=== PATIENT | male | born 1955 | race Caucasian/White ===

== ENCOUNTER 2018-05-01 14:03 | Emergency (ER) | payer OTHER, SELFPAY ==
--- OUTSIDE RECORDS SUMMARY | 2018-05-01 14:07 | XMS REPORT | Continuity of Care Document ---
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 [facility] OF THE LEFT RING Medical [facility] DEGLOVING INJURY Active 02/27/20 [facility] OF FINGER [address] [place] [address] Center UNSTABLE ANGINA Active 02/11/[address] CAD (<span Resolved Problem 03/03/2017 [facility] ID="[id number]"> Medical Confirmed</span>) [place] Back pain Active Problem 03/03/2017 [facility] Coronary artery Active Problem 03/03/2017 [facility] Unstable angina Active Problem 03/03/2017 [facility] Back pain Active Problem 02/13/2013 [facility] Coronary artery Active Problem 02/13/2013 [facility] Unstable angina Active Problem 02/13/2013 [facility] 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 [facility] Coronary Active Diagnosis 04/01/2018 [facility] angioplasty status Cardiac Clinic CAD of [place] Active Problem 04/01/2018 [facility] Artery W Angina Cardiac Clinic Benign essential Active Diagnosis 04/01/2018 [facility] HTN [facility]iac [facility] Hyperlipidemia Active Problem 04/01/2018 [facility] CAD of [place] Active Problem 04/01/2018 [facility] Artery w/o Angina Cardiac Clinic Coronary stent or Active Diagnosis 06/24/2016 [facility] PTCA, status post Cardiac Clinic Coronary Active Problem 12/02/2014 [facility] atherosclerosis of Cardiac hopi vessel Clinic Hyperlipidemia NOS Active Problem 12/02/2014 [facility] Angina Pectoris Active Problem 12/02/2014 [facility] Hypertension Active Problem 12/02/2014 [facility] Preop Active Diagnosis 04/01/2018 [facility] cardiovascular Cardiac exam Clinic Hypertensive Active Diagnosis 06/24/2016 [facility] crisis, Cardiac unspecified Clinic Hyperlipidemia, Active Diagnosis 06/24/2016 [facility] unspecified [facility]iac [facility] Other Active Diagnosis 06/24/2016 [facility] hyperlipidemia Cardiac Clinic Atherosclerotic Active Diagnosis 06/24/2016 [facility] heart disease of Cardiac hopi coronary Clinic artery without angina pectoris UNSP OPEN WOUND OF Active [facility] FINGER W/O Medical [facility] Center Medications Medication Details Route Status Patient Ordering Order Source Instructions Provider Date Clindamycin 300 mg, 2 cap, Inactive [place] Route: PO, 2017 Medical Drug form: Center CAP, ABXQ6H, Dosing Weight 86.477, kg, Start date: 02/28/17 13:00:00 CDT, Duration: 7 day, Stop date: 03/07/17 7:00:00 CDT, ABX Indication: Bone/Joint InfectionNotes : (Same As: Cleocin) Acetaminophen 2 tab, PO, Active [place] 325 MG / Q6H, PRN Pain 2017 Medical Hydrocodone Score 7-10, 0 Center Bitartrate 10 Refill(s) MG Oral Tablet [[place] 10/325] clindamycin 300 mg, PO, Active [place] 300 mg oral ABXQ6H, 0 2017 Medical capsule Refill(s) Center Acetaminophen 2 tab, Route: Inactive [facility] 325 MG / PO, Drug Form: 2016 Medical Hydrocodone TAB, Dosing Center Bitartrate 10 Weight 86.477, MG Oral Tablet kg, Q6H, PRN [[place] 10/325] Pain Score 7-10, Start date: 02/28/17 12:33:00 CDT, Duration: 30 day, Stop date: 03/30/17 12:32:00 CDTNotes: Do not exceed 4gm/day of acetaminophen. (Same as: [place] 325/10) Docusate 50 mg=1 cap, Active [place] Sodium 50 MG PO, BID, PRN 2017 Medical Oral Capsule Constipation, Center # 60 cap, 0 Refill(s) clindamycin 300 mg=1 cap, Active [place] 300 mg oral PO, Q6H, # 28 2017 Medical capsule cap, 0 Center Refill(s) Lamictal 150 mg, Route: No Longer [place] PO, Drug form: Active 2017 Medical TAB, Daily, Center Dosing Weight 86.477, kg, Start date: 02/28/17 9:00:00 CDT, Duration: 30 day, Stop date: 03/29/17 9:00:00 CDT Lorazepam 1 mg, 1 tab, No Longer [facility] Route: PO, Active 2016 Medical Drug form: Center TAB, Daily, Dosing Weight 86.477, kg, PRN Anxiety, Start date: 02/27/17 20:25:00 CDT, Duration: 30 day, Stop date: 03/29/17 20:24:00 CDTNotes: (Same as: Ativan) atorvastatin 20 mg=1 tab, Active [place] 20 MG Oral PO, Daily, 0 2016 Medical Tablet Refill(s) Center [Lipitor] Lorazepam 1 MG 1 mg=1 tab, Active [place] Oral Tablet PO, Daily, PRN 2017 Medical [Ativan] Anxiety, # 60 Center tab, 0 Refill(s) LaMICtal 50 mg, 2 tab, No Longer [place] Route: PO, Active 2016 Medical Drug form: Center TAB, Daily, Start date: 02/27/17 14:00:00 CDT, Duration: 30 day, Stop date: 03/29/17 9:00:00 CDTNotes: (Same as:LaMICtal) Acetaminophen 1 tab, Route: No Longer [place] 300 MG / PO, Drug Form: Active 2016 Medical Codeine TAB, Dosing Center Phosphate 30 Weight 86.477, MG Oral Tablet kg, Q4H, PRN [Tylenol with Pain Score Codeine #3] 1-3, Start date: 02/27/17 9:02:00 CDT, Duration: 30 day, Stop date: 03/29/17 9:01:00 CDTNotes: Do not exceed 4gm/day of acetaminophen. (Same as: Tylenol with Codeine # 3) Acetaminophen 2 tab, Route: No Longer [place] 300 MG / PO, Drug Form: Active 2016 Medical Codeine TAB, Dosing Center Phosphate 30 Weight 86.477, MG Oral Tablet kg, Q4H, PRN [Tylenol with Pain Score Codeine #3] 4-6, Start date: 02/27/17 9:01:00 CDT, Duration: 30 day, Stop date: 03/29/17 9:00:00 CDTNotes: Do not exceed 4gm/day of acetaminophen. (Same as: Tylenol with Codeine # 3) Benadryl 25 mg, 1 cap, No Longer [place] Route: PO, Active 2016 Medical Drug form: Center CAP, TID, Dosing Weight 86.477, kg, PRN Itching, Start date: 02/27/17 9:01:00 CDT, Duration: 30 day, Stop date: 03/29/17 9:00:00 CDTNotes: (Same as: Benadryl) Docusate 100 mg, 1 cap, No Longer [place] Route: PO, Active 2016 Medical Drug form: [place] CAP, BID, Dosing Weight 84.091, kg, Start date: 02/27/17 9:00:00 CDT, Duration: 30 day, Stop date: 03/28/17 17:00:00 CDTNotes: (Same as: Colace) (Do Not Crush) Plavix 75 mg, 1 tab, No Longer [place] Route: PO, Active 2016 Medical Drug form: [place] TAB, Daily, Dosing Weight 84.091, kg, Start date: 02/27/17 9:00:00 CDT, Duration: 30 day, Stop date: 03/28/17 9:00:00 CDTNotes: (Same As: Plavix) Ancef + sodium 2 gm, Route: No Longer [place] chloride 0.9% IVPB, Q8H, Active 2016 Medical INJ 100 mL Dosing Weight [place] 84.091, kg, Start date: 02/27/17 9:00:00 CDT, Duration: 1 day, Stop date: 02/28/17 1:00:00 CDT, ABX Indication: Surgical ProphylaxisNot es: (Same As: Ancef, Kefzol) Cefazolin FOR IV SET ONLY MEDICATION WASTE Product Size: 1000 mg Product Wasted: ___ mg Lipitor 40 mg, 1 tab, No Longer [place] Route: PO, Active 2016 Medical Drug form: [place] TAB, Daily, Dosing Weight 84.091, kg, Start date: 02/27/17 9:00:00 CDT, Duration: 30 day, Stop date: 03/28/17 9:00:00 CDTNotes: (Same as: Lipitor) Aspirin 81 MG 81 mg, 1 tab, No Longer [place] Chewable Route: PO, Active 2016 Medical Tablet Drug form: [place] CHEWTAB, Daily, Dosing Weight 84.091, kg, Start date: 02/27/17 9:00:00 CDT, Duration: 30 day, Stop date: 03/28/17 9:00:00 CDTNotes: Take with food. lamotrigine 150 mg=1 tab, Active [facility] 150 MG Oral PO, Daily, # 2017 Medical Tablet 30 tab, 1 Center [Lamictal] Refill(s) Ativan Bedtime, 0 Inactive [facility] Refill(s) 2017 [facility] ePHEDrine Route: IV, Inactive [facility] (ANES) Drug form: 2017 Medical INJ, ONCE, Center Stop date: 02/27/17 1:57:00 CDT sugammadex Route: IV, Inactive [facility] (ANES) Drug form: 2017 Medical SOLN, ONCE, Center Stop date: 02/27/17 1:57:00 CDT ceFAZolin Route: IV, Inactive [facility] (ANES) Drug form: 2017 Medical INJ, ONCE, Center Stop date: 02/27/17 1:57:00 CDT acetaminophen Route: IV, Inactive [facility] (ANES) Drug form: 2017 Medical INJ, ONCE, Center Stop date: 02/27/17 1:57:00 CDT ondansetron Route: IV, Inactive [facility] (ANES) Drug form: 2017 Medical INJ, ONCE, Center Stop date: 02/27/17 1:57:00 CDT fentaNYL Route: IV, Inactive [facility] (ANES) Drug form: 2017 Medical INJ, ONCE, Center Stop date: 02/27/17 1:50:00 CDT propofol Route: IV, Inactive [facility] (ANES) Drug form: 2017 Medical INJ, ONCE, Center Stop date: 02/27/17 1:50:00 CDT rocuronium Route: IV, Inactive [facility] (ANES) Drug form: 2017 Medical INJ, ONCE, Center Stop date: 02/27/17 1:50:00 CDT midazolam Route: IV, Inactive [facility] (ANES) Drug form: 2017 Medical SOLN, ONCE, Center Stop date: 02/27/17 1:50:00 CDT lidocaine Route: IV, Inactive [facility] (ANES) Drug form: 2017 Medical INJ, ONCE, Center Stop date: 02/27/17 1:50:00 CDT Flumazenil 0.2 mg, Route: Inactive [facility] IVP, PRN, 2017 Medical Dosing Weight Center 84.091, kg, PRN Benzodiazepine Reversal, Initial dose, Start date: 02/27/17 1:33:00 CDT, Duration: 30 day, Stop date: 03/29/17 1:32:00 CDT Naloxone 0.4 mg, Route: Inactive [facility] IVP, Q2MIN, 2017 Medical Dosing Weight Center 84.091, kg, PRN Narcotic Reversal, Start date: 02/27/17 1:33:00 CDT, Duration: 8 doses or times, Stop date: Limited # of times Ondansetron 4 mg, Route: Inactive [facility] IVP, ONCE, 2017 Medical Dosing Weight Center 84.091, kg, PRN Nausea & Vomiting, Start date: 02/27/17 1:33:00 CDT Oxycodone 10 mg, Route: Inactive [facility] PO, Drug form: 2017 Medical TAB, Q4H, Center Dosing Weight 84.091, kg, PRN Pain Score 7-10, Start date: 02/27/17 1:33:00 CDT, Duration: 30 day, Stop date: 03/29/17 1:32:00 CDT Hydromorphone 0.5 mg, Route: Inactive [facility] IVP, Q5Min, 2017 Medical Dosing Weight Center 84.091, kg, PRN Pain Score 7-10, Start date: 02/27/17 1:33:00 CDT, Duration: 4 doses or times, Stop date: Limited # of times LR 1000 mL INJ Route: IV, Inactive [facility] (ANES) Total Volume: 2017 Medical 1,000, Start Center date: 02/27/17 1:06:00 CDT, Stop date: 02/27/17 2:06:00 CDT Acetaminophen 2 tab, Route: Inactive [place] 325 MG / PO, Drug Form: 2017 Medical Hydrocodone TAB, Dosing Center Bitartrate 5 Weight 84.091, MG Oral Tablet kg, Q4H, PRN Pain Score 7-10, Start date: 02/27/17 0:20:00 CDT, Duration: 30 day, Stop date: 03/29/17 0:19:00 CDTNotes: (Same as: [place] 325/5) Do not exceed 4gm/day of acetaminophen. Ondansetron 4 mg, 2 mL, No Longer [place] Route: IVP, Active 2016 Medical Drug form: Center INJ, Q6H, Dosing Weight 84.091, kg, PRN Nausea & Vomiting, Start date: 02/27/17 0:20:00 CDT, Duration: 30 day, Stop date: 03/29/17 0:19:00 CDTNotes: (Same as: [place]) MEDICATION WASTE Product Size: 4 mg Product Wasted: ___ mg Alprazolam 2 2 mg, 4 tab, No Longer [place] MG Oral Tablet Route: PO, Active 2016 Medical [Xanax] Drug form: Center TAB, TID, Dosing Weight 84.091, kg, PRN Anxiety, Start date: 02/27/17 0:16:00 CDT, Duration: 30 day, Stop date: 03/29/17 0:15:00 CDTNotes: With food or milk (Same as: Xanax) Lidocaine 100 mg, 10 mL, Inactive [place] Hydrochloride Route: 2017 Medical 10 MG/ML INTRADERM, [place] Injectable Drug Form: Solution INJ, Dosing Weight 84.091, kg, ONCE, Start date: 02/26/17 22:22:00 CDT, Stop date: 02/26/17 22:22:00 CDTNotes: (Same as: Xylocaine) Lipitor 1 tab(s) orally Active 20 orally [facility] once a day 2016 Cardiac (at bedtime) Clinic Lipitor 1 tab(s) orally Active 20 orally [facility] Weinstein once a day 2015 Cardiac (at bedtime) Clinic Plavix 1 tab(s) orally Active 75 orally [facility] Britt once a day 2015 Cardiac Clinic Celebrex 1 cap(s) orally No Longer 200 mg orally [facility] Weinstein Active once a day 2013 Cardiac Clinic Zetia 10 mg 10 mg, 1 tab, PO Active [facility] oral tablet PO, Daily, 90 2012 [facility], City Substitution Allowed, TAB nitroglycerin 0.4 mg, 1 tab, SL Active [facility] 0.4 mg SL, Q5Min, 2012 [facility] sublingual PRN, 25 tab, [facility] tablet Chest Pain, Substitution Allowed, TAB metoprolol 50 50 mg, 1 tab, PO Active [facility] mg oral PO, Daily, 90 2012 [facility] tablet, tab, [facility] extended Substitution release Allowed, ERTAB Saline Flush 5 ml, Route: IVP No Longer [facility] 0.9% IVP, Drug Active 2012 [facility] Form: INJ, [facility] Dosing Weight 108.636, kg, Q12H, Start date: 02/10/13 21:00:00, Duration: 30 day, Stop date: 03/12/13 9:00:00 aspirin 81 mg 81 mg, 1 tab, PO Active tablet, PO, Daily, 2012 [facility] chewable [facility] Substitution Allowed, CHEWTAB Plavix 75 mg 75 mg, 1 tab, PO Active oral tablet PO, Daily, 30 2012 [facility] Substitution Allowed, TAB LORAzepam 2 mg 2 mg, 1 tab, PO No Longer oral tablet PO, TID, PRN, Active 2012 [facility] 20 tab, [facility] Anxiety, Substitution Allowed Lipitor 40 mg, 1 tab, PO No Longer [facility] Route: PO, Active 2012 [facility] Drug form: [facility] TAB, QPM, Dosing Weight 107.273, kg, Start date: 02/10/13 17:00:00, Duration: 30 day, Stop date: 03/11/13 17:00:00 BD Normal 3 mL, Route: IV No Longer [facility] Saline Flush IV, Drug Form: Active [address] [place] [address] INJ, Q8H, [facility] Start date: 02/10/13 16:00:00, Duration: 30 day, Stop date: 03/12/13 8:00:00 Ativan 0.5 mg, 1 tab, PO No Longer [facility] Route: PO, Active 2012 [facility] Drug form: [facility] TAB, TID, Dosing Weight 107.273, kg, PRN Anxiety, Start date: 02/10/13 15:35:00, Duration: 30 day, Stop date: 03/12/13 15:34:00 morphine 2 mg, 1 mL, IVP No Longer [place] Sulfate Route: IVP, Active 2012 [facility] Drug form: City INJ, ONCE, Dosing Weight 107.273, kg, Start date: 02/10/13 15:31:00, Stop date: 02/10/13 15:31:00 morphine 2 mg, 1 mL, IV No Longer [place] Sulfate Route: IV, Active 2012 [facility] Drug form: City INJ, Q15Min, PRN Chest Pain, Start date: 02/10/13 14:00:00, Duration: 2 doses or times, Stop date: Limited # of times Restoril 15 mg, 1 cap, PO No Longer [place] Route: PO, Active 2012 [facility] Drug form: [place] CAP, Bedtime, PRN Sleep, Start date: 02/10/13 14:00:00, Duration: 30 day, Stop date: 03/12/13 13:59:00 nitroglycerin 0.4 mg, 1 tab, SL No Longer [place] 0.4 mg Route: SL, Active 2012 [facility] sublingual Drug form: [facility] tablet TAB, Q5Min, PRN Chest Pain, Start date: 02/10/13 14:00:00, Duration: 30 day, Stop date: 03/12/13 13:59:00 metoprolol 50 mg, 1 tab, PO No Longer [place] Route: PO, Active 2012 [facility] Drug form: [place] ERTAB, Daily, Start date: 02/10/13 13:58:00, Duration: 30 day, Stop date: 03/12/13 9:00:00 Plavix 75 mg, 1 tab, PO No Longer [place] Route: PO, Active 2012 [facility] Drug form: [place] TAB, Daily, Start date: 02/10/13 13:57:00, Duration: 30 day, Stop date: 03/12/13 9:00:00 aspirin 325 mg 325 mg, 1 tab, PO No Longer [place] tablet Route: PO, Active 2012 [facility] Drug form: [place] TAB, ONCE, Start date: 02/10/13 13:57:00, Stop date: 02/10/13 13:57:00 Saline Flush 5 ml, Route: IVP No Longer [place] 0.9% IVP, Drug Active 2012 [facility] Form: INJ, City Dosing Weight 108.636, kg, PRN, PRN Line Flush, Start date: 02/10/13 13:22:00, Duration: 30 day, Stop date: 03/12/13 13:21:00 Lipitor 40 mg 40 mg, 1 tab, PO Active oral tablet PO, Daily, 2012 [facility] tab, [facility] Substitution Allowed, TAB Xanax 2 mg 2 mg, 1 tab, PO Active oral tablet PO, TID, PRN, 2012 [facility] Anxiety, [facility] Substitution Allowed Nitrostat 1 tab(s) sublinguall Active 0.4 mg [facility] Britt y sublingually 2011 Cardiac every 5 Clinic minutes alprazolam 1 tab(s) orally Active 1 mg orally [facility] Britt as needed for 2011 Cardiac nervousness Clinic every 8 hour Lipitor 1 tab(s) orally Active 20 mg orally [facility] 11/16[facility] once a day 2011 Cardiac (at bedtime) Clinic alprazolam 1 tab(s) orally Active 1 mg orally [facility] 11/16[facility] as needed for 2011 Cardiac nervousness Clinic every 8 hour Toprol XL 1 tab(s) orally Active 25 mg orally [facility] Britt once a day 2010 Cardiac Clinic Toprol XL 1 tab(s) orally Active 25 mg orally [facility] Britt once a day 2010 Cardiac Clinic acetaminophen- 1 tab, Route: PO No Longer [place] hydrocodone PO, Drug Form: Active 2010 [facility] 325 mg-7.5 mg TAB, Q6H, PRN [facility] oral tablet Pain, Start date: 07/22/11 13:52:00, Duration: 30 day, Stop date: 08/21/11 13:51:00 BD Normal 10 mL, Route: IV No Longer [place] Saline Flush IV, Drug Form: Active 2010 [facility] INJ, PRN, PRN [facility] Line Flush, Start date: 07/22/11 1:09:00, Duration: 30 day, Stop date: 08/21/11 1:08:00 Sodium 25 mL, Route: IV No Longer [place] Chloride 0.9% IV, PRN, Line Active 2010 [facility] IV Flush, Start [facility] date: 07/22/11 1:09:00, Duration: 30 day, Stop date: 08/21/11 1:08:00 BD Normal 10 mL, Route: IV No Longer [facility] Saline Flush IV, Drug Form: Active 2010 [facility] INJ, Q8H, [facility] Start date: 07/22/11 0:00:00, Duration: 30 day, Stop date: 08/20/11 16:00:00 Lipitor 40 mg, 1 tab, PO No Longer [facility] Route: PO, Active 2010 [facility] Drug form: [facility] TAB, QPM, Start date: 07/21/11 17:51:00, Duration: 30 day, Stop date: 08/20/11 17:00:00 aspirin 81 mg 81 mg, 1 tab, CHEW No Longer [facility] tablet, Route: CHEW, Active 2010 [facility] chewable Drug form: [facility] CHEWTAB, Daily, Start date: 07/21/11 17:50:00, Duration: 30 day, Stop date: 08/20/11 9:00:00 Ativan 0.5 mg, 1 tab, PO No Longer [facility] Route: PO, Active 2010 [facility] Drug form: [facility] TAB, Bedtime, PRN See Nurse's Notes, Start date: 07/21/11 17:50:00, Duration: 30 day, Stop date: 08/20/11 17:49:00 metoprolol 25 mg, 1 tab, PO No Longer [place] Route: PO, Active 2010 [facility] Drug form: [facility] ERTAB, BID, Start date: 07/21/11 17:49:00, Duration: 30 day, Stop date: 08/20/11 17:00:00 Plavix 75 mg, 1 tab, PO No Longer [place] Route: PO, Active 2010 [facility] Drug form: [facility] TAB, Daily, Start date: 07/21/11 17:49:00, Duration: 30 day, Stop date: 08/20/11 9:00:00 atropine 1 mg, 10 mL, IVP No Longer [place] Route: IVP, Active 2010 [facility] Drug form: City INJ, Q5Min, PRN Other -See Comment, Start date: 07/21/11 17:48:00, Duration: 30 day, Stop date: 08/20/11 17:47:00 epinephrine 1 mg, 10 mL, IVP No Longer [place] Route: IVP, Active 2010 [facility] Drug form: City INJ, Q5Min, PRN Asystole, Start date: 07/21/11 17:48:00, Duration: 30 day, Stop date: 08/20/11 17:47:00 nitroglycerin 0.4 mg, 1 tab, SL No Longer [place] 0.4 mg Route: SL, Active [address] [place] [address] sublingual Drug form: City tablet TAB, PRN, PRN Chest Pain, Start date: 07/21/11 17:48:00, Duration: 30 day, Stop date: 08/20/11 17:47:00 Cordarone 150 mg, 3 mL, IVPB No Longer [place] Route: IVPB, Active [address] [place] [address] PRN, PRN See [facility] Nurse's Notes, Start date: 07/21/11 17:48:00, Duration: 30 day, Stop date: 08/20/11 17:47:00 Plavix 1 tab(s) orally Active 75 mg orally [facility] 11/14/ [facility] once a day 2008 Cardiac Clinic Plavix take one ORALLY Active 75 ORALLY [facility] tablet by ONCE A DAY Cardiac mouth daily Clinic aspirin 1 tab(s) orally Active 81 mg orally [facility] once a day Cardiac Clinic lamotrigine 1 tab(s) orally Active 150 mg orally [facility] 2 times a day Cardiac Clinic meloxicam 1 tab(s) orally Active 15 mg orally [facility] once a day Cardiac Clinic aspirin 1 tab(s) orally Active 81 mg orally [facility] once a day Cardiac Clinic Dexilant 1 cap(s) orally Active 60 mg orally [facility] once a day Cardiac Clinic meloxicam 1 tab(s) orally Active 15 mg orally [facility] once a day Cardiac Clinic lamotrigine 1 tab(s) orally Active 150 mg orally [facility] Weinstein 2 times a day Cardiac Clinic Dexilant 1 cap(s) orally Active 60 mg orally [facility] once a day Cardiac Clinic Plavix TAKE ONE NA Active 75 [facility] TABLET BY Cardiac MOUTH DAILY Clinic Lipitor 1 tab(s) orally Active 20 orally [facility] Britt once a day Cardiac (at bedtime) Clinic Allergies, Adverse Reactions, Alerts Substance Category Reaction Severity Reaction Status Date Comments Source type Reported N.K.D.A. Adverse Info Not Adverse Active [facility] Reaction Available Reaction 8 Cardiac Clinic NKDA drug Allergy Active [facility] NKFA food Allergy Active [facility] Immunizations Immunization Date Given Site Status Last Updated Comments Source Results Order Name Results Value Reference Date Interpretation Comments Source Range CHEM PANEL Phosphorus 2.8 2.5 - 4.5 02/28 [place] mg/dL /2016 [facility] CHEM PANEL Magnesium 2.0 1.8 - 2.4 02/28 [facility] Lvl mg/dL [facility] CHEM PANEL eGFR 65 02/28 Result Comment: The eGFR is calculated using the CKD-EPI formula. In most young, healthy individuals the eGFR will be >90 mL/ min/1.73m2. The eGFR declines with age. An eGFR of 60-89 may be normal in [facility] mL/min /2016 some populations, particularly the elderly, for whom the CKD-EPI formula has not been extensively validated. Use of the eGFR is not recommended in the following populations: Medical /1.73 Center 2 Individuals with unstable creatinine concentrations, including patients and those with serious co-morbid conditions. Patients with extremes in muscle mass or diet. The data above are obtained from the National Kidney Disease Education Program (NKDEP) which additionally recommends that when the eGFR is used in patients with extremes of body mass index for purposes of drug dosing, the eGFR should be multiplied by the estimated BMI. CHEM PANEL Potassium 4.2 3.5 - 5.1 02/28 [facility] Lvl meq/L [facility] CHEM PANEL Calcium Lvl 8.4 8.5 - 10.5 02/28 [place] mg/dL [facility] CHEM PANEL CO2 30 24 - 32 02/28 [facility] meq/L [facility] CHEM PANEL Chloride Lvl 104 95 - 109 02/28 [facility] meq/L [facility] CHEM PANEL Sodium Lvl 138 135 - 145 02/28 [facility] meq/L /2016 [facility] CHEM PANEL Creatinine 1.21 0.50 - 07 [place] Lvl mg/dL 1.40 /2016 [facility] CHEM PANEL BUN 11 7 - 22 02/28 [facility] mg/dL /2016 [facility] CHEM PANEL Glucose Lvl 88 70 - 99 02/28 [facility] mg/dL /2016 [facility] CHEM PANEL AGAP 8.2 10.0 - 02/28 [facility] meq/L 20.0 /2016 [facility] HEMATOLOGY WBC 8.9 3.7 - 10.4 02/28 [facility] K/CMM [facility] HEMATOLOGY MPV 8.6 fL 7.4 - 10.4 07/ [facility] HEMATOLOGY RDW 14.0 % 11.5 - 07 [facility] 14.5 /2016 [facility] HEMATOLOGY MCHC 33.0 32.0 - 07 [facility] g/dL 36.0 /2016 [facility] HEMATOLOGY MCH 29.7 27.0 - 02/28 [facility] pg 31.0 /2016 [facility] HEMATOLOGY MCV 89.9 80.0 - 02/28 [facility] fL 94.0 /2016 [facility] HEMATOLOGY Hct 41.0 % 42.0 - 02/28 [place] 54.0 /2016 [facility] HEMATOLOGY RBC 4.56 4.70 - 07 [facility] M/CMM 6.10 /2016 [facility] HEMATOLOGY Hgb 13.5 14.0 - 02/28 [facility] g/dL 18.0 /2016 [facility] HEMATOLOGY Platelet 207 133 - 450 02/28 [facility] K/CMM [facility] HEMATOLOGY Lymphocytes 18.3 % 20.0 - 07/09 [place] 40.0 /2016 [facility] HEMATOLOGY Monocytes 10.5 % 2.0 - 12.0 07/ 2017 [facility] HEMATOLOGY Segs 66.4 % 45.0 - 07/ [place] 75.0 /2016 [facility] HEMATOLOGY Eosinophils 4.3 % 0.0 - 4.0 07/ [facility] 2017 [facility] HEMATOLOGY Eosinophils 0.4 0.0 - 0.5 07 [place] # K/CMM 2017 [facility] HEMATOLOGY Monocytes # 0.9 0.0 - 0.8 07/ [facility] K/CMM 2017 [facility] HEMATOLOGY Lymphocytes 1.6 1.0 - 5.5 07 [facility] # K/CM [facility] HEMATOLOGY Segs-Bands # 5.9 1.5 - 8.1 02/28 [facility] K/ [facility] HEMATOLOGY Basophils 0.5 % 0.0 - 1.0 02/28 [facility] CHEMISTRY Troponin-I null 0.00 - 02/10 Normal MH 0.40 /2012 [facility] CHEMISTRY Total CK 70 12 - 191 02/10 Normal MH unit/L /2012 [facility] CHEMISTRY AGAP 13.9 10.0 - 02/10 Normal MH meq/L 20.0 /2012 [facility] CHEMISTRY eGFR 61 02/10 NA 1Result Comment: The eGFR is calculated using the CKD-EPI formula. In most young, healthy individuals the eGFR will be > 90 mL/min/1.73m2. The eGFR declines with age. An eGFR of 60-89 may be normal in mL/min some populations, particularly the elderly, for whom the CKD-EPI formula has not been extensively validated. Use of the eGFR is not recommended in the following populations: [facility] [place] [address] 2 Individuals with unstable creatinine concentrations, including patients and those with serious co-morbid conditions. Patients with extremes in muscle mass or diet. The data above are obtained from the National Kidney Disease Education Program (NKDEP) which additionally recommends that when the eGFR is used in patients with extremes of body mass index for purposes of drug dosing, the eGFR should be multiplied by the estimated BMI. CHEMISTRY Glucose Lvl 84 70 - 99 02/10 Normal 2Interpretive Data: Adult reference range values reflect the clinical guidelines MH mg/dL /2012 of the [employer]. [facility] CHEMISTRY Creatinine 1.3 0.5 - 1.4 02/10 Normal MH Lvl mg/dL /2012 [facility] CHEMISTRY BUN 13 7 - 22 02/10 Normal MH mg/dL /2012 [facility] CHEMISTRY Chloride Lvl 104 95 - 109 02/10 Normal MH meq/L [facility] CHEMISTRY Potassium 3.9 3.5 - 5.1 02/10 Normal MH Lvl meq/L /2012 [facility] CHEMISTRY Calcium Lvl 9.1 8.5 - 10.5 02/10 Normal MH mg/dL [facility] CHEMISTRY CO2 28 24 - 32 02/10 Normal MH meq/L [facility] CHEMISTRY Sodium Lvl 142 135 - 145 02/10 Normal MH meq/L [facility] CHEMISTRY Chol 193 <=199 02/10 Normal 3Interpretive MH mg/dL /2012 Data: [facility] ranges are based City on the clinical guidelines of the [employer] National Cholesterol Education Program (ATP III, 2000). CHEMISTRY HDL 74 >=61 02/10 Normal 5Interpretive MH mg/dL /2012 Data: Reference [facility] ranges are based City on the clinical guidelines of the NHLBI National Cholesterol Education Program (ATP III, 2000). CHEMISTRY CHD Risk 2.61 4.00 - 02/10 LOW MH 7.30 /2012 [facility] CHEMISTRY LDL 98 <=99 02/10 Normal 6Interpretive MH mg/dL /2012 Data: Reference [facility] ranges are based City on the clinical guidelines of the [facility] National Cholesterol Education Program (ATP III, 2000). CHEMISTRY Trig 103 <=149 02/10 Normal 4Interpretive MH mg/dL /2012 Data: Reference [facility] ranges are based City on the clinical guidelines of the [facility] National Cholesterol Education Program (ATP III, 2000). CHEMISTRY Total CK 88 12 - 191 02/10 Normal unit/L /2012 [facility] CHEMISTRY Troponin-I null 0.00 - 02/10 Normal MH 0.40 [facility] CHEMISTRY CK MB Index null 0.0 - 2.5 02/10 Normal [facility] CHEMISTRY CK MB null 0.5 - 3.6 02/10 Normal MH /2012 [facility] HEMATOLOGY INR 0.88 0.85 - 02/10 Normal 7Interpretive Data: RECOMMENDED RANGES FOR PROTIME INR: 1.17 2.0-3.0 for most medical and surgical thromboembolic states. [facility] 2.5-3.5 for artificial heart valves and recurrent embolism. [facility] INR SHOULD BE USED ONLY FOR PATIENTS ON STABLE ANTICOAGULANT THERAPY. HEMATOLOGY PTT 26.5 s 22.9 - 02/10 Normal 10Interpretive MH 35.8 Data: Heparin [facility] Range: 57 - 92 Seconds HEMATOLOGY PT 12.2 s 12.0 - 02/10 Normal MH 14.7 [facility] HEMATOLOGY Monocytes 7.9 % 2.0 - 12.0 02/10 Normal MH /2012 [facility] HEMATOLOGY Eosinophils 2.7 % 0.0 - 4.0 02/10 Normal /2012 [facility] HEMATOLOGY Lymphocytes 23.5 % 20.0 - 02/10 Normal MH 40.0 [facility] HEMATOLOGY Segs 65.4 % 45.0 - 02/10 Normal MH 75.0 /2012 [facility] Monocytes # 0.6 0.0 - 0.8 02/10 Normal MH K/CM /2012 [facility] HEMATOLOGY Basophils # 0.0 0.0 - 0.2 02/10 Normal K/ [facility] HEMATOLOGY Eosinophils 0.2 0.0 - 0.5 02/10 Normal MH # K/CMM /2012 [facility] HEMATOLOGY Basophils 0.5 % 0.0 - 1.0 02/10 Normal /2012 [facility] HEMATOLOGY Segs-Bands # 5.1 1.5 - 8.1 02/10 Normal K/CMM /2012 [facility] HEMATOLOGY Lymphocytes 1.8 1.0 - 5.5 02/10 Normal # K/CMM /2012 [facility] HEMATOLOGY PTT Baseline 26.9 s 22.9 - 02/10 Normal 8Interpretive Data: FACTOR DEFICIENCIES may be congenital or acquired. Acquired deficiencies may be seen with gut sterilization or long-term 35.8 antibiotic use. Suggest appropriate factor assays, where [facility] clinically indicated. [facility] CIRCULATING INHIBITORS may be associated with either bleeding or thrombotic tendencies. Certain circulating inhibitors may be transient (drug-related or seocndary to autoimmune/inflammatory conditions). Suggest further studies as clinically indicated. HEMATOLOGY TT Baseline 15.2 s 15.0 - 02/10 Normal MH 21.1 [facility] PTT 1:1 Imm See Note 9 02/10 Normal 9Result Comment: Not indicated. [facility] (02/10/2013 14:01:00) [facility] Platelet 223 133 - 450 02/10 Normal K/ [facility] RDW 14.2 % 11.5 - 02/10 Normal 14.5 [facility] MPV 8.8 fL 7.4 - 10.4 02/10 Normal /2012 [facility] MCH 31.0 27.0 - 02/10 Normal pg 31.0 /2012 [facility] MCHC 33.5 32.0 - 02/10 Normal g/dL 36.0 [facility] MCV 92.8 80.0 - 02/10 Normal fL 94.0 [facility] Hct 46.9 % 42.0 - 02/10 Normal 54.0 [facility] HEMATOLOGY Hgb 15.7 14.0 - 02/10 Normal g/dL 18.0 /2012 [place] HEMATOLOGY RBC 5.05 4.70 - 02/10 Normal MH M/CMM 6.10 /2012 [facility] HEMATOLOGY WBC 7.8 3.7 - 10.4 02/10 Normal MH K/CMM /2012 [facility] CHEMISTRY LDL 83.0 0 - 129 07/21 Normal MH mg/dL /2010 [facility] CHEMISTRY Chol 171.0 120 - 200 07/21 Normal MH mg/dL /2010 [facility] CHEMISTRY Trig 98.0 0 - 200 07/21 Normal MH mg/dL /2010 [facility] CHEMISTRY HDL 68.0 >>=35 07/21 Normal MH mg/dL /2010 [facility] CHEMISTRY CHD Risk 2.51 4.00 - 07/21 LOW MH 7.30 /2010 [facility] CHEMISTRY Chloride Lvl 103.0 95 - 109 07/21 Normal MH meq/L /2010 [facility] CHEMISTRY CO2 29.0 24 - 32 07/21 Normal MH meq/L /2010 [facility] CHEMISTRY Calcium Lvl 9.0 8.5 - 10.5 07/21 Normal MH mg/dL [facility] CHEMISTRY Sodium Lvl 138.0 135 - 145 07/21 Normal MH meq/L [facility] CHEMISTRY Potassium 4.0 3.5 - 5.1 07/21 Normal MH Lvl meq/L /2010 [facility] CHEMISTRY BUN 12.0 7 - 22 07/21 Normal MH mg/dL [facility] CHEMISTRY Creatinine 1.3 0.5 - 1.4 07/21 Normal MH Lvl mg/dL [facility] CHEMISTRY Glucose Lvl 145.0 07/21 NA 1Interpretive MH mg/dL Data: Reference [facility] Ranges : 0 - 7 days : 41 - 90 mg/dL7 days - 150 yrs : 70 - 99 mg/dL (fasting), based on the clinical recommendations of the [employer]. CHEMISTRY AGAP 10.0 10.0 - 07/21 Normal MH meq/L 20.0 [facility] HEMATOLOGY Basophils # 0.0 0.0 - 0.2 07/21 Normal MH K/CMM [facility] HEMATOLOGY Lymphocytes 2.4 1.0 - 5.5 07/21 Normal MH # K/CMM /2010 [facility] HEMATOLOGY Eosinophils 0.3 0.0 - 0.5 07/21 Normal MH # K/CMM [facility] HEMATOLOGY Segs-Bands # 6.4 1.5 - 8.1 07/21 Normal MH K/CMM /2010 [facility] HEMATOLOGY Basophils 0.4 % 0.0 - 1.0 07/21 Normal MH /2010 [facility] HEMATOLOGY Monocytes 7.4 % 2.0 - 12.0 07/21 Normal MH /2010 [facility] HEMATOLOGY Eosinophils 2.7 % 0.0 - 4.0 07/21 Normal /2010 [facility] HEMATOLOGY Lymphocytes 24.3 % 20.0 - 07/21 Normal MH 40.0 /2010 [facility] HEMATOLOGY Monocytes # 0.7 0.0 - 0.8 07/21 Normal K/CMM /2010 [facility] HEMATOLOGY Segs 65.2 % 45.0 - 07/21 Normal MH 75.0 /2010 [facility] PT 12.8 s 12.0 - 07/21 Normal MH 14.7 [facility] HEMATOLOGY INR 0.96 0.85 - 07/21 Normal 2Interpretive MH 1.17 Data: [facility] RANGES FOR PROTIME INR: 2.0-3.0 for most medical and surgical thromboembolic states. 2.5-3.5 for artificial heart valves and recurrent embolism.INR SHOULD BE USED ONLY FOR PATIENTS ON STABLE ANTICOAGULANT THERAPY. HEMATOLOGY RDW 13.8 % 11.5 - 07/21 Normal MH 14. [facility] HEMATOLOGY MPV 9.1 fL 7.4 - 10.4 07/21 Normal MH /2010 [facility] Platelet 224.0 133 - 450 07/21 Normal K/CM [facility] HEMATOLOGY MCHC 33.8 32.0 - 07/21 Normal g/dL 36.0 /2010 [facility] HEMATOLOGY MCH 30.8 27.0 - 07/21 Normal pg 31.0 /2010 [facility] HEMATOLOGY MCV 91.0 80.0 - 07/21 Normal fL 94.0 /2010 [facility] HEMATOLOGY Hgb 14.5 14.0 - 07/21 Normal g/dL 18.0 [facility] HEMATOLOGY RBC 4.71 4.70 - 07/21 Normal M/CMM 6.10 [facility] HEMATOLOGY Hct 42.9 % 42.0 - 07/21 Normal MH 54.0 /2010 [facility] HEMATOLOGY WBC 9.9 3.7 - 10.4 07/21 Normal K/CMM [facility] Vital Signs Vital Sign Value Date Comments Source Weight 224.6 03/30/2018 [facility] Height 70 03/30/2018 [facility] Heart Rate 65 02/28/2017 [facility] Respitory Rate 18 02/28/2017 [facility] Systolic (mm Hg) 132 02/28/2017 [facility] Diastolic (mm Hg) 76 02/28/2017 [facility] Temperature Oral (F) 98 F 02/28/2017 [facility] Heart Rate 58 02/28/2017 [facility] Systolic (mm Hg) 134 02/28/2017 [facility] Diastolic (mm Hg) 78 02/28/2017 [facility] Respitory Rate 20 02/28/2017 [facility] Temperature Oral (F) 98.6 F 02/28/2017 [facility] Respitory Rate 20 02/28/2017 [facility] Heart Rate 65 02/28/2017 [facility] Temperature Oral (F) 97.9 F 02/28/2017 [facility] Systolic (mm Hg) 126 02/28/2017 [facility] Diastolic (mm Hg) 75 02/28/2017 [facility] Height 177.8 cm 02/27/2017 [facility] BMI Calculated 27.36 02/27/2017 [facility] Weight 86.477 02/27/2017 [facility] BMI Calculated 26.6 02/27/2017 [facility] Weight 84.091 02/27/2017 [facility] Height 177.8 cm 02/27/2017 [facility] Systolic (mm Hg) 130 10/07/2016 [facility] Weight 200 10/07/2016 [facility] Height 70 10/07/2016 [facility] Diastolic (mm Hg) 80 10/07/2016 [facility] Systolic (mm Hg) 122 06/22/2016 [facility] Weight 189 06/22/2016 [facility] Height 70 06/22/2016 [facility] Diastolic (mm Hg) 80 06/22/2016 [facility] Systolic (mm Hg) 120 11/27/2014 [facility] Weight 222 11/27/2014 [facility] Height 70 11/27/2014 [facility] Diastolic (mm Hg) 80 11/27/2014 [facility] Systolic (mm Hg) 120 05/17/2014 [facility] Weight 219.5 05/17/2014 [facility] Height 70 05/17/2014 [facility] Diastolic (mm Hg) 80 05/17/2014 [facility] Diastolic (mm Hg) 78 02/11/2013 [facility] Respitory Rate 20 02/11/2013 [facility] Systolic (mm Hg) 120 02/11/2013 [facility] Heart Rate 59 02/11/2013 [facility] Temperature Oral (F) 97.9 F 02/11/2013 [facility] Heart Rate 59 02/11/2013 [facility] Respitory Rate 20 02/11/2013 [facility] Temperature Oral (F) 97.7 F 02/11/2013 [facility] Systolic (mm Hg) 126 02/11/2013 [facility] Diastolic (mm Hg) 83 02/11/2013 [facility] Diastolic (mm Hg) 75 02/11/2013 [facility] Systolic (mm Hg) 133 02/11/2013 [facility] Temperature Oral (F) 98.1 F 02/11/2013 [facility] Respitory Rate 18 02/11/2013 [facility] Heart Rate 56 02/11/2013 [facility] Height 175.26 cm 02/10/2013 [facility] Weight 107.273 02/10/2013 [facility] Respitory Rate 20.0 07/23/2011 [facility] Systolic (mm Hg) 110.0 07/23/2011 [facility] Temperature Oral (F) 98.0 F 07/23/2011 [facility] Heart Rate 51.0 07/23/2011 [facility] Diastolic (mm Hg) 77.0 07/23/2011 [facility] Temperature Oral (F) 97.8 F 07/23/2011 [facility] Heart Rate 58.0 07/23/2011 [facility] Systolic (mm Hg) 103.0 07/23/2011 [facility] Respitory Rate 16.0 07/23/2011 [facility] Diastolic (mm Hg) 60.0 07/23/2011 [facility] Temperature Oral (F) 98.1 F 07/23/2011 [facility] Heart Rate 57.0 07/23/2011 [facility] Diastolic (mm Hg) 66.0 07/23/2011 [facility] Systolic (mm Hg) 122.0 07/23/2011 [facility] Respitory Rate 16.0 07/23/2011 [facility] Weight 108.636 07/21/2011 [facility] Height 175.26 cm 07/21/2011 [facility] Encounters Location Location Encounter Encounter Reason Attending ADM DC Status Source Details Type Number For Visit Provider Date Date [facility] [id number] UNSTABLE JACQUES 07/22 07/23 Active [facility] ANGINA ALFIE /2010 [facility] [id number] UNSTABLE JACQUES 02/10 02/11 Active [facility] ANGINA ALFIE /2012 [facility] follow up [id number] 05/17 05/17 [id number]- /[facility] [id number] [facility] follow up [id number] 11/27 11/27 [facility] [id number]- /[facility] [id number] [facility] follow up [id number] 11/27 11/27 [facility] [id number]- /[address] [facility] [id number] [facility] follow up [id number] 11/27 11/27 [facility] [id number]- /[address] [facility] [id number] [facility] follow up [id number] 11/27 11/27 [facility] [id number]- /[address] [facility] [id number] [facility] Refills [id number] 01/24 01/24 [facility] [id number]- /[address] [facility] [id number] [facility] Refills [id number] 01/24 01/24 [facility] [id number]- /[address] [facility] [id number] [facility] Refills [id number] 01/24 01/24 [facility] [id number]- /[id number] [facility] follow up [id number] 05/28 05/28 [facility] [id number]- /[address] [facility] [id number] [facility] follow up [id number] 05/28 05/28 [facility] [id number]- /[id number] [facility] follow up [id number] 05/28 05/28 [facility] [id number]- /[facility] [id number] [facility] up [id number] 06/22 06/22 [facility] [id number]- /[address] [id number] [facility] follow up [id number] 06/22 06/22 [facility] [id number]- /[address] [id number] [facility] follow up [id number] 06/22 06/22 [facility] [id number]- /[address] [id number] [facility] Unknown [id number] 06/23 06/23 [facility] [id number]- /[address] [facility] [id number] [facility] Unknown [id number] 06/23 06/23 [facility] [id number]- /[address] [id number] [facility] Unknown [id number] 06/23 06/23 [facility] [id number]- /[address] [facility] [id number] [facility] Unknown [id number] 10/07 10/07 [facility] [id number]- /2016 [facility] [id number] [facility]patient [id number] Demian 02/27 02/28 Vianney Edent /2016 [facility] Procedures Procedure Code Date Perfomer Comments Source Placement of [id number] [facility] Placement of [id number] [facility]
--- OUTSIDE RECORDS SUMMARY | 2018-05-01 14:08 | XMS REPORT ---
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
--- OUTSIDE RECORDS SUMMARY | 2018-05-01 14:08 | XMS REPORT ---
:1955 Author Organization [employer] Care Team Providers Name Role Phone YENZION NOE Provider Role Unavailable Allergies, Adverse Reactions, Alerts Substance Reaction Event Type N.K.D.A. 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 Medications Medication Code System Code Instructions Start End Date Status Dosage Date alprazolam [facility] 55870319887 1 mg orally as November 16, Active 1 tab(s) needed for 2011 nervousness every 8 hour lamotrigine [facility] 07554391012 150 mg orally 2 Active 1 tab(s) times a day Plavix [place] 64536573703 75 ORALLY ONCE A Active take one DAY tablet by mouth daily meloxicam ND 29384750359 15 mg orally Active 1 tab(s) once a day aspirin [place] 0 81 mg orally Active 1 tab(s) once a day Toprol XL [facility] 05003724295 25 mg orally Jul 23, Active 1 tab(s) once a day 2010 Dexilant ND 95450840776 60 mg orally Active 1 cap(s) once a day Lipitor ND 29138976034 20 orally once a January 14, Active 1 tab(s) day (at bedtime) 2016 Vital Signs Date/Time: Mar 30, 2018 BMI 32.22 Index Weight 224.6 lbs Height 70 in Results No Known Results Summary Purpose eClinicalWorks Submission
--- OUTSIDE RECORDS SUMMARY | 2018-05-01 14:08 | XMS REPORT | Summary of Care ---
:1955 Author Organization [facility] Address [address] [place] [id number]- Encounter HQ Encntr_papa(FIN) [id number] Date(s): 02/26/17 - 02/28/[address] Professional Services provided by [facility] [place] [address]- Discharge Disposition: Home or Self Care Attending Physician: Demian Chu MD Admitting Physician: Demian Chu MD Referring Physician: Ector Vasquez MD Vital Signs Most recent to oldest [Reference 1 2 3 Range]: Height 177.8 cm 177.8 cm (02/27/17 3:51 AM) (02/26/17 9:55 PM) Temperature Oral [96.4-99.1 DegF] 98 DegF 98.6 DegF 97.9 DegF (02/28/17 11:52 AM) (02/28/17 7:31 AM) (02/28/17 3:52 AM) Blood Pressure [90-140/60-90 132/76 mmHg 134/78 mmHg 126/75 mmHg mmHg] (02/28/17 11:52 AM) (02/28/17 7:31 AM) (02/28/17 3:52 AM) Respiratory Rate [14-20 BRMIN] 18 BRMIN 20 BRMIN 20 BRMIN (02/28/17 11:52 AM) (02/28/17 7:31 AM) (02/28/17 3:52 AM) Peripheral Pulse Rate [60-100 65 bpm 58 bpm 65 bpm bpm] (02/28/17 11:52 AM) *LOW* (02/28/17 3:52 AM) (02/28/17 7:31 AM) Weight 86.477 kg 84.091 kg (02/27/17 3:51 AM) (02/26/17 9:55 PM) Body Mass Index 27.36 m2 26.6 m2 (02/27/17 3:51 AM) (02/26/17 9:55 PM) Problem List Condition Effective Dates Status Health Status Informant CAD (coronary artery Resolved disease)(Confirmed) Back pain(Confirmed) Active Coronary artery disease(Confirmed) Active Unstable angina(Confirmed) Active Allergies, Adverse Reactions, Alerts Substance Reaction Severity Status NKDA Active NKFA Active Medications acetaminophen (ANES) Route: IV, Drug form: INJ, ONCE, Stop date: 02/27/17 1:57:00 CDT Start Date: 02/27/17 Stop Date: 02/27/17 Status: Completedacetaminophen-hydrocodone 325 mg-5 mg oral tablet 2 tab, Route: PO, Drug Form: TAB, Dosing Weight 84.091, kg, Q4H, PRN Pain Score 7-10, Start date: 02/27/17 0:20:00 CDT, Duration: 30 day, Stop date: 03/29/17 0: 19:00 CDT Notes: (Same as: [place] 325/5) Do not exceed 4gm/day of acetaminophen. Start Date: 02/27/17 Stop Date: 02/27/17 Status: Discontinuedacetaminophen-hydrocodone 325 mg-5 mg oral tablet 1 tab, Route: PO, Drug Form: TAB, Dosing Weight 84.091, kg, Q4H, PRN Pain Score 4-6, Start date: 02/27/17 0:20:00 CDT, Duration: 30 day, Stop date: 03/29/17 0: 19:00 CDT Notes: (Same as: [place] 325/5) Do not exceed 4gm/day of acetaminophen. Start Date: 02/27/17 Stop Date: 02/27/17 Status: DiscontinuedAncef + sodium chloride 0.9% INJ 100 mL 2 gm, Route: IVPB, Q8H, Dosing Weight 84.091, kg, Start date: 02/27/17 9:00:00 CDT, Duration: 1 day,Stop date: 02/28/17 1:00:00 CDT, ABX Indication: Surgical Prophylaxis Notes: (Same As: Ancef, Kefzol)Cefazolin FOR IV SET ONLY MEDICATION WASTE Product Size:1000 mgProduct Wasted: ___ mg Start Date: 02/27/17 Stop Date: 02/28/17 Status: CompletedANES flumazenil 0.2 mg, Route: IVP, PRN, Dosing Weight 84.091, kg, PRN Benzodiazepine Reversal, Initial dose, Start date: 02/27/17 1:33:00 CDT, Duration: 30 day, Stop date: 03/08 1:32:00 CDT Start Date: 02/27/17 Stop Date: 02/27/17 Status: DiscontinuedANES HYDROmorphone 0.5 mg, Route: IVP, Q5Min, Dosing Weight 84.091, kg, PRN Pain Score 7-10, Start date: 02/27/17 1:33:00 CDT, Duration: 4 doses or times, Stop date: Limited # of times Start Date: 02/27/17 Stop Date: 02/27/17 Status: DiscontinuedANES naloxone 0.4 mg, Route: IVP, Q2MIN, Dosing Weight 84.091, kg, PRN Narcotic Reversal, Start date: 02/27/17 1:33:00 CDT, Duration: 8 doses or times, Stop date: Limited # of times Start Date: 02/27/17 Stop Date: 02/27/17 Status: DiscontinuedANES ondansetron 4 mg, Route: IVP, ONCE, Dosing Weight 84.091, kg, PRN Nausea & Vomiting, Start date: 02/27/17 1:33:00 CDT Start Date: 02/27/17 Stop Date: 02/27/17 Status: DiscontinuedANES oxyCODONE 10 mg, Route: PO, Drug form: TAB, Q4H, Dosing Weight 84.091, kg, PRN Pain Score 7-10, Start date: 02/27/17 1:33:00 CDT, Duration: 30 day, Stop date: 03/29/17 1: 32:00 CDT Start Date: 02/27/17 Stop Date: 02/27/17 Status: DiscontinuedANES oxyCODONE 5 mg, Route: PO, Drug form: TAB, Q4H, Dosing Weight 84.091, kg, PRN Pain Score 4 -6, Start date: 02/27/17 1:33:00 CDT, Duration: 30 day, Stop date: 03/29/17 1:32 :00 CDT Start Date: 02/27/17 Stop Date: 02/27/17 Status: Discontinuedaspirin 81 mg tablet, chewable 81 mg, 1 tab, Route: PO, Drug form: CHEWTAB, Daily, Dosing Weight 84.091, kg, Start date: 02/27/17 9:00:00 CDT, Duration: 30 day, Stop date: 03/28/17 9:00:00 CDT Notes: Take with food. Start Date: 02/27/17 Stop Date: 02/28/17 Status: DiscontinuedAtivan Bedtime, 0 Refill(s) Start Date: 02/27/17 Stop Date: 02/27/17 Status: DiscontinuedAtivan 1 mg oral tablet 1 mg=1 tab, PO, Daily, PRN Anxiety, # 60 tab, 0 Refill(s) Start Date: 02/27/17 Stop Date: 03/29/17 Status: OrderedBenadryl 25 mg, 1 cap, Route: PO, Drug form: CAP, TID, Dosing Weight 86.477, kg, PRN Itching, Start date: 02/27/17 9:01:00 CDT, Duration: 30 day, Stop date: 9:00:00 CDT Notes: (Same as: Benadryl) Start Date: 02/27/17 Stop Date: 02/28/17 Status: DiscontinuedceFAZolin (ANES) Route: IV, Drug form: INJ, ONCE, Stop date: 02/27/17 1:57:00 CDT Start Date: 02/27/17 Stop Date: 02/27/17 Status: Completedclindamycin 300 mg, 2 cap, Route: PO, Drug form: CAP, ABXQ6H, Dosing Weight 86.477, kg, Start date: 02/28/17 13:00:00 CDT, Duration: 7 day, Stop date: 03/07/17 7:00:00 CDT, ABX Indication: Bone/Joint Infection Notes: (Same As: Cleocin) Start Date: 02/28/17 Stop Date: 02/28/17 Status: Discontinuedclindamycin 300 mg oral capsule 300 mg, PO, ABXQ6H, 0 Refill(s) Start Date: 02/28/17 Status: Orderedclindamycin 300 mg oral capsule 300 mg=1 cap, PO, Q6H, # 28 cap, 0 Refill(s) Start Date: 02/28/17 Stop Date: 03/06/17 Status: Ordereddocusate 100 mg, 1 cap, Route: PO, Drug form: CAP, BID, Dosing Weight 84.091, kg, Start date: 02/27/17 9:00:00 CDT, Duration: 30 day, Stop date: 03/28/17 17:00:00 CDT Notes: (Same as: Colace) (Do Not Crush) Start Date: 02/27/17 Stop Date: 02/28/17 Status: Discontinueddocusate sodium 50 mg oral capsule 50 mg=1 cap, PO, BID, PRN Constipation, # 60 cap, 0 Refill(s) Start Date: 02/28/17 Status: OrderedePHEDrine (ANES) Route: IV, Drug form: INJ, ONCE, Stop date: 02/27/17 1:57:00 CDT Start Date: 02/27/17 Stop Date: 02/27/17 Status: CompletedfentaNYL (ANES) Route: IV, Drug form: INJ, ONCE, Stop date: 02/27/17 1:50:00 CDT Start Date: 02/27/17 Stop Date: 02/27/17 Status: CompletedLaMICtal 50 mg, 2 tab, Route: PO, Drug form: TAB, Daily, Start date: 02/27/17 14:00:00 CDT, Duration: 30 day,Stop date: 03/29/17 9:00:00 CDT Notes: (Same as:LaMICtal) Start Date: 02/27/17 Stop Date: 02/28/17 Status: DiscontinuedLaMICtal 150 mg, Route: PO, Drug form: TAB, Daily, Dosing Weight 86.477, kg, Start date: 02/28/17 9:00:00 CDT, Duration: 30 day, Stop date: 03/29/17 9:00:00 CDT Start Date: 02/28/17 Stop Date: 02/27/17 Status: DeletedLaMICtal 100 mg, 1 tab, Route: PO, Drug form: TAB, Daily, Start date: 02/27/17 14:00:00 CDT, Duration: 30 day, Stop date: 03/29/17 9:00:00 CDT Notes: (Same as:LaMICtal) Start Date: 02/27/17 Stop Date: 02/28/17 Status: DiscontinuedLaMICtal 150 mg oral tablet 150 mg=1 tab, PO, Daily, # 30 tab, 1 Refill(s) Start Date: 02/27/17 Status: Orderedlidocaine (ANES) Route: IV, Drug form: INJ, ONCE, Stop date: 02/27/17 1:50:00 CDT Start Date: 02/27/17 Stop Date: 02/27/17 Status: Completedlidocaine 1% 100 mg, 10 mL, Route: INTRADERM, Drug Form: INJ, Dosing Weight 84.091, kg, ONCE , Start date: 02/26/17 22:22:00 CDT, Stop date: 02/26/17 22:22:00 CDT Notes: (Same as: Xylocaine) Start Date: 02/26/17 Stop Date: 02/26/17 Status: CompletedLipitor 40 mg, 1 tab, Route: PO, Drug form: TAB, Daily, Dosing Weight 84.091, kg, Start date: 02/27/17 9:00:00 CDT, Duration: 30 day, Stop date: 03/28/17 9:00:00 CDT Notes: (Same as: Lipitor) Start Date: 02/27/17 Stop Date: 02/28/17 Status: DiscontinuedLipitor 20 mg oral tablet 20 mg=1 tab, PO, Daily, 0 Refill(s) Start Date: 02/27/17 Status: OrderedLORazepam 1 mg, 1 tab, Route: PO, Drug form: TAB, Daily, Dosing Weight 86.477, kg, PRN Anxiety, Start date: 02/27/17 20:25:00 CDT, Duration: 30 day, Stop date: 20:24:00 CDT Notes: (Same as: Ativan) Start Date: 02/27/17 Stop Date: 02/28/17 Status: DiscontinuedLR 1000 mL INJ (ANES) Route: IV, Total Volume: 1,000, Start date: 02/27/17 1:06:00 CDT, Stop date: 04/08 2:06:00 CDT Start Date: 02/27/17 Stop Date: 02/27/17 Status: Completedmidazolam (ANES) Route: IV, Drug form: SOLN, ONCE, Stop date: 02/27/17 1:50:00 CDT Start Date: 02/27/17 Stop Date: 02/27/17 Status: CompletedNorco 10/325 oral tablet 2 tab, PO, Q6H, PRN Pain Score 7-10, 0 Refill(s) Start Date: 02/28/17 Status: OrderedNorco 10/325 oral tablet 2 tab, Route: PO, Drug Form: TAB, Dosing Weight 86.477, kg, Q6H, PRN Pain Score 7-10, Start date: 02/28/17 12:33:00 CDT, Duration: 30 day, Stop date: 03/30/17 12:32:00 CDT Notes: Do not exceed 4gm/day of acetaminophen. (Same as: [place] 325/10) Start Date: 02/28/17 Stop Date: 02/28/17 Status: Discontinuedondansetron 4 mg, 2 mL, Route: IVP, Drug form: INJ, Q6H, Dosing Weight 84.091, kg, PRN Nausea & Vomiting, Start date: 02/27/17 0:20:00 CDT, Duration: 30 day, Stop date: 03/29/17 0:19:00 CDT Notes: (Same as: Raymond) MEDICATION WASTE Product Size: 4 mgProduct Wasted: ___ mg Start Date: 02/27/17 Stop Date: 02/28/17 Status: Discontinuedondansetron (ANES) Route: IV, Drug form: INJ, ONCE, Stop date: 02/27/17 1:57:00 CDT Start Date: 02/27/17 Stop Date: 02/27/17 Status: CompletedPlavix 75 mg, 1 tab, Route: PO, Drug form: TAB, Daily, Dosing Weight 84.091, kg, Start date: 02/27/17 9:00:00 CDT, Duration: 30 day, Stop date: 03/28/17 9:00:00 CDT Notes: (Same As: Plavix) Start Date: 02/27/17 Stop Date: 02/28/17 Status: Discontinuedpropofol (ANES) Route: IV, Drug form: INJ, ONCE, Stop date: 02/27/17 1:50:00 CDT Start Date: 02/27/17 Stop Date: 02/27/17 Status: Completedrocuronium (ANES) Route: IV, Drug form: INJ, ONCE, Stop date: 02/27/17 1:50:00 CDT Start Date: 02/27/17 Stop Date: 02/27/17 Status: Completedsugammadex (ANES) Route: IV, Drug form: SOLN, ONCE, Stop date: 02/27/17 1:57:00 CDT Start Date: 02/27/17 Stop Date: 02/27/17 Status: CompletedTylenol with Codeine #3 oral tablet 1 tab, Route: PO, Drug Form: TAB, Dosing Weight 86.477, kg, Q4H, PRN Pain Score 1-3, Start date: 02/27/17 9:02:00 CDT, Duration: 30 day, Stop date: 03/29/17 9: 01:00 CDT Notes: Do not exceed 4gm/day of acetaminophen. (Same as: Tylenol with Codeine # 3) Start Date: 02/27/17 Stop Date: 02/28/17 Status: DiscontinuedTylenol with Codeine #3 oral tablet 2 tab, Route: PO, Drug Form: TAB, Dosing Weight 86.477, kg, Q4H, PRN Pain Score 4-6, Start date: 02/27/17 9:01:00 CDT, Duration: 30 day, Stop date: 03/29/17 9: 00:00 CDT Notes: Do not exceed 4gm/day of acetaminophen. (Same as: Tylenol with Codeine # 3) Start Date: 02/27/17 Stop Date: 02/28/17 Status: DiscontinuedXanax 2 mg oral tablet 2 mg, 4 tab, Route: PO, Drug form: TAB, TID, Dosing Weight 84.091, kg, PRN Anxiety, Start date: 02/27/17 0:16:00 CDT, Duration: 30 day, Stop date: 0:15:00 CDT Notes: With food or milk(Same as: Xanax) Start Date: 02/27/17 Stop Date: 02/28/17 Status: Discontinued Results ELECTROLYTES Most recent to oldest [Reference Range]: 1 Sodium Lvl [135-145 mEq/L] 138 mEq/L (02/28/17 8:34 AM) Potassium Lvl [3.5-5.1 mEq/L] 4.2 mEq/L (02/28/17 8:34 AM) Chloride Lvl [95-109 mEq/L] 104 mEq/L (02/28/17 8:34 AM) CO2 [24-32 mEq/L] 30 mEq/L (02/28/17 8:34 AM) AGAP [10.0-20.0 mEq/L] 8.2 mEq/L *LOW* (02/28/17 8:34 AM) CHEM PANEL Most recent to oldest [Reference Range]: 1 Creatinine Lvl [0.50-1.40 mg/dL] 1.21 mg/dL (02/28/17 8:34 AM) eGFR 65 mL/min/1.73m2 1 *NA* (02/28/17 8:34 AM) BUN [7-22 mg/dL] 11 mg/dL (02/28/17 8:34 AM) Glucose Lvl [70-99 mg/dL] 88 mg/dL (02/28/17 8:34 AM) Calcium Lvl [8.5-10.5 mg/dL] 8.4 mg/dL *LOW* (02/28/17 8:34 AM) Phosphorus [2.5-4.5 mg/dL] 2.8 mg/dL (02/28/17 8:34 AM) Magnesium Lvl [1.8-2.4 mg/dL] 2.0 mg/dL (02/28/17 8:34 AM) 1Result Comment: The eGFR is calculated using the CKD-EPI formula. In most young , healthy individualsthe eGFR will be >90 mL/min/1.73m2. The eGFR declines with age. An eGFR of 60-89 may be normal in some populations, particularly the elderly, for whom the CKD-EPI formula has not been extensively validated. Use of the eGFR is not recommended in the following populations: Individuals with unstable creatinine concentrations, including patients and those with serious co-morbid conditions. Patients with extremes in muscle mass or diet. The data above are obtained from the National Kidney Disease Education Program ( NKDEP) which additionally recommends that when the eGFR is used in patients with extremes of body mass index for purposesof drug dosing, the eGFR should be multiplied by the estimated BMI.HEMATOLOGY Most recent to oldest [Reference Range]: 1 WBC [3.7-10.4 K/CMM] 8.9 K/CMM (02/28/17 8:34 AM) RBC [4.70-6.10 M/CMM] 4.56 M/CMM *LOW* (02/28/17 8:34 AM) Hgb [14.0-18.0 g/dL] 13.5 g/dL *LOW* (02/28/17 8:34 AM) Hct [42.0-54.0 %] 41.0 % *LOW* (02/28/17 8:34 AM) MCV [80.0-94.0 fL] 89.9 fL (02/28/17 8:34 AM) MCH [27.0-31.0 pg] 29.7 pg (02/28/17 8:34 AM) MCHC [32.0-36.0 g/dL] 33.0 g/dL (02/28/17 8:34 AM) RDW [11.5-14.5 %] 14.0 % (02/28/17 8:34 AM) Platelet [133-450 K/CMM] 207 K/CMM (02/28/17 8:34 AM) MPV [7.4-10.4 fL] 8.6 fL (02/28/17 8:34 AM) Segs [45.0-75.0 %] 66.4 % (02/28/17 8:34 AM) Lymphocytes [20.0-40.0 %] 18.3 % *LOW* (02/28/17 8:34 AM) Monocytes [2.0-12.0 %] 10.5 % (02/28/17 8:34 AM) Eosinophils [0.0-4.0 %] 4.3 % *HI* (02/28/17 8:34 AM) Basophils [0.0-1.0 %] 0.5 % (02/28/17 8:34 AM) Segs-Bands # [1.5-8.1 K/CMM] 5.9 K/CMM (02/28/17 8:34 AM) Lymphocytes # [1.0-5.5 K/CMM] 1.6 K/CMM (02/28/17 8:34 AM) Monocytes # [0.0-0.8 K/CMM] 0.9 K/CMM *HI* (02/28/17 8:34 AM) Eosinophils # [0.0-0.5 K/CMM] 0.4 K/CMM (02/28/17 8:34 AM) Immunizations No data available for this section Procedures Procedure Date Related Diagnosis Body Site Placement of stent Social History Social History Type Response Alcohol Current, Type Wine. Frequency: 1-2 times per year. Smoking Status Never smoker; Exposure to Tobacco Smoke None; Cigarette Smoking Last 365 Days No; Reg Smoking Cessation Counseling No Assessment and Plan Extracted from: Title: PRS discharge summary Author: Ervin Joyner MD Date: 02/28/17 Date of Admission 02/26/2017 Date of Discharge 02/28/2017 Admission Diagnosis Left ring finger laceration Discharge Diagnoses Repaired left ring finger laceration Resolved Diagnoses Left ring finger laceration (resolving) Hospital Course Pt presented to ER on 02/26/2017 with left ring finger laceration and partial degloving after falling while finger was caught in a ladder earlier that day. He went with Dr. Chu to the OR that evening for exploration and repair of the laceration. During recovery, Mr. Holloway was monitored closely for signs of venous congestion and kept to closely monitor moderate congestion of the digit, watching for decrease. On 02/28/2017, digit continually improved with strict LUE elevation and reinforced padding to help pt accomplish this. He was discharged on 02/28/2017 and instructed to f/ u with Dr. Chu in clinic within 1 week. Physical Exam Vitals & Measurements Temperature 98 (12:21) Systolic Blood Pressure 132 (12:21) Diastolic Blood Pressure 76 (12:21) Pulse 65 (12:21) SpO2 97 (12:21) Respiratory Rate 18 (12:21) Gen: NAD, Answers questions appropriately Cardiac: Extremities warm and pink Pulmonary: Breathing without increased effort. Symmetrical rise and fall of chest GI: Non-distended Ext: Sutures c/d/i without erythema or exudate. Intact sensation, moderate decrease in range of motion Discharge Medications VERBALLY VERIFIED WITH PT AT BEDSIDE Prescriptions [place] Clindamycin Docusate Procedures from this Encounter DATE OF OPERATION/PROCEDURE: 02/28/2017 ATTENDING PHYSICIAN: Dr. Chu UMBRELLA REPAIRER: Dr. Joshi PREOPERATIVE DIAGNOSES: Left ring finger laceration POSTOPERATIVE DIAGNOSES: Repaired left ring finger laceration Activity Level Activity: May start dangling with PT for maximun of 20 min/h MAX until otherwise instructed Discharge Diet Regular diet Discharge Instructions Notify Physician if any of the Following Occur : Bleeding, Fever, Nausea, Pain, Shortness of breath, Signs of infection, Swelling Equipments and Supplies : Dressing supplies (Curlex, xeroform, albert, gauze) and foam to keep the extremety elevated. Special Home Care Instructions : Change dressing daily. Dab the wound area with .5/.5 peroxide sodium, wrap with xeroform, finger webbing, curlex, and albert. Pat dry and keep area dry. No submerging in water. May gently rinse and pat dry. Keep digit elevated above heart. Follow Up Appointments -Follow Up With Dr. Vlad THOMSON, Call for appointment, within: 1 Week, reason: Plastics follow up post hospitalization. -Primary care physician, Call for appointment, within: 1 Week, reason: Primary Care Physician follow up post hospitalization Disposition Home Time Spent on Discharge 45 min Ervin Joyner MD General Surgery - PGY1 MSO: [id number] Pager: [phone] Extracted from: Title: PRS Author: Ernesto Joshi MD Date: 02/28/17 Impression and Plan 61yo male s/p exploration and closure of left ring finger degloving - Continue daily dressing changes - Keep finger elevated when possible - OK for D/C home - F/U with Dr Chu in clinic Ernesto Joshi MD Plastic Surgery Resident Pager [phone]
--- OUTSIDE RECORDS SUMMARY | 2018-05-01 14:08 | XMS REPORT ---
:1955 Author Organization [employer] Care Team Providers Name Role Phone YENZION NOE Provider Role Unavailable Allergies No Known Allergies Problems Problem Type Condition Code Onset Dates Condition Status Problem Old myocardial infarction I25.2 Active Problem Coronary angioplasty status Z98.61 Active Problem CAD of [place] Artery W Angina I25.111 Active Problem Benign essential HTN I10 Active Problem Hyperlipidemia E78.5 Active Problem CAD of [place] Artery w/o Angina I25.10 Active Medications Medication Code System Code Instructions Start Date End Date Status Dosage Plavix [facility] [id number] 75 Active TAKE ONE TABLET BY MOUTH DAILY Results No Known Results Summary Purpose [employer] Submission
--- OUTSIDE RECORDS SUMMARY | 2018-05-01 14:08 | XMS REPORT ---
:1955 Author Organization [employer] Care Team Providers Name Role Phone ZION BARLOW Provider Role Unavailable Allergies No Known Allergies Problems Problem Type Condition Code Onset Dates Condition Status Problem Old myocardial infarction I25.2 Active Problem Coronary angioplasty status Z98.61 Active Problem CAD of [place] Artery W Angina I25.111 Active Problem Benign essential HTN I10 Active Problem Hyperlipidemia E78.5 Active Problem CAD of [place] Artery w/o Angina I25.10 Active Medications No Known Medications Results No Known Results Summary Purpose [facility] Submission
--- OUTSIDE RECORDS SUMMARY | 2018-05-01 14:08 | XMS REPORT | CCD ---
:1955 Author Organization [facility] Care Team Providers Name Role Phone João Emmanuel Consulting Provider Unavailable Macy Quinones Consulting Provider Unavailable Cynthia Wharton Consulting Provider Unavailable Odessa Ocampo Consulting Provider [phone] Mallory Florez Consulting Provider Unavailable GURWINDER MEJIA Consulting Provider [phone] Santa Gray Consulting Provider [phone] [employer], Login Consulting Provider Unavailable Ag Casper Consulting Provider Erasmo Gabriel Consulting Provider Unavailable Vigren Acevedo Consulting Provider [phone] Dolly Baptiste Consulting Provider Unavailable Elke Sanon Consulting Provider Unavailable Eun Kaba Consulting Provider Unavailable Roberta Schulte Consulting Provider Angelita Leach Consulting Provider Araseli Myles Consulting Provider Unavailable Mónica Philippe Consulting Provider Unavailable Christina Kitchen Consulting Provider [phone] Nakia Rider Consulting Provider Unavailable Aspen Howard Consulting Provider [phone] Dolly Marshall Consulting Provider Unavailable Lizzie Cardenas Consulting Provider Unavailable SYSTEM, SYSTEM Consulting Provider Unavailable [place] Isinatacha Consulting Provider [phone] Eliu Rene Consulting Provider Unavailable Myron Dotsno Consulting Provider [phone] Brennan Huang Consulting Provider Unavailable Vince Judge Referring Provider Kenny Delarosa Consulting Provider Unavailable Eli Keller Consulting Provider Allergies, Adverse Reactions, Alerts Substance Reaction Status NKDA ?? Active NKFA ?? Active Problem List Condition Effective Dates Status Back pain ?? Active Coronary artery disease ?? Active Unstable angina ?? Active Medications Medication Instructions Start Date End Date Status Lipitor 40 mg, 1 tab, Route: PO, 07/21/2011 07/23/2011 Discontinued Drug form: TAB, QPM, Start date: 07/21/11 17:51:00, Duration: 30 day, Stop date: 08/20/11 17:00:00 aspirin 81 mg tablet, 81 mg, 1 tab, Route: 07/21/2011 07/23/2011 Discontinued chewable CHEW, Drug form: CHEWTAB, Daily, Start date: 07/21/11 17:50:00, Duration: 30 day, Stop date: 08/20/11 9:00:00 Ativan 0.5 mg, 1 tab, Route: 07/21/2011 07/23/2011 Discontinued PO, Drug form: TAB, Bedtime, PRN See Nurse's Notes, Start date: 07/21/11 17:50:00, Duration: 30 day, Stop date: 08/20/11 17:49:00 metoprolol 25 mg, 1 tab, Route: PO, 07/21/2011 07/23/2011 Discontinued Drug form: ERTAB, BID, Start date: 07/21/11 17:49:00, Duration: 30 day, Stop date: 08/20/11 17:00:00 Plavix 75 mg, 1 tab, Route: PO, 07/21/2011 07/23/2011 Discontinued Drug form: TAB, Daily, Start date: 07/21/11 17:49:00, Duration: 30 day, Stop date: 08/20/11 9:00:00 atropine 1 mg, 10 mL, Route: IVP, 07/21/2011 07/23/2011 Discontinued Drug form: INJ, Q5Min, PRN Other -See Comment, Start date: 07/21/11 17:48:00, Duration: 30 day, Stop date: 08/20/11 17:47:00 epinephrine 1 mg, 10 mL, Route: IVP, 07/21/2011 07/23/2011 Discontinued Drug form: INJ, Q5Min, PRN Asystole, Start date: 07/21/11 17:48:00, Duration: 30 day, Stop date: 08/20/11 17:47:00 nitroglycerin 0.4 mg 0.4 mg, 1 tab, Route: 07/21/2011 07/23/2011 Discontinued sublingual tablet SL, Drug form: TAB, PRN, PRN Chest Pain, Start date: 07/21/11 17:48:00, Duration: 30 day, Stop date: 08/20/11 17:47:00 atropine 0.5 mg, 5 mL, Route: 07/21/2011 07/23/2011 Discontinued IVP, Drug form: INJ, PRN, PRN Bradycardia, Start date: 07/21/11 17:48:00, Duration: 30 day, Stop date: 08/20/11 17:47:00 Cordarone 150 mg, 3 mL, Route: 07/21/2011 07/23/2011 Discontinued IVPB, PRN, PRN See Nurse's Notes, Start date: 07/21/11 17:48:00, Duration: 30 day, Stop date: 08/20/11 17:47:00 BD Normal Saline Flush 10 mL, Route: IV, Drug 07/22/2011 07/23/2011 Discontinued Form: INJ, Q8H, Start date: 07/22/11 0:00:00, Duration: 30 day, Stop date: 08/20/11 16:00:00 acetaminophen-hydrocodone 1 tab, Route: PO, Drug 07/22/2011 07/23/2011 Discontinued 325 mg-7.5 mg oral tablet Form: TAB, Q6H, PRN Pain, Start date: 07/22/11 13:52:00, Duration: 30 day, Stop date: 08/21/11 13:51:00 BD Normal Saline Flush 10 mL, Route: IV, Drug 07/22/2011 07/23/2011 Discontinued Form: INJ, PRN, PRN Line Flush, Start date: 07/22/11 1:09:00, Duration: 30 day, Stop date: 08/21/11 1:08:00 Sodium Chloride 0.9% IV 25 mL, Route: IV, PRN, 07/22/2011 07/23/2011 Discontinued Line Flush, Start date: 07/22/11 1:09:00, Duration: 30 day, Stop date: 08/21/11 1:08:00 Vital Signs Most recent to oldest 1 2 3 [Reference Range]: Height 175.26 cm ? (07/21/2011 16:52:00) ?? Current Weight 106.818 kg ? (07/23/2011 04:00:00) ?? Temperature Oral 98.0 DegF 97.8 DegF 98.1 DegF [96.4-99.1 DegF] (07/23/2011 07:20:00) ?? (07/23/2011 04:00:00) ?? (2010 00:00:00) ?? Systolic Blood Pressure 110 mmHg 103 mmHg 122 mmHg [90-140 mmHg] (07/23/2011 07:20:00) ?? (07/23/2011 04:00:00) ?? (07/23/2011 00:00:00) ?? Diastolic Blood Pressure 77 mmHg 60 mmHg 66 mmHg [60-90 mmHg] (07/23/2011 07:20:00) ?? (07/23/2011 04:00:00) ?? (07/23/2011 00:00:00) ?? Respiratory Rate [14-20 20 BRMIN 16 BRMIN 16 BRMIN BRMIN] (07/23/2011 07:20:00) ?? (07/23/2011 04:00:00) ?? (07/23/2011 00:00: 00) ?? Peripheral Pulse Rate 51 bpm 58 bpm 57 bpm [60-100 bpm] *LOW* *LOW* *LOW* (07/23/2011 07:20:00) ?? (07/23/2011 04:00:00) ?? (07/23/2011 00:00:00) ?? Weight 108.636 kg ? (07/21/2011 16:52:00) ?? Results CHEMISTRY Most recent to oldest [Reference Range]: 1 Sodium Lvl [135-145 mEq/L] 138 mEq/L (07/21/2011 17:38:00) ?? Potassium Lvl [3.5-5.1 mEq/L] 4.0 mEq/L (07/21/2011 17:38:00) ?? Chloride Lvl [95-109 mEq/L] 103 mEq/L (07/21/2011 17:38:00) ?? CO2 [24-32 mEq/L] 29 mEq/L (07/21/2011 17:38:00) ?? AGAP [10.0-20.0 mEq/L] 10.0 mEq/L (07/21/2011 17:38:00) ?? Creatinine Lvl [0.5-1.4 mg/dL] 1.3 mg/dL (07/21/2011 17:38:00) ?? BUN [7-22 mg/dL] 12 mg/dL (07/21/2011 17:38:00) ?? Glucose Lvl 145 mg/dL 1 *NA* (07/21/2011 17:38:00) ?? Calcium Lvl [8.5-10.5 mg/dL] 9.0 mg/dL (07/21/2011 17:38:00) ?? CHD Risk [4.00-7.30] 2.51 *LOW* (07/21/2011 17:38:00) ?? Chol [120-200 mg/dL] 171 mg/dL (07/21/2011 17:38:00) ?? Trig [0-200 mg/dL] 98 mg/dL (07/21/2011 17:38:00) ?? HDL [>>=35 mg/dL] 68 mg/dL (07/21/2011 17:38:00) ?? LDL [0-129 mg/dL] 83 mg/dL (07/21/2011 17:38:00) ?? 1Interpretive Data: Reference Ranges : 0 - 7 days : 41 - 90 mg/dL7 days - 150 yrs : 70 - 99 mg/dL (fasting), based on the clinical recommendations of the [place] [employer].HEMATOLOGY Most recent to oldest [Reference Range]: 1 WBC [3.7-10.4 K/CMM] 9.9 K/CMM (07/21/2011 17:38:00) ?? RBC [4.70-6.10 M/CMM] 4.71 M/CMM (07/21/2011 17:38:00) ?? Hgb [14.0-18.0 g/dL] 14.5 g/dL (07/21/2011 17:38:00) ?? Hct [42.0-54.0 %] 42.9 % (07/21/2011 17:38:00) ?? MCV [80.0-94.0 fL] 91.0 fL (07/21/2011 17:38:00) ?? MCH [27.0-31.0 pg] 30.8 pg (07/21/2011 17:38:00) ?? MCHC [32.0-36.0 g/dL] 33.8 g/dL (07/21/2011 17:38:00) ?? RDW [11.5-14.5 %] 13.8 % (07/21/2011 17:38:00) ?? Platelet [133-450 K/CMM] 224 K/CMM (07/21/2011 17:38:00) ?? MPV [7.4-10.4 fL] 9.1 fL (07/21/2011 17:38:00) ?? Segs [45.0-75.0 %] 65.2 % (07/21/2011 17:38:00) ?? Lymphocytes [20.0-40.0 %] 24.3 % (07/21/2011 17:38:00) ?? Monocytes [2.0-12.0 %] 7.4 % (07/21/2011 17:38:00) ?? Eosinophils [0.0-4.0 %] 2.7 % (07/21/2011 17:38:00) ?? Basophils [0.0-1.0 %] 0.4 % (07/21/2011 17:38:00) ?? Segs-Bands # [1.5-8.1 K/CMM] 6.4 K/CMM (07/21/2011 17:38:00) ?? Lymphocytes # [1.0-5.5 K/CMM] 2.4 K/CMM (07/21/2011 17:38:00) ?? Monocytes # [0.0-0.8 K/CMM] 0.7 K/CMM (07/21/2011 17:38:00) ?? Eosinophils # [0.0-0.5 K/CMM] 0.3 K/CMM (07/21/2011 17:38:00) ?? Basophils # [0.0-0.2 K/CMM] 0.0 K/CMM (07/21/2011 17:38:00) ?? PT [12.0-14.7 seconds] 12.8 seconds (07/21/2011 17:38:00) ?? INR [0.85-1.17] 0.96 2 (07/21/2011 17:38:00) ?? 2Interpretive Data: RECOMMENDED RANGES FOR PROTIME INR: 2.0-3.0 for most medical and surgical thromboembolic states. 2.5-3.5 for artificial heart valves and recurrent embolism.INR SHOULD BE USED ONLY FOR PATIENTS ON STABLE ANTICOAGULANT THERAPY.
--- OUTSIDE RECORDS SUMMARY | 2018-05-01 14:08 | XMS REPORT ---
:1955 Author Organization [employer] Care Team Providers Name Role Phone ZION BARLOW Provider Role Unavailable Allergies, Adverse Reactions, Alerts Substance Reaction Event Type N.K.D.A. Info Not Available Non Drug Allergy Encounters Encounter Location Date follow up [facility]. May 17, 2014 Problems Problem Type Condition ICD-9 Code Onset Dates Condition Status Assessment Coronary stent or PTCA, status V45.82 Active post Problem Coronary atherosclerosis of 414.01 Active [place] vessel Problem Hyperlipidemia NOS 272.4 Active Problem Angina Pectoris 413.9 Active Assessment Coronary atherosclerosis of 414.01 Active [place] vessel Assessment Hyperlipidemia NOS 272.4 Active Problem Hypertension 401.9 Active Problem Coronary stent or PTCA, status V45.82 Active post Medications Medication Code System Code Instructions Start Date End Date Status Dosage Toprol XL MULTUM 1187 25 mg orally once a Jul 23, 2011 Active 1 tab(s) day Celebrex MULTUM 03829 200 mg orally once May 17, Active 1 cap(s) a day 2013 Nitrostat MULTUM 2586 0.4 mg sublingually February 02, Active 1 tab(s) every 5 minutes 2011 Plavix MULTUM 55831 75 mg orally once a November 14, Active 1 tab(s) day 2008 aspirin MULTUM 98122 81 mg orally once a Active 1 tab(s) day alprazolam MULTUM 65244 1 mg orally as November 16, Active 1 tab(s) needed for 2011 nervousness every 8 hour Lipitor MULTUM 6419 20 mg orally once a November 16, Active 1 tab(s) day (at bedtime) 2011 Social History Social History Element Qualifiers Date Reported Tobacco use: no. Status Former smoker May 19, 2014 Alcohol: no. May 19, 2014 Vital Signs Date/Time: May 17, 2014 Blood Pressure Systolic 120 mm Hg Weight 219.5 lbs Height 70 in Blood Pressure Diastolic 80 mm Hg Summary Purpose eClinicalWorks Submission
--- OUTSIDE RECORDS SUMMARY | 2018-05-01 14:08 | XMS REPORT | CCD ---
:1955 Author Organization [facility] Care Team Providers Name Role Phone Alfie Vince Consulting Provider Allergies, Adverse Reactions, Alerts Substance Reaction Status NKDA Active NKFA Active Problem List Condition Effective Dates Status Back pain Active Coronary artery disease Active Unstable angina Active Medications Medication Instructions Start Date End Date Status aspirin 81 mg tablet, 81 mg, 1 tab, PO, Daily, 02/10/2013 Ordered chewable tab, Substitution Allowed, CHEWTAB morphine Sulfate 2 mg, 1 mL, Route: IV, 02/10/2013 02/10/2013 Completed Drug form: INJ, Q15Min, PRN Chest Pain, Start date: 02/10/13 14:00:00, Duration: 2 doses or times, Stop date: Limited # of times Restoril 15 mg, 1 cap, Route: PO, 02/10/2013 02/11/2013 Discontinued Drug form: CAP, Bedtime, PRN Sleep, Start date: 02/10/13 14:00:00, Duration: 30 day, Stop date: 03/12/13 13:59:00 Ativan 0.5 mg, 1 tab, Route: 02/10/2013 02/11/2013 Discontinued PO, Drug form: TAB, TID, Dosing Weight 107.273, kg, PRN Anxiety, Start date: 02/10/13 15:35:00, Duration: 30 day, Stop date: 03/12/13 15:34:00 Plavix 75 mg oral tablet 75 mg, 1 tab, PO, Daily, 02/10/2013 Ordered 30 tab, Substitution Allowed, TAB Xanax 2 mg oral tablet 2 mg, 1 tab, PO, TID, 02/09/2013 Ordered PRN, Anxiety, Substitution Allowed LORAzepam 2 mg oral tablet 2 mg, 1 tab, PO, TID, 02/10/2013 02/11/2013 Discontinued PRN, 20 tab, Anxiety, Substitution Allowed nitroglycerin 0.4 mg 0.4 mg, 1 tab, Route: 02/10/2013 02/11/2013 Discontinued sublingual tablet SL, Drug form: TAB, Q5Min, PRN Chest Pain, Start date: 02/10/13 14:00:00, Duration: 30 day, Stop date: 03/12/13 13:59:00 Zetia 10 mg oral tablet 10 mg, 1 tab, PO, Daily, 02/11/2013 Ordered 90 tab, Substitution Allowed, TAB nitroglycerin 0.4 mg 0.4 mg, 1 tab, SL, 02/11/2013 Ordered sublingual tablet Q5Min, PRN, 25 tab, Chest Pain, Substitution Allowed, TAB Lipitor 40 mg, 1 tab, Route: PO, 02/10/2013 02/11/2013 Discontinued Drug form: TAB, QPM, Dosing Weight 107.273, kg, Start date: 02/10/13 17:00:00, Duration: 30 day, Stop date: 03/11/13 17:00:00 metoprolol 50 mg oral 50 mg, 1 tab, PO, Daily, 02/11/2013 Ordered tablet, extended release 90 tab, Substitution Allowed, ERTAB metoprolol 50 mg, 1 tab, Route: PO, 02/10/2013 02/11/2013 Discontinued Drug form: ERTAB, Daily, Start date: 02/10/13 13:58:00, Duration: 30 day, Stop date: 03/12/13 9:00:00 Plavix 75 mg, 1 tab, Route: PO, 02/10/2013 02/11/2013 Discontinued Drug form: TAB, Daily, Start date: 02/10/13 13:57:00, Duration: 30 day, Stop date: 03/12/13 9:00:00 Lipitor 40 mg oral tablet 40 mg, 1 tab, PO, Daily, 02/10/2013 Ordered 30 tab, Substitution Allowed, TAB aspirin 325 mg tablet 325 mg, 1 tab, Route: 02/10/2013 02/10/2013 Completed PO, Drug form: TAB, ONCE, Start date: 02/10/13 13:57:00, Stop date: 02/10/13 13:57:00 morphine Sulfate 2 mg, 1 mL, Route: IVP, 02/10/2013 02/10/2013 Completed Drug form: INJ, ONCE, Dosing Weight 107.273, kg, Start date: 02/10/13 15:31:00, Stop date: 02/10/13 15:31:00 Saline Flush 0.9% 5 ml, Route: IVP, Drug 02/10/2013 02/11/2013 Discontinued Form: INJ, Dosing Weight 108.636, kg, PRN, PRN Line Flush, Start date: 02/10/13 13:22:00, Duration: 30 day, Stop date: 03/12/13 13:21:00 Saline Flush 0.9% 5 ml, Route: IVP, Drug 02/10/2013 02/11/2013 Discontinued Form: INJ, Dosing Weight 108.636, kg, Q12H, Start date: 02/10/13 21:00:00, Duration: 30 day, Stop date: 03/12/13 9:00:00 BD Normal Saline Flush 3 mL, Route: IV, Drug 02/10/2013 02/11/2013 Discontinued Form: INJ, Q8H, Start date: 02/10/13 16:00:00, Duration: 30 day, Stop date: 03/12/13 8:00:00 Vital Signs Most recent to oldest 1 2 3 [Reference Range]: Height 175.26 cm (02/10/2013 13:44:00) Current Weight 107.727 kg (02/11/2013 04:00:00) Temperature Oral 97.9 DegF 97.7 DegF 98.1 DegF [96.4-99.1 DegF] (02/11/2013 11:55:00) (02/11/2013 07:40:00) (02/11/2013 04: 00:00) Systolic Blood Pressure 120 mmHg 126 mmHg 133 mmHg [90-140 mmHg] (02/11/2013 11:55:00) (02/11/2013 07:40:00) (02/11/2013 04:00: 00) Diastolic Blood Pressure 78 mmHg 83 mmHg 75 mmHg [60-90 mmHg] (02/11/2013 11:55:00) (02/11/2013 07:40:00) (02/11/2013 04:00: 00) Respiratory Rate [14-20 20 BRMIN 20 BRMIN 18 BRMIN BRMIN] (02/11/2013 11:55:00) (02/11/2013 07:40:00) (02/11/2013 04:00:00) Peripheral Pulse Rate 59 bpm 59 bpm 56 bpm [60-100 bpm] *LOW* *LOW* *LOW* (02/11/2013 11:55:00) (02/11/2013 07:40:00) (02/11/2013 04:00:00) Weight 107.273 kg (02/10/2013 13:44:00) Results CHEMISTRY Most recent to oldest [Reference 1 2 Range]: Sodium Lvl [135-145 mEq/L] 142 mEq/L (02/10/2013:01:00) Potassium Lvl [3.5-5.1 mEq/L] 3.9 mEq/L (02/10/2013::00) Chloride Lvl [95-109 mEq/L] 104 mEq/L (02/10/2013:01:00) CO2 [24-32 mEq/L] 28 mEq/L (02/10/2013:01:00) AGAP [10.0-20.0 mEq/L] 13.9 mEq/L (02/10/2013:01:00) Creatinine Lvl [0.5-1.4 mg/dL] 1.3 mg/dL (02/10/2013:01:00) eGFR 61 mL/min/1.73m2 1 *NA* (02/10/2013::00) BUN [7-22 mg/dL] 13 mg/dL (02/10/2013:01:00) Glucose Lvl [70-99 mg/dL] 84 mg/dL 2 (02/10/2013:01:00) Calcium Lvl [8.5-10.5 mg/dL] 9.1 mg/dL (02/10/2013:01:00) Total CK [12-191 unit/L] 70 unit/L 88 unit/L (02/10/2013 18:29:00) (02/10/2013 14:01:00) CK MB [0.5-3.6 ng/mL] <0.5 ng/mL (02/10/2013 14:01:00) CK MB Index [0.0-2.5] <0.6 (02/10/2013:01:00) Troponin-I [0.00-0.40 ng/mL] <0.02 ng/mL <0.02 ng/mL (02/10/2013 18:29:00) (02/10/2013::) CHD Risk [4.00-7.30] 2.61 *LOW* (02/10/2013:) Chol [<=199 mg/dL] 193 mg/dL 3 (02/10/2013) Trig [<=149 mg/dL] 103 mg/dL 4 (02/10/2013:) HDL [>=61 mg/dL] 74 mg/dL 5 (02/10/2013:) LDL [<=99 mg/dL] 98 mg/dL 6 (02/10/2013:) 1Result Comment: The eGFR is calculated using [...] eGFR should be multiplied by the estimated BMI.2Interpretive Data: Adult reference range values reflect the clinical guidelines of the [place] [employer].3Interpretive Data: Reference ranges are based on the clinical guidelines of the NHL[employer] National Cholesterol Education Program (ATP III, 2001).4Interpretive Data: Reference ranges are based on the clinical guidelines of the [employer] National Cholesterol Education Program (ATP III , 2001).5Interpretive Data: Reference ranges are based on the clinical guidelines of the NHLBI National Cholesterol Education Program (ATP III, 2001) .6Interpretive Data: Reference ranges are based on the clinical guidelines of the NHLBI National Cholesterol Education Program (ATP III, 2001).HEMATOLOGY Most recent to oldest [Reference Range]: 1 2 WBC [3.7-10.4 K/CMM] 7.8 K/CMM (02/10/201300) RBC [4.70-6.10 M/CMM] 5.05 M/CMM (02/10/2013) Hgb [14.0-18.0 g/dL] 15.7 g/dL (02/10/2013) Hct [42.0-54.0 %] 46.9 % (02/10/2013) MCV [80.0-94.0 fL] 92.8 fL (02/10/2013) MCH [27.0-31.0 pg] 31.0 pg (02/10/2013) MCHC [32.0-36.0 g/dL] 33.5 g/dL (02/10/2013) RDW [11.5-14.5 %] 14.2 % (02/10/2013) Platelet [133-450 K/CMM] 223 K/CMM (02/10/2013) MPV [7.4-10.4 fL] 8.8 fL (02/10/2013) Segs [45.0-75.0 %] 65.4 % (02/10/2013) Lymphocytes [20.0-40.0 %] 23.5 % (02/10/2013) Monocytes [2.0-12.0 %] 7.9 % (02/10/2013) Eosinophils [0.0-4.0 %] 2.7 % (02/10/2013) Basophils [0.0-1.0 %] 0.5 % (02/10/2013) Segs-Bands # [1.5-8.1 K/CMM] 5.1 K/CMM (02/10/2013) Lymphocytes # [1.0-5.5 K/CMM] 1.8 K/CMM (02/10/2013) Monocytes # [0.0-0.8 K/CMM] 0.6 K/CMM (02/10/2013::) Eosinophils # [0.0-0.5 K/CMM] 0.2 K/CMM (02/10/2013::) Basophils # [0.0-0.2 K/CMM] 0.0 K/CMM (02/10/2013::) PT [12.0-14.7 seconds] 12.2 seconds (02/10/2013) INR [0.85-1.17] 0.88 7 (02/10/2013) PTT Baseline [22.9-35.8 seconds] 26.9 seconds 8 (02/10/2013) PTT 1:1 Imm See Note 9 (02/10/2013) TT Baseline [15.0-21.1 seconds] 15.2 seconds (02/10/2013) PTT [22.9-35.8 seconds] 26.5 seconds 10 (02/10/2013::) 7Interpretive Data: RECOMMENDED RANGES FOR PROTIME INR: 2.0-3.0 for most medical and surgical thromboembolic states. 2.5-3.5 for artificial heart valves and recurrent embolism. INR SHOULD BE USED ONLY FOR PATIENTS ON STABLE ANTICOAGULANT THERAPY.8Interpretive Data: FACTOR DEFICIENCIES may be congenital or acquired. Acquired deficiencies may be seen with gut sterilization or long-term antibiotic use. Suggest appropriate factor assays, where clinically indicated. CIRCULATING INHIBITORS may be associated with either bleeding or thrombotic tendencies. Certain circulating inhibitors may be transient (drug-related or seocndary to autoimmune/inflammatory conditions). Suggest further studies as clinically indicated.9Result Comment: Not indicated.10Interpretive Data: Heparin Therapeutic Range: 57 - 92 Seconds Procedures Procedures Date Related Diagnosis Placement of stent
--- OUTSIDE RECORDS SUMMARY | 2018-05-01 14:09 | XMS REPORT ---
:1955 Author Organization eClinicalWorks Care Team Providers Name Role Phone YENZION NOE Provider Role Unavailable Allergies, Adverse Reactions, Alerts Substance Reaction Event Type N.K.D.A. Info Not Available Non Drug Allergy Encounters Encounter Location Date Unknown [facility]. Jun 23, 2016 follow up [facility]. Jun 22, 2016 follow up [facility]. November 27, 2014 Refills [facility]. January 24, 2015 follow up [facility]. May 28, 2015 Problems Problem Type Condition ICD-9 Code Onset Dates Condition Status Assessment Other hyperlipidemia E78.4 Active Problem Coronary angioplasty status Z98.61 Active Problem Benign essential HTN I10 Active Problem CAD of [place] Artery w/o Angina I25.10 Active Assessment Coronary angioplasty status Z98.61 Active Assessment Benign essential HTN I10 Active Problem Hyperlipidemia E78.5 Active Assessment Atherosclerotic heart disease of I25.10 Active [place] coronary artery without angina pectoris Medications Medication Code System Code Instructions Start Date End Date Status Dosage Toprol XL MULTUM 1187 25 mg orally once Jul 23, Active 1 tab(s) a day 2010 alprazolam MULTUM 76080 1 mg orally as November 16, Active 1 tab(s) needed for 2011 nervousness every 8 hour meloxicam MULTUM 13717 15 mg orally once Active 1 tab(s) a day lamotrigine MULTUM 53557 150 mg orally 2 Active 1 tab(s) times a day Lipitor MULTUM 6419 20 orally once a December 15, Active 1 tab(s) day (at bedtime) 2015 Plavix MULTUM 88248 75 orally once a December 15, Active 1 tab(s) day 2015 aspirin MULTUM 94946 81 mg orally once Active 1 tab(s) a day Dexilant MULTUM 711070 60 mg orally once Active 1 cap(s) a day Social History Social History Element Qualifiers Date Reported Tobacco use: no. Status Former smoker Jun 22, 2016 Alcohol: no. Jun 22, 2016 Vital Signs Date/Time: Jun 22, 2016 Blood Pressure Systolic 122 mm Hg Weight 189 lbs Height 70 in Blood Pressure Diastolic 80 mm Hg Summary Purpose eClinicalWorks Submission
--- OUTSIDE RECORDS SUMMARY | 2018-05-01 14:09 | XMS REPORT ---
:1955 Author Organization [employer] Care Team Providers Name Role Phone YENZION NOE Provider Role Unavailable Allergies, Adverse Reactions, Alerts Substance Reaction Event Type N.K.D.A. Info Not Available Non Drug Allergy Encounters Encounter Location Date Unknown [facility]. Jun 23, 2016 follow up [facility]. Jun 22, 2016 Unknown [facility]. Oct 07, 2016 follow up [facility]. November 27, 2014 Refills [facility]. January 24, 2015 follow up [facility]. May 28, 2015 Problems Problem Type Condition ICD-9 Code Onset Dates Condition Status Assessment Benign essential HTN I10 Active Assessment Old myocardial infarction I25.2 Active Assessment Coronary angioplasty status Z98.61 Active Assessment Hyperlipidemia E78.5 Active Problem CAD of [place] Artery w/o Angina I25.10 Active Problem Coronary angioplasty status Z98.61 Active Problem CAD of [place] Artery W Angina I25.111 Active Problem Old myocardial infarction I25.2 Active Assessment CAD of [place] Artery W Angina I25.111 Active Problem Benign essential HTN I10 Active Problem Hyperlipidemia E78.5 Active Medications Medication Code System Code Instructions Start Date End Date Status Dosage meloxicam MULTUM 86778 15 mg orally once Active 1 tab(s) a day lamotrigine MULTUM 38197 150 mg orally 2 Active 1 tab(s) times a day Toprol XL MULTUM 1187 25 mg orally once Jul 23, Active 1 tab(s) a day 2010 Lipitor MULTUM 6419 20 orally once a December 15, Active 1 tab(s) day (at bedtime) 2015 aspirin MULTUM 56824 81 mg orally once Active 1 tab(s) a day Plavix MULTUM 74801 75 Active TAKE ONE TABLET BY MOUTH DAILY Dexilant MULTUM 383589 60 mg orally once Active 1 cap(s) a day alprazolam MULTUM 99178 1 mg orally as November 16, Active 1 tab(s) needed for 2011 nervousness every 8 hour Social History Social History Element Qualifiers Date Reported Tobacco use: no. Status Former smoker Oct 07, 2016 Alcohol: no. Oct 07, 2016 Vital Signs Date/Time: Oct 07, 2016 Blood Pressure Systolic 130 mm Hg Weight 200 lbs Height 70 in Blood Pressure Diastolic 80 mm Hg Summary Purpose eClinicalWorks Submission
--- OUTSIDE RECORDS SUMMARY | 2018-05-01 14:09 | XMS REPORT ---
:1955 Author Organization eClinicalWorks Care Team Providers Name Role Phone ZION BARLOW Provider Role Unavailable Encounters Encounter Location Date Unknown [facility]. Jun 23, 2016 follow up [facility] Jun 22, 2016 follow up [facility] November 27, 2014 Refills [facility]. January 24, 2015 follow up [facility]. May 28, 2015 Problems Problem Type Condition ICD-9 Code Onset Dates Condition Status Problem Coronary angioplasty status Z98.61 Active Problem Benign essential HTN I10 Active Problem CAD of [place] Artery w/o Angina I25.10 Active Assessment Hypertensive crisis, unspecified I16.9 Active Assessment Coronary stent or PTCA, status V45.82 Active post Problem Hyperlipidemia E78.5 Active Assessment Hyperlipidemia, unspecified E78.5 Active Social History Social History Element Qualifiers Date Reported Tobacco use: no. Status Former smoker Jun 22, 2016 Alcohol: no. Jun 22, 2016 Summary Purpose [employer] Submission
--- OUTSIDE RECORDS SUMMARY | 2018-05-01 14:09 | XMS REPORT ---
:1955 Author Organization eClinicalWorks Care Team Providers Name Role Phone YENZION NOE Provider Role Unavailable Allergies, Adverse Reactions, Alerts Substance Reaction Event Type N.K.D.A. Info Not Available Non Drug Allergy Encounters Encounter Location Date follow up [facility]. November 27, 2014 Problems Problem Type Condition ICD-9 Code Onset Dates Condition Status Assessment Coronary stent or PTCA, status V45.82 Active post Problem Coronary atherosclerosis of 414.01 Active [place] vessel Problem Hyperlipidemia NOS 272.4 Active Problem Angina Pectoris 413.9 Active Assessment Coronary atherosclerosis of 414.01 Active [place] vessel Assessment Hyperlipidemia NOS 272.4 Active Problem Hypertension 401.9 Active Problem Coronary stent or PTCA, status V45.82 Active post Medications Medication Code System Code Instructions Start Date End Date Status Dosage lamotrigine MULTUM 18910 150 mg orally 2 Active 1 tab(s) times a day Plavix MULTUM 23569 75 orally once a Active 1 tab(s) day Celebrex MULTUM 78591 200 mg orally May 17November 27, Inactive 1 cap(s) once a day 2013 2014 alprazolam MULTUM 27331 1 mg orally as November 16, Active 1 tab(s) needed for 2011 nervousness every 8 hour meloxicam MULTUM 06284 15 mg orally once Active 1 tab(s) a day Toprol XL MULTUM 1187 25 mg orally once Jul 23, Active 1 tab(s) a day 2010 Lipitor MULTUM 6419 20 orally once a Active 1 tab(s) day (at bedtime) aspirin MULTUM 23361 81 mg orally once Active 1 tab(s) a day Social History Social History Element Qualifiers Date Reported Tobacco use: no. Status Former smoker December 01, 2014 Alcohol: no. December 01, 2014 Vital Signs Date/Time: November 27, 2014 Blood Pressure Systolic 120 mm Hg Weight 222 lbs Height 70 in Blood Pressure Diastolic 80 mm Hg Summary Purpose eClinicalWorks Submission
[2018-05-01] MEDS ORDERED: ONDANSETRON 4 MG/2 ML VIAL ONE (15:05)
[2018-05-01] MEDS ORDERED: MORPHINE 4 MG/ML SYR ONE (15:05)
[2018-05-01 15:52] LABS: Absolute Lymphocytes (CBC) 2.1 K/uL (0.7-4.9); Absolute Monocytes 0.9 K/uL (0.1-1.3); Absolute Neutrophil 4.9 K/uL (1.8-8.0); Basophils % 0.7 % (0-1.3); Hematocrit 37.1 % (39.6-49.0); Lymphocytes % 26.4 % (15.3-44.8); MCH 30.6 pg (27.0-35.0); MPV 8.4 fL (7.6-11.3); Monocytes % 10.5 % (3.3-12.3); RBC Red Blood Cell Count 4.17 M/uL (4.33-5.43)
[2018-05-01 15:57] LABS: Albumin 3.5 g/dL (3.4-5.0); Bilirubin Total 0.3 mg/dL (0.2-1.0); Potassium 3.7 mmol/L (3.5-5.1); Protein, Total 7.4 g/dL (6.4-8.2)
--- NOTE | 2018-05-01 16:03 | RAD REPORT ---
EXAM DESCRIPTION: US - Extremity Venous Uni Ltd - 05/01/2018 3:41 pm CLINICAL HISTORY: Left leg pain COMPARISON: None. TECHNIQUE: Real-time sonographic evaluation of the left lower extremity deep venous system was perfo rmed. FINDINGS: Normal compressibility, flow augmentation, phasic flow and spontaneous flow are identified in the left lower extremity common femoral, superficial femoral, popliteal and posterior tibial vein s. No intraluminal filling defects seen. IMPRESSION: No DVT in the left lower extremity.
--- NOTE | 2018-05-01 16:34 | RAD REPORT ---
EXAM DESCRIPTION: RAD - Hip Left 2 View - 05/01/2018 3:22 pm CLINICAL HISTORY: Hip pain, recent hip surgery COMPARISON: None. FINDINGS: AP and frogleg views of the left hip were obtained. Left total hip prosthesis in place. No fracture of the proximal femur and no fracture or acute finding in the imaged portion of the left hi p joint. No acute bone or implant finding. Clinical contusion or edema changes seen lateral soft tissues, not unexpected for recent surgery. IMPRESSION: Left total hip prosthesis in place. No suspicious finding.
[2018-05-01] MEDS ORDERED: CLINDAMYCIN 900MG/D5W 900 MG/50 ML BAG IV ONE (17:01)
--- NOTE | 2018-05-01 17:38 | ER ---
Nurse's Notes [facility] Name: Emile Holloway Age: 63 yrs Sex: Male : 1955 Arrival Date: 05/01/2018 Time: 14:05 Bed 20 Private MD: Eusebio Monte Diagnosis: Pain in left hip Presentation: 05/01 14:15 Presenting complaint: Patient states: He has his left his replaced 2 weeks ago. He aj1 followed up with the orthopedist lat Wednesday and everything looked fine, he was able to ambulated without any assistive devices. Then yesterday evening the hip began hurting again, and the pain keeps getting worse. He called the environmental studies professor number for his orthopedist, they told him that they were considered he might have a blood clot and they recommended that he come to the emergency room for evaluation. Transition of care: patient was not received from another setting of care. Onset of symptoms was April 30, 2018. Risk Assessment: Do you want to hurt yourself or someone else? Patient reports no desire to harm self or others. Initial Sepsis Screen: Does the patient meet any 2 criteria? HR > 90 bpm. Does the patient have a suspected source of infection? Yes: Other: recent hip surgery. Care prior to arrival: None. 14:15 Method Of Arrival: Ambulatory aj 14:15 Acuity: TANMAY 3 aj1 Triage Assessment: 14:20 General: Appears in no apparent distress. comfortable, Behavior is calm, cooperative, aj1 appropriate for age. Pain: Complains of pain in left hip Pain currently is 10 out of 10 on a pain scale. Neuro: Level of Consciousness is awake, alert, obeys commands. Cardiovascular: Patient's skin is warm and dry. Respiratory: Airway is patent Respiratory effort is even, unlabored, Respiratory pattern is regular, symmetrical. Historical: - Allergies: 14:20 No Known Allergies; aj1 - Home Meds: 14:20 Lipitor Oral [Active]; Plavix 75 mg Oral tab 1 tab once daily [Active]; aj1 - PMHx: 14:20 cardiac stent; Hyperlipidemia; aj1 - PSHx: 14:20 hip replacement; aj1 - Immunization history:: Flu vaccine is up to date. - Social history:: Smoking status: Patient/guardian denies using tobacco. - Ebola Screening: : Patient denies travel to an Ebola-affected area in the 21 days before illness onset. Screenin:55 Abuse screen: Denies threats or abuse. Nutritional screening: No deficits noted. em Tuberculosis screening: No symptoms or risk factors identified. Fall Risk None identified. Assessment: 15:45 General: Appears in no apparent distress. uncomfortable, Behavior is calm, cooperative. em Pain: Complains of pain in left hip Pain currently is 9 out of 10 on a pain scale. Neuro: Level of Consciousness is awake, alert, obeys commands, Oriented to person, place, time, situation, Appropriate for age. Cardiovascular: Denies chest pain, nausea, palpitations, shortness of breath, Capillary refill < 3 seconds Patient's skin is warm and dry. Respiratory: Airway is patent Respiratory effort is even, unlabored, Respiratory pattern is regular, symmetrical. GI: Abdomen is flat. : No signs and/or symptoms were reported regarding the genitourinary system. EENT: No signs and/or symptoms were reported regarding the EENT system. Derm: Skin is intact, Skin is pink, warm \T\ dry. Musculoskeletal: Range of motion: intact in all extremities. 15:50 General: The previous assessment is accurate, call light remains within reach. . ss 16:26 Reassessment: Patient appears in no apparent distress at this time. Patient and/or em family updated on plan of care and expected duration. Pain level reassessed. Patient is alert, oriented x 3, equal unlabored respirations, skin warm/dry/pink. Patient states feeling better. 17:28 Reassessment: Patient appears in no apparent distress at this time. Patient and/or em family updated on plan of care and expected duration. Pain level reassessed. Patient is alert, oriented x 3, equal unlabored respirations, skin warm/dry/pink. pending completion of IV antibiotics Patient states feeling better. Vital Signs: 14:20 BP 132 / 97; Pulse 95; Resp 20; Temp 97.5(TE); Pulse Ox 96% on R/A; Weight 92.99 kg aj1 (R); Height 5 ft. 10 in. (177.80 cm) (R); Pain 10/10; 15:20 BP 135 / 76; Pulse 81; Resp 18; Pulse Ox 97% on R/A; dh3 16:37 BP 122 / 72; Pulse 74; Resp 16; Pulse Ox 99% on R/A; Pain 4/10; em 17:10 Temp 98.5(O); dh3 17:24 BP 138 / 73; Pulse 71; Resp 19; Pulse Ox 98% on R/A; dh3 14:20 Body Mass Index 29.41 (92.99 kg, 177.80 cm) aj1 ED Course: 14:05 Patient arrived in ED. sb2 14:06 Eusebio Monte MD is Private Physician. sb2 14:19 Triage completed. aj1 14:20 Arm band placed on Patient placed in an exam room. aj1 14:26 Calvin Jackson PA is PHCP. jmm 14:26 Nilesh Lang MD is Attending Physician. jmm 14:29 Anibal Licea LVN is Primary Nurse. em 14:55 Patient has correct armband on for positive identification. Placed in gown. Bed in low em position. Call light in reach. 14:55 No provider procedures requiring assistance completed. em 15:20 Hip Left 2 View XRAY In Process Unspecified. EDMS 15:39 Ultrasound completed. Patient tolerated well. sg3 15:41 US Extremity Venous Unilateral Ltd In Process Unspecified. EDMS 17:46 IV discontinued, intact, bleeding controlled, No redness/swelling at site. Pressure em dressing applied. Administered Medications: 15:16 Drug: morphine 4 mg Route: IVP; Site: left antecubital; ss 17:02 Follow up: Response: No adverse reaction; Pain is decreased em 15:16 Drug: Zofran 4 mg Route: IVP; Site: left antecubital; ss 17:02 Follow up: Response: No adverse reaction em 17:10 Drug: Clindamycin 900 mg Route: IVPB; Infused Over: 30 mins; Site: left antecubital; em 17:46 Follow up: Response: No adverse reaction; IV Status: Completed infusion; IV Intake: 50mlem Intake: 17:46 IV: 50ml; Total: 50ml. em Outcome: 17:37 Discharge ordered by . jmm 17:46 Discharged to home via wheelchair. em 17:46 Condition: good 17:46 Discharge instructions given to patient, Instructed on discharge instructions, follow up and referral plans. Demonstrated understanding of instructions, follow-up care. 17:54 Patient left the ED. em Signatures: Dispatcher [employer] Elizabeth Oliver RN RN aj1 Calvin Jackson PA PA jmm Munoz, Edgar, CONTINUOUS IMPROVEMENT ANALYST CONTINUOUS IMPROVEMENT ANALYST Sherley Dooley, NICOLE RN ss Ronda Mcfarland 3 Ada Barber 3 Elle Caldera sb2
--- NOTE | 2018-05-01 17:38 | EDPHYS ---
Physician Documentation [facility] Name: Emile Holloway Age: 63 yrs Sex: Male : 1955 Arrival Date: 05/01/2018 Time: 14:05 Bed 20 Private MD: Eusebio Monte ED Physician Nilesh Lang HPI: 05/01 14:31 This 63 yrs old Male presents to ER via Ambulatory with complaints of Hip jmm Pain, Leg Pain. 14:31 The patient or guardian reports pain. The complaints affect the left hip. Onset: The jmm symptoms/episode began/occurred gradually, 1 day(s) ago. Associated signs and symptoms: Pertinent positives: chills. This is a 63 year old male with a history of CAD that presents to the ED with left leg pain, left groind pain beginning 1 day ago. Patient is 2.5 weeks s/p left hip replacement. Patient states having no difficulty since the surgery. Patient states pain began last night with radiation into his left groin. Patient complains of chills. The patient did not measure his temperature. . Historical: - Allergies: 14:20 No Known Allergies; aj1 - Home Meds: 14:20 Lipitor Oral [Active]; Plavix 75 mg Oral tab 1 tab once daily [Active]; aj1 - PMHx: 14:20 cardiac stent; Hyperlipidemia; aj1 - PSHx: 14:20 hip replacement; aj1 - Immunization history:: Flu vaccine is up to date. - Social history:: Smoking status: Patient/guardian denies using tobacco. - Ebola Screening: : Patient denies travel to an Ebola-affected area in the 21 days before illness onset. ROS: 14:31 Eyes: Negative for injury, pain, redness, and discharge. jmm 14:31 Cardiovascular: Negative for chest pain, palpitations, and edema, Respiratory: Negative for shortness of breath, cough, wheezing, and pleuritic chest pain, Abdomen/GI: Negative for abdominal pain, nausea, vomiting, diarrhea, and constipation, Back: Negative for injury and pain. 14:31 Constitutional: Positive for chills, malaise. 14:31 MS/extremity: Positive for pain. 14:31 All other systems are negative. Exam: 14:31 Head/Face: atraumatic. Chest/axilla: Normal chest wall appearance and motion. jmm Cardiovascular: Regular rate and rhythm. No edema appreciated Respiratory: Normal respirations, no respiratory distress appreciated 14:31 Constitutional: The patient appears in no acute distress, alert, awake. 14:31 Musculoskeletal/extremity: slight erythema noted to the left lateral incision site, pain is elicited on flexion of the left hip. Patient has groind pain on palpation. Compartments are soft. NVI. 14:31 Skin: Appearance: Color: normal in color, erythema noted around the incision site. . 14:31 Neuro: Orientation: is normal, Mentation: is normal, Memory: is normal. 14:31 Psych: Behavior/mood is pleasant, cooperative. 19:56 Skin: [facility] Vital Signs: 14:20 BP 132 / 97; Pulse 95; Resp 20; Temp 97.5(TE); Pulse Ox 96% on R/A; Weight 92.99 kg aj1 (R); Height 5 ft. 10 in. (177.80 cm) (R); Pain 10/10; 15:20 BP 135 / 76; Pulse 81; Resp 18; Pulse Ox 97% on R/A; dh3 16:37 BP 122 / 72; Pulse 74; Resp 16; Pulse Ox 99% on R/A; Pain 4/10; em 17:10 Temp 98.5(O); dh3 17:24 BP 138 / 73; Pulse 71; Resp 19; Pulse Ox 98% on R/A; dh3 14:20 Body Mass Index 29.41 (92.99 kg, 177.80 cm) aj MDM: 14:31 Patient medically screened. [facility] 16:48 Data reviewed: vital signs, nurses notes, lab test result(s), radiologic studies. [facility] 17:36 Counseling: I had a detailed discussion with the patient and/or guardian regarding: the [facility] historical points, exam findings, and any diagnostic results supporting the discharge/admit diagnosis, lab results, radiology results, the need for outpatient follow up, to return to the emergency department if symptoms worsen or persist or if there are any questions or concerns that arise at home. ED course: i discussed the patient with Dr. Yu whom advised that the patient will need outpatient follow up next week. Patient given strict return precautions. Patient understood and agrees with the plan of care. . 05/01 14:46 Order name: CBC with Diff; Complete Time: 16:04 [facility] 05/01 14:46 Order name: CMP; Complete Time: 16:04 [facility] 05/01 14:46 Order name: US Extremity Venous Unilateral Ltd; Complete Time: 16:04 [facility] 05/01 14:46 Order name: Hip Left 2 View XRAY; Complete Time: 16:36 [facility] 05/01 14:46 Order name: Saline Lock; Complete Time: 15:16 [facility] Administered Medications: 15:16 Drug: morphine 4 mg Route: IVP; Site: left antecubital; ss 17:02 Follow up: Response: No adverse reaction; Pain is decreased em 15:16 Drug: Zofran 4 mg Route: IVP; Site: left antecubital; ss 17:02 Follow up: Response: No adverse reaction em 17:10 Drug: Clindamycin 900 mg Route: IVPB; Infused Over: 30 mins; Site: left antecubital; em 17:46 Follow up: Response: No adverse reaction; IV Status: Completed infusion; IV Intake: 50mlem Disposition: 18:59 Co-signature as Attending Physician, Nilesh Lang MD I agree with the assessment and rn plan of care. Disposition: 05/01/18 17:37 Discharged to Home. Impression: Pain in left hip. - Condition is Stable. - Discharge Instructions: Hip Pain. - Prescriptions for Tylenol- Codeine #3 300-30 mg Oral Tablet - take 1 tablet by ORAL route every 6 hours As needed; 12 tablet. - Medication Reconciliation Form, Thank You Letter, Antibiotic Education, Prescription Opioid Use form. - Follow up: Private Physician; When: 2 - 3 days; Reason: Recheck today's complaints, Continuance of care, Re-evaluation by your physician. Signatures: Dispatcher [employer] Elizabeth Oliver RN RN aj1 Calvin Jackson PA PA Anibal Winslow, GOLD BUYER GOLD BUYER Nilesh Stephen MD MD rn [facility] Center[facility]ley RN RN ss Corrections: (The following items were deleted from the chart) 17:54 17:37 05/01/2018 17:37 Discharged to Home. Impression: Pain in left hip. Condition is em Stable. Forms are Medication Reconciliation Form, Thank You Letter, Antibiotic Education, Prescription Opioid Use. Follow up: Private Physician; When: 2 - 3 days; Reason: Recheck today's complaints, Continuance of care, Re-evaluation by your physician. griselda
== END 2018-05-01 17:54 | disposition home or self-care (01) ==
LOC: ER 14:03
DX: M25.552 Pain in left hip (principal); I25.10 Atherosclerotic heart disease of native coronary artery without angina pectoris; Z96.642 Presence of left artificial hip joint; E78.5 Hyperlipidemia, unspecified; Z95.5 Presence of coronary angioplasty implant and graft
CPT/HCPCS: 36415; 80053; 85025; 93971; 96365; 96375; 99283; J2405

== ENCOUNTER 2019-06-16 17:00 | Emergency (ER) | payer SELFPAY ==
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
[2019-06-16 18:10] VITALS: BP 171/89; TEMP 98; O2SAT 99
--- NOTE | 2019-06-16 18:10 | RAD REPORT ---
EXAM DESCRIPTION: RAD - Hip Left 2 View - 06/16/2019 5:44 pm CLINICAL HISTORY: Left hip pain status post injury FINDINGS: Left hip arthroplasty. There is no evidence of loosening of the prosthesis. No fracture or dislocation is seen.
== END 2019-06-16 18:04 | disposition home or self-care (01) ==
LOC: ER 17:00
DX: M25.552 Pain in left hip (principal); V49.40XA Driver injured in collision with unspecified motor vehicles in traffic accident, initial encounter; E78.00 Pure hypercholesterolemia, unspecified; E78.5 Hyperlipidemia, unspecified; Z95.818 Presence of other cardiac implants and grafts; Z96.642 Presence of left artificial hip joint
CPT/HCPCS: 99284

== ENCOUNTER 2019-08-31 03:43 | Emergency (ER) | payer OTHER ==
--- OUTSIDE RECORDS SUMMARY | 2019-08-31 03:46 | XMS REPORT ---
:1955 [facility] Address [address] [place] [id number] Care Team Providers Name Role Phone Unavailable Unavailable Unavailable Problems This patient has no known problems. Allergies, Adverse Reactions, Alerts This patient has no known allergies or adverse reactions. Medications This patient has no known medications. Results Test Description Test Time Test Comments Text Results Atomic Results Result Comments CAROTID 2018-06-21 CLINICAL INDICATION: R45.86 Emotional labilityTECHNIQUE: Realtime W/DOPPLER 13:58:56 sonographic imaging, color flow imaging and duplex doppler evaluation of the extracranial carotid circulation of the neck were performed bilaterally using the [employer] ultrasound Intima-media thickness determination is performed as well.COMPARISON: noneFINDINGS:Mild atheromatous plaque of the left carotid bulb and distal left common carotid artery.Velocities in both right and left common carotid arteries, carotid bulbs and cervical internal carotid arteries are normal bilaterally. The maximal peak systolic velocity of the right internal carotid artery is 72 cm/sec. The maximal peak systolic velocity of the left internal carotid artery is 77 cm/sec.The peak systolic internal carotid artery to common carotid artery flow velocity ratio is right 0.91, left 1.02. There are no visible arterial dissections.External carotid arteries are patent bilaterally.Vertebral flow is antegrade bilaterally.Carotid intima-media thickness is 0.9 mm right, 2.4 mm left.IMPRESSION:1. Right: ICA stenosis less than 40 % by velocity criteria.2. Left: ICA stenosis less than 40 % by velocity criteria.3. Mild atheromatous plaque of the left carotid bulb with no evidence of hemodynamically significant stenosis of the extracranial carotid arterial vessels. Consensus Panel Doppler US Criteria for diagnosis of ICA stenosis 50%: ICA PSV 125 cm/sec, ICA/CCA ratio 2.050-69%:ICA PSV 125-230 cm/sec, ICA/CCA ratio 2.0-4.0 70%: ICA PSV 230 cm/sec, ICA/CCA ratio 4.0
[2019-08-31] MEDS ORDERED: MEPERIDINE HCL 50 MG/ML ONE (04:14)
[2019-08-31] MEDS ORDERED: TAMSULOSIN 0.4 MG SR CAP ONE (04:14)
[2019-08-31] MEDS ORDERED: MAGNESIUM SULFATE 1 gm IVPB 1 GM/100 ML BAG IV ONE (04:15)
[2019-08-31] MEDS ORDERED: ONDANSETRON 4 MG/2 ML VIAL ONE ×2 (04:15→06:09)
[2019-08-31 04:31] LABS: Absolute Lymphocytes (CBC) 2.2 K/uL (0.7-4.9); Basophils % 0.9 % (0-1.3); Hematocrit 42.9 % (39.6-49.0); Lymphocytes % 30.5 % (15.3-44.8)
[2019-08-31] MEDS ORDERED: MORPHINE 4 MG/ML SYR ONE (04:40)
[2019-08-31 05:00] LABS: Potassium 4.2 mmol/L (3.5-5.1)
[2019-08-31] MEDS ORDERED: HYDROMORPHONE HCL 1 MG/ML INJ ONE (05:45)
[2019-08-31 05:48] LABS: Urine Bacteria <20 /HPF (NONE SEEN); Urine Culture Reflex Order NOT NEEDED; Urine Mucus 2+ /HPF (NONE SEEN); Urine RBC <5 /HPF (NONE SEEN)
--- NOTE | 2019-08-31 07:13 | ER ---
Nurse's Notes [facility] Name: Emile Holloway Age: 64 yrs Sex: Male : 1955 Arrival Date: 08/31/2019 Time: 03:46 Bed 19 Private MD: Diagnosis: Kidney stone Presentation: 08/31 04:00 Presenting complaint: Patient states: " I think I am having a kidney stone. I had one jd3 in the past and it feels the same. I took Advil earlier and it didn't help at all.". Transition of care: patient was not received from another setting of care. Onset of symptoms was August 31, 2019. Risk Assessment: Do you want to hurt yourself or someone else? Patient reports no desire to harm self or others. Initial Sepsis Screen: Does the patient meet any 2 criteria? No. Patient's initial sepsis screen is negative. Does the patient have a suspected source of infection? No. Patient's initial sepsis screen is negative. Care prior to arrival: None. 04:00 Method Of Arrival: Ambulatory jd3 04:00 Acuity: TANMAY 3 jd3 Historical: - Allergies: 07:14 No Known Allergies; sg - Home Meds: 04:03 lamotrigine Oral [Active]; Lipitor Oral [Active]; Plavix 75 mg Oral tab 1 tab once jd3 daily [Active]; atorvastatin oral oral [Active]; - PMHx: 04:03 Arthritis; High Cholesterol; Hyperlipidemia; cardiac stent; jd3 - PSHx: 04:03 hip replacement: left; jd3 - Immunization history:: Adult Immunizations up to date. - Social history:: Smoking status: Patient/guardian denies using tobacco. - Ebola Screening: : Patient negative for fever greater than or equal to 101.5 degrees Fahrenheit, and additional compatible Ebola Virus Disease symptoms. - Family history:: not pertinent. - Hospitalizations: : No recent hospitalization is reported. Screenin:21 Abuse screen: Denies threats or abuse. Nutritional screening: No deficits noted. jd3 Tuberculosis screening: No symptoms or risk factors identified. Fall Risk IV access (20 points). Ambulatory Aid- None/Bed Rest/Nurse Assist (0 pts). Gait- Normal/Bed Rest/Wheelchair (0 pts) Mental Status- Oriented to own ability (0 pts). Total Adkins Fall Scale indicates No Risk (0-24 pts). Assessment: 04:05 General: Appears in no apparent distress. uncomfortable, Behavior is calm, cooperative, jd3 appropriate for age. Pain: Complains of pain in left mid back Quality of pain is described as sharp. Neuro: Level of Consciousness is awake, alert, obeys commands, Oriented to person, place, time, situation. Cardiovascular: Denies chest pain, Capillary refill < 3 seconds Patient's skin is warm and dry. Respiratory: Airway is patent Respiratory effort is even, unlabored, Respiratory pattern is regular, symmetrical, Denies cough, shortness of breath. GI: Abdomen is round non-distended, Abd is soft and non tender X 4 quads. Reports nausea, left flank pain Patient currently denies vomiting. : Reports pain in left flank(s), Denies burning with urination. EENT: No signs and/or symptoms were reported regarding the EENT system. Derm: Skin is intact, Skin is dry, Skin is normal, Skin temperature is warm. Musculoskeletal: Circulation, motion, and sensation intact. Range of motion: intact in all extremities. 05:04 Reassessment: Patient appears in no apparent distress at this time. Patient and/or [facility] family updated on plan of care and expected duration. Pain level reassessed. Patient is alert, oriented x 3, equal unlabored respirations, skin warm/dry/pink. reports continued pain, reports some relief from the medication. Patient states feeling better. 05:48 Reassessment: pt reporting pain returning. jd3 06:00 Reassessment: Patient appears in no apparent distress at this time. No changes from jd3 previously documented assessment. Patient and/or family updated on plan of care and expected duration. Pain level reassessed. Patient is alert, oriented x 3, equal unlabored respirations, skin warm/dry/pink. 06:09 Reassessment: pt reporting nausea and continued pain, provider notified, new orders j received, see OCT. Vital Signs: 04:03 Pulse 77; Resp 20 S; Temp 97.7(O); Pulse Ox 97% on R/A; Weight 95.25 kg (R); Height 5 jd3 ft. 10 in. (177.80 cm) (R); Pain 10/; 04:31 BP 158 / 80; jd3 05:05 BP 138 / 89; Pulse 72; Resp 18 S; Pulse Ox 95% on R/A; Pain 6/10; jd3 05:48 Pain 10/10; jd3 06:01 BP 159 / 113; Pulse 64; Resp 19 S; Pulse Ox 100% on R/A; jd3 06:30 BP 149 / 81; Pulse 66; Resp 18 S; Pulse Ox 97% on R/A; jd3 04:03 Body Mass Index 30.13 (95.25 kg, 177.80 cm) jd3 ED Course: 03:46 Patient arrived in ED. cl3 03:58 Nilesh Lang MD is Attending Physician. rn 04:00 Ruddy Kang RN is Primary Nurse. jd3 04:01 Triage completed. jd3 04:03 Arm band placed on. jd3 04:08 Inserted saline lock: 20 gauge in right antecubital area, using aseptic technique. jd3 Blood collected. 04:21 Patient has correct armband on for positive identification. Bed in low position. Call jd3 light in reach. Side rails up X 1. 04:54 CT completed. Patient tolerated procedure well. Patient moved to CT via stretcher. eh Patient moved back from CT. 05:02 CT Stone Protocol In Process Unspecified. EDMS 07:11 Primary Nurse role handed off by Ruddy Kang RN sg 07:11 Benedict Ortiz, NICOLE is Primary Nurse. sg 07:12 Ronna Myers MD is Referral Physician. rn Administered Medications: 04:20 Drug: Demerol 50 mg Route: IVP; Site: right antecubital; jd3 04:40 Follow up: Response: No adverse reaction; RASS: Restless (+1) jd3 04:20 Drug: Zofran 4 mg Route: IVP; Site: right antecubital; jd3 04:40 Follow up: Response: No adverse reaction jd3 04:20 Drug: Magnesium Sulfate 1 grams Route: IVPB; Infused Over: 1 hrs; Site: right jd3 antecubital; 04:20 Drug: Flomax 0.4 mg Route: PO; jd3 05:20 Follow up: Response: No adverse reaction jd3 04:40 Drug: morphine 4 mg Route: IVP; Site: right antecubital; jd3 05:40 Follow up: Response: No adverse reaction; RASS: Restless (+1) jd3 05:48 Drug: Dilaudid 1 mg Route: IVP; Site: right antecubital; jd3 06:40 Follow up: Response: No adverse reaction jd3 06:10 Drug: Zofran 4 mg Route: IVP; Site: right antecubital; jd3 07:00 Follow up: Response: No adverse reaction jd3 Outcome: 07:12 Discharge ordered by MD. mcclain 07:24 Patient left the ED. sg Signatures: Dispatcher [employer] EDMS Benedict Ortiz RN RN Dank Rodarte Roman, MD MD rn Davies, Jonathon, RN RN jd3 Lewis, Charde cl3 Corrections: (The following items were deleted from the chart) 06:02 06:01 BP 159 / 113; Pulse 64bpm; Resp 19bpm; Spontaneous; Pulse Ox 100% RA; Pain 10/10; jd3 jd3
--- NOTE | 2019-08-31 07:13 | EDPHYS ---
Physician Documentation [facility] Name: Emile Holloway Age: 64 yrs Sex: Male : 1955 Arrival Date: 08/31/2019 Time: 03:46 Bed 19 Private MD: ED Physician Nilesh Lang HPI: 08/31 04:15 This 64 yrs old Male presents to ER via Ambulatory with complaints of rn Possible Kidney Stone. 04:15 The patient complains of pain in the left mid back. The pain radiates. Onset: The rn symptoms/episode began/occurred acutely. Modifying factors: The symptoms are alleviated by nothing. the symptoms are aggravated by nothing. Severity of pain: At its worst the pain was moderate in the emergency department the pain is unchanged. The patient has experienced a previous episode. Reports left flank pain, identical to previous kidney stone that passed spontaneously. No fever. No trauma. No testicular pain.. Historical: - Allergies: 07:14 No Known Allergies; sg - Home Meds: 04:03 lamotrigine Oral [Active]; Lipitor Oral [Active]; Plavix 75 mg Oral tab 1 tab once jd3 daily [Active]; atorvastatin oral oral [Active]; - PMHx: 04:03 Arthritis; High Cholesterol; Hyperlipidemia; cardiac stent; jd3 - PSHx: 04:03 hip replacement: left; jd3 - Immunization history:: Adult Immunizations up to date. - Social history:: Smoking status: Patient/guardian denies using tobacco. - Ebola Screening: : Patient negative for fever greater than or equal to 101.5 degrees Fahrenheit, and additional compatible Ebola Virus Disease symptoms. - Family history:: not pertinent. - Hospitalizations: : No recent hospitalization is reported. ROS: 04:15 Constitutional: Negative for fever, chills, and weight loss, Eyes: Negative for injury, rn pain, redness, and discharge, Neck: Negative for injury, pain, and swelling, Cardiovascular: Negative for chest pain, palpitations, and edema, Respiratory: Negative for shortness of breath, cough, wheezing, and pleuritic chest pain, Abdomen/GI: Negative for abdominal pain, nausea, vomiting, diarrhea, and constipation, Back: + left flank pain : Negative for injury, bleeding, discharge, and swelling, MS/Extremity: Negative for injury and deformity, Skin: Negative for injury, rash, and discoloration, Neuro: Negative for headache, weakness, numbness, tingling, and seizure. Exam: 04:15 Constitutional: This is a well developed, well nourished patient who is awake, alert, rn appears uncomfortable Head/Face: Normocephalic, atraumatic. ENT: MMM Cardiovascular: Regular rate and rhythm. No pulse deficits. Respiratory: No increased work of breathing, no retractions or nasal flaring. Abdomen/GI: Soft, non-tender Back: No spinal tenderness. No costovertebral tenderness. MS/ Extremity: Pulses equal, no cyanosis. Neurovascular intact. Full, normal range of motion. Equal circumference. Neuro: Awake and alert, GCS 15 Vital Signs: 04:03 Pulse 77; Resp 20 S; Temp 97.7(O); Pulse Ox 97% on R/A; Weight 95.25 kg (R); Height 5 jd3 ft. 10 in. (177.80 cm) (R); Pain 10/10; 04:31 BP 158 / 80; jd3 05:05 BP 138 / 89; Pulse 72; Resp 18 S; Pulse Ox 95% on R/A; Pain 6/10; jd3 05:48 Pain 10/10; jd3 06:01 BP 159 / 113; Pulse 64; Resp 19 S; Pulse Ox 100% on R/A; jd3 06:30 BP 149 / 81; Pulse 66; Resp 18 S; Pulse Ox 97% on R/A; jd3 04:03 Body Mass Index 30.13 (95.25 kg, 177.80 cm) jd3 MDM: 03:58 Patient medically screened. rn 07:11 Differential diagnosis: nephrolithiasis. Data reviewed: vital signs, nurses notes, r and d lab technician test result(s), radiologic studies, CT scan. Counseling: I had a detailed discussion with the patient and/or guardian regarding: the historical points, exam findings, and any diagnostic results supporting the discharge/admit diagnosis, lab results, radiology results, the need for outpatient follow up, to return to the emergency department if symptoms worsen or persist or if there are any questions or concerns that arise at home. Response to treatment: the patient's symptoms have markedly improved after treatment, and as a result, I will discharge patient. 08/31 04:04 Order name: CBC with Diff; Complete Time: 05:47 rn 08/31 04:04 Order name: Basic Metabolic Panel; Complete Time: 05:47 rn 08/31 04:04 Order name: Urine Microscopic Only; Complete Time: 05:47 rn 08/31 04:04 Order name: CT Stone Protocol rn 08/31 04:04 Order name: IV Start; Complete Time: 04:16 rn 08/31 04:04 Order name: Urine Dipstick-Ancillary (obtain specimen); Complete Time: 04:45 rn Administered Medications: 04:20 Drug: Demerol 50 mg Route: IVP; Site: right antecubital; jd3 04:40 Follow up: Response: No adverse reaction; RASS: Restless (+1) jd3 04:20 Drug: Zofran 4 mg Route: IVP; Site: right antecubital; jd3 04:40 Follow up: Response: No adverse reaction jd3 04:20 Drug: Magnesium Sulfate 1 grams Route: IVPB; Infused Over: 1 hrs; Site: right jd3 antecubital; 04:20 Drug: Flomax 0.4 mg Route: PO; jd3 05:20 Follow up: Response: No adverse reaction jd3 04:40 Drug: morphine 4 mg Route: IVP; Site: right antecubital; jd3 05:40 Follow up: Response: No adverse reaction; RASS: Restless (+1) jd3 05:48 Drug: Dilaudid 1 mg Route: IVP; Site: right antecubital; jd3 06:40 Follow up: Response: No adverse reaction jd3 06:10 Drug: Zofran 4 mg Route: IVP; Site: right antecubital; jd3 07:00 Follow up: Response: No adverse reaction jd3 Disposition: 08/31/19 07:12 Discharged to Home. Impression: Kidney stone. - Condition is Stable. - Discharge Instructions: Kidney Stones. - Prescriptions for Zofran ODT 4 mg Oral tablet,disintegrating - place 1 tablet by TRANSLINGUAL route every 8 hours As needed; 20 tablet. Tylenol- Codeine #3 300-30 mg Oral Tablet - take 1 tablet by ORAL route every 6 hours As needed; 15 tablet. - Medication Reconciliation Form, Thank You Letter, Antibiotic Education, Prescription Opioid Use form. - Follow up: Ronna Myers; When: As needed; Reason: Recheck today's complaints, Re-evaluation by your physician. - Problem is new. - Symptoms have improved. Signatures: Dispatcher [employer] EDBenedict Dean RN Nilesh Carranza MD MD rn Davies, Jonathon RN RN jd3 Corrections: (The following items were deleted from the chart) 07:24 07:12 08/31/2019 07:12 Discharged to Home. Impression: Kidney stone. Condition is sg Stable. Discharge Instructions: Kidney Stones. Prescriptions for Zofran ODT 4 mg Oral tablet,disintegrating - place 1 tablet by TRANSLINGUAL route every 8 hours As needed; 20 tablet, Tylenol-Codeine #3 300-30 mg Oral Tablet - take 1 tablet by ORAL route every 6 hours As needed; 15 tablet. and Forms are Medication Reconciliation Form, Thank You Letter, Antibiotic Education, Prescription Opioid Use. Follow up: Ronna Myers; When: As needed; Reason: Recheck today's complaints, Re-evaluation by your physician. Problem is new. Symptoms have improved. rn
[2019-08-31 07:33] VITALS: TEMP 97.7
[2019-08-31 07:40] VITALS: BP 149/81; O2SAT 97
--- NOTE | 2019-08-31 10:44 | RAD REPORT ---
EXAM DESCRIPTION: CT - Stone Protocol - 08/31/2019 7:10 am CLINICAL HISTORY: Left flank pain, hx of stones TECHNIQUE: Axial computed tomography images of the abdomen and pelvis without intravenous contrast. Sagittal and coronal reformatted images were created and reviewed. This CT exam was performed usi ng one or more of the following dose reduction techniques: automated exposure control, adjustment o f the mA and/or kV according to patient size, and/or use of iterative reconstruction technique. COMPARISON: No relevant prior studies available. FINDINGS: Lung bases: Mild left basilar atelectasis or scarring. There are densely calcified granulomata incidentally noted in the right middle lobe. ABDOMEN: Liver: Hepatic granulomata noted. Gallbladder and bile ducts: Unremarkable. No calcified stones. No ductal dilation. Pancreas: Unremarkable. No ductal dilation. Spleen: Splenic granulomata noted. Adrenals: Unremarkable. No mass. Kidneys and ureters: There is mild left hydroureteronephrosis. There is mild inflammation of t he urinary tract. There are multiple punctate central left kidney stones. There are at least two or three stones in the right kidney measuring 2 mm or smaller. Stomach and bowel: Moderate colonic stool. No obstruction. No mucosal thickening. PELVIS: Appendix: No findings to suggest acute appendicitis. Bladder: The urinary bladder is collapsed. There is a non-2 mm stone presumably passed from th e left side. Reproductive: Unremarkable as visualized. ABDOMEN and PELVIS: Intraperitoneal space: Unremarkable. No free air. No significant fluid collection. Bones/joints: No acute fracture. No dislocation. Soft tissues: Bilateral inguinal hernias noted containing fat. Vasculature: Aortic atherosclerosis. No aneurysm. Lymph nodes: Unremarkable. No enlarged lymph nodes. IMPRESSION: Mild left hydroureteronephrosis and 1-2 mm stone in the bladder presumably passed from t he left side. Nonobstructing intrarenal stones. Electronically signed by: Donya Antoine MD 08/31/2019 7:00 AM AUTOMOTIVE PRODUCT SPECIALIST Due to temporary technical issues with the PACS/Fluency reporting system, reports are being signed by the in house radiologist as a courtesy to ensure prompt reporting. The interpreting radiologist is f ully responsible for the content of the report.
== END 2019-08-31 07:24 | disposition home or self-care (01) ==
LOC: ER 03:43
DX: N20.0 Calculus of kidney (principal); E78.5 Hyperlipidemia, unspecified; E78.00 Pure hypercholesterolemia, unspecified; Z79.01 Long term (current) use of anticoagulants; Z95.818 Presence of other cardiac implants and grafts
CPT/HCPCS: 85025; 80048; 36415; 81015; 76377; 74176; 96375; 96374; 99284; J3475; J2175; J1170; J2405 ×2

== ENCOUNTER 2019-08-31 08:56 | Emergency (ER) | payer OTHER ==
--- OUTSIDE RECORDS SUMMARY | 2019-08-31 08:58 | XMS REPORT ---
:1955 [facility] Address [address] [place] [address] Care Team Providers Name Role Phone Unavailable Unavailable Unavailable Problems This patient has no known problems. Allergies, Adverse Reactions, Alerts This patient has no known allergies or adverse reactions. Medications This patient has no known medications. Results Test Description Test Time Test Comments Text Results Atomic Results Result Comments US CAROTID 2018-06-21 CLINICAL INDICATION: R45.86 Emotional labilityTECHNIQUE: Realtime W/DOPPLER 13:58:56 sonographic imaging, color flow imaging and duplex doppler evaluation of the extracranial carotid circulation of the neck were performed bilaterally using the [employer] ultrasound Intima-media thickness determination is performed as [...]
--- NOTE | 2019-08-31 10:03 | ER ---
Nurse's Notes [facility] Name: Emile Holloway Age: 64 yrs Sex: Male : 1955 Arrival Date: 08/31/2019 Time: 09:00 Bed 16 Private MD: Eusebio Monte Diagnosis: Left flank pain Presentation: 08/31 09:16 Presenting complaint: Patient states: was just discharged with a kidney stone on left iw side, passed out at home due to pain, "something's still not right". Transition of care: patient was not received from another setting of care. Onset of symptoms was August 31, 2019. Risk Assessment: Do you want to hurt yourself or someone else? Patient reports no desire to harm self or others. Initial Sepsis Screen: Does the patient meet any 2 criteria? No. Patient's initial sepsis screen is negative. Does the patient have a suspected source of infection? No. Patient's initial sepsis screen is negative. Care prior to arrival: None. 09:16 Method Of Arrival: Ambulatory iw 09:16 Acuity: TANMAY 3 iw Historical: - Allergies: 09:18 No Known Allergies; iw - Home Meds: 09:18 atorvastatin Oral [Active]; lamotrigine Oral [Active]; Plavix 75 mg Oral tab 1 tab once iw daily [Active]; Lipitor Oral [Active]; - PMHx: 09:18 Arthritis; cardiac stent; High Cholesterol; Hyperlipidemia; iw - PSHx: 09:18 hip replacement: left; iw - Immunization history:: Adult Immunizations up to date. - Social history:: Smoking status: Patient/guardian denies using tobacco. - Ebola Screening: : Patient negative for fever greater than or equal to 101.5 degrees Fahrenheit, and additional compatible Ebola Virus Disease symptoms Patient denies exposure to infectious person Patient denies travel to an Ebola-affected area in the 21 days before illness onset No symptoms or risks identified at this time. Screenin:50 Abuse screen: Denies threats or abuse. Denies injuries from another. Nutritional ph screening: No deficits noted. Tuberculosis screening: No symptoms or risk factors identified. Fall Risk None identified. Assessment: 09:30 General: Appears in no apparent distress. comfortable, well groomed, Behavior is calm, ph cooperative, appropriate for age. Pain: Complains of pain in anterior aspect of left lateral abdomen, posterior aspect of left lateral abdomen and left lower quadrant. Neuro: Level of Consciousness is awake, alert, obeys commands, Oriented to person, place, time, situation, Denies weakness dizziness. Cardiovascular: Capillary refill < 3 seconds in bilateral fingers Patient's skin is warm and dry. Respiratory: Airway is patent Respiratory effort is even, unlabored. GI: Reports lower abdominal pain. : Reports pain in left flank(s). Derm: Skin is intact, is healthy with good turgor, Skin is pink, warm \\T\\ dry. 09:56 Reassessment: Patient appears in no apparent distress at this time. Patient and/or ph family updated on plan of care and expected duration. Pain level reassessed. Patient is alert, oriented x 3, equal unlabored respirations, skin warm/dry/pink. Pt states, " I am feeling much better now, When I got home earlier and I got dizzy and nauseous and the pain was still there but it's gone now, I just want to go home,". Vital Signs: 09:18 BP 116 / 73; Pulse 60; Resp 16; Temp 97.3; Pulse Ox 97% on R/A; Weight 95.25 kg; Height iw 5 ft. 10 in. (177.80 cm); Pain 9/10; 09:45 BP 114 / 70 Supine; Pulse 64; ph 09:45 BP 108 / 68 Sitting; Pulse 65; ph 09:46 BP 108 / 72 Standing; Pulse 64; Resp 18; Temp 97.5; Pulse Ox 98% ; ph 09:18 Body Mass Index 30.13 (95.25 kg, 177.80 cm) iw ED Course: 09:00 Patient arrived in ED. mr 09:01 Eusebio Monte MD is Private Physician. mr 09:17 Triage completed. iw 09:21 Diya Magallanes, NICOLE is Primary Nurse. ph 09:21 Bob Bazan PA is PHCP. cp 09:21 Bob Kamara MD is Attending Physician. cp 09:50 Arm band placed on Patient placed in an exam room, on a stretcher. ph 09:50 Patient has correct armband on for positive identification. Placed in gown. Bed in low ph position. Call light in reach. Pulse ox on. NIBP on. Door closed. Warm blanket given. Head of bed elevated. 10:00 Ronna Myers MD is Referral Physician. cp 10:08 No provider procedures requiring assistance completed. Patient did not have IV access ph during this emergency room visit. Administered Medications: 09:59 Not Given (Patient Refused): Zofran 4 mg IVP once; over 2 minutes cp 10:00 Not Given (Patient Refused): TORadol 30 mg IVP once cp Outcome: 10:02 Discharge ordered by MD. cp 10:08 Discharged to home ambulatory. ph 10:08 Condition: good 10:08 Discharge instructions given to patient, Instructed on discharge instructions, follow up and referral plans. provided urine strainer Demonstrated understanding of instructions, follow-up care. 10:09 Patient left the ED. ph Signatures: Santa Martinez Irene, RN RN Diya Magallanes RN RN ph Bob Bazan, JENNIFER RODRIGUEZ cp
--- NOTE | 2019-08-31 10:03 | EDPHYS ---
Physician Documentation [facility] Name: Emile Holloway Age: 64 yrs Sex: Male : 1955 Arrival Date: 08/31/2019 Time: 09:00 Bed 16 Private MD: Eusebio Monte ED Physician Bob Kamara HPI: 08/31 09:40 This 64 yrs old Male presents to ER via Ambulatory with complaints of cp Possible Kidney Stone. 09:40 The patient complains of pain in the left mid back. Onset: The symptoms/episode cp began/occurred suddenly, this morning. 09:40 Patient reports he returned home after being discharged earlier this morning from [facility] cp for kidney stone and reports pain became worse causing him to pass out briefly. Historical: - Allergies: 09:18 No Known Allergies; iw - Home Meds: 09:18 atorvastatin Oral [Active]; lamotrigine Oral [Active]; Plavix 75 mg Oral tab 1 tab once iw daily [Active]; Lipitor Oral [Active]; - PMHx: 09:18 Arthritis; cardiac stent; High Cholesterol; Hyperlipidemia; iw - PSHx: 09:18 hip replacement: left; iw - Immunization history:: Adult Immunizations up to date. - Social history:: Smoking status: Patient/guardian denies using tobacco. - Ebola Screening: : Patient negative for fever greater than or equal to 101.5 degrees Fahrenheit, and additional compatible Ebola Virus Disease symptoms Patient denies exposure to infectious person Patient denies travel to an Ebola-affected area in the 21 days before illness onset No symptoms or risks identified at this time. ROS: 09:43 Constitutional: Negative for body aches, chills, fever, poor PO intake. cp 09:43 Eyes: Negative for injury, pain, redness, and discharge. cp 09:43 Cardiovascular: Negative for chest pain, palpitations. 09:43 Respiratory: Negative for cough, shortness of breath, wheezing. 09:43 Abdomen/GI: Positive for nausea, Negative for abdominal pain, diarrhea, constipation, active vomiting. 09:43 Back: Positive for flank pain, on the left. 09:43 : Negative for burning with urination, testicular pain 09:43 Skin: Negative for rash. 09:43 Neuro: Positive for syncope, Negative for altered mental status, headache, weakness. 09:43 All other systems are negative. Exam: 09:48 Constitutional: The patient appears in no acute distress, alert, awake, cp non-diaphoretic, non-toxic, well developed, well nourished. 09:48 Head/Face: Normocephalic, atraumatic. cp 09:48 Eyes: Periorbital structures: appear normal, Conjunctiva: normal, no exudate, no injection, Sclera: no appreciated abnormality, Lids and lashes: appear normal, bilaterally. 09:48 ENT: External ear(s): are unremarkable, Nose: is normal, Mouth: Lips: moist, Oral mucosa: moist, Posterior pharynx: Airway: no evidence of obstruction, patent. 09:48 Neck: ROM/movement: is normal, is supple, without pain, no range of motions limitations, no nuchal rigidity. 09:48 Chest/axilla: Inspection: normal, Palpation: is normal, no crepitus, no tenderness. 09:48 Cardiovascular: Rate: normal, Rhythm: regular, Heart sounds: murmur, not appreciated, Edema: is not appreciated, JVD: is not appreciated. 09:48 Respiratory: the patient does not display signs of respiratory distress, Respirations: normal, no use of accessory muscles, no retractions, labored breathing, is not present, Breath sounds: are clear throughout, no decreased breath sounds, no stridor, no wheezing. 09:48 Abdomen/GI: Inspection: abdomen appears normal, Bowel sounds: active, all quadrants, Palpation: soft, in all quadrants, very mild tenderness to palpation left lateral abdomen. 09:48 Back: ROM is normal, CVA tenderness, that is mild, is noted on the left. 09:48 Skin: no rash present. 09:48 Neuro: Orientation: to person, place \T\ time. Mentation: is normal, Cerebellar function: is grossly normal, Motor: moves all fours, strength is normal, Sensation: no obvious gross deficits, Gait: is steady, at a normal pace, without difficulty. Vital Signs: 09:18 BP 116 / 73; Pulse 60; Resp 16; Temp 97.3; Pulse Ox 97% on R/A; Weight 95.25 kg; Height iw 5 ft. 10 in. (177.80 cm); Pain 9/10; 09:45 BP 114 / 70 Supine; Pulse 64; ph 09:45 BP 108 / 68 Sitting; Pulse 65; ph 09:46 BP 108 / 72 Standing; Pulse 64; Resp 18; Temp 97.5; Pulse Ox 98% ; ph 09:18 Body Mass Index 30.13 (95.25 kg, 177.80 cm) iw MDM: 09:24 Patient medically screened. robe 10:00 ED course: Reviewed CT reports from earlier visit that showed left renal pelvis calculi cp and calculi in bladder. No ureteral calculi noted on CT. 10:01 Data reviewed: vital signs, nurses notes, old medical records, notes, labs and cp radiology studies from previous visit. 10:01 ED course: VSS. Patient reports he is feeling better and declines and testing or cp medications at this time and requests discharge to home. Administered Medications: 09:59 Not Given (Patient Refused): Zofran 4 mg IVP once; over 2 minutes cp 10:00 Not Given (Patient Refused): TORadol 30 mg IVP once cp Disposition: 09/01 07:52 Co-signature as Attending Physician, Bob Kamara MD I agree with the assessment and [facility] plan of care. Disposition: 08/31/19 10:02 Discharged to Home. Impression: Left flank pain. - Condition is Stable. - Discharge Instructions: Kidney Stones. - Medication Reconciliation Form, Thank You Letter, Antibiotic Education, Prescription Opioid Use form. - Follow up: Ronna Myers MD; When: 1 - 2 days; Reason: symptoms continue. - Problem is new. - Symptoms have improved. Signatures: Dispatcher [employer] Bob Swift MD MD cha Williams, Irene, RN RN iw Hall, Patricia, RN RN Bob Lomax PA PA cp Corrections: (The following items were deleted from the chart) 08/31 09:58 09:29 EKG - Nurse/Tech ordered. cp cp 09:59 09:38 IV Saline Lock ordered. cp cp 10:00 09:38 Orthostatics ordered. cp cp 10:02 09:39 CBC+H.LAB.BRZ ordered. EDMS EDMS 10:02 09:39 BASIC METABOLIC PANEL+C.LAB.BRZ ordered. EDMS EDMS 10: 09:40 PROTIME (+INR)+COAG.LAB.BRZ ordered. EDMS EDMS 10:09 10:02 08/31/2019 10:02 Discharged to Home. Impression: Left flank pain. Condition is ph Stable. Forms are Medication Reconciliation Form, Thank You Letter, Antibiotic Education, Prescription Opioid Use. Follow up: Ronna Myers; When: 1 - 2 days; Reason: symptoms continue. Problem is new. Symptoms have improved. cp
[2019-08-31 10:21] VITALS: BP 108/72; TEMP 97.5; O2SAT 98
== END 2019-08-31 10:09 | disposition home or self-care (01) ==
LOC: ER 08:56
DX: R10.9 Unspecified abdominal pain (principal); E78.5 Hyperlipidemia, unspecified; E78.00 Pure hypercholesterolemia, unspecified; Z95.818 Presence of other cardiac implants and grafts
CPT/HCPCS: 99283

== ENCOUNTER 2019-09-07 05:45 | Emergency (ER) | payer OTHER ==
--- OUTSIDE RECORDS SUMMARY | 2019-09-07 05:47 | XMS REPORT ---
:1955 Author Organization [facility] Address [address] [place] [id number] Care Team Providers Name Role Phone Unavailable [...] neck were performed bilaterally using the [employer] Cert[employer] ultrasound Intima-media thickness determination is performed as [...]
[2019-09-07] MEDS ORDERED: KETOROLAC 30 MG/ML INJ ONE (06:04)
[2019-09-07] MEDS ORDERED: FENTANYL CITR 100 MCG/2 ML ONE ×2 (06:12→07:35)
[2019-09-07] MEDS ORDERED: NA CHLORIDE 0.9% 1,000 ML ONE (06:12)
[2019-09-07 06:20] LABS: Hematocrit 41.8 % (39.6-49.0); Lymphocytes % 29.8 % (15.3-44.8); RBC Red Blood Cell Count 4.71 M/uL (4.33-5.43)
[2019-09-07 07:04] LABS: Albumin 3.7 g/dL (3.4-5.0); Bilirubin Direct 0.1 mg/dL (0-0.2); Bilirubin Total 0.6 mg/dL (0.2-1.0); Potassium 4.5 mmol/L (3.5-5.1); Protein, Total 7.1 g/dL (6.4-8.2)
[2019-09-07] MEDS ORDERED: DIAZEPAM 10 MG/2 ML INJ SYRINGE ONE (07:35)
[2019-09-07 07:55] LABS: Urine Blood NEGATIVE (NEG); Urine Glucose NEGATIVE (NEG); Urine Protein NEGATIVE (NEG)
--- NOTE | 2019-09-07 08:11 | ER ---
Nurse's Notes [facility] Name: Emile Holloway Age: 64 yrs Sex: Male : 1955 Arrival Date: 09/07/2019 Time: 05:46 Bed 13 Private MD: Diagnosis: Other abdominal pain Presentation: 09/07 05:56 Presenting complaint: Patient states: I WAS HERE A WEEK AGO, FOR KIDNEY STONES. THEY rv SAW STONE ON MY LEFT SIDE, GAVE ME MEDICINES. TODAY I WOKE UP WITH PAIN AGAIN ON MY LEFT SIDE. THE PILL THAT THEY GAVE ME IS NOT WORKING. I TOOK IT AN HOUR AGO. Transition of care: patient was not received from another setting of care. Onset of symptoms was September 07, 2019 at 05:00. Risk Assessment: Do you want to hurt yourself or someone else? Patient reports no desire to harm self or others. Initial Sepsis Screen: Does the patient meet any 2 criteria? No. Patient's initial sepsis screen is negative. Does the patient have a suspected source of infection? No. Patient's initial sepsis screen is negative. Care prior to arrival: None. 05:56 Method Of Arrival: Ambulatory rv 05:56 Acuity: TANMAY 3 rv Triage Assessment: 06:06 General: Appears in no apparent distress. uncomfortable, Behavior is calm, cooperative. rv Pain: Complains of pain in LEFT FLANK. Neuro: Level of Consciousness is awake, alert, obeys commands, Oriented to person, place, time, situation. Cardiovascular: Patient's skin is warm and dry. Respiratory: Airway is patent. GI: Abdomen is round non-distended. : No signs and/or symptoms were reported regarding the genitourinary system. Historical: - Allergies: 06:05 No Known Allergies; rv - Home Meds: 06:05 atorvastatin Oral [Active]; lamotrigine Oral [Active]; Lipitor Oral [Active]; Plavix 75 rv mg Oral tab 1 tab once daily [Active]; acetaminophen-codeine 300-30 mg Oral tab [Active]; Ondansetron Oral [Active]; - PMHx: 06:05 Arthritis; cardiac stent; High Cholesterol; Hyperlipidemia; Kidney stones; rv - PSHx: 06:05 LEFT HIP; rv - Immunization history:: Adult Immunizations up to date. - Social history:: Smoking status: Patient/guardian denies using tobacco. - Ebola Screening: : No symptoms or risks identified at this time. Screenin:05 Abuse screen: Denies threats or abuse. Denies injuries from another. Nutritional rv screening: No deficits noted. Tuberculosis screening: No symptoms or risk factors identified. Fall Risk None identified. Assessment: 06:07 GI: Bowel sounds present X 4 quads. Abd is soft and non tender. rv 07:00 Pain: Complains of pain in left flank. Neuro: Level of Consciousness is awake, alert, rb1 obeys commands, Oriented to person, place, time, situation. Cardiovascular: Capillary refill < 3 seconds is brisk in bilateral fingers. Respiratory: Airway is patent Respiratory effort is even, unlabored, Respiratory pattern is regular, symmetrical. 07:00 General: Appears in no apparent distress. comfortable, Behavior is calm, cooperative. rb1 Derm: Skin is pink, warm \T\ dry. 07:52 Reassessment: Patient appears in no apparent distress at this time. Patient and/or rb1 family updated on plan of care and expected duration. Pain level reassessed. Patient is alert, oriented x 3, equal unlabored respirations, skin warm/dry/pink. 08:30 Reassessment: Patient appears in no apparent distress at this time. Patient and/or rb1 family updated on plan of care and expected duration. Pain level reassessed. Patient is alert, oriented x 3, equal unlabored respirations, skin warm/dry/pink. Vital Signs: 05:59 BP 147 / 94; Pulse 69; Resp 19; Temp 97.9; Pulse Ox 100% ; Weight 95.25 kg; Pain 10/10; rv 06:28 BP 138 / 79; Pulse 64; Resp 19; Pulse Ox 100% ; rv 06:47 BP 133 / 80; Pulse 62; Resp 17; Pulse Ox 100% on R/A; rv 07:45 BP 132 / 63; Pulse 60; Resp 18; Pulse Ox 100% on R/A; rb1 08:35 BP 122 / 61; Pulse 62; Resp 19; Pulse Ox 100% on R/A; rb1 ED Course: 05:46 Patient arrived in ED. ds1 05:47 Darrius Orellana, NICOLE is Primary Nurse. rv 05:58 Triage completed. rv 06:00 Inserted saline lock: 20 gauge in right antecubital area, using aseptic technique. rv Blood collected. 06:00 Initial lab(s) drawn, by me, sent to lab. rv 06:05 [facility]ada [facility]. jr8 06:05 Baldo Velasco MD is Attending Physician. jr8 06:05 Arm band placed on Patient placed Patient notified of wait time. rv 06:07 Patient has correct armband on for positive identification. Bed in low position. Call rv light in reach. Side rails up X 1. Pulse ox on. NIBP on. 06:34 CT completed. Patient tolerated procedure well. Patient moved to CT via stretcher. Patient moved back from CT. 06:35 CT Stone Protocol In Process Unspecified. EDMS 07:01 Jami Masters, RN is Primary Nurse. rb1 08:10 Ronna Myers MD is Referral Physician. jr8 08:35 No provider procedures requiring assistance completed. IV discontinued, intact, rb1 bleeding controlled, No redness/swelling at site. Pressure dressing applied. Administered Medications: 06:08 Drug: NS 0.9% 1000 ml Route: IV; Rate: 1 bolus; Site: right antecubital; rv 06:11 Drug: TORadol 30 mg Route: IVP; Site: right antecubital; rv 06:48 Follow up: Response: No adverse reaction rv 06:11 Drug: fentaNYL (PF) 75 mcg {Note: RASS 0.} Route: IVP; Site: right antecubital; rv 06:48 Follow up: Response: RASS: Alert and Calm (0) rv 07:40 Drug: fentaNYL (PF) 50 mcg Route: IVP; Site: right antecubital; rb1 07:55 Follow up: Response: No adverse reaction; Pain is decreased rb1 07:40 Drug: Valium 2 mg Route: IVP; Site: right antecubital; rb1 07:55 Follow up: Response: No adverse reaction; Pain is decreased rb1 Outcome: 08:11 Discharge ordered by . jr8 08:35 Patient left the ED. rb1 08:35 Discharged to home ambulatory. rb1 08:35 Condition: stable 08:35 Discharge instructions given to patient, Instructed on discharge instructions, follow up and referral plans. medication usage, Demonstrated understanding of instructions, follow-up care, medications, Prescriptions given X 2. Signatures: Dispatcher [employer] EDSC Destiney, Arely [place] ds1 Alexis Quesada PA PA jr8 Jami Masters, RN RN rb1 Darrius Orellana RN RN rv
--- NOTE | 2019-09-07 08:12 | EDPHYS ---
Physician Documentation [facility] Name: Emile Holloway Age: 64 yrs Sex: Male : 1955 Arrival Date: 09/07/2019 Time: 05:46 Bed 13 Private MD: ED Physician Baldo Velasco HPI: 09/07 06:22 This 64 yrs old Male presents to ER via Ambulatory with complaints of jr8 Possible Kidney Stone. 06:22 The patient complains of pain in the left flank. The pain radiates to the abdomen. jr8 Onset: The symptoms/episode began/occurred acutely, this morning. Modifying factors: The symptoms are alleviated by nothing. the symptoms are aggravated by nothing. Associated signs and symptoms: Pertinent positives: nausea. Severity of pain: At its worst the pain was moderate in the emergency department the pain is unchanged. The patient has experienced a previous episode. The patient has been recently seen at the [facility] Emergency Department, last week. Patient reports being seen by ED last week and was given medicine for kidney stone. Stated that he passed it and has been fine. Today woke up with left flank pain that is not going away. Historical: - Allergies: 06:05 No Known Allergies; rv - Home Meds: 06:05 atorvastatin Oral [Active]; lamotrigine Oral [Active]; Lipitor Oral [Active]; Plavix 75 rv mg Oral tab 1 tab once daily [Active]; acetaminophen-codeine 300-30 mg Oral tab [Active]; Ondansetron Oral [Active]; - PMHx: 06:05 Arthritis; cardiac stent; High Cholesterol; Hyperlipidemia; Kidney stones; rv - PSHx: 06:05 LEFT HIP; rv - Immunization history:: Adult Immunizations up to date. - Social history:: Smoking status: Patient/guardian denies using tobacco. - Ebola Screening: : No symptoms or risks identified at this time. ROS: 06:22 Constitutional: Negative for fever, chills, and weight loss. jr8 06:22 Abdomen/GI: Positive for abdominal pain, nausea, Negative for vomiting, diarrhea, constipation, abdominal cramps, abdominal distension. 06:22 Back: Positive for flank pain, on the left. 06:22 All other systems are negative. Exam: 06:22 Eyes: Pupils equal round and reactive to light, extra-ocular motions intact. Lids and jr8 lashes normal. Conjunctiva and sclera are non-icteric and not injected. Cornea within normal limits. Periorbital areas with no swelling, redness, or edema. ENT: Nares patent. No nasal discharge, no septal abnormalities noted. Tympanic membranes are normal and external auditory canals are clear. Oropharynx with no redness, swelling, or masses, exudates, or evidence of obstruction, uvula midline. Mucous membranes moist. Neck: Trachea midline, no thyromegaly or masses palpated, and no cervical lymphadenopathy. Supple, full range of motion without nuchal rigidity, or vertebral point tenderness. No Meningismus. Cardiovascular: Regular rate and rhythm with a normal S1 and S2. No gallops, murmurs, or rubs. Normal PMI, no JVD. No pulse deficits. Respiratory: Lungs have equal breath sounds bilaterally, clear to auscultation and percussion. No rales, rhonchi or wheezes noted. No increased work of breathing, no retractions or nasal flaring. Abdomen/GI: Soft, non-tender, with normal bowel sounds. No distension or tympany. No guarding or rebound. No evidence of tenderness throughout. Skin: Warm, dry with normal turgor. Normal color with no rashes, no lesions, and no evidence of cellulitis. MS/ Extremity: Pulses equal, no cyanosis. Neurovascular intact. Full, normal range of motion. Neuro: Awake and alert, GCS 15, oriented to person, place, time, and situation. Cranial nerves II-XII grossly intact. Motor strength 5/5 in all extremities. Sensory grossly intact. Cerebellar exam normal. Normal gait. 06:22 Back: pain, that is moderate, of the left flank, ROM is normal, normal spinal alignment noted, CVA tenderness, that is mild, is noted on the left, vertebral tenderness, is not appreciated, muscle spasm, is not present. Vital Signs: 05:59 BP 147 / 94; Pulse 69; Resp 19; Temp 97.9; Pulse Ox 100% ; Weight 95.25 kg; Pain 10/10; rv 06:28 BP 138 / 79; Pulse 64; Resp 19; Pulse Ox 100% ; rv 06:47 BP 133 / 80; Pulse 62; Resp 17; Pulse Ox 100% on R/A; rv 07:45 BP 132 / 63; Pulse 60; Resp 18; Pulse Ox 100% on R/A; rb1 08:35 BP 122 / 61; Pulse 62; Resp 19; Pulse Ox 100% on R/A; rb1 MDM: 06:06 Patient medically screened. jr8 07:59 Differential diagnosis: nephrolithiasis, pyelonephritis, UTI, testicular torsion, jr8 diverticulitis, ruptured AAA, dissecting AAA, colitis. Data reviewed: vital signs, nurses notes, lab test result(s), radiologic studies, CT scan. Data interpreted: Pulse oximetry: on room air is 100 %. Interpretation: normal. Counseling: I had a detailed discussion with the patient and/or guardian regarding: the historical points, exam findings, and any diagnostic results supporting the discharge/admit diagnosis, lab results, radiology results, the need for outpatient follow up, a urologist, to return to the emergency department if symptoms worsen or persist or if there are any questions or concerns that arise at home. ED course: No acute lab or CT findings at this time. CT stone has been passed since last CT and without new obstruction. No urine infection or other systemic signs of infection based on labs. Explained to patient that he may just be having residual inflammation/spasm to that area. Otherwise no other acute findings at this time. Recommend f/u with urology at this point. 09/07 05:50 Order name: Basic Metabolic Panel; Complete Time: 07:05 09/07 05:50 Order name: CBC with Diff; Complete Time: 06:39 tw09/07 05:50 Order name: Creatinine for Radiology; Complete Time: 06:27 09/07 05:50 Order name: Hepatic Function; Complete Time: 07:05 09/07 05:50 Order name: Lipase; Complete Time: 07:05 09/07 07:28 Order name: Urine Dipstick--Ancillary (enter results); Complete Time: 07:57 em1 09/07 05:50 Order name: IV Saline Lock; Complete Time: 06:07 tw09/07 05:50 Order name: Labs collected and sent; Complete Time: 06:07 tw09/07 05:50 Order name: CT Stone Protocol tw09/07 05:50 Order name: Urine Dipstick-Ancillary (obtain specimen); Complete Time: 07:21 tw4 Administered Medications: 06:08 Drug: NS 0.9% 1000 ml Route: IV; Rate: 1 bolus; Site: right antecubital; rv 06:11 Drug: TORadol 30 mg Route: IVP; Site: right antecubital; rv 06:48 Follow up: Response: No adverse reaction rv 06:11 Drug: fentaNYL (PF) 75 mcg {Note: RASS 0.} Route: IVP; Site: right antecubital; rv 06:48 Follow up: Response: RASS: Alert and Calm (0) rv 07:40 Drug: fentaNYL (PF) 50 mcg Route: IVP; Site: right antecubital; rb1 07:55 Follow up: Response: No adverse reaction; Pain is decreased rb1 07:40 Drug: Valium 2 mg Route: IVP; Site: right antecubital; rb1 07:55 Follow up: Response: No adverse reaction; Pain is decreased rb1 Disposition: 09/08 07:32 Co-signature as Attending Physician, Baldo Velasco MD I agree with the assessment and tw4 plan of care. Disposition: 09/07/19 08:11 Discharged to Home. Impression: Other abdominal pain. - Condition is Stable. - Discharge Instructions: Flank Pain, Adult. - Prescriptions for Tylenol- Codeine #3 300-30 mg Oral Tablet - take 2 tablets by ORAL route every 6 hours As needed; 12 tablet. Zanaflex 4 mg Oral Tablet - take 1 tablet by ORAL route every 8 hours As needed; 20 tablet. - Medication Reconciliation Form, Thank You Letter, Antibiotic Education, Prescription Opioid Use form. - Follow up: Ronna Myers MD; When: 2 - 3 days; Reason: Recheck today's complaints, Continuance of care, Re-evaluation by your physician. - Problem is new. - Symptoms have improved. Signatures: Dispatcher [employer] EDMS Alexis Quesada PA PA jr8 Jami Masters RN RN rb1 Baldo Velasco MD MD tw4 Darrius Orellana RN RN rv Corrections: (The following items were deleted from the chart) 09/07 08:35 08:11 09/07/2019 08:11 Discharged to Home. Impression: Other abdominal pain. Condition rb1 is Stable. Forms are Medication Reconciliation Form, Thank You Letter, Antibiotic Education, Prescription Opioid Use. Follow up: Ronna Myers; When: 2 - 3 days; Reason: Recheck today's complaints, Continuance of care, Re-evaluation by your physician. Problem is new. Symptoms have improved. jr8
[2019-09-07 08:43] VITALS: TEMP 97.9; O2SAT 100
[2019-09-07 08:47] VITALS: BP 122/61
--- NOTE | 2019-09-07 12:06 | RAD REPORT ---
EXAM DESCRIPTION: CT Abdomen and Pelvis Without Intravenous Contrast CLINICAL HISTORY: The patient is 64 years old and is Male; Abd pain;Pain TECHNIQUE: Axial computed tomography images of the abdomen and pelvis without intravenous contrast. Sagittal and coronal reformatted images were created and reviewed. This CT exam was performed usi ng one or more of the following dose reduction techniques: automated exposure control, adjustment o f the mA and/or kV according to patient size, and/or use of iterative reconstruction technique. COMPARISON: CT of the abdomen and pelvis August 31, 2019. FINDINGS: LUNG BASES: Unremarkable. No mass. No consolidation. ABDOMEN: LIVER: Several hepatic granuloma are present. GALLBLADDER AND BILE DUCTS: The gallbladder is distended. No calcified gallstones or ductal dila tation is seen. PANCREAS: Mild fatty infiltration of the pancreas is noted. No ductal dilation. SPLEEN: Several splenic granuloma are present. ADRENALS: Unremarkable. No mass. KIDNEYS AND URETERS: Punctate bilateral intrarenal calcifications are present. There is no hydro nephrosis or hydroureter of either kidney. No obstructing renal or ureteral calculus is seen. STOMACH AND BOWEL: The stomach is not well distended. The small bowel is normal in caliber. A mo derate amount stool is present throughout colon. There is no mucosal thickening or evidence of bowel obstruction. PELVIS: APPENDIX: The appendix is normal in caliber without surrounding inflammation. BLADDER: Unremarkable. No stones. REPRODUCTIVE: Unremarkable as visualized. ABDOMEN and PELVIS: INTRAPERITONEAL SPACE: Unremarkable. No free air. No significant fluid collection. BONES/JOINTS: Left hip prosthesis is present. The hardware is engaged. Minimal degenerative ch kenny of the spine is present. SOFT TISSUES: The soft tissues are normal. VASCULATURE: Unremarkable. No abdominal aortic aneurysm. LYMPH NODES: Unremarkable. No enlarged lymph nodes. IMPRESSION: 1. Bilateral nephrolithiasis without obstruction. Resolution of the previously demonst rated mild left hydroureteronephrosis. 2. Moderate stool burden without obstruction. Normal appendix. Electronically signed by: Evie Chua MD 09/07/2019 6:49 AM ENERGY ECONOMIST Due to temporary technical issues with the PACS/Fluency reporting system, reports are being signed by the in house radiologist as a courtesy to ensure prompt reporting. The interpreting radiologist is f ully responsible for the content of the report.
== END 2019-09-07 08:35 | disposition home or self-care (01) ==
LOC: ER 05:45
DX: R10.9 Unspecified abdominal pain (principal); E78.5 Hyperlipidemia, unspecified; E78.00 Pure hypercholesterolemia, unspecified
CPT/HCPCS: 36415; 74176; 76377; 80048; 80076; 81003; 83690; 85025; 96374; 96375; 99284; J3010; J3360; J7030

== ENCOUNTER 2020-03-24 18:52 | Emergency (ER) | payer OTHER ==
--- OUTSIDE RECORDS SUMMARY | 2020-03-24 18:58 | XMS REPORT | Continuity of Care Document ---
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 Cardiac Clinic Coronary Active Problem 02/02/2020 [place] angioplasty status [facility] CAD of [place] Active Problem 02/02/2020 [place] [facility] Angina Card [facility]ac Clinic Benign essential Active Problem 02/02/2020 [place] HTN Cardiac Clinic Hyperlipidemia Active Problem 02/02/2020 [facility] ton Cardiac Clinic CAD of [place] Active Problem 02/02/2020 [place] w/o Angina Ca rdiac Clinic Preop Active Diagnosis 04/01/2018 [place] cardiovascular exam Cardiac Clinic Coronary stent or Active Diagnosis 06/24/2016 Tari thompson PTCA, status post Ca rdiac Clinic Coronary Active Problem 12/02/2014 [place] atherosclerosis of C [place] vessel Clinic Hyperlipidemia NOS Active Problem 12/02/2014 [place] [facility]iac [facility] Angina Pectoris Active Problem 12/02/2014 [place] stomary Cardiac Clinic Hypertension Active Problem 12/02/2014 [place] [facility] Hypertensive Active Diagnosis 06/24/2016 [place] crisis, unspecified Cardiac Clinic Hyperlipidemia, Active Diagnosis 06/24/2016 [place] urias unspecified Cardiac Clinic Atherosclerosis of Active Problem 02/02/2020 [place] coronary Card iac artery of [place] Cli michael heart with stable angina pectoris Other Active Diagnosis 06/24/2016 [place] hyperlipidemia Cardi ac Clinic Atherosclerotic Active Diagnosis 06/24/2016 [place] urias heart disease of Car diac [place] coronary Clin ic artery without angina pectoris Back pain Active Problem 02/13/2013 [facility] Coronary artery Active Problem 02/13/2013 disease [facility] Unstable angina Active Problem 02/13/2013 [facility] Coronary Resolved Problem 03/03/2017 [facility] arteriosclerosis Med ical (disorder) [place] Backache (finding) Active Problem 03/03/2017 [facility] Preinfarction Active Problem 03/03/2017 [place] syndrome (disorder) [facility] UNSP OPEN WOUND OF Active [facility] UNSP FINGER W/O [facility] Medications Medication Details Route Status Patient Ordering Order Source Instructions Provider Date telmisartan 1 tab(s) orally Active 80 mg orally ALFIE 09/22/ [place] once a day 2019 [facility]iac [facility] Clindamycin Notes: (Same Inactive Ever as As: Cleocin) 2017 [facility] Acetaminophen 2 tab, PO, Active [place] 325 MG / Q6H, PRN Pain 2017 Medical Hydrocodone Score 7-10, 0 [place] Bitartrate 10 Refill(s) MG Oral Tablet [[place] 10/325] clindamycin 300 mg, PO, Active [place] 300 mg oral [id number], 0 2017 Medical capsule Refill(s) [place] Acetaminophen Notes: Do not Inactive [place] 325 MG / exceed 4gm/day 2017 Medical Hydrocodone of [place] Bitartrate 10 acetaminophen. MG Oral Tablet (Same as: [[place] 10/325] [place] 325/10) Docusate 50 mg = 1 cap, Active [facility] Sodium 50 MG PO, BID, PRN 2017 Medica l Oral Capsule Constipation, Cente r # 60 cap, 0 Refill(s) clindamycin 300 mg = 1 Active [place] 300 mg oral cap, PO, Q6H, 2017 Medica l capsule # 28 cap, 0 Center Refill(s) Lamictal 150 mg, Route: No Longer Ever as PO, Drug form: Active 2016 Medical TAB, Daily, Center Dosing Weight 86.477, kg, Start date: 02/28/17 9:00:00 CDT, Duration: 30 day, Stop date: 03/29/17 9:00:00 CDT Lorazepam Notes: (Same No Longer [place] as: Ativan) Active [address] [place] [address] atorvastatin 20 mg = 1 tab, Active [place] 20 MG Oral PO, Daily, 0 2017 Medical Tablet Refill(s) [place] [Lipitor] Lorazepam 1 MG 1 mg = 1 tab, Active [facility] Oral Tablet PO, Daily, PRN 2017 Medic al [Ativan] Anxiety, # 60 Center tab, 0 Refill(s) LaMICtal Notes: (Same No Longer [facility] as:LaMICtal) Active 2017 Medical [place] Acetaminophen Notes: Do not No Longer [facility] 300 MG / exceed 4gm/day Active 2017 Medical Codeine [facility] Phosphate 30 acetaminophen. MG Oral Tablet (Same as: [Tylenol with Tylenol with Codeine #3] Codeine # 3) Acetaminophen Notes: Do not No Longer [facility] 300 MG / exceed 4gm/day Active 2017 [facility] Codeine [facility] Phosphate 30 acetaminophen. MG Oral Tablet (Same as: [Tylenol with Tylenol with Codeine #3] Codeine # 3) Benadryl Notes: (Same No Longer [facility] as: Benadryl) Active 2017 Medical [place] Docusate Notes: (Same No Longer [facility] as: Colace) Active 2017 Medical (Do Not Crush) [place] Plavix Notes: (Same No Longer [facility] As: Plavix) Active 2017 [facility] Ancef + sodium Notes: (Same No Longer [facility] chloride 0.9% As: Ancef, Active 2017 Medical INJ 100 mL Kefzol) [place] Cefazolin FOR IV SET ONLY MEDICATION WASTE Product Size: 1000 mg Product Wasted: ___ mg Lipitor Notes: (Same No Longer [facility] as: Lipitor) Active 2017 [facility] Aspirin 81 MG Notes: Take No Longer [place] Chewable with food. Active 2017 Medical Tablet [place] lamotrigine 150 mg = 1 Active [facility] 150 MG Oral tab, PO, 2017 Medical Tablet Daily, # 30 [place] [Lamictal] tab, 1 Refill(s) Ativan Bedtime, 0 Inactive [facility] Refill(s) 2017 Medical [place] ePHEDrine Route: IV, Inactive [facility] (ANES) Drug form: 2017 Medical INJ, ONCE, Center Stop date: 02/27/17 1:57:00 CDT sugammadex Route: IV, Inactive [facility] (ANES) Drug form: 2017 Medical SOLN, ONCE, Center Stop date: 02/27/17 1:57:00 CDT ceFAZolin Route: IV, Inactive [facility] (ANES) Drug form: 2017 Medical INJ, ONCE, Center Stop date: 02/27/17 1:57:00 CDT acetaminophen Route: IV, Inactive [place] (ANES) Drug form: 2017 Medical INJ, ONCE, Center Stop date: 02/27/17 1:57:00 CDT ondansetron Route: IV, Inactive [facility] (ANES) Drug form: 2017 Medical INJ, ONCE, Center Stop date: 02/27/17 1:57:00 CDT fentaNYL Route: IV, Inactive [facility] (ANES) Drug form: 2017 Medical INJ, ONCE, Center Stop date: 02/27/17 1:50:00 CDT propofol Route: IV, Inactive [facility] (ANES) Drug form: 2017 Medical INJ, ONCE, Center Stop date: 02/27/17 1:50:00 CDT rocuronium Route: IV, Inactive [facility] (ANES) Drug form: 2017 Medical INJ, ONCE, Center Stop date: 02/27/17 1:50:00 CDT midazolam Route: IV, Inactive [facility] (ANES) Drug form: 2016 Medical SOLN, ONCE, Center Stop date: 02/27/17 1:50:00 CDT lidocaine Route: IV, Inactive [facility] (ANES) Drug form: 2017 Medical INJ, ONCE, Center Stop date: 02/27/17 1:50:00 CDT Flumazenil 0.2 mg, Route: Inactive [place] IVP, PRN, 2017 Medical Dosing Weight Center 84.091, kg, PRN Benzodiazepine Reversal, Initial dose, Start date: 02/27/17 1:33:00 CDT, Duration: 30 day, Stop date: 03/29/17 1:32:00 CDT Naloxone 0.4 mg, Route: Inactive [place] IVP, Q2MIN, 2016 Medical Dosing Weight Center 84.091, kg, PRN Narcotic Reversal, Start date: 02/27/17 1:33:00 CDT, Duration: 8 doses or times, Stop date: Limited # of times Ondansetron 4 mg, Route: Inactive [place] IVP, ONCE, 2017 Medical Dosing Weight Center 84.091, kg, PRN Nausea & Vomiting, Start date: 02/27/17 1:33:00 CDT Oxycodone 10 mg, Route: [place] PO, Drug form: 2017 Medical TAB, Q4H, Center Dosing Weight 84.091, kg, PRN Pain Score 7-10, Start date: 02/27/17 1:33:00 CDT, Duration: 30 day, Stop date: 03/29/17 1:32:00 CDT Hydromorphone 0.5 mg, Route: Inactive [place] IVP, Q5Min, 2017 Medical Dosing Weight Center 84.091, kg, PRN Pain Score 7-10, Start date: 02/27/17 1:33:00 CDT, Duration: 4 doses or times, Stop date: Limited # of times [place] 1000 mL INJ Route: IV, Inactive [place] (ANES) Total Volume: 2017 [facility] 1,000, Start Center date: 02/27/17 1:06:00 CDT, Stop date: 02/27/17 2:06:00 CDT Acetaminophen Notes: (Same Inactive [place] 325 MG / as: [place] 2017 Medical Hydrocodone 325/5) Do not Cente r Bitartrate 5 exceed 4gm/day MG Oral Tablet of acetaminophen. Ondansetron Notes: (Same No Longer [place] as: Zofran) Active 2017 Medical MEDICATION Center WASTE Product Size: 4 mg Product Wasted: ___ mg Alprazolam 2 Notes: With No Longer [place] MG Oral Tablet food or milk Active 2016 Medi justyna [Xanax] (Same as: [place] Xanax) Lidocaine Notes: (Same Inactive [place] Hydrochloride as: Xylocaine) 2017 Med ical 10 MG/ML [place] Injectable Solution Lipitor 1 tab(s) orally Active 20 orally [facility] 01/14/ [place] once a day 2017 Cardiac (at bedtime) Clinic Lipitor 1 tab(s) orally Active 20 mg orally [facility] [place] once a day 2016 Cardiac (at bedtime) Clinic Lipitor 1 tab(s) orally Active 20 orally [facility] [place] once a day 2015 Cardiac (at bedtime) Clinic Plavix 1 tab(s) orally Active 75 orally [facility] [place] once a day 2015 Cardiac Clinic Celebrex 1 cap(s) orally No Longer 200 mg orally [facility] Zetia 10 mg 10 mg, 1 tab, PO Active [facility] oral tablet PO, Daily, 90 2012 [facility] Substitution Allowed, TAB nitroglycerin 0.4 mg, 1 tab, SL Active [facility] 0.4 mg SL, Q5Min, 2012 [facility] sublingual PRN, 25 tab, [facility] tablet Chest Pain, Substitution Allowed, TAB metoprolol 50 50 mg, 1 tab, PO Active [facility] mg oral PO, Daily, 90 2012 [facility] tablet, tab, [facility] extended Substitution release Allowed, ERTAB Saline Flush 5 ml, Route: IVP No Longer [facility] 0.9% IVP, Drug Active 2012 [facility] Form: INJ, [facility] Dosing Weight 108.636, kg, Q12H, Start date: 02/10/13 21:00:00, Duration: 30 day, Stop date: 03/12/13 9:00:00 aspirin 81 mg 81 mg, 1 tab, PO Active tablet, PO, Daily, 2012 [facility] chewable tab, [facility] Substitution Allowed, CHEWTAB Plavix 75 mg 75 mg, 1 tab, PO Active oral tablet PO, Daily, 30 2012 [facility] tab, [facility] Substitution Allowed, TAB LORAzepam 2 mg 2 mg, 1 tab, PO No Longer oral tablet PO, TID, PRN, Active 2012 [facility], [facility] Anxiety, Substitution Allowed Lipitor 40 mg, 1 tab, PO No Longer [facility] Route: PO, Active 2012 [facility] Drug form: [facility] TAB, QPM, Dosing Weight 107.273, kg, Start date: 02/10/13 17:00:00, Duration: 30 day, Stop date: 03/11/13 17:00:00 BD Normal 3 mL, Route: IV No Longer [place] Saline Flush IV, Drug Form: [facility] 2012 Andrei raymond INJ, Q8H, [facility] Start date: 02/10/13 16:00:00, Duration: 30 day, Stop date: 03/12/13 8:00:00 Ativan 0.5 mg, 1 tab, PO No Longer [place] Route: PO, Active 2012 [facility] Drug form: [facility] TAB, TID, Dosing Weight 107.273, kg, PRN Anxiety, Start date: 02/10/13 15:35:00, Duration: 30 day, Stop date: 03/12/13 15:34:00 morphine 2 mg, 1 mL, IVP No Longer [place] Sulfate Route: IVP, [facility] 2012 [facility] Drug form: [facility] INJ, ONCE, Dosing Weight 107.273, kg, Start date: 02/10/13 15:31:00, Stop date: 02/10/13 15:31:00 morphine 2 mg, 1 mL, IV No Longer [place] Sulfate Route: IV, Active 2012 [facility] Drug form: [facility] INJ, Q15Min, PRN Chest Pain, Start date: 02/10/13 14:00:00, Duration: 2 doses or times, Stop date: Limited # of times Restoril 15 mg, 1 cap, PO No Longer [place] Route: PO, Active 2012 [facility] Drug form: [facility] CAP, Bedtime, PRN Sleep, Start date: 02/10/13 14:00:00, Duration: 30 day, Stop date: 03/12/13 13:59:00 nitroglycerin 0.4 mg, 1 tab, SL No Longer [place]fie 02/10/ H 0.4 mg Route: SL Active 2012 [facility] sublingual Drug form: [facility] tablet TAB, Q5Min, PRN Chest Pain, Start date: 02/10/13 14:00:00, Duration: 30 day, Stop date: 03/12/13 13:59:00 metoprolol 50 mg, 1 tab, PO No Longer [place] Route: PO, Active 2012 [facility] Drug form: [facility] ERTAB, Daily, Start date: 02/10/13 13:58:00, Duration: 30 day, Stop date: 03/12/13 9:00:00 Plavix 75 mg, 1 tab, PO No Longer [place] Route: PO, Active 2012 [facility] Drug form: [place] TAB, Daily, Start date: 02/10/13 13:57:00, Duration: 30 day, Stop date: 03/12/13 9:00:00 aspirin 325 mg 325 mg, 1 tab, PO No Longer [place] tablet Route: PO, Active 2012 [facility] Drug form: [place] TAB, ONCE, Start date: 02/10/13 13:57:00, Stop date: 02/10/13 13:57:00 Saline Flush 5 ml, Route: IVP No Longer [place] 0.9% IVP, Drug Active 2012 [facility] Form: INJ, [facility] Dosing Weight 108.636, kg, PRN, PRN Line Flush, Start date: 02/10/13 13:22:00, Duration: 30 day, Stop date: 03/12/13 13:21:00 Lipitor 40 mg 40 mg, 1 tab, PO Active oral tablet PO, Daily, 2012 [facility] tab, [place] Substitution Allowed, TAB Xanax 2 mg 2 mg, 1 tab, PO Active oral tablet PO, TID, PRN, 2012 [facility] Anxiety, [place] Substitution Allowed Nitrostat 1 tab(s) sublinguall Active 0.4 mg [facility] [place] sublingually 2011 Cardiac every 5 Clinic minutes alprazolam 1 tab(s) orally Active 1 mg orally [facility] [place] as needed for 2011 Cardiac nervousness Clinic every 8 hour alprazolam 1 tab(s) orally Active 1 mg orally [facility] [place] as needed for 2011 Cardiac nervousness Clinic every 8 hour Lipitor 1 tab(s) orally Active 20 mg orally [facility] 11/16[facility] once a day 2011 Cardiac (at bedtime) Clinic Toprol XL 1 tab(s) orally Active 25 mg orally [facility] [place] once a day 2010 Cardiac Clinic Toprol XL 1 tab(s) orally Active 25 mg orally [facility] [place] once a day 2010 Cardiac Clinic acetaminophen- 1 tab, Route: PO No Longer [place] 07/22/ M H hydrocodone PO, Drug Form: Active 2010 Mem[facility] ial 325 mg-7.5 mg TAB, Q6H, PRN [facility] oral tablet Pain, Start date: 07/22/11 13:52:00, Duration: 30 day, Stop date: 08/21/11 13:51:00 BD Normal 10 mL, Route: IV No Longer [facility] Saline Flush IV, Drug Form: Active 2010 Andrei rial INJ, PRN, PRN [facility] Line Flush, Start date: 07/22/11 1:09:00, Duration: 30 day, Stop date: 08/21/11 1:08:00 Sodium 25 mL, Route: IV No Longer [facility] Chloride 0.9% IV, PRN, Line Active 2010 Andrei rial IV Flush, Start City date: 07/22/11 1:09:00, Duration: 30 day, Stop date: 08/21/11 1:08:00 BD Normal 10 mL, Route: IV No Longer [place] Saline Flush IV, Drug Form: Active 2010 Andrei rial INJ, Q8H, City Start date: 07/22/11 0:00:00, Duration: 30 day, Stop date: 08/20/11 16:00:00 Lipitor 40 mg, 1 tab, PO No Longer [place] Route: PO, Active 2010 [facility] Drug form: [facility] TAB, QPM, Start date: 07/21/11 17:51:00, Duration: 30 day, Stop date: 08/20/11 17:00:00 aspirin 81 mg 81 mg, 1 tab, CHEW No Longer [place] tablet, Route: CHEW, Active 2010 [facility] chewable Drug form: [facility] CHEWTAB, Daily, Start date: 07/21/11 17:50:00, Duration: 30 day, Stop date: 08/20/11 9:00:00 Ativan 0.5 mg, 1 tab, PO No Longer [place] Route: PO, Active 2010 [facility] Drug form: [facility] TAB, Bedtime, PRN See Nurse's Notes, Start date: 07/21/11 17:50:00, Duration: 30 day, Stop date: 08/20/11 17:49:00 metoprolol 25 mg, 1 tab, PO No Longer [place] Route: PO, Active 2010 [facility] Drug form: [facility] ERTAB, BID, Start date: 07/21/11 17:49:00, Duration: 30 day, Stop date: 08/20/11 17:00:00 Plavix 75 mg, 1 tab, PO No Longer [place] Route: PO, Active 2010 [facility] Drug form: [place] TAB, Daily, Start date: 07/21/11 17:49:00, Duration: 30 day, Stop date: 08/20/11 9:00:00 atropine 1 mg, 10 mL, IVP No Longer [place] Route: IVP, Active 2010 [facility] Drug form: [facility] INJ, Q5Min, PRN Other -See Comment, Start date: 07/21/11 17:48:00, Duration: 30 day, Stop date: 08/20/11 17:47:00 epinephrine 1 mg, 10 mL, IVP No Longer [place] Route: IVP, Active 2010 [facility] Drug form: [facility] INJ, Q5Min, PRN Asystole, Start date: 07/21/11 17:48:00, Duration: 30 day, Stop date: 08/20/11 17:47:00 nitroglycerin 0.4 mg, 1 tab, SL No Longer [place] 07/21[facility] H 0.4 mg Route: SL, Active 2010 [facility] sublingual Drug form: [facility] tablet TAB, PRN, PRN Chest Pain, Start date: 07/21/11 17:48:00, Duration: 30 day, Stop date: 08/20/11 17:47:00 Cordarone 150 mg, 3 mL, IVPB No Longer [place] Route: IVPB, Active 2010 [facility] PRN, PRN See [facility] Nurse's Notes, Start date: 07/21/11 17:48:00, Duration: 30 day, Stop date: 08/20/11 17:47:00 Plavix 1 tab(s) orally Active 75 mg orally ALFIE 11/14/ [place] once a day 2009 Cardiac Clinic Plavix 1 tab(s) orally Active 75 mg orally ALFIE [place] once a day Cardiac Clinic lamotrigine 1 tab(s) orally Active 150 mg orally ALFI[place] 2 times a day Cardiac Clinic meloxicam 1 tab(s) orally Active 15 mg orally AL[place]E [place] once a day Cardiac Clinic aspirin 1 tab(s) orally Active 81 mg orally AL[place]E [place] once a day Cardiac Clinic Dexilant 1 cap(s) orally Active 60 mg orally AL[place]E [place] once a day Cardiac Clinic lamotrigine 1 tab(s) orally Active 150 mg orally ALFIE [place] 2 times a day Cardiac Clinic Plavix TAKE ONE NA Active 75 AL[place] TABLET BY Cardiac MOUTH DAILY Clinic meloxicam 1 tab(s) orally Active 15 mg orally ALFIE [place] once a day Cardiac Clinic Lipitor 1 tab(s) orally Active 20 orally ALFIE [place] once a day Cardiac (at bedtime) Clinic aspirin 1 tab(s) orally Active 81 mg orally ALFIE [place] once a day Cardiac Clinic Dexilant 1 cap(s) orally Active 60 mg orally ALFIE [place] once a day Cardiac Clinic Plavix take one orally Active 75 mg orally ALFIE [place] tablet by ONCE A DAY Cardiac mouth daily Clinic Lipitor 1 tab(s) orally Active 20 mg orally ALFIE [place] once a day HS Cardiac Clinic Allergies, Adverse Reactions, Alerts Substance Category Reaction Severity Reaction Status Date Comments S ource type Reported N.K.D.A. Adverse Info Not Adverse Hous ton Reaction Available Reaction 0 Card iac Clinic NKFA Assertion Food Active Ever as allergy Medical Center Immunizations No Data Provided for This Section Results Order Name Results Value Reference Date Interpretation Comments Alyssa rce Range CHEM PANEL Phosphorus 2.8 2.5 - 4.5 02/28 [facility] CHEM PANEL Magnesium 2.0 1.8 - 2.4 02/28 [facility] CHEM PANEL eGFR 65 02/28 Result Comment: The eGFR is Medical calculated using Center the CKD-EPI formula. In most young, healthy individuals the eGFR will be >90 mL/min/1.73m2. The eGFR declines with age. An eGFR of 60-89 may be normal in some populations, particularly the elderly, for whom the CKD-EPI formula has not been extensively validated. Use of the eGFR is not recommended in the following populations:<br/ >
Individual s with unstable creatinine concentrations, including patients and [...] CHEM PANEL Potassium 4.2 3.5 - 5.1 / [facility] Lvl /2016 [facility] CHEM PANEL Calcium Lvl 8.4 8.5 - 10.5 02/28 Ever as [facility] CHEM PANEL CO2 30 24 - 32 02/28 [facility] CHEM PANEL Chloride Lvl 104 95 - 109 02/28 [facility] s [facility] CHEM PANEL Sodium Lvl 138 135 - 145 02/28 [facility] CHEM PANEL Creatinine 1.21 0.50 - 02/28 [place] Lvl 1.40 [facility] CHEM PANEL BUN 11 7 - 22 02/28 [facility] CHEM PANEL Glucose Lvl 88 70 - 99 02/28 [facility] CHEM PANEL AGAP 8.2 10.0 - 02/28 [place] 20.0 [facility] HEMATOLOGY WBC 8.9 3.7 - 10.4 02/28 [facility] HEMATOLOGY MPV 8.6 7.4 - 10.4 02/28 [facility] HEMATOLOGY RDW 14.0 11.5 - 02/28 [place] 14.5 [facility] HEMATOLOGY MCHC 33.0 32.0 - 02/28 [place] 36.0 [facility] HEMATOLOGY MCH 29.7 27.0 - 07 [place] 31.0 [facility] HEMATOLOGY MCV 89.9 80.0 - 02/28 [place] 94.0 [facility] HEMATOLOGY Hct 41.0 42.0 - 02/28 [place] 54.0 [facility] HEMATOLOGY RBC 4.56 4.70 - 02/28 [place] 6.10 [facility] HEMATOLOGY Hgb 13.5 14.0 - 02/28 [place] 18.0 [facility] HEMATOLOGY Platelet 207 133 - 450 02/28 [facility] HEMATOLOGY Lymphocytes 18.3 20.0 - 07 [place] 40.0 /2016 [facility] HEMATOLOGY Monocytes 10.5 2.0 - 12.0 02/28 [facility] HEMATOLOGY Segs 66.4 45.0 - 02/28 [facility] 75.0 /2016 [facility] HEMATOLOGY Eosinophils 4.3 0.0 - 4.0 02/28 [facility] HEMATOLOGY Eosinophils 0.4 0.0 - 0.5 02/28 [facility] s # [facility] HEMATOLOGY Monocytes # 0.9 0.0 - 0.8 02/28 [facility] HEMATOLOGY Lymphocytes 1.6 1.0 - 5.5 02/28 [facility] s # [facility] HEMATOLOGY Segs-Bands # 5.9 1.5 - 8.1 02/28 [facility] HEMATOLOGY Basophils 0.5 0.0 - 1.0 02/28 [facility] CHEMISTRY Troponin-I <0.02 0.00 - 02/10 Normal 0.40 [facility] CHEMISTRY Total CK 70 12 - 191 02/10 Normal [facility] CHEMISTRY AGAP 13.9 10.0 - 02/10 Normal 20.0 [facility] CHEMISTRY eGFR 61 02/10 NA <sup>1</sup>Resu lt Comment: The [facility] eGFR is City calculated using the CKD-EPI formula. In most young, healthy individuals the eGFR will be >90 mL/min/1.73m2. The eGFR declines with age. An eGFR of 60-89 may be normal in some populations, particularly the elderly, for whom the CKD-EPI formula has not been extensively validated. Use of the eGFR is not recommended in the following populations:< br/>
Individ uals with unstable creatinine concentrations, including patients and [...] Lvl 84 70 - 99 02/10 Normal <sup>2</sup>Inte M rpretive Data: [facility] reference [facility] range values reflect the clinical guidelines
o f the [place] [employer]. CHEMISTRY Creatinine 1.3 0.5 - 1.4 02/10 Normal MH Lvl [facility] CHEMISTRY BUN 13 7 - 22 02/10 Normal [facility] CHEMISTRY Chloride Lvl 104 95 - 109 02/10 Normal [facility] CHEMISTRY Potassium 3.9 3.5 - 5.1 02/10 Normal MH Lvl [facility] CHEMISTRY Calcium Lvl 9.1 8.5 - 10.5 02/10 Normal [facility] CHEMISTRY CO2 28 24 - 32 02/10 Normal [facility] CHEMISTRY Sodium Lvl 142 135 - 145 02/10 Normal [facility] CHEMISTRY Chol 193 <=199 02/10 Normal <sup>3</sup>Inte rpretive Data: [facility] Reference [facility] are based on the clinical guidelines of the NHLBI National Cholesterol Education Program (ATP III, 2001). CHEMISTRY HDL 74 >=61 02/10 Normal <sup>5</sup>Inte rpretive Data: [facility] Reference ranges [facility] are based on the clinical guidelines of the NHLBI National Cholesterol Education Program (ATP III, 2001). CHEMISTRY CHD Risk 2.61 4.00 - 02/10 LOW MH 7.30 [facility] CHEMISTRY LDL 98 <=99 02/10 Normal <sup>6</sup>Inte rpretive Data: [facility] Reference [facility] are based on the clinical guidelines of the NHLBI National Cholesterol Education Program (ATP III, 2000). CHEMISTRY Trig 103 <=149 02/10 Normal <sup>4</sup>Inte rpretive Data: [facility] Reference [facility] are based on the clinical guidelines of the NHLBI National Cholesterol Education Program (ATP III, 2001). CHEMISTRY Total CK 88 12 - 191 02/10 Normal [facility] CHEMISTRY Troponin-I <0.02 0.00 - 02/10 Normal MH 0.40 [facility] CHEMISTRY CK MB Index <0.6 0.0 - 2.5 02/10 Normal [facility] CHEMISTRY CK MB <0.5 0.5 - 3.6 02/10 Normal [facility] HEMATOLOGY INR 0.88 0.85 - 02/10 Normal <sup>7</sup>Inte MH 1.17 rpretive Data: [facility] RANGES FOR PROTIME INR:
2.0-3.0 for most medical and surgical thromboembolic states.
2.5-3.5 for artificial heart valves and recurrent embolism.
<b r/>INR SHOULD BE USED ONLY FOR PATIENTS ON STABLE ANTICOAGULANT THERAPY. HEMATOLOGY PTT 26.5 22.9 - 02/10 Normal <sup>10</sup>Int 35.8 /2012 erpretive Data: [facility] Therapeutic Range: 57 - 92 Seconds HEMATOLOGY PT 12.2 12.0 - 02/10 Normal MH 14.7 /2012 [facility] HEMATOLOGY Monocytes 7.9 2.0 - 12.0 02/10 Normal /2012 [facility] HEMATOLOGY Eosinophils 2.7 0.0 - 4.0 02/10 Normal /2012 [facility] HEMATOLOGY Lymphocytes 23.5 20.0 - 02/10 Normal MH 40.0 /2012 [facility] HEMATOLOGY Segs 65.4 45.0 - 02/10 Normal MH 75.0 [facility] HEMATOLOGY Monocytes # 0.6 0.0 - 0.8 02/10 Normal /2012 [facility] HEMATOLOGY Basophils # 0.0 0.0 - 0.2 / Normal /2012 [facility] HEMATOLOGY Eosinophils 0.2 0.0 - 0.5 02/10 Normal MH # /2012 [facility] HEMATOLOGY Basophils 0.5 0.0 - 1.0 02/10 Normal /2012 [facility] Segs-Bands # 5.1 1.5 - 8.1 02/10 Normal /2012 [facility] HEMATOLOGY Lymphocytes 1.8 1.0 - 5.5 02/10 Normal MH # /2013 [facility] HEMATOLOGY PTT Baseline 26.9 22.9 - 02/10 Normal <sup>8</sup>Inte 35.8 /2013 rpretive Data: [facility] DEFICIENCIES may be congenital or acquired. Acquired deficiencies may be seen with gut sterilization or long-term
antibiotic use. Suggest appropriate factor assays, where
clinically indicated.
< br/>CIRCULATING INHIBITORS may be associated with either bleeding
or thrombotic tendencies. Certain circulating inhibitors may
be transient (drug-related or seocndary to autoimmune/infla mmatory conditions). Suggest further studies as clinically indicated. HEMATOLOGY TT Baseline 15.2 15.0 - 02/10 Normal 21.1 [facility] HEMATOLOGY PTT 1:1 Imm See Note 9 02/10 Normal <sup>9</sup>Re rico (02/10/2013 14:01:00) /2012 lt Comment : Not [facility]. [facility] HEMATOLOGY Platelet 223 133 - 450 02/10 Normal /2012 [facility] HEMATOLOGY RDW 14.2 11.5 - 02/10 Normal MH 14.5 [facility] HEMATOLOGY MPV 8.8 7.4 - 10.4 02/10 Normal /2012 [facility] HEMATOLOGY MCH 31.0 27.0 - 02/10 Normal MH 31.0 /2012 [facility] HEMATOLOGY MCHC 33.5 32.0 - 02/10 Normal MH 36.0 [facility] HEMATOLOGY MCV 92.8 80.0 - 02/10 Normal 94.0 /2012 [facility] HEMATOLOGY Hct 46.9 42.0 - 02/10 Normal MH 54.0 [facility] HEMATOLOGY Hgb 15.7 14.0 - 02/10 Normal MH 18.0 [facility] HEMATOLOGY RBC 5.05 4.70 - 02/10 Normal MH 6.10 [facility] HEMATOLOGY WBC 7.8 3.7 - 10.4 02/10 Normal /2012 [facility] CHEMISTRY LDL 83.0 0 - 129 07/21 Normal [facility] CHEMISTRY Chol 171.0 120 - 200 07/21 Normal [facility] CHEMISTRY Trig 98.0 0 - 200 07/21 Normal [facility] CHEMISTRY HDL 68.0 >>=35 07/21 Normal [facility] CHEMISTRY CHD Risk 2.51 4.00 - 07/21 LOW MH 7. [facility] CHEMISTRY Chloride Lvl 103.0 95 - 109 07/21 Normal [facility] CHEMISTRY CO2 29.0 24 - 32 07/21 Normal [facility] CHEMISTRY Calcium Lvl 9.0 8.5 - 10.5 07/21 Normal [facility] CHEMISTRY Sodium Lvl 138.0 135 - 145 07/21 Normal [facility] CHEMISTRY Potassium 4.0 3.5 - 5.1 07/21 Normal [facility] CHEMISTRY BUN 12.0 7 - 22 07/21 Normal [facility] CHEMISTRY Creatinine 1.3 0.5 - 1.4 07/21 Normal Lv [facility] CHEMISTRY Glucose Lvl 145.0 07/21 NA <sup>1</sup>Inte M H /2010 rpretive Data: [facility] Reference [facility] : 0 - 7 days : 41 - 90 mg/dL 7 days - 150 yrs : 70 - 99 mg/dL (fasting), based on the clinical recommendations of the [place] [employer]. CHEMISTRY AGAP 10.0 10.0 - 07/21 Normal MH 20.0 [facility] HEMATOLOGY Basophils # 0.0 0.0 - 0.2 07/21 Normal MH /2010 [facility] HEMATOLOGY Lymphocytes 2.4 1.0 - 5.5 07/21 Normal MH # /2010 [facility] HEMATOLOGY Eosinophils 0.3 0.0 - 0.5 07/21 Normal MH # /2010 [facility] HEMATOLOGY Segs-Bands # 6.4 1.5 - 8.1 07/21 Normal /2010 [facility] HEMATOLOGY Basophils 0.4 0.0 - 1.0 07/21 Normal [facility] HEMATOLOGY Monocytes 7.4 2.0 - 12.0 07/21 Normal [facility] HEMATOLOGY Eosinophils 2.7 0.0 - 4.0 07/21 Normal [facility] HEMATOLOGY Lymphocytes 24.3 20.0 - 07/21 Normal MH 40.0 [facility] HEMATOLOGY Monocytes # 0.7 0.0 - 0.8 07/21 Normal [facility] HEMATOLOGY Segs 65.2 45.0 - 07/21 Normal MH 75.0 [facility] HEMATOLOGY PT 12.8 12.0 - 07/21 Normal MH 14.7 [facility] HEMATOLOGY INR 0.96 0.85 - 07/21 Normal <sup>2</sup>Inte MH 1.17 rpretive Data: [facility] RANGES FOR PROTIME INR: 2.0-3.0 for most medical and surgical thromboembolic states. 2.5-3.5 for artificial heart valves and recurrent embolism. INR SHOULD BE USED ONLY FOR PATIENTS ON STABLE ANTICOAGULANT THERAPY. HEMATOLOGY RDW 13.8 11. - 07/21 Normal MH 14. [facility] HEMATOLOGY MPV 9.1 7.4 - 10.4 07/21 Normal [facility] Platelet 224.0 133 - 450 07/21 Normal [facility] HEMATOLOGY MCHC 33.8 32.0 - 07/21 Normal MH 36.0 [facility] HEMATOLOGY MCH 30.8 27.0 - 07/21 Normal MH 31.0 /2010 [facility] HEMATOLOGY MCV 91.0 80.0 - 07/21 Normal 94.0 /2010 [facility] HEMATOLOGY Hgb 14.5 14.0 - 07/21 Normal MH 18.0 /2010 [facility] HEMATOLOGY RBC 4.71 4.70 - 07/21 Normal MH 6.10 [facility] HEMATOLOGY Hct 42.9 42.0 - 07/21 Normal MH 54.0 /2010 [facility] HEMATOLOGY WBC 9.9 3.7 - 10.4 07/21 Normal /2010 [facility] Pathology Reports No Data Provided for This Section Diagnostic Reports No Data Provided for This Section Consultation Notes No Data Provided for This Section Discharge Summaries No Data Provided for This Section History and Physicals No Data Provided for This Section Vital Signs Vital Sign Value Date Comments Source Systolic (mm Hg) 125 10/17/2019 [facility] Weight 235 10/17/2019 [facility] Height 70 10/17/2019 [facility] Diastolic (mm Hg) 80 10/17/2019 [facility] Systolic (mm Hg) 146 09/22/2018 [facility] Weight 231.4 09/22/2018 [facility] Height 70 09/22/2018 [facility] Diastolic (mm Hg) 90 09/22/2018 [facility] Weight 224.6 03/30/2018 [facility] Height 70 03/30/2018 [facility] Heart Rate 65 02/28/2017 [facility] Respitory Rate 18 02/28/2017 [facility] Systolic (mm Hg) 132 02/28/2017 [facility] Diastolic (mm Hg) 76 02/28/2017 [facility] Temperature Oral (F) 98 F 02/28/2017 [facility] Heart Rate 58 02/28/2017 [facility] Systolic (mm Hg) 134 02/28/2017 [facility] Diastolic (mm Hg) 78 02/28/2017 [facility] Respitory Rate 20 02/28/2017 [facility] Temperature Oral (F) 98.6 F 02/28/2017 [facility] Respitory Rate 20 02/28/2017 [facility] Heart Rate 65 02/28/2017 [facility] Temperature Oral (F) 97.9 F 02/28/2017 [facility] Systolic (mm Hg) 126 02/28/2017 [facility] Diastolic (mm Hg) 75 02/28/2017 [facility] Height 177.8 cm 02/27/2017 [facility] BMI Calculated 27.36 02/27/2017 [facility] Weight 86.477 02/27/2017 [facility] BMI Calculated 26.6 02/27/2017 [facility] Weight 84.091 02/27/2017 [facility] Height 177.8 cm 02/27/2017 [facility] Systolic (mm Hg) 130 10/07/2016 [facility] Weight 200 10/07/2016 [facility] Height 70 10/07/2016 [facility] Diastolic (mm Hg) 80 10/07/2016 [facility] Systolic (mm Hg) 122 06/22/2016 [facility] Weight 189 06/22/2016 [facility] Height 70 06/22/2016 [facility] Diastolic (mm Hg) 80 06/22/2016 [facility] Systolic (mm Hg) 120 11/27/2014 [facility] Weight 222 11/27/2014 [facility] Height 70 11/27/2014 [facility] Diastolic (mm Hg) 80 11/27/2014 [facility] Systolic (mm Hg) 120 05/17/2014 [facility] Weight 219.5 05/17/2014 [facility] Height 70 05/17/2014 [facility] Diastolic (mm Hg) 80 05/17/2014 [facility] Diastolic (mm Hg) 78 02/11/2013 [facility] Resp[facility] Rate 20 02/11/2013 [facility] Systolic (mm Hg) 120 02/11/2013 [facility] Heart Rate 59 02/11/2013 [facility] Temperature Oral (F) 97.9 F 02/11/2013 [facility] Heart Rate 59 02/11/2013 [facility] Respitory Rate 20 02/11/2013 [facility] Temperature Oral (F) 97.7 F 02/11/2013 [facility] Systolic (mm Hg) 126 02/11/2013 [facility] Diastolic (mm Hg) 83 02/11/2013 [place] Diastolic (mm Hg) 75 02/11/2013 [facility] [facility] [place] Systolic (mm Hg) 133 02/11/2013 [facility] Temperature Oral (F) 98.1 F 02/11/2013 [facility] 18 02/11[facility] Heart Rate 56 02/11/[facility] Height 175.26 cm 02/10/2013 [facility] Weight 107.273 02/10/2013 [facility] Respitory Rate 20.0 07/23/2011 [facility] Systolic (mm Hg) 110.0 07/23/2011 [facility] Temperature Oral (F) 98.0 F 07/23/2011 [facility] Heart Rate 51.0 07/23/[facility] Diastolic (mm Hg) 77.0 07/23/2011 [facility] Temperature Oral (F) 97.8 F 07/23/2011 [facility] Heart Rate 58.0 07/23/2011 [facility] Systolic (mm Hg) 103.0 07/23/2011 [facility] Respitory Rate 16.0 07/23/2011 [facility] Diastolic (mm Hg) 60.0 07/23/2011 [facility] Temperature Oral (F) 98.1 F 07/23/2011 [facility] Heart Rate 57.0 07/23/2011 [facility] Diastolic (mm Hg) 66.0 07/23/2011 [place] Systolic (mm Hg) 122.0 07/23/2011 [facility] Respitory Rate 16.0 07/23/2011 [facility] Weight 108.636 07/21/2011 [facility] Height 175.26 cm 07/21/2011 [facility] En[facility]ters Location Location Encounter Encounter Reason Attending ADM [place] Stat us Source Details Type Number For Visit Provider Date Date [facility] [id number] UNSTABLE JACQUES 07/22 07/23 Active [facility] ANGINA ALFIE [facility] [facility] [id number] UNSTABLE JACQUES 02/10 02/11 Active [facility] ANGINA ALFIE /2012 [facility] follow up [id number] 05/17 05/17 [facility] [id number]- [facility] [id number] [facility] [facility] [id number] 11/27 11/27 [facility] [id number]- /[facility] [id number] [facility] [place] [facility] [place] [id number] 11/27 11/27 [facility] [id number]- /[facility] [id number] [facility] [place] follow [place] [id number] 11/27 11/27 [facility] [id number]- /[facility] [id number] [facility] [place] follow [place] [id number] 11/27 11/27 [facility] [id number]- /[facility] [id number] [facility] [place] [facility] [id number] 01/24 01/24 [facility] [id number]- [facility] [id number] [facility] [place] [facility] [id number] 01/24 01/24 [facility] [id number]- /[facility] [id number] [facility] [place] [facility] [id number] 01/24 01/24 [facility] [id number]- /[facility] [id number] [facility] [place] [place] follow up [id number] 05/28 05/28 [facility] [id number]- /[facility] [id number] [facility] [place] follow [facility] [id number] 05/28 05/28 [facility] [id number]- /[facility] [id number] [facility] [place] follow up [id number] 05/28 05/28 [facility] [id number]- /[facility] [id number] [facility] [place] follow up [id number] 06/22 06/22 [facility] [id number]- /2015 [facility] [id number] [facility] [place] [facility] up [id number] 06/22 06/22 [facility] [id number]- /2015 [facility] [id number] [facility] [place] follow up [id number] 06/22 06/22 [facility] [id number]- /2015 [facility] [id number] [facility] [place] Unknown [id number] 06/23 06/23 [facility] [id number]- /[facility] [id number] [facility] [place] [id number] 06/23 06/23 [facility] [id number]- /[facility] [id number] [facility] [place] Unknown [id number] 06/23 06/23 [facility] [id number]- /2015 [facility] [id number] [facility] [place] Unknown [id number] 10/07 10/07 [facility] [id number]- /[facility] [id number] Cli michael [facility] Inpatient [id number] Demian 02/27 02/28 Vianney Chu /2016 [facility] Procedures Procedure Code Date Perfomer Comments Source Placement of [id number] [facility] Placement of [id number] [facility] Assessment and Plan Assessment and Plan Date Source Extracted from:Title: PRS discharge summary 02/28/2017 [facility] Author: Ervin Joyner MD Date: 02/28/17 Date of Admission 02/26/2017 Date of Discharge 02/28/2017 Admission Diagnosis Left ring finger laceration Discharge Diagnoses Repaired left ring finger laceration Resolved Diagnoses Left ring finger laceration (resolving) Hospital Course Pt presented to ER on 02/26/2017 with lef t ring finger laceration and partial degloving after falling while finger was caught in a ladder earlier that day. He went wi th Dr. Chu to the OR that evening for exploration and repair of the laceration. During recovery, Mr. Holloway was monitore d closely for signs of venous congestion and kept to closely monitor moderate congestion of the digit, watching for de crease. On 02/28/2017, digit continually improved with strict LUE elevation and reinforced padding to help pt accomplish this. He was disch arged on 02/28/2017 and instructed to f/u with Dr. Chu in clinic within 1 week. Physical Exam Vitals and Measurements Temperature 98 (12:21) Systolic Blood Pressure 132 (12:21) Diastolic Blood Pressure 76 (12:21) Pulse 65 (12:21) SpO2 97 (12:21) Respiratory Rate 18 (12:21) Gen: NAD, Answers questions appropriately Cardiac: Extremities warm and pink Pulmonary: Breathing without increased e ffort. Symmetrical rise and fall of chest GI: Non-distended Ext: Sutures c/d/i without erythema or e xudate. Intact sensation, moderate decrease in range of motion Discharge Medications VERBALLY VERIFIED WITH PT AT BEDSIDE Prescriptions [place] Clindamycin Docusate Procedures from this Encounter DATE OF OPERATION/PROCEDURE: 02/28/2017 ATTENDING PHYSICIAN: Dr. Chu BRAKE LINER: Dr. Joshi PREOPERATIVE DIAGNOSES: Left ring finger laceration POSTOPERATIVE DIAGNOSES: Repaired left ring finger laceration Activity Level Activity: May start dangling with PT for maximun of 20 min/h MAX until otherwise instructed Discharge Diet Regular diet Discharge Instructions Notify Physician if any of the Following Occur : Bleeding, Fever, Nausea, Pain, Shortness of breath, Signs of infection, Swelling Equipments and Supplies : Dressing suppl ies (Curlex, xeroform, albert, gauze) and foam to keep the extremety elevated. Special Home Care Instructions : Hair e dressing daily. Dab the wound area with .5/.5 peroxide sodium, wrap with xeroform, finger webbing, curlex, and albert. Pat dry and keep area dry. No submerging in water. May gently rinse and pat dry. Keep digit elevated above heart. Follow Up Appointments -Follow Up With Dr. Vlad THOMSON, Call for a ppointment, within: 1 Week, reason: Plastics follow up post hospitalization. -Primary care physician, Call for appoin tment, within: 1 Week, reason: Primary Care Physician follow up post hospitalization Disposition Home Time Spent on Discharge 45 min Ervin Joyner MD General Surgery - PGY1 MSO: [id number] Pager: [phone] Extracted from:Title: PRS Author: Ernesto Joshi MD Date: 02/28/17 Impression and Plan 61yo male s/p exploration and closure of left ring finger de gloving - Continue daily dressing changes - Keep finger elevated when possible - OK for D/C home - F/U with Dr Chu in clinic Ernesto Joshi MD Plastic Surgery Resident Pager [phone] Plan of Care No Data Provided for This Section Social History Social History Date Source Social History TypeResponse 02/27/2017 [facility] Alcohol Current, Type Wine. Frequency: 1-2 times per year. Smoking Status Never smoker; Exposure to Tobacco Smoke None; Cigarette Smoking Last 365 Days No; Reg Smoking Cessation Counseling No Social History ElementQualifiersDate Reported 10/07/2016 [facility] Tobacco use: no. Status Former smoker Oct 07, 2016 Alcohol: no. Oct 07, 2016 Family History No Data Provided for This Section Advance Directives No Data Provided for This Section Functional Status No Data Provided for This Section
--- OUTSIDE RECORDS SUMMARY | 2020-03-24 18:58 | XMS REPORT ---
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 [id number] 75 mg orally once Active 1 tab(s) a day Lipitor ND [id number] 20 mg orally once Active 1 tab(s) a day HS Results No Known Results Summary Purpose [employer] Submission
--- OUTSIDE RECORDS SUMMARY | 2020-03-24 18:59 | XMS REPORT | Continuity of Care Document ---
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 [facility]patient [facility] [id number] eClinic 10:03:00 10:03:00 CARDIAC CARDIAC alWork s CLINIC PA CLINIC PA 2018-09-22 2018-09-22 Outpatient [facility] [id number] eClinic 16:15:00 16:15:00 CARDIAC CARDIAC alWork s CLINIC PA CLINIC PA 2018-03-30 2018-03-30 [facility]patient [facility] [id number] eClinic 10:00:00 10:00:00 CARDIAC CARDIAC alWork s CLINIC PA CLINIC PA 2018-01-18 2018-01-18 Outpatient [facility] [id number] eClinic 10:39:00 10:39:00 CARDIAC CARDIAC alWork s CLINIC [facility] 2018-01-18 2018-01-18 Outpatient [facility] [id number] eClinic 10:23:00 10:23:00 CARDIAC CARDIAC alWork s CLINIC PA [facility] 2017-08-18 2017-08-18 Outpatient [facility] [id number] eClinic 12:28:00 12:28:00 CARDIAC CARDIAC alWork s CLINIC [facility] 2017-02-26 2017-02-28 Outpatient Vlad [facility] [id number] 21:56:00 13:30:00 Demian Banda Alcon 2016-10-07 2016-10-07 Outpatient [facility] [id number] eClinic 16:00:00 16:00:00 Cardiac Cardiac alWork s Clinic. Clinic. 2016-06-23 2016-06-23 Outpatient [facility] [id number] eClinic 12:30:00 12:30:00 Cardiac Cardiac alWork s Clinic. Clinic. 2016-06-22 2016-06-22 Outpatient [facility] [id number] eClinic 15:45:00 15:45:00 Cardiac Cardiac alWork s Clinic. Clinic. 2014-11-27 2014-11-27 Outpatient [facility] [id number] eClinic 15:30:00 15:30:00 Cardiac Cardiac alWork s Clinic. Clinic. 2014-05-17 2014-05-17 Outpatient [facility] [id number] eClinic 14:45:00 14:45:00 Cardiac Cardiac alWork s Clinic. Clinic. Results Test Description Test Time Test Comments Results Result Comments Source BASIC METABOLIC PANEL 2020-03-07 07:08:00 Test Item Value Reference Range Interpretation Comme nts SODIUM (test code = NA) 139 mmol/L 136-145 N POTASSIUM (test code = K) 4.8 mmol/L 3.5-5.1 N CHLORIDE (test code = CL) 103.0 mmol/L 98-107 N CARBON DIOXIDE (test code = 26.8 mmol/L 21-32 N CO2) GLUCOSE (test code = GLU) 156 mg/dL 70-110 H BLOOD UREA NITROGEN (test code 15 mg/dL 7-18 N = BUN) GLOMERULAR FILTRATION RATE 62.8 >60 U nit of measure: (test code = GFR) mL/min/1.7 3 m1Vhjsvczxe Range:Healthy A dults >90 mL/min/1.73 m2 For Chronic Kidney Disease: Stage II Mi ld Decrease in GFR 60-9 0 Stage III Moderate Decrease in GFR 30-59 Stage IV Severe Decrease in GFR 15-29 Stage V Kidney Failure <15 CREATININE (test code = CREAT) 1.17 mg/dL 0.55-1.30 N CALCIUM (test code = CA) 8.3 mg/dL 8.2-10.1 N HGB [id number] 05:58:00 Test Item Value Reference Range Interpretation Comments HEMOGLOBIN (test code = HGB) 13.5 g/dL 12-16 N HEMATOCRIT (test code = HCT) 41.0 % 37-47 N - XR SPINE 1 V SPEC [id number] 12:11:00 Patient Name: ALCON ROMANO Unit No: [id number] EXAMS: CPT CODE: [id number] XR SPINE 1 V SPEC LEVEL 00378 INTRAOPERATIVE LATERAL LUMBAR SPINE COMMENT: Surgical instruments are posterior to L3-4 and L4-5. at 1211 Reported and signed by: Ton Kessler MD CC: Ton Ríos M.D. Technologist: IRIS SORIANO (RT.R) Transcribed D/ (1211) [facility] NAME: ALCON ROMANO [address] [place] [address] PHYS: Ton Schwartz MD : 1955 AGE: 65 SEX: [place], [place] [address] LOC: Y.998 3 PHONE #: [phone] EXAM DATE: 03/06/2020 STATUS: ADM IN FAX #: [phone] RAD #: D/C DT PAGE 1 Signed Report Patient Name: ALCON ROMANO Unit No: [id number] EXAMS: CPT CODE: [id number] XR SPINE 1 V SPEC LEVEL 11934 <Continued> Orig Print D/T: S: 03/06/2020 (1214) [facility] NAME: ALCON ROMANO [address] [facility] PHYS: Ton Schwartz MD : 1955 AGE: 65 SEX: M [place], [place] [address] LOC: Y.998 3 PHONE #: [phone] EXAM DATE: 03/06/2020 STATUS: ADM IN FAX #: [phone] RAD #: D/C DT PAGE 2 Signed Report- XR SPINE 1 V SPEC LEVEL 2020-03-06 09:00:00 Patient Name: ALCON ROMANO Unit No: [id number] EXAMS: CPT CODE: [id number] XR SPINE 1 V SPEC LEVEL 33988 INTRAOPERATIVE LATERAL LUMBAR SPINE COMMENT: Markers are posterior to L4 and L5. at 0900 Reported and signed by: Ton Kessler MD CC: Ton Ríos M.D. Technologist: IRIS SORIANO (RT.R) Transcribed D/ (0900) [facility] NAME: NATALIA ROMANO [address] [place] [address] PHYS: Ton Schwartz MD : 1955 AGE: 65 SEX: M [place] [address] LOC: AprilDSU PHONE #: [phone] EXAM DATE: 03/06/2020 STATUS: REG SD FAX #: [phone] RAD #: D/C DT PAGE 1 Signed Report Patient Name: JORGE ROMANO Unit No: [id number] EXAMS: CPT CODE: [id number] XR SPINE 1 V SPEC LEVEL 88910 <Continued> Orig Print D/T: S: 03/06/2020 (0903) [facility] NAME: ALCON ROMANO [address] [place] [address] PHYS: Ton Schwartz MD : 1955 AGE: 65 SEX: M [place] [address] LOC: Y.DSU PHONE #: [phone] EXAM DATE: 03/06/2020 [place] [facility] [place] #: [phone] RAD #: D/C DT PAGE 2 Signed ReportACUTE HEPATITIS PANEL 2020-03-04 15:45:00 Test Item Value Reference Range Interpretation Comments AB HEPATITIS A IGM (test code = NONREACTIVE NONREACTIVE HAVMAB) AG HEPATITIS B SURFACE (test code NONREACTIVE NONREACTIVE = HBSAG) AB HEPATITIS B CORE IGM (test NONREACTIVE NONREACTIVE code = HBCMAB) AB HEPATITIS C (test code = NONREACTIVE NONREACTIVE HCVAB) SIGNAL TO CUTOFF (test code = 0.05 <0.80 CUTOFF) AB HIV 15:45:00 Test Item Value Reference Range Interpretation Comments AB HIV 1 (test code NONREACTIVE NONREACTIVE Done by [employer] = HIV1AB) 4th Gen HIV Ag/ Ab Combo Screen ACUTE HEPATITIS [id number] 15:44:00 Test Item Value Reference Range Interpretation Comments AB HEPATITIS A IGM (test code = NONREACTIVE NONREACTIVE HAVMAB) AG HEPATITIS B SURFACE (test code NONREACTIVE NONREACTIVE = HBSAG) AB HEPATITIS B CORE IGM (test NONREACTIVE NONREACTIVE code = HBCMAB) AB HEPATITIS C (test code = NONREACTIVE NONREACTIVE HCVAB) SIGNAL TO CUTOFF (test code = 0.05 <0.80 N CUTOFF) AB HIV 1 15:44:00 Test Item Value Reference Range Interpretation Comments AB HIV 1 2 (test NONREACTIVE NONREACTIVE Done by [employer] code = [id number]) 4th Gen HIV Ag/Ab Combo Screen ACUTE HEPATITIS [id number] 15:30:00 Test Item Value Reference Range Interpretation Comments AB HEPATITIS A IGM (test code = NONREACTIVE HAVMAB) AG HEPATITIS B SURFACE (test code NONREACTIVE NONREACTIVE = HBSAG) AB HEPATITIS B CORE IGM (test code = HBCMAB) AB HEPATITIS C (test code = NONREACTIVE HCVAB) SIGNAL TO CUTOFF (test code = CUTOFF) AB HIV 15:30:00 Test Item Value Reference Range Interpretation Comments AB HIV 1 (test code = HIV1AB) NONREACTIVE ACUTE HEPATITIS [id number] 15:29:00 Test Item Value Reference Range Interpretation Comments AB HEPATITIS A IGM (test code = NONREACTIVE HAVMAB) AG HEPATITIS B SURFACE (test code NONREACTIVE NONREACTIVE = HBSAG) AB HEPATITIS B CORE IGM (test NONREACTIVE code = HBCMAB) AB HEPATITIS C (test code = NONREACTIVE HCVAB) SIGNAL TO CUTOFF (test code = <0.80 CUTOFF) AB HIV 1 15:29:00 Test Item Value Reference Range Interpretation Comments AB HIV 1 2 (test code = [id number]) NONREACTIVE COMPREHENSIVE METABOLIC [id number] 10:36:00 Test Item Value Reference Range Interpretation Comments SODIUM (test code = 140 mmol/L 136-145 N NA) POTASSIUM (test code = 4.5 mmol/L 3.5-5.1 N K) CHLORIDE (test code = 104.0 mmol/L 98-107 N CL) CARBON DIOXIDE (test 25.1 mmol/L 21-32 N code = CO2) GLUCOSE (test code = 96 mg/dL 70-110 N GLU) BLOOD UREA NITROGEN 16 mg/dL 7-18 N (test code = BUN) GLOMERULAR FILTRATION 64.0 >60 Unit o f measure: RATE (test code = GFR) mL/mi n/1.73 o0Evesicbgy Range:Healthy Adults >90 mL/min/1.73 m2 For Chronic Kidney Disease: St age II Mild Decrease in GFR 60-90 St age III Moderate Decrease in GFR 30-59 Stage IV Severe Decre ase in GFR 15- 29 Stage V Kidney Failure <15 CREATININE (test code 1.15 mg/dL 0.55-1.30 N = CREAT) TOTAL PROTEIN (test 7.1 g/dL 6.4-8.2 N code = PROT) ALBUMIN (test code = 3.9 g/dL 3.4-5.0 N ALB) GLOBULIN (test code = 3.2 g/dL 2.2-4.2 N GLOB) ALBUMIN/GLOBULIN RATIO 1.2 0.7-2.0 N (test code = A/G) CALCIUM (test code = 8.9 mg/dL 8.2-10.1 N CA) BILIRUBIN TOTAL (test 0.50 mg/dL 0.2-1.00 N code = BILT) SGOT/AST (test code = 18.0 U/L 15-37 N AST) SGPT/ALT (test code = 33.0 U/L 12-78 N Please note new ALT) normal range. ALKALINE PHOSPHATASE 66 U/L 46-116 N TOTAL (test code = ALKP) PROTHROMBIN [id number] 10:22:00 Test Item Value Reference Range Interpretation Comments PROTHROMBIN TIME 10.7 secs 10.1-12.5 N PATIENT (test code = PTP) INTERNATIONAL NORMAL 0.95 <2.0 RECOMME NDED THERAPEUTIC RATIO (test code = RANGE FOR ORAL INR) ANTICOAGULANTTR EATMENT: CONDI TION INRProphylaxis of venous thrombos is in 2.0 - 3.0 high-risk medic al or surgical patientsTreatme nt of venous thrombos is 2.0 - 3.0Prevention o f embolism 2.0 - 3.0Prevention o f recurrent embol ism, or 3.0 - 4. 5 patients with mechanical pros thetic intravascular v harris IS PATIENT ON ANTICOAGULANTS ? YLIST ANTICOAGULANT/ANTI PLT MEDICATION : Clopidogrel (Anti-PLT)Has Lab been notified if Patient is on Heparin Drip? NOTHROMBOPLASTIN TIME [id number] 10:22:00 Test Item Value Reference Range Interpretation Comments PTT ACTIVATED (test code = APTT) 31.0 secs 24.9-37.0 N IS PATIENT ON ANTICOAGULANTS ? YLIST ANTICOAGULANT/ANTI PLT MEDICATION : Clopidogrel (Anti-PLT)Has Lab been notified if Patient is on Heparin Drip? NOCBC W/AUTO [id number] 10:10:00 Test Item Value Reference Range Interpretation Comments WHITE BLOOD CELL (test code = WBC) 6.4 K/mm3 5.7-10.5 N RED BLOOD CELL (test code = RBC) 4.78 M/mm3 4.2-5.4 N HEMOGLOBIN (test code = HGB) 14.3 g/dL 12-16 N HEMATOCRIT (test code = HCT) 42.9 % 37-47 N MEAN CELL VOLUME (test code = MCV) 90 fL 80-98 N MEAN CELL HGB (test code = MCH) 29.9 pg 27-34 N MEAN CELL HGB CONCENTRATION (test 33.3 g/dL 30.8-34.1 N code = MCHC) RED CELL DISTRIBUTION WIDTH (test 13.8 % 11-16 N code = RDW) PLT (test code = PLT) 254 K/mm3 130-400 N MEAN PLATELET VOLUME (test code = 10.5 fL 8.9-12.1 N MPV) NEUTROPHIL % (test code = NT%) 57.2 % 45-70 N LYMPHOCYTE % (test code = LY%) 29.1 % 20-40 N MONOCYTE % (test code = MO%) 9.3 % 3-10 N EOSINOPHIL % (test code = EO%) 3.3 % 1-5 N BASOPHIL % (test code = BA%) 0.6 % 0.0-1.1 N NEUTROPHIL # (test code = NT#) 3.63 K/mm3 2.00-7.50 N LYMPHOCYTE # (test code = LY#) 1.85 K/mm3 1.50-4.00 N MONOCYTE # (test code = MO#) 0.59 K/mm3 0.2-0.8 N EOSINOPHIL # (test code = EO#) 0.21 K/mm3 0.04-0.4 N BASOPHIL # (test code = BA#) 0.04 K/mm3 0.02-0.10 N MANUAL DIFF REQUIRED (test code = NO MANUAL DIFF MDIFF) NUCLEATED RED BLOOD CELL (test 0 % 0-0 N code = NRBC) Coronavirus 2018 nCoV [id number] 09:12:00 Test Item Value Reference Range Interpretation Comments Coronavirus 2018 nCoV Bedside (test Negative code = COVNONPUIBED) - XR FLUORO FOR SPINE [id number] 15:30:00 Patient Name: ALCON ROMANO Unit No: [id number] EXAMS: CPT CODE: [id number] XR FLUORO FOR SPINE INJ 59588 LUMBAR EPIRADICULAR INJECTION REFERRAL PHYSICIAN: NonePREOPERATIVE DIAGNOSIS: Lumbar Radiculitis POSTOPERATIVE DIAGNOSIS: Degenerative L2-3 disc with left L2-3 lateral recess stenosis and left lumbar radiculitis PROCEDURES PERFORMED: Fluoroscopically guided needle localization of the left L2 and left L3 spinal nerves with transforaminal epidurograms and epidural injection of local anesthetic and steroid. FINDINGS: Good flow was seen through the L2-3 foramen and proximally however marked anterior epidural displacement seen across the L1-2 disc. Flow in the left L2-3 lateral recesswas obstructed. Provocation with injection was negative at L2 and partially concordant for usual 5 pain at L3. Anesthetic response was positive with the patient noting complete relief of his left anterior thigh pain. Preinjection VAS 7/10. Postinjection VAS 0/10. Steroid response pending follow-up. ESTIMATED BLOOD LOSS: Minimal ANESTHESIA: TIVA COMPLICATIONS: None DETAILS OF PROCEDURE: After obtaining stable vital signs, informed consent and IV access, with no contraindications, the patient was taken to the operating room and placed in a prone position with all extremities padded and appropriate monitors placed. The patient was sterilely prepped and draped over the lumbosacral spine. Using fluoroscopic visualization the insertion sites were marked for paravertebral approaches and using standard technique, a 25 gauge needle was advanced to the base of eachpedicle without paresthesias. Isovue-300 contrast 0.2 mL of was injected incrementally with frequent negative aspirations to produce each epidurogram. There were no signs of intravascular or intrathecal uptake. Bupivicaine 0.75% 0.25 mL with lidocaine 4% 0.5 mL and Decadron 6 mg was then incrementally injected with frequent negative aspirations and again there were no signs of intravascular or intrathecal uptake. The needles were removed and the patient was taken to the PACU in good condition. at 4899 Reported and signed by: Leighton Marte M.D. CC: Technologist: Ada Singh(R) Transcribed D/ (8394) [facility] ALCON ROM[facility] AMANDO [address] [facility] PHYS: Leighton Evans MD [place], [place] [address] : 1955 AGE: 64 SEX: M LOC: PreciousABHIJEET PHONE #: [phone] EXAM DATE: 02/13/2020 [place] [facility] [place] [phone] RAD #: D/C DT PAGE 1 Signed Report Patient Name: ALCON ROMANO Unit No: [id number] EXAMS: CPT CODE: [id number] XR FLUORO FOR SPINE INJ 52053 <Continued> Orig Print D/T: S: 02/13/2020 (6288) [facility] NAME: ALCON ROMANO [address] [facility] PHYS: Leighton Evans MD [place], [place] [address] : 1955 AGE: 64 SEX: M LOC: PreciousABHIJEET PHONE #: [phone] EXAM DATE: 02/13/2020 [place] [facility]: [phone] RAD #: D/C DT PAGE 2 Signed Report- MRI L-SPINE W/O [id number] 10:32:00 Patient Name: ALCON ROMANO Unit No: [id number] EXAMS: CPT CODE: [id number] MRI L-SPINE W/O CONT 04083 MRI OF THE LUMBAR SPINE: DIAGNOSIS: 1. At L1-2, moderate disc degeneration. Mild to moderate central canal stenosis. Mild to moderate bilateral facetarthropathy. Mild bilateral foraminal stenosis. 2. At L2-3, marked disc degeneration. 2 mm broad-based disc bulge. Moderate to marked central canal stenosis. Moderate bilateral facet arthropathy. There is a 1 cm left foraminal disc extrusion which impinges the left L2 nerve root. Marked left foraminal stenosis. Moderate right foraminal stenosis secondary tolateralizing 4 mm disc herniation. 3. At L3-4, mild disc degeneration. Mild central canal stenosis. Moderate left facet and moderate facet arthropathy. Marked right foraminal stenosis secondary to 3 mm lateralizing disc protrusion and endplate remodeling. Moderateleft foraminal stenosis. 4. At L4-5, mild disc degeneration. Grade 1 spondylolisthesisof L4 on L5. Marked hypertrophic central canal stenosis secondary to thickening of ligamenta flava and marked bilateral facet arthropathy. Bilateral lateral gutter stenosis. Marked right foraminal moderate left foraminal stenosis. 5. At L5-S1, mild disc degeneration. Mild to moderate central canal stenosis. Marked right facet and moderate left facet arthropathy. Marked right foraminal and moderate left foraminal stenosis. COMMENT: COMPARISON: No prior exams available. Sagittal T1, T2 and STIR and axial T1 and T2- weighted sequences are obtained of the lumbar spine. The lumbar vertebrae are within normal limits in signal. The findings are as above. The conus is in the expected location. 7 VIEW LUMBAR SPINE WITH FLEXION AND EXTENSION COMMENT: Grade 1 spondylolisthesis of L4 on L5 is slightly more pronounced in the flexedposition. Marked degeneration of the L2-3 disc. Pedicles and transverse processes are intact. Mild degeneration the bilateral SI joints. Patient has had a total left hip arthroplasty. No evidence of fracture. [facility] NAME: ALCON ROMANO [address] [facility] PHYS: Ton Schwartz MD : 1955 AGE: 64 SEX: M [place] [address] LOC: Y.MRI PHONE #: [phone] EXAM DATE: 01/22/2020 STATUS: REG CLI FAX #: [phone] RAD #: D/C DT PAGE 1 Signed Report (CONTINUED) Patient Name: ALCON ROMANO Unit No: [id number] EXAMS: CPT CODE: [id number] MRI L-SPINE W/O CONT 68742 <Continued> at 1032 Reported and signed by: Zay Talley MD CC: Ton Ríos M.D. Technologist: CAMILO DIAZ RT(R) Transcribed D/ (1032) [facility] NAME: ALCON ROMANO[address] PHYS: Ton Schwartz AMD : 1955 AGE: 64 SEX: M [place] [address] LOC: Y.MRI PHONE #: [phone] EXAM DATE: 01/22/2020 STATUS: REG CLI FAX #: [phone] RAD #: D/C DT PAGE 2 Signed Report Patient Name: ALCON ROMANO Unit No: [id number] EXAMS: CPT CODE: [id number] MRI L-SPINE W/O CONT 78395 <Continued> Orig Print D/T: S: 01/22/2020 (1035) [facility] NAME: ALCON ROMANO [address] PHYS: Ton Schwartz MD : 1955 AGE: 64 SEX: M [place] [address] LOC: Y.MRI PHONE #: [phone] EXAM DATE: 01/22/2020 STATUS: REG CLI FAX #: [phone] RAD #: D/C DT PAGE 3 Signed Report- XR L-SPINE W/BEND [id number] 10:32:00 Patient Name: ALCON ROMANO Unit No: [id number] EXAMS: CPT CODE: [id number] XR L-SPINE W/BEND VIEW 37418 MRI OF THE LUMBAR SPINE: DIAGNOSIS: 1. At L1-2, moderate disc degeneration. Mild to moderate central canal stenosis. Mild to moderate bilateral facetarthropathy. Mild bilateral foraminal stenosis. 2. At L2-3, marked disc degeneration. 2 mm broad-based disc bulge. Moderate to marked central canal stenosis. Moderate bilateral facet arthropathy. There is a 1 cm left foraminal disc extrusion which impinges the left L2 nerve root. Marked left foraminal stenosis. Moderate right foraminal stenosis secondary tolateralizing 4 mm disc herniation. 3. At L3-4, mild disc degeneration. Mild central canal stenosis. Moderate left facet and moderate facet arthropathy. Marked right foraminal stenosis secondary to 3 mm lateralizing disc protrusion and endplate remodeling. Moderateleft foraminal stenosis. 4. At L4-5, mild disc degeneration. Grade 1 spondylolisthesisof L4 on L5. Marked hypertrophic central canal stenosis secondary to thickening of ligamenta flava and marked bilateral facet arthropathy. Bilateral lateral gutter stenosis. Marked right foraminal moderate left foraminal stenosis. 5. At L5-S1, mild disc degeneration. Mild to moderate central canal stenosis. Marked right facet and moderate left facet arthropathy. Marked right foraminal and moderate left foraminal stenosis. COMMENT: COMPARISON: No prior exams available. Sagittal T1, T2 and STIR and axial T1 and T2- weighted sequences are obtained of the lumbar spine. The lumbar vertebrae are within normal limits in signal. The findings are as above. The conus is in the expected location. 7 VIEW LUMBAR SPINE WITH FLEXION AND EXTENSION COMMENT: Grade 1 spondylolisthesis of L4 on L5 is slightly more pronounced in the flexedposition. Marked degeneration of the L2-3 disc. Pedicles and transverse processes are intact. Mild degeneration the bilateral SI joints. Patient has had a total left hip arthroplasty. No evidence of fracture. [facility] NAME: ALCON ROMANO [address] [facility] PHYS: Ton Schwartz MD : 1955 AGE: 64 SEX: M [place] [address] LOC: Y.MRI PHONE #: [phone] EXAM DATE: 01/22/2020 STATUS: REG CLI FAX #: [phone] RAD #: D/C DT PAGE 1 Signed Report (CONTINUED) Patient Name: ALCON ROMANO Unit No: [id number] EXAMS: CPT CODE: [id number] XR L-SPINE W/BEND VIEW 93460 <Continued> at 1032 Reported and signed by: Zay Talley MD CC: Ton Ríos M.D. Technologist: RT. Lc(R) Transcribed D/ (1032) [facility] NAME: ALCON ROMANO [address] PHYS: Ton Schwartz AMD : 1955 AGE: 64 SEX: M [place] [address] LOC: Y.MRI PHONE #: [phone] EXAM DATE: 01/22/2020 STATUS: REG CLI FAX #: [phone] RAD #: D/C DT PAGE 2 Signed Report Patient Name: ALCON ROMANO Unit No: [id number] EXAMS: CPT CODE: [id number] XR L-SPINE W/BEND VIEW 38916 <Continued> Orig Print D/T: S: 01/22/2020 (1035) [facility] NAME: ALCON ROMANO [address] PHYS: Ton Schwartz MD : 1955 AGE: 64 SEX: M [place] [address] LOC: Y.MRI PHONE #: [phone] EXAM DATE: 01/22/2020 STATUS: REG CLI FAX #: [phone] RAD #: D/C DT PAGE 3 Signed ReportUS CAROTID W/[id number] 13:58:56CLINICAL INDICATION: R45.86 Emotional labilityTECHNIQUE: Realtime sonographic imaging, color flowimaging and duplex doppler evaluation of the extracranial carotid circulation of the neck were performed bilaterally using the [employer] ultrasound Intima-media thickness determination is performedas well.COMPARISON: noneFINDINGS:Mild atheromatous plaque of the left carotid bulb and distal leftcommon carotid artery.Velocities in both right and left [...] 70%: ICA PSV 230 cm/sec, ICA/CCA ratio 4.0CHEM [id number] 13:34:002.8 [facility] BFNGP1241-51-73 13:34:002.0[facility] PANEL 2017-02-28 13:34:0065[facility]annCHEM SKCGP3149-26-56 13:34:004.2[facility]annCHEM [id number] 13:34:008.4[facility]annCHEM GDMUK0257-81-72 13:34:0030[facility]annCHEM YWFAJ8096-86-87 13:34:63903Fqvqhrbc HermannCHEM DILBX3348-62-11 13:34:09699Wliakgcf HermannCHEM LOUET0966-45-34 13:34:001.21 [facility]ann[facility] OHWCQ3404-47-02 13:34:0011[facility]ann[facility] PANEL 2017-02-28 13:34:0088[facility]annCHEM WHVFH1402-06-13 13:34:008.2[facility] HrpontvKSEVMJLUFB9439-73-83 13:34:008.9[facility] RpesqqbMXMRSFTDQA6764-83-88 13:34:008.6[facility] TmeozkkEABNNBMUIO1704-18-65 13:34:0014.0[facility] FNNEAQELHE6216-60-45 13:34:0033.0[facility] DgbkrafYROGGANVDL1672-24-74 13:34:00 Test Item Value Reference Range Interpretation Comments MCH (test code = MCH) 29.7 pg 27.0-31.0 [facility] ZbyanzgREXPGQQNUF0023-05-77 13:34:0089.9[facility]annHEMATOLOGY 2017-02-28 13:34:0041.0[facility] NwygbbjJAQXMJHLQK7763-70-03 13:34:004.56[facility] KoaomxdCSCOXFBIJK5629-75-23 13:34:0013.5[facility] EqedfvxLDXVTNZQSJ0208-06-35 13:34:40386Snawmjre NsfdoquDOFURQDMVJ9310-46-87 13:34:0018.3[facility] PANHXJLAEI1713-05-13 13:34:0010.5[facility] NxvewbsBATOCIPQHC9082-94-37 13:34:00 66.4Memorial YbzbizcPLDKBRJCBZ5779-31-32 13:34:004.3[facility] HermannHEMATOLOGY 2017-02-28 13:34:000.4[facility] BtpnbeiCWUKLWFOHD6035-74-16 13:34:000.9[facility] RhevxogVWWBYZGPBM8773-79-43 13:34:001.6[facility] KenfrhtYAGGMDNQLF9550-59-92 13:34:005.9[facility] BvywmwnYVVFFFHZCN1016-96-36 13:34:000.5[facility] Lenin GCWOMQNES9605-41-67 23:29:00<0.02[facility] TdhndtdNXHUYGUNZ2201-86-44 23:29:00 70[facility] IvusnnoUNOZARFBU4827-47-15 19:01:0013.9[facility]annCHEMISTRY 2013-02-10 19:01:0061[facility] UjmgxpeNFFVNLCOA0471-92-46 19:01:0084[facility] WykwnpbTKWRNMCWS6407-61-33 19:01:001.3[facility] GqkoacvJJXCNXEVU1018-29-43 19:01:0013[facility] EixmzupDTXTOPNEX9436-24-55 19:01:33489Icwcuqvl [place] QJFIMVBRF5490-32-80 19:01:003.9[facility] LkponowRNDALMWYG5858-29-80 19:01:009.1 [facility] ObbgithJAMIIZKOS0190-97-68 19:01:0028[facility]annCHEMISTRY 2013-02-10 19:01:17705Tzcurrdp HddnwjuCPXTHPQLG2413-54-61 19:01:32665Pfhrarow FtsynasITJKUAQFX1451-33-90 19:01:0074[facility] ViomakhTVFCIZWCD9660-74-21 19:01:002.61[facility] UcydqmwXQWPDICNT2180-64-45 19:01:0098[facility] FGUCPLFFR7428-56-02 19:01:17972Zlgrcgwi XuicklyQXESJBBJM2967-19-16 19:01:0088 [facility] DcwweubPHWQRUNNA8030-69-26 19:01:00<0.02[facility]annCHEMISTRY 2013-02-10 19:01:00<0.6[facility] NpzjpydDYLRMMOFY6543-78-06 19:01:00<0.5 [facility] DaopzmlIOBDKUOWOH1192-75-75 19:01:000.88[facility] HermannHEMATOLOGY 2013-02-10 19:01:00 Test Item Value Reference Range Interpretation Comments PTT (test code = PTT) 26.5 s 22.9-35.8 N [facility] YxzgwhlNTJQCEHVMF8412-97-50 19:01:00 Test Item Value Reference Range Interpretation Comments PT (test code = PT) 12.2 s 12.0-14.7 N [facility] CansvxgAEPAYIRXHV1465-90-35 19:01:007.9[facility]annHEMATOLOGY 2013-02-10 19:01:002.7[facility] CezvetiEXSVJMCQLF5535-11-02 19:01:0023.5[facility] MrfffoyXRIAELUYCD3990-51-08 19:01:0065.4[facility] DzgeneqSSTCOBKKEV4325-99-02 19:01:000.6[facility] JnphrprBZJIQOOHJY0659-61-26 19:01:000.0[facility] ZTZMDQOPEH7717-86-20 19:01:000.2[facility] CfbxczqOPZMVYKQLR8126-33-22 19:01:000.5 [facility] VpowvxcIIQLCOCEQD4980-48-81 19:01:005.1[facility]annHEMATOLOGY 2013-02-10 19:01:001.8[facility] DieixtgUGXIELIERV2246-32-11 19:01:00 Test Item Value Reference Range Interpretation Comments PTT Baseline (test code = PTT 26.9 s 22.9-35.8 N Baseline) [facility]83[facility]73-91 19:01:00 Test Item Value Reference Range Interpretation Comments TT Baseline (test code = TT Baseline) 15.2 s 15.0-21.1 N [facility] EnoirrpEQNFZITOBI1406-76-47 19:01:00See Note 9(02/10/2013 14:01:00) [facility] DfsmayvERVBASSWUN0438-17-24 19:01:69955Cyvuirmx HermannHEMATOLOGY 2013-02-10 19:01:0014.2[facility] JitgiwwIBWCJLAGHP1280-81-58 19:01:008.8[facility] ChgfmydEJHQWKMJOR2509-01-36 19:01:00 Test Item Value Reference Range Interpretation Comments MCH (test code = MCH) 31.0 pg 27.0-31.0 N [facility] PyeyqtvJQZUUIOYBG1715-73-99 19:01:0033.5[facility]annHEMATOLOGY 2013-02-10 19:01:0092.8[facility] CfvygdhAGYVJNPQRS6332-02-23 19:01:0046.9[facility] GekxmyqBMPFWKVACO0573-35-97 19:01:0015.7[facility] LciodsiUVDIYCOAUA8686-83-14 19:01:005.05[facility] ZdzpvteCISOXXJZFG5498-28-37 19:01:007.8[facility] TLSSJCFDX3434-52-10 23:38:0083.0[facility] VoqtceqEZXPQLXLR9923-60-80 23:38:00 171.0[facility] NqxlfgtDHJPZGLZA5175-88-54 23:38:0098.0[facility]annCHEMISTRY 2011-07-21 23:38:0068.0[facility] UsnccvyGHAHVJMOF3508-19-37 23:38:00 Test Item Value Reference Range Interpretation Comments CHD Risk (test code = CHD Risk) 2.51 1 4.00-7.30 L [facility] AvqertjYFAFBSKCB9630-96-22 23:38:87011.0[facility]annCHEMISTRY 2011-07-21 23:38:0029.0[facility] HazrfcyILHIPYJBW1994-76-66 23:38:009.0[facility] HydpzrfNIAQHRBWX9004-91-18 23:38:55144.0[facility] KbeujwjLWESYDYZN0688-54-96 23:38:004.0[facility] GsrmowdPMQZVXFRF6968-78-18 23:38:0012.0[facility] MDBRVDZEU3657-10-68 23:38:001.3[facility] EdfkmijMCMHMFDRG6047-42-02 23:38:16328.0 [facility] CvmcxtxNMOHZRMGN6115-78-26 23:38:0010.0[facility] HermannHEMATOLOGY 2011-07-21 23:38:000.0[facility] MiljdlxGRYMITYFNX7727-27-80 23:38:002.4[facility] XebumuxDDTFHDICGW9203-38-58 23:38:000.3[facility] PmymdkwJEZJJZBATU6066-52-36 23:38:006.4[facility] KgdointUJEMGTXIDF8354-46-14 23:38:000.4[facility] DMHPKDYMAV4006-28-58 23:38:007.4[facility] KegxvqsNQZCAEMWJW0621-14-15 23:38:002.7 [facility] SlogsupXDUMETYLRA7220-78-50 23:38:0024.3[facility]annHEMATOLOGY 2011-07-21 23:38:000.7[facility] EjmfiugGKPWSMHSFA3985-40-82 23:38:0065.2[facility] DfexsugPZRJWRTDCL6891-63-28 23:38:00 Test Item Value Reference Range Interpretation Comments PT (test code = PT) 12.8 s 12.0-14.7 N [facility] XjmwvdmQTRUBMJIVT0101-94-97 23:38:00 Test Item Value Reference Range Interpretation Comments INR (test code = INR) 0.96 1 0.85-1.17 N [facility] TexasDtbifmdCYXSZQMAFC8227-49-79 23:38:0013.8[facility]annHEMATOLOGY 2011-07-21 23:38:009.1[facility] BivcuvfUNGSPFCSTI4074-87-39 23:38:30862.0[facility] AqrgqeeUXQKNXNLBD3077-35-85 23:38:0033.8[facility] QgzxloyYHFBORREUJ7600-95-23 23:38:00 Test Item Value Reference Range Interpretation Comments MCH (test code = MCH) 30.8 pg 27.0-31.0 N [facility] TexasTvdyfcdCHTDPSJQDA9062-10-28 23:38:0091.0[facility] HermannHEMATOLOGY 2011-07-21 23:38:0014.5[facility] LufbjgaQGBQXBLQYA1720-67-67 23:38:004.71[facility] ZzdabqnWGRKYCTATU5514-79-83 23:38:0042.9[facility] AsvyxuhODTOJXWVAU8874-19-94 23:38:009.9[facility]
[2020-03-24] MEDS ORDERED: LIDOCAINE 1% W/EPI 1:100,000 MDV 50 ML VIAL ONE (20:58)
[2020-03-24] MEDS ORDERED: BUPIVACAINE 0.5% PF 10 ML VIAL ONE (20:58)
--- NOTE | 2020-03-24 22:21 | ER ---
Nurse's Notes [facility] Name: Emile Holloway Age: 65 yrs Sex: Male : 1955 Arrival Date: 03/24/2020 Time: 18:56 Bed 13 Private MD: Diagnosis: Cutaneous abscess of back [any part, except buttock] Presentation: 03/24 19:11 Chief complaint: Patient states: "3 weeks ago I had back surgery on my lumbar. ss Everything is good and healing. I don't know if I have a spider bite, abscess or what, but it's hurting.". Coronavirus screen: At this time, the client does not indicate any symptoms associated with coronavirus-19. Ebola Screen: Patient denies exposure to infectious person. Patient denies travel to an Ebola-affected area in the 21 days before illness onset. Initial Sepsis Screen: Does the patient meet any 2 criteria? No. Patient's initial sepsis screen is negative. Does the patient have a suspected source of infection? No. Patient's initial sepsis screen is negative. Risk Assessment: Do you want to hurt yourself or someone else? Patient reports no desire to harm self or others. Onset of symptoms is unknown. 19:11 Method Of Arrival: Ambulatory ss 19:11 Acuity: TANMAY 4 ss Historical: - Allergies: 19:13 No Known Allergies; ss - Home Meds: 20:02 Plavix 75 mg Oral tab 1 tab once daily [Active]; Lipitor Oral [Active]; lamotrigine ph Oral [Active]; atorvastatin Oral [Active]; acetaminophen-codeine 300-30 mg Oral tab [Active]; Ondansetron Oral [Active]; - PMHx: 19:13 Arthritis; cardiac stent; High Cholesterol; Hyperlipidemia; Kidney stones; ss - PSHx: 19:13 LEFT HIP; lumbar; ss - Immunization history:: Adult Immunizations up to date. - Social history:: Smoking status: Patient denies any tobacco usage or history of. Screenin:59 Abuse screen: Denies threats or abuse. Nutritional screening: No deficits noted. ph Tuberculosis screening: No symptoms or risk factors identified. Fall Risk None identified. Assessment: 19:57 Reassessment: Patient and/or family updated on plan of care and expected duration. Pain ph level reassessed. Patient is alert, oriented x 3, equal unlabored respirations, skin warm/dry/pink. General: Appears uncomfortable, Behavior is cooperative. Pain: Complains of pain in lumbar area Pain does not radiate. Pain currently is 7 out of 10 on a pain scale. Quality of pain is described as pressure, Pain began 4 hours ago. Neuro: Level of Consciousness is awake, alert, Oriented to person, place, time, situation. Cardiovascular: No deficits noted. Respiratory: No deficits noted. GI: No deficits noted. : No deficits noted. EENT: No deficits noted. Derm: Reports increased pain that is 7 out of 10 on a pain scale. Musculoskeletal: No deficits noted. 21:00 Reassessment: Patient and/or family updated on plan of care and expected duration. Pain mt2 level reassessed. Patient is alert, oriented x 3, equal unlabored respirations, skin warm/dry/pink. General: Appears uncomfortable, Behavior is cooperative. Pain: Complains of pain in lumbar area. 22:00 Reassessment: Patient and/or family updated on plan of care and expected duration. Pain mt2 level reassessed. Patient is alert, oriented x 3, equal unlabored respirations, skin warm/dry/pink. Patient denies pain at this time. General: Appears comfortable, Behavior is cooperative. Pain: Denies pain. Vital Signs: 19:13 BP 157 / 87; Pulse 72; Resp 18; Temp 98.4(O); Pulse Ox 98% on R/A; Weight 99.79 kg; Height 5 ft. 9 in. (175.26 cm); Pain 4/10; 21:00 BP 129 / 72; Pulse 79; Resp 16; Pulse Ox 95% ; Pain 5/10; mt2 22:00 BP 131 / 74; Pulse 81; Resp 16; Temp 98.0; Pulse Ox 97% on R/A; Pain 0/10; mt2 19:13 Body Mass Index 32.49 (99.79 kg, 175.26 cm) ED Course: 18:56 Patient arrived in ED. bp1 19:12 Triage completed. ss 19:13 Arm band placed on right wrist. ss 19:57 Diya Magallanes, RN is Primary Nurse. ph 19:59 Patient has correct armband on for positive identification. Placed in gown. Bed in low ph position. Call light in reach. Side rails up X 1. 20:30 [facility]. cp 20:30 Baldo Velasco MD is Attending Physician. cp 22:20 Emile Vigil MD is Referral Physician. cp 22:55 No provider procedures requiring assistance completed. IV discontinued. mt2 22:55 Dressings: non-adherent dressing x 1 lumbar area. mt2 Administered Medications: 20:52 Drug: Lidocaine-Epinephrine -1%: (1:100,000) 10 ml Volume: 20 ml; Route: Infiltration; mt2 22:30 Follow up: Response: No adverse reaction mt2 20:52 Drug: Marcaine (0.5 %) 10 ml Volume: 10 ml; Route: Infiltration; mt2 21:30 Follow up: Response: No adverse reaction mt2 22:30 Drug: Bactrim (160 mg-800 mg (DS) 1 tablet Route: PO; mt2 22:51 Follow up: Response: No adverse reaction mt2 Outcome: 22:20 Discharge ordered by MD. cp 22:55 Discharged to home mt2 22:55 Condition: good 22:55 Discharge instructions given to patient, Instructed on discharge instructions, follow up and referral plans. medication usage, Demonstrated understanding of instructions, follow-up care, medications, wound care, Prescriptions given X 2. 22:57 Patient left the ED. mt2 Signatures: Sherley Mason, RN Diya Medrano RN RN ph Bob Bazan PA PA cp Cristal Nieves Marlene, RN RN mt2
--- NOTE | 2020-03-24 22:21 | EDPHYS ---
Physician Documentation [facility] Name: Emile Holloway Age: 65 yrs Sex: Male : 1955 Arrival Date: 03/24/2020 Time: 18:56 Bed 13 Private MD: ED Physician Baldo Velasco HPI: 03/24 20:40 This 65 yrs old Male presents to ER via Ambulatory with complaints of Boil, cp Back Pain. 20:40 The patient presents with an abscess of the thoracic area of back. Description: cp fluctuant, swollen. Onset: The symptoms/episode began/occurred gradually. 20:40 Possible cause(s): unknown. Associated signs and symptoms: Pertinent negatives: fever. cp Patient reports having lumbar fusion 3 weeks ago w/o complication. Historical: - Allergies: 19:13 No Known Allergies; ss - Home Meds: 20:02 Plavix 75 mg Oral tab 1 tab once daily [Active]; Lipitor Oral [Active]; lamotrigine ph Oral [Active]; atorvastatin Oral [Active]; acetaminophen-codeine 300-30 mg Oral tab [Active]; Ondansetron Oral [Active]; - PMHx: 19:13 Arthritis; cardiac stent; High Cholesterol; Hyperlipidemia; Kidney stones; ss - PSHx: 19:13 LEFT HIP; lumbar; ss - Immunization history:: Adult Immunizations up to date. - Social history:: Smoking status: Patient denies any tobacco usage or history of. ROS: 20:45 Skin: Positive for abscess, of the back. cp 20:45 Constitutional: Negative for body aches, chills, fever, poor PO intake. cp 20:45 Cardiovascular: Negative for chest pain. 20:45 Respiratory: Negative for cough, shortness of breath, wheezing. 20:45 Abdomen/GI: Negative for abdominal pain. 20:45 All other systems are negative. Exam: 20:52 Constitutional: The patient appears in no acute distress, alert, awake, cp non-diaphoretic, non-toxic, well developed, well nourished. 20:52 Head/Face: Normocephalic, atraumatic. cp 20:52 Cardiovascular: Rate: normal, Rhythm: regular. 20:52 Respiratory: the patient does not display signs of respiratory distress, Respirations: normal, no use of accessory muscles, no retractions. 20:52 Abdomen/GI: Exam negative for discomfort, distension, guarding, Inspection: abdomen appears normal. 20:52 Skin: abscess, that is moderate sized, of the back, with fluctuance, that is mild, minimal surrounding erythema, surgical scar of lumbar area appears well healing w/o erythema, dehiscence or swelling. Vital Signs: 19:13 BP 157 / 87; Pulse 72; Resp 18; Temp 98.4(O); Pulse Ox 98% on R/A; Weight 99.79 kg; ss Height 5 ft. 9 in. (175.26 cm); Pain 4/10; 21:00 BP 129 / 72; Pulse 79; Resp 16; Pulse Ox 95% ; Pain 5/10; mt2 22:00 BP 131 / 74; Pulse 81; Resp 16; Temp 98.0; Pulse Ox 97% on R/A; Pain 0/10; mt2 19:13 Body Mass Index 32.49 (99.79 kg, 175.26 cm) ss Procedures: 22:19 I \T\ D: Incision and drainage was performed for an abscess of the back Prepped with Betadine, Anesthetized with 8ccs of 1% lidocaine with epi and 0.5% marcaine. Incised with #11 blade. Drained moderate amount purulent fluid. Packed with iodoform gauze, Dressing: sterile 4x4 gauze, the patient tolerated the procedure well. MDM: 20:36 Patient medically screened. cp 22:00 Differential diagnosis: abscess, cellulitis, insect bite. 22:19 Data reviewed: vital signs, nurses notes, and as a result, I will discharge patient. 22:19 Counseling: I had a detailed discussion with the patient and/or guardian regarding: the cp historical points, exam findings, and any diagnostic results supporting the discharge/admit diagnosis, the need for outpatient follow up, a general surgeon, to return to the emergency department if symptoms worsen or persist or if there are any questions or concerns that arise at home. Response to treatment: the patient's symptoms have markedly improved after treatment, and as a result, I will discharge patient. 03/24 22:15 Order name: Wound Culture 03/24 20:35 Order name: I\T\D Setup; Complete Time: 21:34 cp 03/24 22:15 Order name: Wound dressing; Complete Time: 22:51 cp Administered Medications: 20:52 Drug: Lidocaine-Epinephrine -1%: (1:100,000) 10 ml Volume: 20 ml; Route: Infiltration; mt2 22:30 Follow up: Response: No adverse reaction mt2 20:52 Drug: Marcaine (0.5 %) 10 ml Volume: 10 ml; Route: Infiltration; mt2 21:30 Follow up: Response: No adverse reaction mt2 22:30 Drug: Bactrim (160 mg-800 mg (DS) 1 tablet Route: PO; mt2 22:51 Follow up: Response: No adverse reaction mt2 Disposition: 22:30 Chart complete. cp 03/25 04:27 Co-signature as Attending Physician, Baldo Velasco MD I agree with the assessment and tw4 plan of care. Disposition: 03/24/20 22:20 Discharged to Home. Impression: Cutaneous abscess of back [any part, except buttock]. - Condition is Stable. - Discharge Instructions: Skin Abscess, Incision and Drainage. - Prescriptions for Bactrim DS 800- 160 mg Oral Tablet - take 1 tablet by ORAL route every 12 hours for 10 days; 20 tablet. Tylenol- Codeine #3 300-30 mg Oral Tablet - take 2 tablets by ORAL route every 6 hours As needed; 20 tablet. - Medication Reconciliation Form, Thank You Letter, Antibiotic Education, Prescription Opioid Use form. - Follow up: Emile Vigil MD; When: 1 - 2 days; Reason: Wound Recheck. - Problem is new. - Symptoms have improved. Signatures: Dispatcher [employer] EDLA Sherley Mason RN RN Diya Magallanes RN RN Bob Bazan, JENNIFER PA cp Baldo Velasco MD MD tw4 Loren Friedman RN RN mt2 Corrections: (The following items were deleted from the chart) 03/24 22:57 22:20 03/24/2020 22:20 Discharged to Home. Impression: Cutaneous abscess of back [any mt2 part, except buttock]. Condition is Stable. Forms are Medication Reconciliation Form, Thank You Letter, Antibiotic Education, Prescription Opioid Use. Follow up: Emile Vigil; When: 1 - 2 days; Reason: Wound Recheck. Problem is new. Symptoms have improved. cp
[2020-03-24] MEDS ORDERED: SMZ./TMP. 800/160 MG TABLET ONE (22:41)
[2020-03-24 23:32] VITALS: BP 131/74; TEMP 98; O2SAT 97
== END 2020-03-24 22:57 | disposition home or self-care (01) ==
LOC: ER 18:52
PROC: 0J970ZZ Drainage of Back Subcutaneous Tissue and Fascia, Open Approach (ICD-10-PCS; principal; 2020-03-24)
DX: L02.212 Cutaneous abscess of back [any part, except buttock and flank] (principal); E78.00 Pure hypercholesterolemia, unspecified; E78.5 Hyperlipidemia, unspecified; Z79.01 Long term (current) use of anticoagulants; Z95.818 Presence of other cardiac implants and grafts
CPT/HCPCS: 87070; 87205; 99283

== ENCOUNTER 2020-04-15 09:43 | Day surgery (SDC) | payer OTHER ==
--- OUTSIDE RECORDS SUMMARY | 2020-04-15 10:05 | XMS REPORT | Continuity of Care Document ---
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 Cardiac Clinic Coronary Active Problem 02/02/2020 [place] angioplasty status [facility] CAD of [place] Active Problem 02/02/2020 [place] Angina Card [facility]ac Clinic Benign essential Active Problem 02/02/2020 [place] HTN Cardiac Clinic Hyperlipidemia Active Problem 02/02/2020 [facility] ton Cardiac Clinic CAD of [place] Active Problem 02/02/2020 [place] w/o Angina Ca rdiac Clinic Preop Active Diagnosis 04/01/2018 [place] cardiovascular exam Cardiac Clinic Coronary stent or Active Diagnosis 06/24/2016 Tari thompson PTCA, status post Ca rdiac Clinic Coronary Active Problem 12/02/2014 [place] atherosclerosis of [facility] [facility] vessel Clinic Hyperlipidemia NOS Active Problem 12/02/2014 [place] [facility] Angina Pectoris Active Problem 12/02/2014 [place] stomary [facility]iac [facility] Hypertension Active Problem 12/02/2014 [place] [facility] Hypertensive Active Diagnosis 06/24/2016 [place] crisis, unspecified Cardiac Clinic Hyperlipidemia, Active Diagnosis 06/24/2016 [place] urias unspecified Cardiac Clinic Atherosclerosis of Active Problem 02/02/2020 [place] council coronary Card iac artery of council Cli michael heart with stable angina pectoris Other Active Diagnosis 06/24/2016 [place] hyperlipidemia Cardi ac Clinic Atherosclerotic Active Diagnosis 06/24/2016 [place] urias heart disease of [place] council coronary Clin ic artery without angina pectoris Back pain Active Problem 02/13/2013 [facility] Coronary artery Active Problem 02/13/2013 disease [facility] Unstable angina Active Problem 02/13/2013 [facility] Coronary Resolved Problem 03/03/2017 [facility] arteriosclerosis Med ical (disorder) [place] Backache (finding) Active Problem 03/03/2017 [facility] Preinfarction Active Problem 03/03/2017 [place] syndrome (disorder) [facility] UNSP OPEN WOUND OF Active [facility] UNSP FINGER W/O [facility] Medications Medication Details Route Status Patient Ordering Order Source Instructions Provider Date telmisartan 1 tab(s) orally Active 80 mg orally ALFIE 09/22/ [place] once a day 2019 [facility] Clindamycin Notes: (Same Inactive [place] as As: Cleocin) 2017 [facility] Acetaminophen 2 tab, PO, Active [place] 325 MG / Q6H, PRN Pain 2017 Medical Hydrocodone Score 7-10, 0 [place] Bitartrate 10 Refill(s) MG Oral Tablet [[place] 10/325] clindamycin 300 mg, PO, Active [place] 300 mg oral [id number], 0 2017 Medical capsule Refill(s) [place] Acetaminophen Notes: Do not Inactive [place] 325 MG / exceed 4gm/day 2017 Medical Hydrocodone of [place] Bitartrate 10 acetaminophen. MG Oral Tablet (Same as: [[place] 10/325] [place] 325/10) Docusate 50 mg = 1 cap, Active [facility] Sodium 50 MG PO, BID, PRN [...] No Longer [place] as: Ativan) Active [address] [place] [address] atorvastatin 20 mg = 1 tab, Active [place] 20 MG Oral PO, Daily, 0 2017 Medical Tablet Refill(s) [place] [Lipitor] Lorazepam 1 MG 1 mg = 1 tab, Active [facility] Oral Tablet PO, Daily, PRN 2017 Medic al [Ativan] Anxiety, # 60 Center tab, 0 Refill(s) LaMICtal Notes: (Same No Longer [facility] as:LaMICtal) Active 2017 Medical [place] Acetaminophen Notes: Do not No Longer [facility] 300 MG / exceed 4gm/day Active 2017 Medical Codeine [facility] Phosphate 30 acetaminophen. MG Oral Tablet (Same as: [Tylenol with Tylenol with Codeine #3] Codeine # 3) Acetaminophen Notes: Do not No Longer [facility] 300 MG / exceed 4gm/day Active 2017 [facility] Codeine [facility] Phosphate 30 acetaminophen. MG Oral Tablet (Same as: [Tylenol with Tylenol with Codeine #3] Codeine # 3) Benadryl Notes: (Same No Longer [facility] as: Benadryl) Active 2017 Medical [place] Docusate Notes: (Same No Longer [facility] as: Colace) Active 2017 Medical (Do Not Crush) [place] Plavix Notes: (Same No Longer [facility] As: Plavix) Active 2017 [facility] Ancef + sodium Notes: (Same No Longer [facility] chloride 0.9% As: Ancef, Active 2017 Medical INJ 100 mL Kefzol) [place] Cefazolin FOR IV SET ONLY MEDICATION WASTE Product Size: 1000 mg Product Wasted: ___ mg Lipitor Notes: (Same No Longer [facility] as: Lipitor) Active 2017 [facility] Aspirin 81 MG Notes: Take No Longer [place] Chewable with food. Active 2017 Medical Tablet [place] lamotrigine 150 mg = 1 Active [facility] 150 MG Oral tab, PO, 2017 Medical Tablet Daily, # 30 [place] [Lamictal] tab, 1 Refill(s) Ativan Bedtime, 0 Inactive [facility] Refill(s) 2017 Medical [place] ePHEDrine Route: IV, Inactive [facility] (ANES) Drug form: 2017 Medical INJ, ONCE, Center Stop date: 02/27/17 1:57:00 CDT sugammadex Route: IV, Inactive [facility] (ANES) Drug form: 2017 Medical SOLN, ONCE, Center Stop date: 02/27/17 1:57:00 CDT ceFAZolin Route: IV, Inactive [facility] (ANES) Drug form: 2017 Medical INJ, ONCE, Center Stop date: 02/27/17 1:57:00 CDT acetaminophen Route: IV, Inactive [place] (ANES) Drug form: 2017 Medical INJ, ONCE, Center Stop date: 02/27/17 1:57:00 CDT ondansetron Route: IV, Inactive [facility] (ANES) Drug form: 2017 Medical INJ, ONCE, Center Stop date: 02/27/17 1:57:00 CDT fentaNYL Route: IV, Inactive [facility] (ANES) Drug form: 2017 Medical INJ, ONCE, Center Stop date: 02/27/17 1:50:00 CDT propofol Route: IV, Inactive [facility] (ANES) Drug form: 2017 Medical INJ, ONCE, Center Stop date: 02/27/17 1:50:00 CDT rocuronium Route: IV, Inactive [facility] (ANES) Drug form: 2017 Medical INJ, ONCE, Center Stop date: 02/27/17 1:50:00 CDT midazolam Route: IV, Inactive [facility] (ANES) Drug form: 2016 Medical SOLN, ONCE, Center Stop date: 02/27/17 1:50:00 CDT lidocaine Route: IV, Inactive [facility] (ANES) Drug form: 2017 Medical INJ, [...] Inactive [place] (ANES) Total Volume: 2017 [facility] 1,000, Start Center date: 02/27/17 1:06:00 CDT, Stop date: 02/27/17 2:06:00 CDT Acetaminophen Notes: (Same Inactive [place] 325 MG / as: [place] 2017 Medical Hydrocodone 325/5) Do not Cente r Bitartrate 5 exceed 4gm/day MG Oral Tablet of acetaminophen. Ondansetron Notes: (Same No Longer [place] as: Zofran) Active 2017 Medical MEDICATION Center WASTE Product Size: 4 mg Product Wasted: ___ mg Alprazolam 2 Notes: With No Longer [place] MG Oral Tablet food or milk Active 2016 Medi [place] [Xanax] (Same as: [place] Xanax) Lidocaine Notes: (Same Inactive [place] Hydrochloride as: Xylocaine) 2017 Med ical 10 MG/ML [place] Injectable Solution Lipitor 1 tab(s) orally Active 20 orally [facility] 01/14/ [place] once a day 2017 Cardiac (at bedtime) Clinic Lipitor 1 tab(s) orally Active 20 mg orally [facility] [place] once a day 2016 Cardiac (at bedtime) Clinic Lipitor 1 tab(s) orally Active 20 orally [facility] [place] once a day 2015 Cardiac (at bedtime) Clinic Plavix 1 tab(s) orally Active 75 orally [facility] [place] once a day 2015 Cardiac Clinic Celebrex 1 cap(s) orally No Longer 200 mg orally [facility] Zetia 10 mg 10 mg, 1 tab, PO Active [facility] oral tablet PO, Daily, 90 2012 [facility] Substitution Allowed, TAB nitroglycerin 0.4 mg, 1 tab, SL Active [facility] 0.4 mg SL, Q5Min, 2012 [facility] sublingual PRN, 25 tab, [facility] tablet Chest Pain, Substitution Allowed, TAB metoprolol 50 50 mg, 1 tab, PO Active [facility] mg oral PO, Daily, 90 2012 [facility] tablet, tab, [facility] extended Substitution release Allowed, ERTAB Saline Flush 5 ml, Route: IVP No Longer [facility] 0.9% IVP, Drug Active 2012 [facility] Form: INJ, [facility] Dosing Weight 108.636, kg, Q12H, Start date: 02/10/13 21:00:00, Duration: 30 day, Stop date: 03/12/13 9:00:00 aspirin 81 mg 81 mg, 1 tab, PO Active tablet, PO, Daily, 2012 [facility] chewable tab, [facility] Substitution Allowed, CHEWTAB Plavix 75 mg 75 mg, 1 tab, PO Active oral tablet PO, Daily, 30 2012 Memori al tab, [facility] Substitution Allowed, TAB LORAzepam 2 mg 2 mg, 1 tab, PO No Longer oral tablet PO, TID, PRN, Active 2012 [facility], [facility] Anxiety, Substitution Allowed Lipitor 40 mg, 1 tab, PO No Longer [facility] Route: PO, Active 2012 [facility] Drug form: [facility] TAB, QPM, Dosing Weight 107.273, kg, Start date: 02/10/13 17:00:00, Duration: 30 day, Stop date: 03/11/13 17:00:00 BD Normal 3 mL, Route: IV No Longer [place] Saline Flush IV, Drug Form: [facility] 2012 Andrei raymond INJ, Q8H, [facility] Start date: 02/10/13 16:00:00, Duration: 30 day, Stop date: 03/12/13 8:00:00 Ativan 0.5 mg, 1 tab, PO No Longer [place] Route: PO, Active 2012 [facility] Drug form: [facility] TAB, TID, Dosing Weight 107.273, kg, PRN Anxiety, Start date: 02/10/13 15:35:00, Duration: 30 day, Stop date: 03/12/13 15:34:00 morphine 2 mg, 1 mL, IVP No Longer [place] Sulfate Route: IVP, [facility] 2012 [facility] Drug form: [facility] INJ, ONCE, Dosing Weight 107.273, kg, Start date: 02/10/13 15:31:00, Stop date: 02/10/13 15:31:00 morphine 2 mg, 1 mL, IV No Longer [place] Sulfate Route: IV, Active 2012 [facility] Drug form: [facility] INJ, Q15Min, PRN Chest Pain, Start date: 02/10/13 14:00:00, Duration: 2 doses or times, Stop date: Limited # of times Restoril 15 mg, 1 cap, PO No Longer [place] Route: PO, Active 2012 [facility] Drug form: [facility] CAP, Bedtime, PRN Sleep, Start date: 02/10/13 14:00:00, Duration: 30 day, Stop date: 03/12/13 13:59:00 nitroglycerin 0.4 mg, 1 tab, SL No Longer [place] 02/10/ H 0.4 mg Route: SL Active 2012 [facility] sublingual Drug form: [facility] tablet TAB, Q5Min, PRN Chest Pain, Start date: 02/10/13 14:00:00, Duration: 30 day, Stop date: 03/12/13 13:59:00 metoprolol 50 mg, 1 tab, PO No Longer [place] Route: PO, Active 2012 [facility] Drug form: [facility] ERTAB, Daily, Start date: 02/10/13 13:58:00, Duration: 30 day, Stop date: 03/12/13 9:00:00 Plavix 75 mg, 1 tab, PO No Longer [place] Route: PO, Active 2012 [facility] Drug form: [place] TAB, Daily, Start date: 02/10/13 13:57:00, Duration: 30 day, Stop date: 03/12/13 9:00:00 aspirin 325 mg 325 mg, 1 tab, PO No Longer [place] tablet Route: PO, Active 2012 [facility] Drug form: [place] TAB, ONCE, Start date: 02/10/13 13:57:00, Stop date: 02/10/13 13:57:00 Saline Flush 5 ml, Route: IVP No Longer [place] 0.9% IVP, Drug Active 2012 [facility] Form: INJ, [facility] Dosing Weight 108.636, kg, PRN, PRN Line [...] Nitrostat 1 tab(s) sublinguall Active 0.4 mg [facility] [place] y sublingually 2011 Cardiac every 5 Clinic minutes alprazolam 1 tab(s) orally Active 1 mg orally [facility] [place] as needed for 2011 Cardiac nervousness Clinic every 8 hour alprazolam 1 tab(s) orally Active 1 mg orally [facility] [place] as needed for 2011 Cardiac nervousness Clinic every 8 hour Lipitor 1 tab(s) orally Active 20 mg orally [facility] 11/16[facility] once a day 2011 Cardiac (at bedtime) Clinic Toprol XL 1 tab(s) orally Active 25 mg orally [facility] [place] once a day 2010 Cardiac Clinic Toprol XL 1 tab(s) orally Active 25 mg orally [facility] [place] once a day 2010 Cardiac Clinic acetaminophen- 1 tab, Route: PO No Longer [place] 07/22/ M H hydrocodone PO, Drug Form: Active 2010 Memor ial 325 mg-7.5 mg TAB, Q6H, PRN [facility] oral tablet Pain, Start date: 07/22/11 13:52:00, Duration: 30 day, Stop date: 08/21/11 13:51:00 BD Normal 10 mL, Route: IV No Longer [facility] Saline Flush IV, Drug Form: Active 2010 Andrei rial INJ, PRN, PRN [facility] Line Flush, Start date: 07/22/11 1:09:00, Duration: 30 day, Stop date: 08/21/11 1:08:00 Sodium 25 mL, Route: IV No Longer [facility] Chloride 0.9% IV, PRN, Line Active [...] No Longer [place] Route: PO, Active 2010 [facility] Drug form: [facility] TAB, QPM, Start date: 07/21/11 17:51:00, Duration: 30 day, Stop date: 08/20/11 17:00:00 aspirin 81 mg 81 mg, 1 tab, CHEW No Longer [place] tablet, Route: CHEW, Active 2010 [facility] chewable Drug form: [facility] CHEWTAB, Daily, Start date: 07/21/11 17:50:00, Duration: 30 day, Stop date: 08/20/11 9:00:00 Ativan 0.5 mg, 1 tab, PO No Longer [place] Route: PO, Active 2010 [facility] Drug form: [facility] TAB, Bedtime, PRN See Nurse's Notes, Start date: 07/21/11 17:50:00, Duration: 30 day, Stop date: 08/20/11 17:49:00 metoprolol 25 mg, 1 tab, PO No Longer [place] Route: PO, Active 2010 [facility] Drug form: [facility] ERTAB, BID, Start date: 07/21/11 17:49:00, Duration: 30 day, Stop date: 08/20/11 17:00:00 Plavix 75 mg, 1 tab, PO No Longer [place] Route: PO, Active 2010 [facility] Drug form: [place] TAB, Daily, Start date: 07/21/11 17:49:00, Duration: 30 day, Stop date: 08/20/11 9:00:00 atropine 1 mg, 10 mL, IVP No Longer [place] Route: IVP, Active 2010 [facility] Drug form: [facility] INJ, Q5Min, PRN Other -See Comment, Start date: 07/21/11 17:48:00, Duration: 30 day, Stop date: 08/20/11 17:47:00 epinephrine 1 mg, 10 mL, IVP No Longer [place] Route: IVP, Active 2010 [facility] Drug form: [facility] INJ, Q5Min, PRN Asystole, Start date: 07/21/11 17:48:00, Duration: 30 day, Stop date: 08/20/11 17:47:00 nitroglycerin 0.4 mg, 1 tab, SL No Longer [place] 07/21[facility] H 0.4 mg Route: SL, Active 2010 [facility] sublingual Drug form: [facility] tablet TAB, PRN, PRN Chest Pain, Start date: 07/21/11 17:48:00, Duration: 30 day, Stop date: 08/20/11 17:47:00 Cordarone 150 mg, 3 mL, IVPB No Longer [place] Route: IVPB, Active 2010 [facility] PRN, PRN See [facility] Nurse's Notes, Start date: 07/21/11 17:48:00, Duration: [...] PANEL Phosphorus 2.8 2.5 - 4.5 02/28 [facility] CHEM PANEL Magnesium 2.0 1.8 - 2.4 02/28 [facility] CHEM PANEL eGFR 65 02/28 Result [...] PANEL Potassium 4.2 3.5 - 5.1 / [facility] Lvl /2016 [facility] CHEM PANEL Calcium Lvl 8.4 8.5 - 10.5 02/28 [place] as [facility] CHEM PANEL CO2 30 24 - 32 02/28 [facility] CHEM PANEL Chloride Lvl 104 95 - 109 02/28 [facility] CHEM PANEL Sodium Lvl 138 135 - 145 02/28 [facility] CHEM PANEL Creatinine 1.21 0.50 - 02/28 [place] Lvl 1.40 [facility] CHEM PANEL BUN 11 7 - 22 02/28 [facility] CHEM PANEL Glucose Lvl 88 70 - 99 02/28 [facility] CHEM PANEL AGAP 8.2 10.0 - 02/28 [place] 20.0 [facility] HEMATOLOGY WBC 8.9 3.7 - 10.4 02/28 [facility] HEMATOLOGY MPV 8.6 7.4 - 10.4 02/28 [facility] HEMATOLOGY RDW 14.0 11.5 - 02/28 [place] 14.5 [facility] HEMATOLOGY MCHC 33.0 32.0 - 02/28 [place] 36.0 [facility] HEMATOLOGY MCH 29.7 27.0 - 07 [place] 31.0 [facility] HEMATOLOGY MCV 89.9 80.0 - 02/28 [place] 94.0 [facility] HEMATOLOGY Hct 41.0 42.0 - 02/28 [place] 54.0 [facility] HEMATOLOGY RBC 4.56 4.70 - 02/28 [place] 6.10 [facility] HEMATOLOGY Hgb 13.5 14.0 - 02/28 [place] 18.0 [facility] HEMATOLOGY Platelet 207 133 - 450 02/28 [facility] HEMATOLOGY Lymphocytes 18.3 20.0 - 07 [place] 40.0 /2016 [facility] HEMATOLOGY Monocytes 10.5 2.0 - 12.0 02/28 [facility] HEMATOLOGY Segs 66.4 45.0 - 02/28 [facility] 75.0 /2016 [facility] HEMATOLOGY Eosinophils 4.3 0.0 - 4.0 02/28 [facility] HEMATOLOGY Eosinophils 0.4 0.0 - 0.5 02/28 [facility] s # [facility] HEMATOLOGY Monocytes # 0.9 0.0 - 0.8 02/28 [facility] HEMATOLOGY Lymphocytes 1.6 1.0 - 5.5 02/28 [facility] s # [facility] HEMATOLOGY Segs-Bands # 5.9 1.5 - 8.1 02/28 [facility] HEMATOLOGY Basophils 0.5 0.0 - 1.0 02/28 [facility] CHEMISTRY Troponin-I <0.02 0.00 - 02/10 Normal 0.40 [facility] CHEMISTRY Total CK 70 12 - 191 02/10 Normal [facility] CHEMISTRY AGAP 13.9 10.0 - 02/10 Normal 20.0 [facility] CHEMISTRY eGFR 61 02/10 NA <sup>1</sup>Resu lt Comment: The [facility] eGFR is City calculated using the [...] 99 02/10 Normal <sup>2</sup>Inte M rpretive Data: [facility] reference [facility] range values reflect the clinical guidelines
o f the [place] [employer]. CHEMISTRY Creatinine 1.3 0.5 - 1.4 02/10 Normal MH Lvl [facility] CHEMISTRY BUN 13 7 - 22 02/10 Normal [facility] CHEMISTRY Chloride Lvl 104 95 - 109 02/10 Normal [facility] CHEMISTRY Potassium 3.9 3.5 - 5.1 02/10 Normal MH Lvl [facility] CHEMISTRY Calcium Lvl 9.1 8.5 - 10.5 02/10 Normal [facility] CHEMISTRY CO2 28 24 - 32 02/10 Normal [facility] CHEMISTRY Sodium Lvl 142 135 - 145 02/10 Normal [facility] CHEMISTRY Chol 193 <=199 02/10 Normal <sup>3</sup>Inte rpretive Data: [facility] Reference [facility] are based on the clinical guidelines of the NHLBI National Cholesterol Education Program (ATP III, 2001). CHEMISTRY HDL 74 >=61 02/10 Normal <sup>5</sup>Inte rpretive Data: [facility] Reference ranges [facility] are based on the clinical guidelines of the NHLBI National Cholesterol Education Program (ATP III, 2001). CHEMISTRY CHD Risk 2.61 4.00 - 02/10 LOW MH 7.30 [facility] CHEMISTRY LDL 98 <=99 02/10 Normal <sup>6</sup>Inte rpretive Data: [facility] Reference [facility] are based on the clinical guidelines of the NHLBI National Cholesterol Education Program (ATP III, 2000). CHEMISTRY Trig 103 <=149 02/10 Normal <sup>4</sup>Inte rpretive Data: [facility] Reference [facility] are based on the clinical guidelines of the NHLBI National Cholesterol Education Program (ATP III, 2001). CHEMISTRY Total CK 88 12 - 191 02/10 Normal [facility] CHEMISTRY Troponin-I <0.02 0.00 - 02/10 Normal MH 0.40 [facility] CHEMISTRY CK MB Index <0.6 0.0 - 2.5 02/10 Normal [facility] CHEMISTRY CK MB <0.5 0.5 - 3.6 02/10 Normal [facility] HEMATOLOGY INR 0.88 0.85 - 02/10 Normal <sup>7</sup>Inte MH 1.17 rpretive Data: [facility] RANGES FOR PROTIME INR:
2.0-3.0 for most medical and surgical thromboembolic states.
2.5-3.5 for artificial heart valves and recurrent embolism.
<b r/>INR SHOULD BE USED ONLY FOR PATIENTS ON STABLE ANTICOAGULANT THERAPY. HEMATOLOGY PTT 26.5 22.9 - 02/10 Normal <sup>10</sup>Int 35.8 /2012 erpretive Data: [facility] Therapeutic Range: 57 - 92 Seconds HEMATOLOGY PT 12.2 12.0 - 02/10 Normal MH 14.7 /2012 [facility] HEMATOLOGY Monocytes 7.9 2.0 - 12.0 02/10 Normal /2012 [facility] HEMATOLOGY Eosinophils 2.7 0.0 - 4.0 02/10 Normal /2012 [facility] HEMATOLOGY Lymphocytes 23.5 20.0 - 02/10 Normal MH 40.0 /2012 [facility] HEMATOLOGY Segs 65.4 45.0 - 02/10 Normal MH 75.0 [facility] HEMATOLOGY Monocytes # 0.6 0.0 - 0.8 02/10 Normal /2012 [facility] HEMATOLOGY Basophils # 0.0 0.0 - 0.2 / Normal /2012 [facility] HEMATOLOGY Eosinophils 0.2 0.0 - 0.5 02/10 Normal MH # /2012 [facility] HEMATOLOGY Basophils 0.5 0.0 - 1.0 02/10 Normal /2012 [facility] Segs-Bands # 5.1 1.5 - 8.1 02/10 Normal /2012 [facility] HEMATOLOGY Lymphocytes 1.8 1.0 - 5.5 02/10 Normal MH # /2013 [facility] HEMATOLOGY PTT Baseline 26.9 22.9 - 02/10 Normal <sup>8</sup>Inte 35.8 /2013 rpretive Data: [facility] DEFICIENCIES may be congenital or acquired. [...] Baseline 15.2 15.0 - 02/10 Normal 21.1 [facility] HEMATOLOGY PTT 1:1 Imm See Note 9 02/10 Normal <sup>9</sup>Re rico (02/10/2013 14:01:00) /2012 lt Comment : Not [facility]. [facility] HEMATOLOGY Platelet 223 133 - 450 02/10 Normal /2012 [facility] HEMATOLOGY RDW 14.2 11.5 - 02/10 Normal MH 14.5 [facility] HEMATOLOGY MPV 8.8 7.4 - 10.4 02/10 Normal /2012 [facility] HEMATOLOGY MCH 31.0 27.0 - 02/10 Normal MH 31.0 /2012 [facility] HEMATOLOGY MCHC 33.5 32.0 - 02/10 Normal MH 36.0 [facility] HEMATOLOGY MCV 92.8 80.0 - 02/10 Normal 94.0 /2012 [facility] HEMATOLOGY Hct 46.9 42.0 - 02/10 Normal MH 54.0 [facility] HEMATOLOGY Hgb 15.7 14.0 - 02/10 Normal MH 18.0 [facility] HEMATOLOGY RBC 5.05 4.70 - 02/10 Normal MH 6.10 [facility] HEMATOLOGY WBC 7.8 3.7 - 10.4 02/10 Normal /2012 [facility] CHEMISTRY LDL 83.0 0 - 129 07/21 Normal [facility] CHEMISTRY Chol 171.0 120 - 200 07/21 Normal [facility] CHEMISTRY Trig 98.0 0 - 200 07/21 Normal [facility] CHEMISTRY HDL 68.0 >>=35 07/21 Normal [facility] CHEMISTRY CHD Risk 2.51 4.00 - 07/21 LOW MH 7. [facility] CHEMISTRY Chloride Lvl 103.0 95 - 109 07/21 Normal [facility] CHEMISTRY CO2 29.0 24 - 32 07/21 Normal [facility] CHEMISTRY Calcium Lvl 9.0 8.5 - 10.5 07/21 Normal [facility] CHEMISTRY Sodium Lvl 138.0 135 - 145 07/21 Normal [facility] CHEMISTRY Potassium 4.0 3.5 - 5.1 07/21 Normal [facility] CHEMISTRY BUN 12.0 7 - 22 07/21 Normal [facility] CHEMISTRY Creatinine 1.3 0.5 - 1.4 07/21 Normal Lv [facility] CHEMISTRY Glucose Lvl 145.0 07/21 NA <sup>1</sup>Inte M H /2010 rpretive Data: [facility] Reference [facility] [place] : 0 - 7 days : 41 - 90 mg/dL 7 days - 150 yrs : 70 - 99 mg/dL (fasting), based on the clinical recommendations of the [place] [employer]. CHEMISTRY AGAP 10.0 10.0 - 07/21 Normal MH 20.0 [facility] HEMATOLOGY Basophils # 0.0 0.0 - 0.2 07/21 Normal MH /2010 [facility] HEMATOLOGY Lymphocytes 2.4 1.0 - 5.5 07/21 Normal MH # /2010 [facility] HEMATOLOGY Eosinophils 0.3 0.0 - 0.5 07/21 Normal MH # /2010 [facility] HEMATOLOGY Segs-Bands # 6.4 1.5 - 8.1 07/21 Normal /2010 [facility] HEMATOLOGY Basophils 0.4 0.0 - 1.0 07/21 Normal [facility] HEMATOLOGY Monocytes 7.4 2.0 - 12.0 07/21 Normal [facility] HEMATOLOGY Eosinophils 2.7 0.0 - 4.0 07/21 Normal [facility] HEMATOLOGY Lymphocytes 24.3 20.0 - 07/21 Normal MH 40.0 [facility] HEMATOLOGY Monocytes # 0.7 0.0 - 0.8 07/21 Normal [facility] HEMATOLOGY Segs 65.2 45.0 - 07/21 Normal MH 75.0 [facility] HEMATOLOGY PT 12.8 12.0 - 07/21 Normal MH 14.7 [facility] HEMATOLOGY INR 0.96 0.85 - 07/21 Normal <sup>2</sup>Inte MH 1.17 rpretive Data: [facility] RANGES FOR PROTIME INR: 2.0-3.0 for most medical and surgical thromboembolic states. 2.5-3.5 for artificial heart valves and recurrent embolism. INR SHOULD BE USED ONLY FOR PATIENTS ON STABLE ANTICOAGULANT THERAPY. HEMATOLOGY RDW 13.8 11. - 07/21 Normal MH 14. [facility] HEMATOLOGY MPV 9.1 7.4 - 10.4 07/21 Normal [facility] Platelet 224.0 133 - 450 07/21 Normal [facility] HEMATOLOGY MCHC 33.8 32.0 - 07/21 Normal MH 36.0 [facility] HEMATOLOGY MCH 30.8 27.0 - 07/21 Normal MH 31.0 /2010 [facility] HEMATOLOGY MCV 91.0 80.0 - 07/21 Normal 94.0 /2010 [facility] HEMATOLOGY Hgb 14.5 14.0 - 07/21 Normal MH 18.0 /2010 [facility] HEMATOLOGY RBC 4.71 4.70 - 07/21 Normal MH 6.10 [facility] HEMATOLOGY Hct 42.9 42.0 - 07/21 Normal MH 54.0 /2010 [facility] HEMATOLOGY WBC 9.9 3.7 - 10.4 07/21 Normal /2010 [facility] Pathology Reports No Data Provided for This Section Diagnostic Reports No Data Provided for This Section Consultation Notes No Data Provided for This Section Discharge Summaries No Data Provided for This Section History and Physicals No Data Provided for This Section Vital Signs Vital Sign Value Date Comments Source Systolic (mm Hg) 125 10/17/2019 [facility] Weight 235 10/17/2019 [facility] Height 70 10/17/2019 [facility] Diastolic (mm Hg) 80 10/17/2019 [facility] Systolic (mm Hg) 146 09/22/2018 [facility] Weight 231.4 09/22/2018 [facility] Height 70 09/22/2018 [facility] Diastolic (mm Hg) 90 09/22/2018 [facility] Weight 224.6 03/30/2018 [facility] Height 70 03/30/2018 [facility] Heart Rate 65 02/28/2017 [facility] Respitory Rate 18 02/28/2017 [facility] Systolic (mm Hg) 132 02/28/2017 [facility] Diastolic (mm Hg) 76 02/28/2017 [facility] Temperature Oral (F) 98 F 02/28/2017 [facility] Heart Rate 58 02/28/2017 [facility] Systolic (mm Hg) 134 02/28/2017 [facility] Diastolic (mm Hg) 78 02/28/2017 [facility] Respitory Rate 20 02/28/2017 [facility] Temperature Oral (F) 98.6 F 02/28/2017 [facility] Respitory Rate 20 02/28/2017 [facility] Heart Rate 65 02/28/2017 [facility] Temperature Oral (F) 97.9 F 02/28/2017 [facility] Systolic (mm Hg) 126 02/28/2017 [facility] Diastolic (mm Hg) 75 02/28/2017 [facility] Height 177.8 cm 02/27/2017 [facility] BMI Calculated 27.36 02/27/2017 [facility] Weight 86.477 02/27/2017 [facility] BMI Calculated 26.6 02/27/2017 [facility] Weight 84.091 02/27/2017 [facility] Height 177.8 cm 02/27/2017 [facility] Systolic (mm Hg) 130 10/07/2016 [facility] Weight 200 10/07/2016 [facility] Height 70 10/07/2016 [facility] Diastolic (mm Hg) 80 10/07/2016 [facility] Systolic (mm Hg) 122 06/22/2016 [facility] Weight 189 06/22/2016 [facility] Height 70 06/22/2016 [facility] Diastolic (mm Hg) 80 06/22/2016 [facility] Systolic (mm Hg) 120 11/27/2014 [facility] Weight 222 11/27/2014 [facility] Height 70 11/27/2014 [facility] Diastolic (mm Hg) 80 11/27/2014 [facility] Systolic (mm Hg) 120 05/17/2014 [facility] Weight 219.5 05/17/2014 [facility] Height 70 05/17/2014 [facility] Diastolic (mm Hg) 80 05/17/2014 [facility] Diastolic (mm Hg) 78 02/11/[facility] Resp[facility] Rate 20 02/11/2013 [facility] Systolic (mm Hg) 120 02/11/2013 [facility] Heart Rate 59 02/11/2013 [facility] Temperature Oral (F) 97.9 F 02/11/2013 [facility] Heart Rate 59 02/11/2013 [facility] Respitory Rate 20 02/11/2013 [facility] Temperature Oral (F) 97.7 F 02/11/2013 [facility] Systolic (mm Hg) 126 02/11/2013 [facility] Diastolic (mm Hg) 83 02/11/2013 [place] Diastolic (mm Hg) 75 02/11/2013 [facility] [facility] [place] Systolic (mm Hg) 133 02/11/2013 [facility] Temperature Oral (F) 98.1 F 02/11/2013 [facility] 18 02[facility]11[facility] 56 02/11[facility] Height 175.26 cm 02/10/2013 [facility] Weight 107.273 02/10/2013 [facility] Respitory Rate 20.0 07/23/2011 [facility] Systolic (mm Hg) 110.0 07/23/2011 [facility] Temperature Oral (F) 98.0 F 07/23/2011 [facility] Heart Rate 51.0 07/23/2011 [facility] Diastolic (mm Hg) 77.0 07/23/2011 [facility] Temperature Oral (F) 97.8 F 07/23/2011 [facility] Heart Rate 58.0 07/23/2011 [facility] Systolic (mm Hg) 103.0 07/23/2011 [facility] Respitory Rate 16.0 07/23/2011 [facility] Diastolic (mm Hg) 60.0 07/23/2011 [facility] Temperature Oral (F) 98.1 F 07/23/2011 [facility] Heart Rate 57.0 07/23/2011 [facility] Diastolic (mm Hg) 66.0 07/23/2011 [place] Systolic (mm Hg) 122.0 07/23/2011 [facility] Respitory Rate 16.0 07/23/2011 [facility] Weight 108.636 07/21/2011 [facility] Height 175.26 cm 07/21/2011 [facility] En[facility]ters Location Location Encounter Encounter Reason Attending ADM CT Stat us Source Details Type Number For Visit Provider Date Date [facility] [id number] UNSTABLE JACQUES 07/22 07/23 Active [facility] ANGINA ALFIE /[place] [facility] [id number] UNSTABLE JACQUES 02/10 02/11 Active [facility] ANGINA ALFIE /2012 [facility] follow up [id number] 05/17 05/17 [facility] [id number]- [facility] [id number] [facility] [place] [place] [id number] 11/27 11/27 [facility] [id number]- /[facility] [id number] [facility] [place] [place] follow [place] [id number] 11/27 11/27 [facility] [id number]- /[facility] [id number] [facility] [place] follow up [id number] 11/27 11/27 [facility] [id number]- /[facility] [id number] [facility] [place] [place] follow [place] [id number] 11/27 11/27 [facility] [id number]- /[facility] [id number] [facility] [place] Ref[place] [id number] 01/24 01/24 [facility] [id number]- /[facility] [id number] [facility] [place] [place] Ref[facility] [id number] 01/24 01/24 [facility] [id number]- /[facility] [id number] [facility] [place] [place] Ref[facility] [id number] 01/24 01/24 [facility] [id number]- /[facility] [id number] [facility] [place] [place] follow [place] [id number] 05/28 05/28 [facility] [id number]- /[facility] [id number] [facility] [place] [place] follow [place] [id number] 05/28 05/28 [facility] [id number]- /[facility] [id number] [facility] [place] [place] follow [place] [id number] 05/28 05/28 [facility] [id number]- /2014 [facility] [id number] [facility] [place] [place] follow [place] [id number] 06/22 06/22 [facility] [id number]- /2015 [facility] [id number] [facility] [place] [place] follow up [id number] 06/22 06/22 [facility] [id number]- /2015 [facility] [id number] [facility] [place] [place] follow up [id number] 06/22 06/22 [facility] [id number]- /2015 [facility] [id number] [facility] [place] [place] Unknown [id number] 06/23 06/23 [facility] [id number]- /2015 [facility] [id number] [facility] [place] [place] [id number] 06/23 06/23 [facility] [id number]- /2015 [facility] [id number] [facility] [place] [place] Unknown [id number] 06/23 06/23 [facility] [id number]- /2015 [facility] [id number] [facility] [place] [place] Unknown [id number] 10/07 10/07 [facility] [id number]- /2016 [facility] [id number] Cli michael [facility] Inpatient [id number] Demian 02/27 02/28 Vianney Chu /2016 [facility] Procedures Procedure Code Date Perfomer Comments Source Placement of [id number] [facility] Placement of [id number] [facility] Assessment and Plan Assessment and Plan Date Source Extracted from:Title: PRS discharge summary 02/28/2017 [facility] Author: Ervin Joyner MD Date: 02/28/17 Date [...] VERBALLY VERIFIED WITH PT AT BEDSIDE Prescriptions [place] Clindamycin Docusate Procedures from this Encounter DATE OF OPERATION/PROCEDURE: 02/28/2017 ATTENDING PHYSICIAN: Dr. Chu BRASS POURER: Dr. Joshi PREOPERATIVE DIAGNOSES: Left ring finger [...] Joyner MD General Surgery - PGY1 MSO: [id number] Pager: [phone] Extracted from:Title: PRS Author: Ernesto Joshi MD Date: 02/28/17 Impression and Plan 61yo male s/p exploration and closure of left ring finger de gloving - Continue daily dressing changes - Keep finger elevated when possible - OK for D/C home - F/U with Dr Chu in clinic Ernesto Joshi MD Plastic Surgery Resident Pager [phone] Plan of Care No Data Provided for This Section Social History Social History Date Source Social History TypeResponse 02/27/2017 [facility] Alcohol Current, Type Wine. Frequency: 1-2 times per year. Smoking Status Never smoker; Exposure to Tobacco Smoke None; Cigarette Smoking Last 365 Days No; Reg Smoking Cessation Counseling No Social History ElementQualifiersDate Reported 10/07/2016 [facility] Tobacco use: no. Status Former smoker Oct 07, 2016 Alcohol: no. Oct 07, 2016 Family History No Data Provided for This Section Advance Directives No Data Provided for This Section Functional Status No Data Provided for This Section
--- OUTSIDE RECORDS SUMMARY | 2020-04-15 10:05 | XMS REPORT ---
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 [id number] 75 mg orally once Active 1 tab(s) a day Lipitor ND [id number] 20 mg orally once Active 1 tab(s) a day HS Results No Known Results Summary Purpose [employer] Submission
--- OUTSIDE RECORDS SUMMARY | 2020-04-15 10:08 | XMS REPORT | Continuity of Care Document ---
:1955 Author Organization [facility] t Address [address] [place] [address] Care Team Providers Name Role Phone Devante [...] DEGLOVING 00 INJURY OF FINGER Active 02/26/2017 [facility] PARTIAL Diagnosis Active 2017-02-27 Me moria DEGLOVING 02-26 00:22:00 l OF THE PARTIAL 00:00: Lenin LEFT RING DEGLOVING 00 FINGE OF THE LEFT RING FINGE Active 02/26/2017 [facility] UNSTABLE Diagnosis Active 2013-02-13 M emoria ANGINA 02-10 17:27:00 l UNSTABLE 08:00: Lorenzo n ANGINA 00 Active 02/10/2013 [facility] Coronary Problem Resolve 2017-03-03 Ny moria arterioscl d 00:19:41 l erosis Coronary Lorenzo n (disorder) arterioscl erosis (disorder) Resolved Problem 03/03/2017 [facility] Old Problem Active 2020-02-02 Memor ia myocardial 02:00:21 l infarction Old Lorenzo n myocardial infarction Active Problem 02/02/2020 [facility] Coronary Problem Active 2020-02-02 Mem oria angioplast 02:00:21 l y status Coronary Herm [place] angioplast y status Active Problem 02/02/2020 [facility] CAD of Problem Active 2020-02-02 Memor ia [place] 02:00:21 l Artery W CAD of Lorenzo n Angina [place] Artery W Angina Active Problem 02/02/2020 [facility] Benign Problem Active 2020-02-02 Memor ia essential 02:00:21 l HTN Benign [place] essential HTN Active Problem 02/02/2020 [facility] Hyperlipid Problem Active 2020-02-02 M emoria emia 02:00:21 l Lenin Hyperlipid emia Active Problem 02/02/2020 [facility] CAD of Problem Active 2020-02-02 Memor ia [place] 02:00:21 l Artery w/o CAD of Herm [place] Angina [place] Artery w/o Angina Active Problem 02/02/2020 [facility] Preop Diagnosis Active 2018-04-01 Mem oria cardiovasc 02:00:29 l ular exam Preop Lorenzo n cardiovasc ular exam Active Diagnosis 04/01/2018 [facility] Coronary Diagnosis Active 2016-06-24 M emoria stent or 02:04:47 l PTCA, Coronary Lorenzo n status stent or post PTCA, status post Active Diagnosis 06/24/2016 [facility] Coronary Problem Active 2014-12-02 Mem oria atheroscle 02:00:46 l rosis of Coronary Herm [place] atheroscle vessel rosis of [place] vessel Active Problem 12/02/2014 [facility] Hyperlipid Problem Active 2014-12-02 M emoria emia NOS 02:00:46 l [place] Hyperlipid emia NOS Active Problem 12/02/2014 [facility] Angina Problem Active 2014-12-02 Memor ia Pectoris 02:00:46 l Angina [place] Pectoris Active Problem 12/02/2014 [facility] Hypertensi Problem Active 2014-12-02 M emoria on 02:00:46 l [place] Hypertensi on Active Problem 5 [facility] Hypertensi Diagnosis Active 2016-06-24 Memoria ve crisis, 02:04:47 l unspecifie Lorenzo n d Hypertensi ve crisis, unspecifie d Active Diagnosis 06/24/2016 [facility] Hyperlipid Diagnosis Active 2016-06-24 Memoria emia, 02:04:47 l unspecifie Lorenzo n d Hyperlipid emia, unspecifie d Active Diagnosis 06/24/2016 [facility] Atheroscle Problem Active 2020-02-02 M emoria rosis of 02:00:21 l [place] coronary Atheroscle artery of rosis of [place] heart with coronary stable artery of angina [place] pectoris heart with stable angina pectoris Active Problem 02/02/2020 [facility] Other Diagnosis Active 2016-06-24 Mem oria hyperlipid 02:05:29 l emia Other [place] hyperlipid emia Active Diagnosis 06/24/2016 [facility] Atheroscle Diagnosis Active 2016-06-24 Memoria rotic 02:05:29 l heart Lenin disease of Atheroscle [place] rotic coronary heart artery disease of without [place] angina coronary pectoris artery without angina pectoris Active Diagnosis 06/24/2016 [facility] Back pain Problem Active 2013-02-13 Me moria 20:44:54 l Back Lenin pain Active Problem 02/13/2013 [facility] Coronary Problem Active 2013-02-13 Mem oria artery 20:44:54 l disease Coronary Antoinette nn artery disease Active Problem 02/13/2013 [facility] Unstable Problem Active 2013-02-13 Mem oria angina 20:44:54 l Unstable Lorenzo n angina Active Problem 02/13/2013 [facility] Backache Problem Active 2017-03-03 Mem oria (finding) 00:19:41 l Backache Lorenzo n (finding) Active Problem 03/03/2017 [facility] Preinfarct Problem Active 2017-03-03 M emoria ion 00:19:41 l syndrome Lenin (disorder) Preinfarct ion syndrome (disorder) Active Problem 03/03/2017 [facility] UNSP OPEN Diagnosis Active 2017-03-09 Memoria WOUND OF 21:47:00 l UNSP UNSP Lenin FINGER W/O OPEN WOUND DAMAG OF UNSP FINGER W/O DAMAG Active [facility] Allergies, Adverse Reactions, Alerts Allergy Allergy Status Severity Reaction(s) Onset Inactive Treating Comm ents Source Name Type Date Date Clinician No Known DA Active U [facility] 02-12 [facility] [place] N.K.D.A. N.K.D.A. Active Info Not 2020-0 Andrei angeli Available 2-25 l 00:00: [place] 00 No Known DA Active U [facility] 03-30 [place] Allergie 00:00: [facility]ope [facility] 00 dic Hosp[facility] l NKFA NKFA Active Memoria l [place] Social History Social Habit Start Date Stop Date Quantity Comments Source Social History 2017-02-27 2017-02-27 [facility] ermann 11:09:06 11:09:06 [place]: 2016-10-07 2016-10-07 [facility] 00:00:00 00:00:00 Medications Ordered Filled Start Stop [...] angeli 02-28 (Same As: l 18:00: Cleocin) Acetaminoph Yes 2 tab, PO, Memoria en 325 MG / 02-28 Q6H, PRN l Hydrocodone 17:34: Pain Score Lenin Bitartrate 00 7-10, 0 10 MG Oral Refill(s) Tablet [[place] 10/325] clindamycin Yes 300 mg, Mem oria 300 mg oral 02-28 PO, l capsule 17:34: ABXQ6H, 0 Antoinette nn 00 Refill(s) Acetaminoph No Notes: Do M emoria en 325 MG / 02-28 not exceed l Hydrocodone 17:33: 4gm/day of artrate acetaminop 10 MG Oral hen. Tablet (Same as: [[place] 10/325] 325/10) Docusate Yes 50 mg = [...] 02-28 Route: PO, l 14:00: Drug form: Lenin TAB, Daily, Dosing Weight 86.477, kg, Start [...] Notes: Memoria 7-08 (Same l 19:00: as:[place] l) Acetaminoph No Notes: Do M emoria [...] 7-08 (Same As: l chloride 14:00: Ancef, [place] 0.9% INJ Kefzol) 100 mL Cefazolin FOR IV SET ONLY MEDICATION WASTE Product Size: 1000 mg Product Wasted: ___ mg Lipitor No Notes: Memoria 7-08 (Same as: l 14:00: Lipitor) Aspirin 81 No Notes: Memor ia MG Chewable 08 Take with l Tablet 14:00: food. lamotrigine Yes 150 mg = 1 Memoria 150 MG Oral 08 tab, PO, l Tablet 11:11: Daily, # [place] [Lamictal] 00 30 tab, 1 Refill(s) Ativan No Bedtime, 0 Memor ia -08 Refill(s) l 11:11: ePHEDrine 2017-0 No Route: IV, Me moria (ANES) 02-27 Drug form: l 06:57: INJ, ONCE, Stop date: 02/27/17 1:57:00 CDT sugammadex 2016-0 No Route: IV, M emoria (ANES) 02-27 Drug form: l 06:57: SOLN, Lenin 00 ONCE, Stop date: 02/27/17 1:57:00 CDT [...] ONCE, Stop date: 02/27/17 1:57:00 CDT fentaNYL [id number] No Route: IV, Mem oria (ANES) 02-27 Drug form: l 06:50: INJ, ONCE, Stop date: 02/27/17 1:50:00 CDT propofol No Route: IV, Mem oria (ANES) 02-27 Drug form: l 06:50: INJ, ONCE, Stop date: 02/27/17 1:50:00 CDT rocuronium 2016- No Route: IV, M emoria (ANES) [...] day, Stop date: 03/29/17 1:32:00 CDT Naloxone 2017- No 0.4 mg, Memori a 02-27 Route: l 06:33: IVP, [place] 00 Q2MIN, Dosing Weight 84.091, kg, PRN [...] 02-27 Route: PO, l 06:33: Drug form: [place] 00 TAB, Q4H, Dosing Weight 84.091, kg, PRN Pain Score 7-10, Start date: 02/27/17 1:33:00 CDT, Duration: 30 day, Stop date: 03/29/17 1:32:00 CDT Hydromorpho 2016-0 No 0.5 mg, Mem oria ne 02-27 Route: l 06:33: IVP, [place] 00 Q5Min, Dosing Weight 84.091, kg, PRN Pain Score 7-10, Start date: 02/27/17 1:33:00 CDT, Duration: 4 doses or times, Stop date: Limited # of times LR 1000 mL No Route: IV, M emoria INJ (ANES) 02-27 Total l 06:06: Volume: Lenin 00 1,000, Start date: 02/27/17 1:06:00 CDT, Stop date: 02/27/17 2:06:00 CDT Acetaminoph 2016-0 No Notes: Andrei angeli en 325 MG / 02-27 (Same as: l Hydrocodone 05:20: [place] Antoinette nn Bitartrate 00 325/5) Do 5 [...] TABLET BY l 03:00: MOUTH DAILY meloxicam 0 Yes ZION 1 tab(s) M emoria 2-17 [...] cap(s) Me moria 9-25 ALFIE l 00:00: Lenin 00 Zetia 10 mg Yes Vince 10 [...] day, Stop date: 03/12/13 9:00:00 aspirin 81 2012- Yes 81 mg, 1 Mem oria mg tablet, -22 tab, PO, l chewable 00:10: Daily, [place] 25 tab, Substituti on Allowed, CHEWTAB Plavix 75 Yes 75 mg, 1 Andrei angeli mg oral -22 tab, PO, l tablet 00:09: Daily, 30 Lorenzo n 12 tab, Substituti on Allowed, TAB LORAzepam 2 No 2 mg, 1 Mem oria mg oral 22 tab, PO, l tablet 00:08: TID, PRN, [...] - Alfie tab, l 20:35: Route: PO, [place] 00 Drug form: TAB, TID, Dosing Weight 107.273, kg, PRN Anxiety, Start date: 02/10/13 15:35:00, Duration: 30 day, Stop date: 03/12/13 15:34:00 morphine 2012- No Vince 2 mg, 1 Me moria Sulfate - Alfie mL, Route: l 20:31: IVP, Drug form: INJ, ONCE, Dosing Weight 107.273, kg, Start date: 02/10/13 15:31:00, Stop date: 02/10/13 15:31:00 morphine 2012- No Vince 2 mg, 1 Me moria Sulfate - Alfie mL, Route: l 19:00: IV, Drug form: INJ, Q15Min, PRN Chest Pain, Start date: 02/10/13 14:00:00, Duration: 2 doses or times, Stop date: Limited # of times Restoril No Vince 15 mg, 1 M emoria 02-10 Alfie cap, l 19:00: Route: PO, Lenin [...] No Vince 50 mg, 1 Memoria - Alfie tab, l 18:58: Route: PO, Lenin 00 [...] Nitrostat Yes ZION 1 tab(s) M emoria 02-02 ALFIE l 00:00: alprazolam Yes ZION 1 tab(s) Memoria 3-27 ALFIE l 00:00: alprazolam Yes ZION 1 tab(s) Memoria 3-27 ALFIE l 00:00: Lipitor Yes ZION 1 tab(s) Mem oria 3-27 ALFIE l 00:00: Toprol XL 2010-08 Yes ZION 1 tab(s) M emoria 2- ALFIE l 00:00: Lenin Toprol XL 2010-08 Yes ZION 1 tab(s) M emoria 09-23 ALFIE l 00:00: Lenin acetaminoph 2010-08 No Vince 1 tab, Memoria [...] 09-20 Alfie tab, l chewable 23:50: Route: [place] 00 CHEW, Drug form: CHEWTAB, Daily, Start date: 07/21/11 17:50:00, Duration: 30 day, Stop date: 08/20/11 9:00:00 Ativan 2010-08 No Vince 0.5 mg, 1 Me moria 09-20 Alfie tab, l 23:50: Route: PO, [place] Drug form: TAB, Bedtime, PRN See Nurse's Notes, Start date: 07/21/11 17:50:00, Duration: 30 day, Stop date: 08/20/11 17:49:00 metoprolol 2010-08 No Vince 25 mg, 1 Memoria 09-20 Alfie tab, l 23:49: Route: PO, [place] 00 Drug form: ERTAB, BID, Start date: 07/21/11 17:49:00, Duration: 30 day, Stop date: 08/20/11 17:00:00 Plavix 2010-08 No Vince 75 mg, 1 Mem oria 09-20 Alfie tab, l 23:49: Route: PO, Drug form: TAB, Daily, Start date: 07/21/11 [...] 30 day, Stop date: 08/20/11 17:47:00 Cordarone 2011- No Vince 150 mg, 3 Memoria 09-20 Alfie mL, Route: l 23:48: IVPB, PRN, Lenin 00 PRN See Nurse's Notes, Start date: 07/21/11 17:48:00, Duration: 30 day, Stop date: 08/20/11 17:47:00 Plavix 2009-0 Yes ZION 1 tab(s) Andrei angeli 3- ALFIE l 00:00: Lenin 00 Vital Signs Vital Name Observation Time Observation Value Comments Source Systolic (mm Hg) 2019-10-17 15:30:00 Andrei rial [place] Weight 2019-10-17 15:30:00 Memorial [place] Height 2019-10-17 15:30:00 [facility] [place] Diastolic (mm Hg) 2019-10-17 15:30:00 Mem orial [place] Systolic (mm Hg) 2018-09-22 22:15:00 Andrei rial [place] Weight 2018-09-22 22:15:00 [facility] [place] Height 2018-09-22 22:15:00 [facility] [place] Diastolic (mm Hg) 2018-09-22 22:15:00 Mem orial [place] Weight 2018-03-30 15:00:00 Memorial [place] Height 2018-03-30 15:00:00 [facility] [place] Heart Rate 2017-02-28 16:52:00 Memorial [place] Respitory Rate 2017-02-28 16:52:00 Memori al Lenin Systolic (mm Hg) 2017-02-28 16:52:00 Andrei rial [place] Diastolic (mm Hg) 2017-02-28 16:52:00 Mem orial [place] Temperature Oral (F) 2017-02-28 16:52:00 98 F [facility] [place] Heart Rate 2017-02-28 12:31:00 [facility] [place] Systolic (mm Hg) 2017-02-28 12:31:00 Andrei rial [place] Diastolic (mm Hg) 2017-02-28 12:31:00 Mem orial Lenin Respitory Rate 2017-02-28 12:31:00 Memori al Lenin Temperature Oral (F) 2017-02-28 12:31:00 98.6 F Memorial [place] Respitory Rate 2017-02-28 08:52:00 Memori al [place] Heart Rate 2017-02-28 08:52:00 [facility] [place] Temperature Oral (F) 2017-02-28 08:52:00 97.9 F [facility] [place] Systolic (mm Hg) 2017-02-28 08:52:00 Andrei rial [place] Diastolic (mm Hg) 2017-02-28 08:52:00 Mem orial [place] Height 2017-02-27 08:51:00 177.8 cm [facility] [place] BMI Calculated 2017-02-27 08:51:00 Memori al [place] Weight 2017-02-27 08:51:00 [facility] [place] BMI Calculated 2017-02-27 02:55:00 Memori al [place] Weight 2017-02-27 02:55:00 [facility] Lenin Height 2017-02-27 02:55:00 177.8 cm [facility] [place] Systolic (mm Hg) 2016-10-07 22:00:00 Andrei rial Lenin Weight 2016-10-07 22:00:00 [facility] [place] Height 2016-10-07 22:00:00 [facility] [place] Diastolic (mm Hg) 2016-10-07 22:00:00 Mem orial Lenin Systolic (mm Hg) 2016-06-22 20:45:00 Andrei rial Lenin Weight 2016-06-22 20:45:00 [facility] [place] Height 2016-06-22 20:45:00 [facility] [place] Diastolic (mm Hg) 2016-06-22 20:45:00 Mem orial Lenin Systolic (mm Hg) 2014-11-27 20:30:00 Andrei rial [place] Weight 2014-11-27 20:30:00 [facility] Lenin Height 2014-11-27 20:30:00 [facility] [place] Diastolic (mm Hg) 2014-11-27 20:30:00 Mem orial Lenin Systolic (mm Hg) 2014-05-17 19:45:00 Andrei rial [place] Weight 2014-05-17 19:45:00 [facility] Lenin Height 2014-05-17 19:45:00 [facility] Lenin Diastolic (mm Hg) 2014-05-17 19:45:00 Mem orial [place] Diastolic (mm Hg) 2013-02-11 16:55:00 Mem orial Lenin Respitory Rate 2013-02-11 16:55:00 Memori al Lenin Systolic (mm Hg) 2013-02-11 16:55:00 Andrei rial [place] Heart Rate 2013-02-11 16:55:00 [facility] Lenin Temperature Oral (F) 2013-02-11 16:55:00 97.9 F [facility] [place] Heart Rate 2013-02-11 12:40:00 [facility] Lenin Respitory Rate 2013-02-11 12:40:00 Memori al Lenin Temperature Oral (F) 2013-02-11 12:40:00 97.7 F [facility] [place] Systolic (mm Hg) 2013-02-11 12:40:00 Andrei rial Lenin Diastolic (mm Hg) 2013-02-11 12:40:00 Mem orial Lenin Diastolic (mm Hg) 2013-02-11 09:00:00 Mem orial [place] Systolic (mm Hg) 2013-02-11 09:00:00 Andrei rial Lenin Temperature Oral (F) 2013-02-11 09:00:00 98.1 F [facility] Lenin Respitory Rate 2013-02-11 09:00:00 Memori al [place] Heart Rate 2013-02-11 09:00:00 [facility] [place] Height 2013-02-10 18:44:00 175.26 cm [facility] [place] Weight 2013-02-10 18:44:00 [facility] Lenin Respitory Rate 2011-07-23 13:20:00 Memori al [place] Systolic (mm Hg) 2011-07-23 13:20:00 Andrei rial Lenin Temperature Oral (F) 2011-07-23 13:20:00 98.0 F [facility] [place] Heart Rate 2011-07-23 13:20:00 [facility] [place] Diastolic (mm Hg) 2011-07-23 13:20:00 Mem orial [place] Temperature Oral (F) 2011-07-23 10:00:00 97.8 F [facility] [place] Heart Rate 2011-07-23 10:00:00 [facility] [place] Systolic (mm Hg) 2011-07-23 10:00:00 Andrei rial Lenin Respitory Rate 2011-07-23 10:00:00 Memori al [place] Diastolic (mm Hg) 2011-07-23 10:00:00 Mem orial Lenin Temperature Oral (F) 2011-07-23 06:00:00 98.1 F [facility] [place] Heart Rate 2011-07-23 06:00:00 [facility] Lenin Diastolic (mm Hg) 2011-07-23 06:00:00 Mem orial [place] Systolic (mm Hg) 2011-07-23 06:00:00 Andrei raymond Lenin Respitory Rate 2011-07-23 06:00:00 Ese al [place] Weight 2011-07-21 22:52:00 [facility] [place] Height 2011-07-21 22:52:00 175.26 cm [facility] [place] Procedures Procedure Date / Time Performed Performing Clinician [facility] Placement of stent [facility] Pl[facility] of [facility] Encounters Start End Encounter Admission Attending Care Care Encounter Source Date/Time Date/Time Type Type Clinicians Facility Department ID 2020-01-31 2020-01-31 Outpatient [facility] [id number] eClinic 15:36:00 15:36:00 CARDIAC CARDIAC alWork s CLINIC PA CLINIC PA 2019-12-06 2019-12-06 Telephone [facility] [id number] 00:00:00 00:00:00 Zay Centeno [id number] [place] [id number] [facility] [id number] [address] 2019-11-27 2019-11-28 Emergency Juan Antoine [facility] [id number] 16:20:50 13:37:00 Luciano Ocasio [id number] [place] [id number] [place] [id number] 2019-10-17 2019-10-17 Outpatient [facility] [id number] eClinic 09:30:00 09:30:00 CARDIAC CARDIAC alWork s CLINIC PA CLINIC PA 2019-10-09 2019-10-09 Outpatient [facility] [id number] eClinic 10:03:00 10:03:00 CARDIAC CARDIAC [facility]Work s CLINIC PA CLINIC PA 2018-09-22 2018-09-22 Outpatient [facility] [id number] eClinic 16:15:00 16:15:00 CARDIAC CARDIAC alWork s CLINIC PA CLINIC PA 2018-03-30 2018-03-30 Outpatient [facility] [id number] eClinic 10:00:00 10:00:00 CARDIAC CARDIAC [facility]Work s CLINIC PA CLINIC PA 2018-01-18 2018-01-18 Outpatient [facility] [id number] eClinic 10:39:00 10:39:00 CARDIAC CARDI[place] [facility] 2018-01-18 2018-01-18 Outpatient [facility] [id number] eClinic 10:23:00 10:23:00 CARDIAC CARD[place] [facility] 2017-08-18 2017-08-18 Outpatient [facility] [id number] eClinic 12:28:00 12:28:00 CARDIAC CARDIAC alWork s CLINIC PA [facility] 2017-02-26 2017-02-28 Outpatient Vlad [facility] [id number] 21:56:00 13:30:00 Demian Banda Alcon 2016-10-07 2016-10-07 Outpatient [facility] [id number] eClinic 16:00:00 16:00:00 Cardiac Cardiac alWork s Clinic. Clinic. 2016-06-23 2016-06-23 Outpatient [facility] [id number] eClinic 12:30:00 12:30:00 Cardiac Cardiac alWork s Clinic. Clinic. 2016-06-22 2016-06-22 Outpatient [facility] [id number] eClinic 15:45:00 15:45:00 Cardiac Cardiac alWork s Clinic. Clinic. 2014-11-27 2014-11-27 Outpatient [facility] [id number] eClinic 15:30:00 15:30:00 Cardiac Cardiac alWork s Clinic. Clinic. 2014-05-17 2014-05-17 Outpatient [facility] [id number] eClinic 14:45:00 14:45:00 Cardiac Cardiac alWork s [...] measure: (test code = GFR) mL/min/1.7 3 [id number] Range:Healthy A dults >90 mL/min/1.73 m2 For Chronic Kidney Disease: Stage II Mi ld Decrease in GFR 60-9 0 Stage III Moderate Decrease in GFR 30-59 Stage IV Severe Decrease in GFR 15-29 Stage V Kidney Failure <15 CREATININE (test code = CREAT) 1.17 mg/dL 0.55-1.30 N CALCIUM (test code = CA) 8.3 mg/dL 8.2-10.1 N HGB [id number] 05:58:00 Test Item Value Reference Range Interpretation Comments HEMOGLOBIN (test code = HGB) 13.5 g/dL 12-16 N HEMATOCRIT (test code = HCT) 41.0 % 37-47 N - XR SPINE 1 V SPEC [id number] 12:11:00 Patient Name: ALCON ROMANO Unit No: [id number] EXAMS: CPT CODE: [id number] XR SPINE 1 V SPEC LEVEL 03355 INTRAOPERATIVE LATERAL LUMBAR SPINE COMMENT: Surgical instruments are posterior to L3-4 and L4-5. at 1211 Reported and signed by: Ton Kessler MD CC: Ton Ríos M.D. Technologist: IRIS SORIANO (RT.R) Transcribed D/ (1211) Camilla [facility] NAME: ALCON ROMANO [address] [place] [address] PHYS: Ton Schwartz MD : 1955 AGE: 65 SEX: M [place], [place] [address] LOC: Y.998 3 PHONE #: [phone] EXAM DATE: 03/06/2020 STATUS: ADM IN FAX #: [phone] RAD #: D/C DT PAGE 1 Signed Report Patient Name: ALCON ROMANO Unit No: [id number] EXAMS: CPT CODE: [id number] XR SPINE 1 V SPEC LEVEL 40484 <Continued> Orig Print D/T: S: 03/06/2020 (1214) [facility] NAME: ALCON ROMANO [facility] [address] PHYS: Ton Schwartz MD : 1955 AGE: 65 SEX: M [place], [place] [address] LOC: Y.998 3 PHONE #: [phone] EXAM DATE: 03/06/2020 STATUS: ADM IN FAX #: [phone] RAD #: D/C DT PAGE 2 Signed Report- XR SPINE 1 V SPEC LEVEL 2020-03-06 09:00:00 Patient Name: ALCON ROMANO Unit No: [id number] EXAMS: CPT CODE: [id number] XR SPINE 1 V SPEC LEVEL 20323 INTRAOPERATIVE LATERAL LUMBAR SPINE COMMENT: Markers are posterior to L4 and L5. at 0900 Reported and signed by: Ton Kessler MD CC: Ton Ríos M.D. Technologist: IRIS SORIANO (RT.R) Transcribed D/ (0900) YadiL [facility] NAME: NATALIA ROMANO [address] [place] [address] PHYS: Ton Schwartz MD : 1955 AGE: 65 SEX: [place] [address] LOC: AprilDSU PHONE #: [phone] EXAM DATE: 03/06/2020 STATUS: REG SD FAX #: [phone] RAD #: D/C DT PAGE 1 Signed Report Patient Name: JORGE ROMANO Unit No: [id number] EXAMS: CPT CODE: [id number] XR SPINE 1 V SPEC LEVEL 95533 <Continued> Orig Print D/T: S: 03/06/2020 (0903) [facility] NAME: ALCON ROMANO [address] [place] [address] PHYS: Ton Schwartz MD : 1955 AGE: 65 SEX: M [place], [place] [address] LOC: Y.DSU PHONE #: [phone] EXAM DATE: 03/06/2020 STATUS: REG [facility] [place] [place] FAX #: [phone] RAD #: D/C DT PAGE 2 Signed [...] 1 (test code NONREACTIVE NONREACTIVE Done by [facility] = HIV1AB) 4th Gen HIV Ag/ Ab Combo Screen ACUTE HEPATITIS [id number] 15:44:00 Test Item Value Reference Range Interpretation [...] 1 2 (test NONREACTIVE NONREACTIVE Done by [employer] code = PLA35DK) Gen HIV Ag/Ab Combo Screen ACUTE HEPATITIS [id number] 15:30:00 Test Item Value Reference Range Interpretation [...] (test code = HIV1AB) NONREACTIVE ACUTE HEPATITIS [id number] 15:29:00 Test Item Value Reference Range Interpretation [...] AB HIV 1 2 (test code = DDE53SH) NONREACTIVE COMPREHENSIVE METABOLIC [id number] 10:36:00 Test Item Value Reference Range Interpretation [...] RATE (test code = GFR) mL/mi n/1.73 [id number] Range:Healthy Adults >90 mL/min/1.73 m2 For Chronic [...] N TOTAL (test code = ALKP) PROTHROMBIN [id number] 10:22:00 Test Item Value Reference Range Interpretation [...] Patient is on Heparin Drip? NOTHROMBOPLASTIN TIME [id number] 10:22:00 Test Item Value Reference Range Interpretation Comments PTT ACTIVATED (test code = APTT) 31.0 secs 24.9-37.0 N IS PATIENT ON ANTICOAGULANTS ? YLIST ANTICOAGULANT/ANTI PLT MEDICATION : Clopidogrel (Anti-PLT)Has Lab been notified if Patient is on Heparin Drip? NOCBC W/AUTO [id number] 10:10:00 Test Item Value Reference Range Interpretation [...] N code = NRBC) Coronavirus 2018 nCoV [id number] 09:12:00 Test Item Value Reference Range Interpretation Comments Coronavirus 2018 nCoV Bedside (test Negative code = COVNONPUIBED) - XR FLUORO FOR SPINE [id number] 15:30:00 Patient Name: ALCON ROMANO Unit No: [id number] EXAMS: CPT CODE: [id number] XR FLUORO FOR SPINE INJ 97397 LUMBAR EPIRADICULAR INJECTION REFERRAL PHYSICIAN: NonePREOPERATIVE DIAGNOSIS: [...] to the PACU in good condition. at 8448 Reported and signed by: Leighton Marte M.D. CC: Technologist: Ada Singh(R) Transcribed D/ (9931) [facility]: ALCON ROMANO AM[facility] [address] PHYS: Leighton Evans MD [place], [place] [address] : 1955 AGE: 64 SEX: M LOC: PreciousABHIJEET PHONE #: [phone] EXAM DATE: 02/13/2020 STATUS: REG [facility] [place] [place] FAX#: [phone] RAD #: D/C DT PAGE 1 Signed Report Patient Name: ALCON ROMANO Unit No: [id number] EXAMS: CPT CODE: [id number] XR FLUORO FOR SPINE INJ [id number] <Continued> Orig Print D/T: S: 02/13/2020 ([id number]) [facility] NAME: ALCON ROMANO [facility] PHYS: Leighton Evans MD [place], [place] [address] : 1955 AGE: 64 SEX: M LOC: [facility] PHONE #: [phone] EXAM DATE: 02/13/2020 STATUS: [facility] [place], [place] FAX #: [phone] RAD #: D/C DT PAGE 2 Signed Report- MRI L-SPINE W/O [id number] 10:32:00 Patient Name: ALCON ROMANO Unit No: [id number] EXAMS: CPT CODE: [id number] MRI L-SPINE W/O CONT [id number] MRI OF THE LUMBAR SPINE: DIAGNOSIS: 1. [...] left hip arthroplasty. No evidence of fracture. [facility] NAME: ALCON ROMANO [address] [facility] PHYS: Ton Schwartz MD : 1955 AGE: 64 SEX: M [place] [phone] LOC: Y.MRI PHONE #: [phone] EXAM DATE: 01/22/2020 STATUS: REG CLI FAX #: [phone] RAD #: D/C DT PAGE 1 Signed Report (CONTINUED) Patient Name: ALCON ROMANO Unit No: [id number] EXAMS: CPT CODE: [id number] MRI L-SPINE W/O CONT 98029 <Continued> at 1032 Reported and signed by: Zay Talley MD CC: Ton Ríos M.D. Technologist: CAMILO DIAZ RT(R) Transcribed D/ (1032) IreneGVG [facility] NAME: ALCON ROMANO[address] PHYS: Ton Schwartz AMD : 1955 AGE: 64 SEX: M [place] [phone] LOC: Y.MRI PHONE #: [phone] EXAM DATE: 01/22/2020 STATUS: REG CLI FAX #: [phone] RAD #: D/C DT PAGE 2 Signed Report Patient Name: ALCON ROMANO Unit No: [id number] EXAMS: CPT CODE: [id number] MRI L-SPINE W/O CONT 71869 <Continued> Orig Print D/T: S: 01/22/2020 (1035) [facility] NAME: ALCON ROMANO[address] PHYS: Ton Schwartz MD : 1955 AGE: 64 SEX: M [place] [address] LOC: Y.MRI PHONE #: [phone] EXAM DATE: 01/22/2020 STATUS: REG CLI FAX #: [phone] RAD #: D/C DT PAGE 3 Signed Report- XR L-SPINE W/BEND TMXJ3936-55-11 10:32:00 Patient Name: ALCON ROMANO Unit No: [id number] EXAMS: CPT CODE: [id number] XR L-SPINE W/BEND VIEW 28651 MRI OF THE LUMBAR SPINE: DIAGNOSIS: 1. [...] left hip arthroplasty. No evidence of fracture. [facility] NAME: ALCON ROMANO [address] [facility] PHYS: Ton Schwartz MD : 1955 AGE: 64 SEX: M [place] [phone] LOC: Y.MRI PHONE #: [phone] EXAM DATE: 01/22/2020 STATUS: REG CLI FAX #: [phone] RAD #: D/C DT PAGE 1 Signed Report (CONTINUED) Patient Name: ALCON ROMANO Unit No: [id number] EXAMS: CPT CODE: [id number] XR L-SPINE W/BEND VIEW 89316 <Continued> at 1032 Reported and signed by: Zay Talley MD CC: Ton Ríos M.D. Technologist: RT Lc.(R) Transcribed D/ (1032) [facility] NAME: ALCON ROMANO [address] PHYS: Ton Schwartz AMD : 1955 AGE: 64 SEX: M [place] [address] LOC: Y.MRI PHONE #: [phone] EXAM DATE: 01/22/2020 STATUS: REG CLI FAX #: [phone] RAD #: D/C DT PAGE 2 Signed Report Patient Name: ALCON ROMANO Unit No: [id number] EXAMS: CPT CODE: [id number] XR L-SPINE W/BEND VIEW 54627 <Continued> Orig Print D/T: S: 01/22/2020 (1035) [facility] NAME: ROSALINA[address] PHYS: Ton Schwartz MD : 1955 AGE: 64 SEX: M [place] [address] LOC: Y.MRI PHONE #: [phone] EXAM DATE: 01/22/2020 STATUS: REG CLI FAX #: [phone] RAD #: D/C DT PAGE 3 Signed ReportUS CAROTID W/QUNOWLS8582-91-19 13:58:56CLINICAL INDICATION: R45.86 Emotional labilityTECHNIQUE: Realtime sonographic [...] ICA PSV 230 cm/sec, ICA/CCA ratio 4.0CHEM QHQMN2521-70-06 13:34:002.8 [facility] HermannCHEM DNLET3766-80-64 13:34:002.0[facility] HermannCHEM PANEL 2017-02-28 13:34:0065Mem[facility] HermannCHEM PXBAJ6562-10-26 13:34:004.2[facility] HermannCHEM KNQHO5775-63-65 13:34:008.4[facility] HermannCHEM SQDWZ8476-25-99 13:34:0030[facility] HermannCHEM FJFEE7365-47-44 13:34:90580Ktaocuzn HermannCHEM EDQXF9948-85-32 13:34:65906Mxjgykhv HermannCHEM RUHRE2371-18-34 13:34:001.21 [facility] HermannCHEM LYTAG7217-76-78 13:34:0011[facility] HermannCHEM PANEL 2017-02-28 13:34:0088[facility] HermannCHEM PXPTR3876-57-82 13:34:008.2[facility] MlomstvCHEUJRSGBY7347-50-72 13:34:008.9[facility] BjsaaveMGSIXGWHEX5364-87-70 13:34:008.6[facility] IjelbrvBINJGKEREJ2179-30-25 13:34:0014.0[facility] KMZBNLKBHL7146-56-97 13:34:0033.0[facility] NoosbedEICETSIOSY8617-77-28 13:34:00 Test Item Value Reference Range Interpretation Comments MCH (test code = MCH) 29.7 pg 27.0-31.0 [facility] TxpukunNPEAYXGLUK7118-49-47 13:34:0089.9[facility] HermannHEMATOLOGY 2017-02-28 13:34:0041.0[facility] SowvjwaHQBKRYBUJU7783-81-29 13:34:004.56[facility] UiuzeggNPSDVRCPFS5628-73-92 13:34:0013.5[facility] YutquxoSYPQHLHQTX2865-36-73 13:34:89205Xrrptepd RthzttqKCDEQSNQJO3091-39-20 13:34:0018.3[facility] [place] PESAFIUKJU1472-85-26 13:34:0010.5[facility] MuaxjfaALVXEIBGIW4717-00-49 13:34:00 66.4[facility] RxxucgyLVEEAAYBJW0933-43-92 13:34:004.3[facility] HermannHEMATOLOGY 2017-02-28 13:34:000.4[facility] EdhqhydAKUSUCKFON5567-29-71 13:34:000.9[facility] ApkujnnFWVQLKCMAG4179-00-90 13:34:001.6[facility] JnscxwpTRJLOBVLHZ4279-18-02 13:34:005.9[facility] HkdbyzzBSZEMXQPOB4020-39-31 13:34:000.5[facility] [place] XIOJREAOR9277-56-35 23:29:00<0.02[facility] ZxtmmxyIZVTAWREJ6945-03-49 23:29:00 70[facility] SypjxjpXXYYOWRXU9676-35-24 19:01:0013.9[facility] HermannCHEMISTRY 2013-02-10 19:01:0061[facility] ActfrhwOVBLGIHSA2288-16-95 19:01:0084[facility] NrlujvrVAWBJQJNY5672-38-80 19:01:001.3[facility] UmcozxoPOUPHINAO0643-30-15 19:01:0013[facility] UtpppkiSNUAZVTVB0415-02-62 19:01:52575Yhubmqav [place] TUVALHJNR9306-42-39 19:01:003.9[facility] TazbuymVKGQFNAZC9003-07-83 19:01:009.1 [facility] GygzpdgMHFMHKMCU3416-56-45 19:01:0028[facility] HermannCHEMISTRY 2013-02-10 19:01:86696Fhjuhsck OerfqrdPDKOXOXIN6330-31-64 19:01:81154Qnbqjdty HoyvnttCMUSPNGOR1994-79-07 19:01:0074[facility] FmpzwfkQTRSGVXZS7213-19-51 19:01:002.61[facility] FqmrpmaOEISTHVKQ7938-19-97 19:01:0098[facility] [place] NFQBGKQIB3559-96-51 19:01:49641Hjilwplb IzclsdvNNKLXIGHP7590-71-88 19:01:0088 [facility] SmswfsoAJLTWDTWW7462-16-24 19:01:00<0.02[facility] HermannCHEMISTRY 2013-02-10 19:01:00<0.6[facility] AdhiknsAXSEQZYRV5002-31-16 19:01:00<0.5 [facility] ZmvahurMXESWNWUIV2836-99-58 19:01:000.88[facility] HermannHEMATOLOGY 2013-02-10 19:01:00 Test Item Value Reference Range Interpretation Comments PTT (test code = PTT) 26.5 s 22.9-35.8 N [facility] YcaccplDTAZKJHWRJ6433-72-17 19:01:00 Test Item Value Reference Range Interpretation Comments PT (test code = PT) 12.2 s 12.0-14.7 N [facility] AtlvuwcLSWBGPVNVY8553-26-31 19:01:007.9[facility] HermannHEMATOLOGY 2013-02-10 19:01:002.7[facility] GfvxjxwBHPKQBOIWS8503-96-80 19:01:0023.5[facility] YlpycxbQUJTIGBDYV2836-63-85 19:01:0065.4[facility] HalkyymQXWNUOUPHY9820-88-06 19:01:000.6[facility] VkxisnvLDADPRVMHF8383-27-58 19:01:000.0[facility] [place] CKNCQNXXKU0310-95-82 19:01:000.2[facility] JqpegxyGGKPWDOQBX2458-68-18 19:01:000.5 [facility] YzahjkbZOPDIPGKKH9313-07-25 19:01:005.1[facility] HermannHEMATOLOGY 2013-02-10 19:01:001.8[facility] YcgnxntRIVQPGFMZM2856-50-86 19:01:00 Test Item Value Reference Range Interpretation Comments PTT Baseline (test code = PTT 26.9 s 22.9-35.8 N Baseline) [facility]DOYPYYHUJV6002-44-72 19:01:00 Test Item Value Reference Range Interpretation Comments TT Baseline (test code = TT Baseline) 15.2 s 15.0-21.1 N [facility] ZjbgrxfEOENBFOGIR8598-95-63 19:01:00See Note 9(02/10/2013 14:01:00) [facility] QbekcttMGWHOIRMNX4752-40-90 19:01:35651Mqvwdskp HermannHEMATOLOGY 2013-02-10 19:01:0014.2[facility] QvdthxfATNUWBCZNW2308-38-28 19:01:008.8[facility] BibyvruRJPPWRLZHO6979-67-77 19:01:00 Test Item Value Reference Range Interpretation Comments MCH (test code = MCH) 31.0 pg 27.0-31.0 N [facility] OpsleilZVXOFPKOTN9765-29-12 19:01:0033.5[facility] HermannHEMATOLOGY 2013-02-10 19:01:0092.8[facility] RneqmnnUELGXAOBJI6632-12-65 19:01:0046.9[facility] LsxptqzGASAAUCICI9513-87-72 19:01:0015.7[facility] TfahcssFCMGUKWCON4466-70-21 19:01:005.05[facility] GgqzlktWVFJAYJYCM7215-95-59 19:01:007.8[facility] IXCSESJBH8330-21-76 23:38:0083.0[facility] JuzokmaJPNOCBOVX9273-42-77 23:38:00 171.0[facility] LuljewdGGAYEVGIA1425-85-38 23:38:0098.0[facility] HermannCHEMISTRY 2011-07-21 23:38:0068.0[facility] GkpffwuDZYXUTVXF3316-50-95 23:38:00 Test Item Value Reference Range Interpretation Comments CHD Risk (test code = CHD Risk) 2.51 1 4.00-7.30 L [facility] NtefdsxWDKYBXSSG2423-01-23 23:38:11529.0[facility] HermannCHEMISTRY 2011-07-21 23:38:0029.0[facility] DhtdagyUFQSHUTGM7260-46-71 23:38:009.0[facility] FzpqwxtFXDATJHQI7990-23-75 23:38:08622.0[facility] QksceyxLBYRFGKPW2314-58-56 23:38:004.0[facility] CxmndagQDOLGAMXT1674-97-46 23:38:0012.0[facility] [place] ZFCGUYPNX9162-56-14 23:38:001.3[facility] AtkrqopOZGCSQPMU5273-10-63 23:38:33868.0 [facility] JlroyqcHEYSNQOYD1696-16-46 23:38:0010.0[facility] HermannHEMATOLOGY 2011-07-21 23:38:000.0[facility] CfneqqpGJIOJSPBFB3974-18-02 23:38:002.4[facility] BwzyucgNFZWNWTGXC1966-91-61 23:38:000.3[facility] DuzdyqfNHHQAKWTQV5483-98-52 23:38:006.4[facility] PhsfimdRRJVVDRYRR2146-05-08 23:38:000.4[facility] [place] ESQCRRWZXL4833-39-92 23:38:007.4[facility] JnbcxkxGNUBCKJPSX6639-29-47 23:38:002.7 [facility] WqzmyhuQNODGVJKXB2529-73-93 23:38:0024.3[facility] HermannHEMATOLOGY 2011-07-21 23:38:000.7[facility] UkkqyjdHJBWCLVPOP5737-68-06 23:38:0065.2[facility] EadsaiaNHRRHQBILG7601-21-74 23:38:00 Test Item Value Reference Range Interpretation Comments PT (test code = PT) 12.8 s 12.0-14.7 N [facility] DmqddxqKHGGOEEOKG9699-74-91 23:38:00 Test Item Value Reference Range Interpretation Comments INR (test code = INR) 0.96 1 0.85-1.17 N [facility] HospitalZaknjuaVYMARQBIEK0919-33-72 23:38:0013.8[facility] HermannHEMATOLOGY 2011-07-21 23:38:009.1[facility] HvddshiNUDUNCOEQF1748-51-12 23:38:80028.0[facility] JkxvlvcYOKRPUWEMD3019-21-85 23:38:0033.8[facility] VifcwnvKBJSSJDWIY4881-40-81 23:38:00 Test Item Value Reference Range Interpretation Comments MCH (test code = MCH) 30.8 pg 27.0-31.0 N [facility] HospitalQnpvookMHKOBGGEDG7348-28-59 23:38:0091.0[facility] HermannHEMATOLOGY 2011-07-21 23:38:0014.5[facility] XmorvvqDYKKPHQMSO0825-35-40 23:38:004.71[facility] OrajpujGSSLLORZVP4797-04-54 23:38:0042.9[facility] DuqqszvAOCEJCEITE8562-92-89 23:38:009.9[facility]
[2020-04-15] MEDS ORDERED: Ringers Lactate 1,000 ML IV ONE (10:12)
[2020-04-15] MEDS ORDERED: CEFAZOLIN/SWI 1gm 1 GM/10 ML SYR ONE (10:12)
[2020-04-15] MEDS ORDERED: propofoL 200 MG/20 ML VIAL IV ONE (10:47)
[2020-04-15] MEDS ORDERED: ROCURONIUM 50 MG/5 ML VIAL IV ONE (10:47)
[2020-04-15] MEDS ORDERED: dexAMETHasone 10 MG/ML VIAL ONE (10:47)
[2020-04-15] MEDS ORDERED: FENTANYL CITR 100 MCG/2 ML ONE (10:47)
[2020-04-15] MEDS ORDERED: LIDOCAINE 2% MPF 5 ML VIAL ONE (10:48)
[2020-04-15] MEDS ORDERED: MIDAZOLAM HCL 2 MG/2 ML INJ ONE (10:48)
[2020-04-15] MEDS ORDERED: KETOROLAC 30 MG/ML INJ ONE (10:48)
[2020-04-15] MEDS ORDERED: ONDANSETRON 4 MG/2 ML VIAL ONE (10:49)
--- NOTE | 2020-04-15 11:06 | P.HP ---
Date of Service: 04/15/20 PC: This 65-year-old male presents for the excision of a lesion on his back. HPC: Patient has this recurrent area on his back that becomes swollen infected. Necessitating ER visits and incision and drainages. At the current time it is tender but is not acutely inflamed. PMH: Negative PSHx: Previous incision and drainages SOC: No known allergies SYS REVIEW: No cough, wheeze, shortness of breath. No chest pain or palpitations. Denies any urinary complaints O/E awake alert stay HEENT: Within the normal limits Chest: Air entry equal bilaterally ABD: Negative LOCO: In the middle part of his back patient has is area of fluctuance, not acutely inflamed at this time it does have some mild erythema and fluctuance DATA: The normal IMPRESSION: Lesion on the back PLAN: I will take him to the operating room where we can under adequate anesthesia in excise this area from his back and prevent these recurrent abscesses. The risks of this procedure have been discussed with the patient. The possibility of bleeding, infection, recurrence were outlined. He understands and wants us to proceed.
--- NOTE | 2020-04-15 11:38 | P.OP ---
Preoperative diagnosis: Lesion on the back Postoperative diagnosis: Pilonidal cyst on the back Primary procedure: Wide excision of lesion on back Anesthesia: Mac Estimated blood loss: Less than 10 cc Specimen: The skin and granulation tissue Findings: Pilonidal cyst on the back Operative Technique: The patient brought the operating room and placed supine on the table. After the induction of adequate sedation by anesthesia, he was rolled into the right lateral position. The back was then prepped with a DuraPrep solution, and he was draped in usual aseptic manner. With the midline in the back to was a large punctum that was open with surrounding chronic inflammatory skin. A wide excision of this was done by making an aches incision of approximately 3.5 cm taking a ellipse of tissue that was approximately 1 some enteritis maximal width. As this was brought down through the skin and subcutaneous tissue we encounter a large amount of chronic granulation tissue with old her stuck inside of it. This was removed and sent for histopathology. Attention was turned back towards the base of this lesion. We could see the Christie down to the fascia. This was all electrically coagulated to ensure the removal wall epithelial remnants. At this point the skin was now approximated with 4 interrupted sutures of nylon. There was spacing labs showed a collection or infection developed we could easily drainage to the outside. At the end of the procedure he was in a stable condition when sent to the recovery room. Needle sponge instrument count were correct. No drains were placed. Complications: None Transferred to: Recovery Room Condition: Good
[2020-04-15 11:56] VITALS: TEMP 97.4
[2020-04-15] MEDS ORDERED: HYDROCODONE/APAP 10/325 TAB ONE (12:41)
[2020-04-15 12:56] VITALS: BP 139/63; O2SAT 99
== END 2020-04-15 13:14 | disposition home or self-care (01) ==
LOC: OR 09:43
PROVIDERS: ATTEND Surgery
PROC: 0JB70ZZ Excision of Back Subcutaneous Tissue and Fascia, Open Approach (ICD-10-PCS; principal; 2020-04-15 11:15)
DX: L72.0 Epidermal cyst (principal); Z20.828 Contact with and (suspected) exposure to other viral communicable diseases
CPT/HCPCS: 88304; 11404; U0002; J2704; J2250; J3010; J1100; J0690; J7120; J2405; 88305

== ENCOUNTER 2024-09-22 07:21 | Day surgery (SDC) | payer OTHER, BC ==
[2024-09-20 11:33] LABS: Absolute Basophils 0.1 K/uL (0-0.5); Absolute Eosinophils 0.4 K/uL (0-0.5); Absolute Lymphocytes (CBC) 2.1 K/uL (0.7-4.9); Absolute Monocytes 0.7 K/uL (0.1-1.3); Absolute Neutrophil 3.8 K/uL (1.8-8.0); Basophils % 1.2 % (0-1.3); Eosinophils % 5.4 % (0-4.4); Hematocrit 42.5 % (39.6-49.0); Hemoglobin 14.6 g/dL (13.6-17.9); MCH 31.1 pg (27.0-35.0); MCHC 34.4 g/dL (32.0-36.0); MCV 90.3 fL (80-100); MPV 8.8 fL (7.6-11.3); Monocytes % 9.9 % (3.3-12.3); Neutrophils % 53.5 % (41.7-73.7); Nucleated Red Blood Cells % 0.1 % (0-0); Platelets 240 thou/uL (152-406); RBC Red Blood Cell Count 4.71 M/uL (4.33-5.43); Red Cell Distribution Width 14.4 % (12.1-15.2)
[2024-09-20 11:39] LABS: PT Prothrombin Time 11.1 SECONDS (9.4-12.5); PTT, Activated Partial Thromb 30.6 SECONDS (24.3-36.9); Protime INR 1.06
[2024-09-20 11:44] LABS: Anion Gap 5.5 mEq/L (5.0-15.0); Potassium 4.5 mEq/L (3.5-5.1)
[2024-09-22] MEDS ORDERED: LIDOCAINE 1% MPF 5 ML VIAL ONE (08:33)
[2024-09-22] MEDS ORDERED: propofoL 200 MG/20 ML VIAL IV ONE ×2 (08:34)
[2024-09-22] MEDS: Ringers Lactate 1,000 ML IV ONE (08:38)
[2024-09-22 10:02] VITALS: BP 115/75; TEMP 97.4; O2SAT 97
== END 2024-09-22 09:55 | disposition home or self-care (01) ==
LOC: OR 07:21
PROVIDERS: ATTEND Surgery
PROC: 0DBP8ZX Excision of Rectum, Via Natural or Artificial Opening Endoscopic, Diagnostic (ICD-10-PCS; principal; 2024-09-22 08:45)
DX: Z12.11 Encounter for screening for malignant neoplasm of colon (principal); N42.9 Disorder of prostate, unspecified; K64.8 Other hemorrhoids; K63.5 Polyp of colon
CPT/HCPCS: 85025; 80048; 36415; 85610; 88305; 85730; 45380; J2704 ×2; J2003; J7120

== ENCOUNTER 2024-12-10 11:38 | Emergency (ER) | payer OTHER, BC ==
--- OUTSIDE RECORDS SUMMARY | 2024-12-10 11:46 | XMS REPORT | Continuity of Care Document ---
Author Name Unknown Address [address] [facility]. 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 Phone Pcp, Pcp Primary Care Physician Unavailab Phan Cuevas Attending Clinician Unavailable Jacques Judge MD Attending Clinician JACQUES JUDGE Attending Clinician Unavailabl e Ecg, Cc Hocc Attending Clinician Unavailable FRANKLYN_Alonso_Logan_NP Attending Clinician Unavail Ton Johnson Attending Clinician Unavailable 1, [facility] Attending Clinician Unavailable Jessica Medina MD Attending Clinician Doctor Unassigned, Trinity Attending Clinician U yairailable JESSICA MEDINA Attending Clinician Unavailabl e Only, Adc Test Attending Clinician Unavailable Jessica Marte Attending Clinician Unavailjoe Low MD, Zay Attending Clinician [phone] Juan Antoine MD Attending Clinician Luciano Ocasio MD Attending Clinician LUCIANO OCASIO Attending Clinician Unavailable Phan Blanton Admitting Clinician Unavailable FRANKLYN_Leiavinash_Logan_SHIMA Admitting Clinician Unavail Ton Johnson Admitting Clinician Unavailable TUAN PHOENIX Admitting Clinician Unavailable Physician, No Primary or Family Admitting Clinic marizol Unavailable Luciano Ocasio MD Admitting Clinician [phone] LUCIANO OCASIO Admitting Clinician Unavailable Payers Payer Name Policy Type Policy Number Effective Date Expirati on Date Source [employer] COMM [id number] 2016 00:00:00 [facility] MEDICARE ADVANTAGE - [id number]MEDICARE REPLACEMENT/ADVANT AGE - PPO) [id number] 2022 00:00:00 [place] [employer] [id number] 2021 00:00:00 [employer] GENERIC [id number] 2019 00:00:00 Problems Condition Name Condition Details Condition Category Status Onset Date Resolution Date Last Treatment Date Treating Clinician Comments Source Angina pectoris Angina pectoris Disease Active 05-22 00:00: 00 Carlos Jackson Coronary angioplast y status Coronary angioplast y status Disease Active 05-22 00:00: 00 Carlos Jackson Essential hypertensi on Essential hypertensi on Disease Active 05-22 00:00: 00 Carlos Jackson 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 Disease Active 05-22 00:00: 00 Carlos Jackson Hyperchole sterolemia Hyperchole sterolemia Disease Active 05-22 00:00: 00 Carlos Jackson Pain in right hip joint Pain in Right Hip Joint Problem Active 8-17 00:00: 00 [facility] Osteoarthr itis of right hip joint Osteoarthr itis of Right Hip Joint Problem Active 4-03 00:00: 00 [facility] Lumbar post-champ ectomy syndrome Lumbar Post-champ ectomy Syndrome Problem Active 0 8-09 00:00: 00 [facility] 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 Displaceme nt of Lumbar Interverte bral Disc without Myelopathy Problem Active 0 02-04 00:00: 00 [facility] Interverte bral disc prolapse Interverte bral Disc Prolapse Problem Active 02-04 00:00: 00 [facility] Degenerati on of lumbar interverte bral disc Degenerati on of Lumbar Interverte bral Disc Problem Active 02-04 00:00: 00 [facility] Degenerati on of interverte bral disc Degenerati on of Interverte bral Disc Problem Active 02-04 00:00: 00 [facility] Spinal stenosis of lumbar region Spinal Stenosis of Lumbar Region Problem Active 02-04 00:00: 00 [facility] Spondyloli sthesis Spondyloli sthesis Problem Active 02-04 00:00: 00 [facility] Low back pain Low Back Pain Problem Active 0 01-17 00:00: 00 [facility] Lumbar radiculopa thy Lumbar Radiculopa thy Problem Active 01-17 00:00: 00 [facility] Other hyperlipid emia Other hyperlipid emia Disease Active 11-27 00:00: 00 [facility] Coronary artery disease involving [place] coronary artery of [place] heart without angina pectoris Coronary artery disease involving [place] coronary artery of [place] heart without angina pectoris Disease Active 0 11-27 00:00: 00 [facility] Coronary artery disease involving [place] coronary artery of [place] heart without angina pectoris Coronary artery disease involving [place] coronary artery of [place] heart without angina pectoris Disease Active 11-27 00:00: 00 [facility] Coronary artery disease involving [place] coronary artery of [place] heart without angina pectoris Coronary artery disease involving [place] coronary artery of [place] heart without angina pectoris Disease Active 4 00:00: 00 [facility] Shortness of breath Shortness of breath Disease Active 4 00:00: 00 [facility] Chest pain Chest pain Disease Active 4 00:00: 00 [facility] Obesity (BMI 30-39.9) Obesity (BMI 30-39.9) Disease Active 11-26 00:00: 00 [facility] Situation with explicit context Situation with Explicit Context Problem Active 04-26 00:00: 00 [facility] Idiopathic osteoarthr itis Idiopathic Osteoarthr itis Problem Active 11-12 00:00: 00 [facility] Arthritis of hip Arthritis of Hip Problem Active 2016-08 0 00:00: 00 [facility] PARTIAL DEGLOVING OF THE LEFT RING FINGE PARTIAL DEGLOVING OF THE LEFT RING FINGE Active 02/26/2017 [facility] Diagnosis Active 02-26 00:00: 00 2017-02-27 00:22:00 Carlos Phelps DEGLOVING INJURY OF FINGER DEGLOVING INJURY OF FINGER Active 02/26/2017 [facility] Diagnosis Active 02-26 00:00: 00 2017-03-09 21:47:00 Carlos Phelps Articular cartilage disorder of hip Articular Cartilage Disorder of Hip Problem Active 2014-08 0 00:00: 00 [facility] Hip pain Hip Pain Problem Active 2014-08 0 00:00: 00 [facility] Myocardial infarction Myocardial Infarction Problem Active 2014-08 0 00:00: 00 [facility] UNSTABLE ANGINA UNSTABLE ANGINA Active 02/10/2013 [facility] Diagnosis Active 02-10 08:00: 00 2013-02-13 17:27:00 Carlos Phelps Old myocardial infarction Old myocardial infarction Active Problem 10/16/2021 [facility] Problem Active 2021-10-16 03:00:29 Carlos Phelps Coronary angioplast y status Coronary angioplast y status Active Problem 10/16/2021 [facility] Problem Active 2021-10-16 03:00:29 Carlos Phelps CAD of [place] Artery W Angina CAD of [place] Artery W Angina Active Problem 10/16/2021 [facility] Problem Active 2021-10-16 03:00:29 Carlos Phelps Benign essential HTN Benign essential HTN Active Problem 10/16/2021 [facility] Problem Active 2021-10-16 03:00:29 Carlos Phelps Hyperlipid emia Hyperlipid emia Active Problem 10/16/2021 [facility] Problem Active 2021-10-16 03:00:29 Carlos Phelps CAD of [place] Artery w/o Angina CAD of [place] Artery w/o Angina Active Problem 10/16/2021 [facility] Problem Active 2021-10-16 03:00:29 Carlos Phelps Atheroscle rosis of [place] coronary artery of [place] heart with stable angina pectoris Atheroscle rosis of [place] coronary artery of [place] heart with stable angina pectoris Active Problem 10/16/2021 [facility] Problem Active 2021-10-16 03:00:29 Carlos Phelps Preop cardiovasc ular exam Preop cardiovasc ular exam Active Diagnosis 04/01/2018 [facility] Diagnosis Active 2018-04-01 02:00:29 Carlos Phelps Retinal artery thrombosis Retinal artery thrombosis Active Diagnosis 10/16/2021 [facility] Diagnosis Active 2021-10-16 03:00:29 Carlos Phelps Hyperchole sterolemia Hyperchole sterolemia Active Problem 10/16/2021 [facility] Problem Active 2021-10-16 03:00:29 Carlos Phelps Atheroscle rosis of both carotid arteries Atheroscle rosis of both carotid arteries Active Problem 10/16/2021 [facility] Problem Active 2021-10-16 03:00:29 Carlos Phelps Unstable angina Unstable angina Active Problem 10/16/2021 [facility] Problem Active 2021-10-16 03:00:29 Carlos Phelps Hypertensi ve crisis, unspecifie d Hypertensi ve crisis, unspecifie d Active Diagnosis 06/24/2016 [facility] Diagnosis Active 2016-06-24 02:04:47 Carlos Phelps Coronary stent or PTCA, status post Coronary stent or PTCA, status post Active Diagnosis 06/24/2016 [facility] Diagnosis Active 2016-06-24 02:04:47 Carlos Phelps Hyperlipid emia, unspecifie d Hyperlipid emia, unspecifie d Active Diagnosis 06/24/2016 [facility] Diagnosis Active 2016-06-24 02:04:47 Carlos Phelps Coronary atheroscle rosis of [place] vessel Coronary atheroscle rosis of [place] vessel Active Problem 12/02/2014 [facility] Problem Active 2014-12-02 02:00:46 Carlos Phelps Hyperlipid emia NOS Hyperlipid emia NOS Active Problem 12/02/2014 [facility] Problem Active 2014-12-02 02:00:46 Carlos Phelps Angina Pectoris Angina Pectoris Active Problem 12/02/2014 [facility] Problem Active 2014-12-02 02:00:46 Carlos Phelps Hypertensi on Hypertensi on Active Problem 12/02/2014 [facility] Problem Active 2014-12-02 02:00:46 Carlos Phelps Other hyperlipid emia Other hyperlipid emia Active Diagnosis 06/24/2016 [facility] Diagnosis Active 2016-06-24 02:05:29 Carlos Phelps Atheroscle rotic heart disease of [place] coronary artery without angina pectoris Atheroscle rotic heart disease of [place] coronary artery without angina pectoris Active Diagnosis 06/24/2016 [facility] Diagnosis Active 2016-06-24 02:05:29 Carlos Phelps Back pain Back pain Active Problem 02/13/2013 [facility] Problem Active 2013-02-13 20:44:54 Carlos Phelps Coronary artery disease Coronary artery disease Active Problem 02/13/2013 [facility] Problem Active 2013-02-13 20:44:54 Carlos Phelps Unstable angina Unstable angina Active Problem 02/13/2013 [facility] Problem Active 2013-02-13 20:44:54 Carlos Phelps Backache (finding) Backache (finding) Active Problem 03/03/2017 [facility] Problem Active 2017-03-03 00:19:41 Carlos Phelps Preinfarct ion syndrome (disorder) Preinfarct ion syndrome (disorder) Active Problem 03/03/2017 [facility] Problem Active 2017-03-03 00:19:41 Carlos Phelps UNSP OPEN WOUND OF UNSP FINGER W/O DAMAG UNSP OPEN WOUND OF UNSP FINGER W/O DAMAG Active [facility] Diagnosis Active 2017-03-09 21:47:00 Carlos Phelps Other chronic pain Other chronic pain Active Problem 10/16/2021 [facility] Problem Active 2021-10-16 03:00:29 Carlos Phelps Allergies, Adverse Reactions, Alerts Allergy Name Allergy Type Status Severity Reaction(s) Onset Date Inactive Date Treating Clinician Comments Source No Known Allergie s DA Active U 05-13 00:00: 00 [facility] No Known Allergie s DA Active U 05-13 00:00: 00 [facility] No Known Drug Allergie s DA Active U 04-16 00:00: 00 [facility] No Known Drug Allergie s DA Active U 04-16 00:00: 00 [facility] No Known Drug Allergie s DA Active U 02-12 00:00: 00 [facility] No Known Drug Allergie s DA Active U 02-12 00:00: 00 [facility] N.K.D.A. N.K.D.A. Active Info Not Available 10-17 00:00: 00 Carlos Phelps No Known Drug Allergie s DA Active U 03-30 00:00: 00 [facility] No Known Drug Allergie s DA Active U 03-30 00:00: 00 [facility] NKFA NKFA Active Carlos Phelps NO KNOWN ALLERGIE S Drug Class Active [facility] Social History Social Habit Start Date Stop Date Quantity Comments Source Gender identity 2023-11-13 17:26:26 Identifies as male gender (finding) Lobo Jackson History of tobacco use Chews Tobacco [facility] Sexual orientation M haylie Phelps [facility] Exposure to SARS-CoV-2 (event) 2020-07-08 00:00:00 2020-08-07 12:12:00 Not sure [facility] Tobacco use and exposure 2019-11-27 00:00:00 2019-11-27 00:00:00 User of smokeless tobacco [facility] History of Social function 2019-11-27 00:00:00 2019-11-27 00:00:00 [facility] Alcohol intake 2019-11-27 00:00:00 2019-11-27 00:00:00 Current drinker of alcohol (finding) [facility] Social History 2017-02-27 11:09:06 2017-02-27 11:09:06 [facility] Lenin Tobaccouse: 2016-10-07 00:00:00 2016-10-07 00:00:00 Lobo Phelps Sex Ass[birth year] At 1955 00:00:00 1955 00:00:00 [facility] Smoking Status Start Date Stop Date Source Never Smoker [facility] Tobacco smoking consumption unknown [facility] Epi [facility] Medications Ordered Medication Name Filled Medication Name Start Date Stop Date Current Medication? Ordering Clinician Indication Dosage Frequency Signature (SIG) Comments Components Source metoprolol succinate XL (Toprol-XL) 50 MG 24 hr tablet metoprolol succinate XL (Toprol-XL) 50 MG 24 hr tablet 10-16 00:00: 00 Yes 50mg QD TAKE 1 TABLET BY MOUTH DAILY Carlos Phelps [facility] atorvastati n (Lipitor) 40 MG tablet atorvastati n (Lipitor) 40 MG tablet 10-05 00:00: 00 Yes 40mg QD TAKE 1 TABLET BY MOUTH DAILY Carlos Phelps [facility] metoprolol succinate XL (Toprol-XL) 50 MG 24 hr tablet metoprolol succinate XL (Toprol-XL) 50 MG 24 hr tablet 2023-08 00:00: 00 10-16 00:00 :00 No 50mg QD TAKE 1 TABLET BY MOUTH DAILY Carlos Jackson Lipitor 40 MG tablet Lipitor 40 MG tablet 05-22 16:55: 45 10-05 00:00 :00 No 1{tbl} Take 1 tablet by mouth 1 time each day at the same time. Carlos Phelps Epic valsartan (Diovan) 160 MG tablet valsartan (Diovan) 160 MG tablet 05-22 00:00: 00 05-22 23:59 :00 No 160mg QD Take 1 tablet by mouth 1 time each day. Carlos gay Lenin Renetta nitroglycer in (Nitrostat) 0.4 MG SL tablet nitroglycer in (Nitrostat) 0.4 MG SL tablet 05-22 00:00: 00 06-21 23:59 :[address] 1 tablet under the tongue every 5 minutes if needed for chest pain. May repeat every 5 minutes for up to 3 doses. Carlos Phelps Renetta lamoTRIgine (LaMICtal) 200 MG tablet lamoTRIgine (LaMICtal) 200 MG tablet 12 00:00: 00 Yes 200mg QD Take 200 mg by mouth 1 time each day. Carlos Phelps [facility] metoprolol succinate XL (Toprol-XL) 50 MG 24 hr tablet metoprolol succinate XL (Toprol-XL) 50 MG 24 hr tablet 02-10 00:00: 00 07-24 00:00 :00 No 50mg QD TAKE 1 TABLET BY MOUTH DAILY Carlos Phelps [facility] clopidogrel (Plavix) 75 MG tablet clopidogrel (Plavix) 75 MG tablet 6-05 00:00: 00 05-22 00:00 :00 No 75mg QD Take 75 mg by mouth 1 time each day. Carlos Phelps [facility] metoprolol succinate XL (Toprol-XL) 50 MG 24 hr tablet metoprolol succinate XL (Toprol-XL) 50 MG 24 hr tablet 6-05 00:00: 00 02-10 00:00 :00 No 50mg QD Take 1 tablet by mouth 1 time each day. Carlos Phelps [facility] Plavix 75 MG tablet Plavix 75 MG tablet 6-04 00:00: 00 05-22 00:00 :00 No 75mg Take 1 tablet by mouth 1 time each day at the same time. Carlos Jackson Lipitor 2-24 03:00: 29 Yes ZION JUDGE 1 tab(s) Carlos Phelps Plavix 2-23 03:00: 42 Yes ZION JUDGE 1 tab(s) Carlos Phelps meloxicam 05-13 02:00: 28 Yes ZION JUDGE 1 tab(s) Carlos Phelps Dexilant -16 03:00: 47 Yes ZION JUDGE 1 cap(s) Carlos Phelps lamotrigine 08-31 03:01: 05 Yes ZION JUDGE 1 tab(s) Carlos Phelps aspirin 08-31 03:01: 05 Yes ZION SYN 1 tab(s) Carlos Phelps Plavix 08-31 03:01: 05 Yes ZION JUDGE take one tablet by mouth daily Carlos Phelps Lipitor 08-31 03:01: 05 Yes ZION JUDGE take one tablet by mouth at bedtime Carlos Phelps Xarelto 08-30 00:00: 00 Yes ZION JUDGE 1 tab(s) Carlos Phelps AmLODIPine Besylate 08-30 00:00: 00 Yes ZION JUDGE 1 tab(s) Carlos Phelps tramadol 50 mg tablet 1 tablet every 6h prn pain tramadol 50 mg tablet 1 tablet every 6h prn pain 02-08 00:00: 00 No tramadol 50 mg tablet 1 tablet every 6h prn pain [facility] Lamictal 100 mg tablet Lamictal 100 mg tablet 02-08 00:00: 00 No Lamictal 100 mg tablet [facility] tramadol 50 mg tablet 1 tablet every 6h prn pain tramadol 50 mg tablet 1 tablet every 6h prn pain 02-08 00:00: 00 No tramadol 50 mg tablet 1 tablet every 6h prn pain [facility] Lamictal 100 mg tablet Lamictal 100 mg tablet 02-08 00:00: 00 No Lamictal 100 mg tablet [facility] tramadol 50 mg tablet 1 tablet every 6h prn pain tramadol 50 mg tablet 1 tablet every 6h prn pain 02-08 00:00: 00 No tramadol 50 mg tablet 1 tablet every 6h prn pain [facility] Lamictal 100 mg tablet Lamictal 100 mg tablet 02-08 00:00: 00 No Lamictal 100 mg tablet [facility] tramadol 50 mg tablet 1 tablet every 6h prn pain tramadol 50 mg tablet 1 tablet every 6h prn pain 02-08 00:00: 00 No tramadol 50 mg tablet 1 tablet every 6h prn pain [facility] Lamictal 100 mg tablet Lamictal 100 mg tablet 02-08 00:00: 00 No Lamictal 100 mg tablet [facility] Lipitor 02-01 02:00: 21 Yes ZION JUDGE 1 tab(s) Carlos Phelps clopidogreL (PLAVIX) 75 mg tablet 11-27 19:00: 21 Yes 75mg Take 75 mg by mouth daily. [facility] atorvastati n 20 mg tablet 11-27 19:00: 21 Yes 20mg Take 20 mg by mouth every morning. [facility] LORazepam (ATIVAN) 2 mg tablet 11-27 19:00: 21 Yes 2mg Take 2 mg by mouth at bedtime. [facility] iohexol (OMNIPAQUE 350 BULK-100 mL) injection 100 mL 11-27 16:30: 00 11-27 16:30 :00 No 100mL 100 mL, Intravenou s, ONCE, 1 dose, 11/28/19 at 1145, Routine [facility] sulfur hexafluorid e microsphr (LUMASON) injection 5 mL 11-27 16:15: 00 11-27 14:45 :00 No 5mL 5 mL, Intravenou s, ONCE, 1 dose, 11/28/19 at 1115, Routine [facility] azithromyci n (ZITHROMAX) tablet 500 mg 11-27 15:00: 00 11-27 15:05 :00 No 500mg 500 mg, Oral, ONCE, 1 dose, 11/28/19 at 1000, TAMEKA
Re ason for Anti-Infec tive: Empiric Therapy for Suspected Infection< br>Empiric Therapy Site: Respirator y
Durat ion of therapy: 7 days [facility] clopidogreL (PLAVIX) 75 mg tablet 11-27 14:00: 21 Yes 75mg Take 75 mg by mouth daily. [facility] atorvastati n 20 mg tablet 11-27 14:00: 21 Yes 20mg Take 20 mg by mouth every morning. [facility] LORazepam (ATIVAN) 2 mg tablet 11-27 14:00: 21 Yes 2mg Take 2 mg by mouth at bedtime. [facility] lamoTRIgine (LAMICTAL) tablet 150 mg 11-27 14:00: 00 Yes 150mg 150 mg, Oral, DAILY, First dose on Wed11/28/19 at 0900, Until Discontinu ed, Routine [facility] clopidogreL (PLAVIX) tablet 75 mg 11-27 14:00: 00 Yes 75mg 75 mg, Oral, DAILY, First dose on Wed11/28/19 at 0900, Until Discontinu ed, Routine [facility] atorvastati n (LIPITOR) tablet 20 mg 11-27 14:00: 00 Yes 20mg 20 mg, Oral, QAM, First dose on Wed11/28/19 at 0900, Until Discontinu ed, Routine [facility] aspirin chewable tablet 81 mg 11-27 14:00: 00 Yes 81mg 81 mg, Oral, DAILY, First dose on Wed11/28/19 at 0900, Until Discontinu ed, Routine [facility] enoxaparin (LOVENOX) injection 40 mg 11-27 14:00: 00 Yes 40mg 40 mg, Subcutaneo us, DAILY, First dose on Wed11/28/19 at 0900, Until Discontinu ed, Routine [facility] ipratropium -albuterol (DUONEB) 0.5 mg-3 mg(2.5 mg base)/3 mL nebulizer solution 3 mL 11-27 02:44: 14 Yes 3mL 3 mL, Inhalation , QIDPRN, Starting Wed11/27/19 at 2144, Until Discontinu ed, Routine, Shortness of Breath, Bronchospa sm [facility] albuterol 90 mcg/actuati on inhaler 11-27 00:00: 00 Yes [id number] 2{puff} Inhale 2 Puffs every 6 (six) hours as needed for Wheezing or Shortness of Breath. [facility] benzonatate 100 mg capsule 11-27 00:00: 00 12-05 04:59 :00 No [id number] 100mg Take 1 capsule by mouth 3 (three) times daily as needed for Cough for up to 7 days. [facility] azithromyci n 250 mg tablet 11-27 00:00: 00 12-02 04:59 :00 No [id number] 250mg Take 1 tablet by mouth daily for 4 days. Take 500 mg day 1, then 250 mg days 2 to 5. [facility] ondansetron (ZOFRAN (PF)) injection 4 mg 11-26 23:21: 56 Yes 4mg 4 mg, Slow IV Push, Q6HPRN, Starting Wed11/27/19 at 1821, Until Discontinu ed, Routine, Nausea and Vomiting (N/V) [facility] morpHINE injection 2 mg 11-26 23:21: 45 11-27 23:20 :45 No 2mg 2 mg, Slow IV Push, Q4HPRN, Starting Wed11/27/19 at 1821, Until Wed11/28/19 at 1820, Routine, Chest pain [facility] traMADol (ULTRAM) tablet 50 mg 11-26 23:21: 29 11-28 23:20 :29 No 50mg 50 mg, Oral, Q8HPRN, Starting Wed11/27/19 at 1821, Until Wed11/29/19 at 1820, Routine, Pain (scale 4-6) [facility] acetaminoph en (TYLENOL) tablet 650 mg 11-26 23:21: 26 Yes 650mg 650 mg, Oral, Q6HPRN, Starting Wed11/27/19 at 1821, Until Discontinu ed, Routine, Pain (scale 1-3) [facility] Dexilant 2 03:00: 37 Yes ZION JUDGE 1 cap(s) [facility] meloxicam 26 03:00: 37 Yes ZION YEN 1 tab(s) Carlos victor hug[facility] [place] Plavix 218 03:00: 08 Yes ZION YEN take one tablet by mouth daily Carlos Phelps telmisartan 1-31 00:00: 00 Yes ZION YEN 1 tab(s) [facility]o Phelps Mobic 15 mg tablet 1 qd with food Mobic 15 mg tablet 1 qd with food 11-12 00:00: 00 No Mobic 15 mg tablet 1 qd with food [facility] Mobic 15 mg tablet 1 qd with food Mobic 15 mg tablet 1 qd with food 11-12 00:00: 00 No Mobic 15 mg tablet 1 qd with food [facility] Mobic 15 mg tablet 1 qd with food Mobic 15 mg tablet 1 qd with food 11-12 00:00: 00 No Mobic 15 mg tablet 1 qd with food [facility] Mobic 15 mg tablet 1 qd with food Mobic 15 mg tablet 1 qd with food 11-12 00:00: 00 No Mobic 15 mg tablet 1 qd with food [facility] Clindamycin 02-28 18:00: 00 No Notes: (Same As: Jacek) Carlos Phelps Acetaminoph en 325 MG / Hydrocodone Bitartrate 10 MG Oral Tablet [Basehor 10/325] 02-28 17:34: 00 Yes 2 tab, PO, Q6H, PRN Pain Score 7-10, 0 Refill(s) Carlos Phelps clindamycin 300 mg oral capsule 02-28 17:34: 00 Yes 300 mg, PO, ABXQ6H, 0 Refill(s) Carlos Phelps Acetaminoph en 325 MG / Hydrocodone Bitartrate 10 MG Oral Tablet [Basehor 10/325] 02-28 17:33: 00 No Notes: Do not exceed 4gm/day of acetaminop hen. (Same as: Basehor 325/10) Carlos Phelps Docusate Sodium 50 MG Oral Capsule 02-28 16:25: 00 Yes 50 mg = 1 cap, PO, BID, PRN Constipati on, # 60 cap, 0 Refill(s) Carlos Phelps clindamycin 300 mg oral capsule 02-28 16:08: 00 Yes 300 mg = 1 cap, PO, Q6H, # 28 cap, 0 Refill(s) Carlos Phelps Lamictal 02-28 14:00: 00 No 150 mg, Route: PO, Drug form: TAB, Daily, Dosing Weight 86.477, kg, Start date: 02/28/17 9:00:00 CDT, Duration: 30 day, Stop date: 03/29/17 9:00:00 CDT Carlos Phelps Lorazepam 02-28 01:25: 00 No Notes: (Same as: Ativan) Carlos Phelps atorvastati n 20 MG Oral Tablet [Lipitor] 02-27 21:26: 00 Yes 20 mg = 1 tab, PO, Daily, 0 Refill(s) Carlos Phelps LaMICtal 02-27 19:00: 00 No Notes: (Same as:LaMICta l) Carlos Phelps Acetaminoph en 300 MG / Codeine Phosphate 30 MG Oral Tablet [Tylenol with Codeine #3] 02-27 14:02: 00 No Notes: Do not exceed 4gm/day of acetaminop hen. (Same as: Tylenol with Codeine # 3) Carlos Phelps Acetaminoph en 300 MG / Codeine Phosphate 30 MG Oral Tablet [Tylenol with Codeine #3] 02-27 14:01: 00 No Notes: Do not exceed 4gm/day of acetaminop hen. (Same as: Tylenol with Codeine # 3) Carlos Phelps Benadryl 02-27 14:01: 00 No Notes: (Same as: Benadryl) Carlos Phelps Docusate 02-27 14:00: 00 No Notes: (Same as: Colace) (Do Not Crush) Carlos Phelps Plavix 02-27 14:00: 00 No Notes: (Same As: Plavix) Carlos Phelps Ancef + sodium chloride 0.9% INJ 100 mL 02-27 14:00: 00 No Notes: (Same As: Ancef, Kefzol) Cefazolin FOR IV SET ONLY MEDICATION WASTE Product Size: 1000 mg Product Wasted: ___ mg Carlos Phelps Lipitor 02-27 14:00: 00 No Notes: (Same as: Lipitor) Carlos Phelps Aspirin 81 MG Chewable Tablet 02-27 14:00: 00 No Notes: Take with food. Carlos Phelps Ativan 02-27 11:11: 00 No Bedtime, 0 Refill(s) Carlos Phelps ePHEDrine (ANES) 02-27 06:57: 00 No Route: IV, Drug form: INJ, ONCE, Stop date: 02/27/17 1:57:00 CDT Carlos Phelps sugammadex (ANES) 02-27 06:57: 00 No Route: IV, Drug form: SOLN, ONCE, Stop date: 02/27/17 1:57:00 CDT Carlos Phelps ceFAZolin (ANES) 02-27 06:57: 00 No Route: IV, Drug form: INJ, ONCE, Stop date: 02/27/17 1:57:00 CDT Carlos Phelps acetaminoph en (ANES) 02-27 06:57: 00 No Route: IV, Drug form: INJ, ONCE, Stop date: 02/27/17 1:57:00 CDT Carlos Phelps ondansetron (ANES) 02-27 06:57: 00 No Route: IV, Drug form: INJ, ONCE, Stop date: 02/27/17 1:57:00 CDT Carlos Phelps fentaNYL (ANES) 02-27 06:50: 00 No Route: IV, Drug form: INJ, ONCE, Stop date: 02/27/17 1:50:00 CDT Memgus Phelps propofol ([facility]) 02-27 06:50: 00 No Route: IV, Drug form: INJ, ONCE, Stop date: 02/27/17 1:50:00 CDT Memgus Phelps rocuronium ([facility]) 02-27 06:50: 00 No Route: IV, Drug form: INJ, ONCE, Stop date: 02/27/17 1:50:00 CDT Carlos Phelps midazolam ([facility]) 02-27 06:50: 00 No Route: IV, Drug form: SOLN, ONCE, Stop date: 02/27/17 1:50:00 CDT Christianogus Phelps lidocaine ([facility]) 02-27 06:50: 00 No Route: IV, Drug form: INJ, ONCE, Stop date: 02/27/17 1:50:00 CDT Christianogus Phelps Flumazenil 02-27 06:33: 00 No 0.2 mg, Route: IVP, PRN, Dosing Weight 84.091, kg, PRN Benzodiaze pine Reversal, Initial dose, Start date: 02/27/17 1:33:00 CDT, Duration: 30 day, Stop date: 03/29/17 1:32:00 CDT Christianogus Phelps Naloxone 02-27 06:33: 00 No 0.4 mg, Route: IVP, Q2MIN, Dosing Weight 84.091, kg, PRN Narcotic Reversal, Start date: 02/27/17 1:33:00 CDT, Duration: 8 doses or times, Stop date: Limited # of times Carlos Phelps Ondansetron 02-27 06:33: 00 No 4 mg, Route: IVP, ONCE, Dosing Weight 84.091, kg, PRN Nausea & Vomiting, Start date: 02/27/17 1:33:00 CDT Christianogus Phelps Oxycodone 02-27 06:33: 00 No 10 mg, Route: PO, Drug form: TAB, Q4H, Dosing Weight 84.091, kg, PRN Pain Score 7-10, Start date: 02/27/17 1:33:00 CDT, Duration: 30 day, Stop date: 03/29/17 1:32:00 CDT Carlos Phelps Hydromorpho ne 02-27 06:33: 00 No 0.5 mg, Route: IVP, Q5Min, Dosing Weight 84.091, kg, PRN Pain Score 7-10, Start date: 02/27/17 1:33:00 CDT, Duration: 4 doses or times, Stop date: Limited # of times Carlos Phelps LR 1000 mL INJ (ANES) 02-27 06:06: 00 No Route: IV, Total Volume: 1,000, Start date: 02/27/17 1:06:00 CDT, Stop date: 02/27/17 2:06:00 CDT Carlos Phelps Acetaminoph en 325 MG / Hydrocodone Bitartrate 5 MG Oral Tablet 02-27 05:20: 00 No Notes: (Same as: [place] 325/5) Do not exceed 4gm/day of acetaminop hen. Carlos Phelps Ondansetron 02-27 05:20: 00 No Notes: (Same as: Raymond) MEDICATION WASTE Product Size: 4 mg Product Wasted: ___ mg Carlos Phelps Alprazolam 2 MG Oral Tablet [Xanax] 02-27 05:16: 00 No Notes: With food or milk (Same as: Xanax) Carlos Phelps Lidocaine Hydrochlori de 10 MG/ML Injectable Solution 02-27 03:22: 00 No Notes: (Same as: Xylocaine) Carlos Phelps Lipitor 01-14 00:00: 00 Yes ZION JUDGE 1 tab(s) Carlos Phelps Lipitor 01-14 00:00: 00 Yes ZION JUDGE 1 tab(s) Carlos Phelps lamotrigine 10-09 03:00: 04 Yes ZION JUDGE 1 tab(s) Carlos Phelps Plavix 10-09 03:00: 04 Yes ZION JUDGE TAKE ONE TABLET BY MOUTH DAILY Carlos Phelps meloxicam 10-09 03:00: 04 Yes ZION JUDGE 1 tab(s) Carlos Phelps aspirin 10-09 03:00: 04 Yes ZION JUDGE 1 tab(s) Carlos Phelps Dexilant 10-09 03:00: 04 Yes ZION JUDGE 1 cap(s) Carlos Phelps Lipitor 12-15 00:00: 00 Yes ZION YEN 1 tab(s) Carlos Phelps Plavix 12-15 00:00: 00 Yes ZION YEN 1 tab(s) Carlos Phelps Tylenol-Cod eine #3 300 mg-30 mg tablet 1 tablet PO Q8H PRN pain Tylenol-Cod eine #3 300 mg-30 mg tablet 1 tablet PO Q8H PRN pain 11-12 00:00: 00 No Tylenol-Co deine #3 300 mg-30 mg tablet 1 tablet PO Q8H PRN pain [facility] Tylenol-Cod eine #3 300 mg-30 mg tablet 1 tablet PO Q8H PRN pain Tylenol-Cod eine #3 300 mg-30 mg tablet 1 tablet PO Q8H PRN pain 11-12 00:00: 00 No Tylenol-Co deine #3 300 mg-30 mg tablet 1 tablet PO Q8H PRN pain [facility] Tylenol-Cod eine #3 300 mg-30 mg tablet 1 tablet PO Q8H PRN pain Tylenol-Cod eine #3 300 mg-30 mg tablet 1 tablet PO Q8H PRN pain 11-12 00:00: 00 No Tylenol-Co deine #3 300 mg-30 mg tablet 1 tablet PO Q8H PRN pain [facility] Tylenol-Cod eine #3 300 mg-30 mg tablet 1 tablet PO Q8H PRN pain Tylenol-Cod eine #3 300 mg-30 mg tablet 1 tablet PO Q8H PRN pain 11-12 00:00: 00 No Tylenol-Co deine #3 300 mg-30 mg tablet 1 tablet PO Q8H PRN pain [facility] prednisone 10 mg tablet 6, 5, 4, 3, 2, 1 DAILY prednisone 10 mg tablet 6, 5, 4, 3, 2, 1 DAILY 10-31 00:00: 00 No prednisone 10 mg tablet 6, 5, 4, 3, 2, 1 DAILY [facility] prednisone 10 mg tablet 6, 5, 4, 3, 2, 1 DAILY prednisone 10 mg tablet 6, 5, 4, 3, 2, 1 DAILY 10-31 00:00: 00 No prednisone 10 mg tablet 6, 5, 4, 3, 2, 1 DAILY [facility] prednisone 10 mg tablet 6, 5, 4, 3, 2, 1 DAILY prednisone 10 mg tablet 6, 5, 4, 3, 2, 1 DAILY 10-31 00:00: 00 No prednisone 10 mg tablet 6, 5, 4, 3, 2, 1 DAILY [facility] prednisone 10 mg tablet 6, 5, 4, 3, 2, 1 DAILY prednisone 10 mg tablet 6, 5, 4, 3, 2, 1 DAILY 10-31 00:00: 00 No prednisone 10 mg tablet 6, 5, 4, 3, 2, 1 DAILY [facility] Tylenol-Cod eine #4 300 mg-60 mg tablet 1 TAB PO QHS PRN PAIN Tylenol-Cod eine #4 300 mg-60 mg tablet 1 TAB PO QHS PRN PAIN 09-19 00:00: 00 No Tylenol-Co deine #4 300 mg-60 mg tablet 1 TAB PO QHS PRN PAIN [facility] Tylenol-Cod eine #4 300 mg-60 mg tablet 1 TAB PO QHS PRN PAIN Tylenol-Cod eine #4 300 mg-60 mg tablet 1 TAB PO QHS PRN PAIN 09-19 00:00: 00 No Tylenol-Co deine #4 300 mg-60 mg tablet 1 TAB PO QHS PRN PAIN [facility] Tylenol-Cod eine #4 300 mg-60 mg tablet 1 TAB PO QHS PRN PAIN Tylenol-Cod eine #4 300 mg-60 mg tablet 1 TAB PO QHS PRN PAIN 09-19 00:00: 00 No Tylenol-Co deine #4 300 mg-60 mg tablet 1 TAB PO QHS PRN PAIN [facility] Tylenol-Cod eine #4 300 mg-60 mg tablet 1 TAB PO QHS PRN PAIN Tylenol-Cod eine #4 300 mg-60 mg tablet 1 TAB PO QHS PRN PAIN 2016-0 - 00:00: 00 No Tylenol-Co deine #4 300 mg-60 mg tablet 1 TAB PO QHS PRN PAIN [facility] Lipitor 10 mg tablet RX by other Lipitor 10 mg tablet RX by other 2014Ceci 0 00:00: 00 No Lipitor 10 mg tablet RX by other MD [facility] Valium 2 mg tablet RX by other Valium 2 mg tablet RX by other 2014Ceci 0 00:00: 00 No Valium 2 mg tablet RX by other MD [facility] Lipitor 10 mg tablet RX by other Lipitor 10 mg tablet RX by other 2014-08 0 00:00: 00 No Lipitor 10 mg tablet RX by other MD [facility] Valium 2 mg tablet RX by other Valium 2 mg tablet RX by other 2014- 00:00: 00 No Valium 2 mg tablet RX by other MD [facility] Lipitor 10 mg tablet RX by other Lipitor 10 mg tablet RX by other MD Koehler 0 00:00: 00 No Lipitor 10 mg tablet RX by other MD [facility] Valium 2 mg tablet RX by other Valium 2 mg tablet RX by other MD Koehler 0 00:00: 00 No Valium 2 mg tablet RX by other MD [facility] Lipitor 10 mg tablet RX by other Lipitor 10 mg tablet RX by other 2014Ceci 0 00:00: 00 No Lipitor 10 mg tablet RX by other MD [facility] Valium 2 mg tablet RX by other Valium 2 mg tablet RX by other MD Koehler 0 00:00: 00 No Valium 2 mg tablet RX by other MD [facility] Lipitor 12-02 02:00: 46 Yes ZION JUDGE 1 tab(s) Memgus Phelps Celebrex 05-17 00:00: 00 No ZION JUDGE 1 cap(s) Memgus Phelps Zetia 10 mg oral tablet 02-11 16:59: 20 Yes Jacques Yen 10 mg, 1 tab, PO, Daily, 90 tab, Substituti on Allowed, TAB [facility] hugo Phelps nitroglycer in 0.4 mg sublingual tablet 02-11 16:58: 52 Yes Jacques Yen 0.4 mg, 1 tab, SL, Q5Min, PRN, 25 tab, Chest Pain, Substituti on Allowed, TAB Memgus Phelps metoprolol 50 mg oral tablet, extended release 02-11 16:58: 38 Yes Jacques Yen 50 mg, 1 tab, PO, Daily, 90 tab, Substituti on Allowed, ERTAB Memgus Phelps Saline Flush 0.9% 02-11 02:00: 00 No Jacques Yen 5 ml, Route: IVP, Drug Form: INJ, Dosing Weight 108.636, kg, Q12H, Start date: 02/10/13 21:00:00, Duration: 30 day, Stop date: 03/12/13 9:00:00 Carlos Phelps aspirin 81 mg tablet, chewable 02-11 00:10: 25 Yes 81 mg, 1 tab, PO, Daily, tab, Substituti on Allowed, CHEWTAB Memgus victor hugo Phelps Plavix 75 mg oral tablet 02-11 00:09: 12 Yes 75 mg, 1 tab, PO, Daily, 30 tab, Substituti on Allowed, TAB Memgus Phelps LORAzepam 2 mg oral tablet 02-11 00:08: 07 No 2 mg, 1 tab, PO, TID, PRN, 20 tab, Anxiety, Substituti on Allowed Memgus Phelps Lipitor 02-10 22:00: 00 No Jacques Yen 40 mg, 1 tab, Route: PO, Drug form: TAB, QPM, Dosing Weight 107.273, kg, Start date: 02/10/13 17:00:00, Duration: 30 day, Stop date: 03/11/13 17:00:00 Carlos Phelps BD Normal Saline Flush 02-10 21:00: 00 No Jaqcues Yen 3 mL, Route: IV, Drug Form: INJ, Q8H, Start date: 02/10/13 16:00:00, Duration: 30 day, Stop date: 03/12/13 8:00:00 Memgus Phelps Ativan 02-10 20:35: 00 No Jacques Yen 0.5 mg, 1 tab, Route: PO, Drug form: TAB, TID, Dosing Weight 107.273, kg, PRN Anxiety, Start date: 02/10/13 15:35:00, Duration: 30 day, Stop date: 03/12/13 15:34:00 Carlos Phelps morphine Sulfate 02-10 20:31: 00 No Jacques Yen 2 mg, 1 mL, Route: IVP, Drug form: INJ, ONCE, Dosing Weight 107.273, kg, Start date: 02/10/13 15:31:00, Stop date: 02/10/13 15:31:00 Carlos Phelps morphine Sulfate 02-10 19:00: 00 No Jacques Yen 2 mg, 1 mL, Route: IV, Drug form: INJ, Q15Min, PRN Chest Pain, Start date: 02/10/13 14:00:00, Duration: 2 doses or times, Stop date: Limited # of times Carlos Phelps Restoril 02-10 19:00: 00 No Jacques Yen 15 mg, 1 cap, Route: PO, Drug form: CAP, Bedtime, PRN Sleep, Start date: 02/10/13 14:00:00, Duration: 30 day, Stop date: 03/12/13 13:59:00 Carlos Phelps nitroglycer in 0.4 mg sublingual tablet 02-10 19:00: 00 No Jacques Yen 0.4 mg, 1 tab, Route: SL, Drug form: TAB, Q5Min, PRN Chest Pain, Start date: 02/10/13 14:00:00, Duration: 30 day, Stop date: 03/12/13 13:59:00 Memgus Phelps metoprolol 02-10 18:58: 00 No Jacques Yen 50 mg, 1 tab, Route: PO, Drug form: ERTAB, Daily, Start date: 02/10/13 13:58:00, Duration: 30 day, Stop date: 03/12/13 9:00:00 Memgus Phelps Plavix 02-10 18:57: 00 No Jacques Yen 75 mg, 1 tab, Route: PO, Drug form: TAB, Daily, Start date: 02/10/13 13:57:00, Duration: 30 day, Stop date: 03/12/13 9:00:00 Memgus Phelps aspirin 325 mg tablet 02-10 18:57: 00 No Jacques Yen 325 mg, 1 tab, Route: PO, Drug form: TAB, ONCE, Start date: 02/10/13 13:57:00, Stop date: 02/10/13 13:57:00 Memgus Phelps Saline Flush 0.9% 02-10 18:22: 00 No Jacques Yen 5 ml, Route: IVP, Drug Form: INJ, Dosing Weight 108.636, kg, PRN, PRN Line Flush, Start date: 02/10/13 13:22:00, Duration: 30 day, Stop date: 03/12/13 13:21:00 Memgus victor hugo Phelps Lipitor 40 mg oral tablet 02-10 14:00: 00 Yes 40 mg, 1 tab, PO, Daily, 30 tab, Substituti on Allowed, TAB Memgus victor hugo Phelps Xanax 2 mg oral tablet 02-10 02:00: 00 Yes 2 mg, 1 tab, PO, TID, PRN, Anxiety, Substituti on Allowed [facility] Phelps Nitrostat 02-02 00:00: 00 Yes ZION JUDGE 1 tab(s) [facility] Phelps alprazolam 11-16 00:00: 00 Yes ZION JUDGE 1 tab(s) [facility] alprazolam 11-16 00:00: 00 Yes ZION YEN 1 tab(s) [facility] [place] Lipitor 11-16 00:00: 00 Yes ZION YEN 1 tab(s) [facility] [place] Toprol XL 2010-08 00:00: 00 Yes ZION YEN 1 tab(s) [facility] [place] Toprol XL 2010-08 00:00: 00 Yes ZION YEN 1 tab(s) [facility] [place] acetaminoph en-hydrocod one 325 mg-7.5 mg oral tablet 2010-08 19:52: 00 No Jacques Yen 1 tab, Route: PO, Drug Form: TAB, Q6H, PRN Pain, Start date: 07/22/11 13:52:00, Duration: 30 day, Stop date: 08/21/11 13:51:00 [facility] [place] BD Normal Saline Flush 2010-08 07:09: 00 No Jacques Yen 10 mL, Route: IV, Drug Form: INJ, PRN, PRN Line Flush, Start date: 07/22/11 1:09:00, Duration: 30 day, Stop date: 08/21/11 1:08:00 [facility] [place] Sodium Chloride 0.9% IV 2010-08 07:09: 00 No Jacques Yen 25 mL, Route: IV, PRN, Line Flush, Start date: 07/22/11 1:09:00, Duration: 30 day, Stop date: 08/21/11 1:08:00 [facility] l [facility] BD Normal Saline Flush 2010-08 06:00: 00 No Jacques Yen 10 mL, Route: IV, Drug Form: INJ, Q8H, Start date: 07/22/11 0:00:00, Duration: 30 day, Stop date: 08/20/11 16:00:00 [facility] Lipitor 2010-08 23:51: 00 No Jacques Yen 40 mg, 1 tab, Route: PO, Drug form: TAB, QPM, Start date: 07/21/11 17:51:00, Duration: 30 day, Stop date: 08/20/11 17:00:00 [facility] [place] aspirin 81 mg tablet, chewable 2010-08 23:50: 00 No Jacques Yen 81 mg, 1 tab, Route: CHEW, Drug form: CHEWTAB, Daily, Start date: 07/21/11 17:50:00, Duration: 30 day, Stop date: 08/20/11 9:00:00 Memgus Phelps Ativan 2010-08 23:50: 00 No Jacques Yen 0.5 mg, 1 tab, Route: PO, Drug form: TAB, Bedtime, PRN See Nurse's Notes, Start date: 07/21/11 17:50:00, Duration: 30 day, Stop date: 08/20/11 17:49:00 Carlos Phelps metoprolol 2010-08 23:49: 00 No Jacques Yen 25 mg, 1 tab, Route: PO, Drug form: ERTAB, BID, Start date: 07/21/11 17:49:00, Duration: 30 day, Stop date: 08/20/11 17:00:00 Memgus Phelps Plavix 2010-08 23:49: 00 No Jacques Yen 75 mg, 1 tab, Route: PO, Drug form: TAB, Daily, Start date: 07/21/11 17:49:00, Duration: 30 day, Stop date: 08/20/11 9:00:00 Memgus Phelps atropine 2010-08 23:48: 00 No Jacques Yen 1 mg, 10 mL, Route: IVP, Drug form: INJ, Q5Min, PRN Other -See Comment, Start date: 07/21/11 17:48:00, Duration: 30 day, Stop date: 08/20/11 17:47:00 Memgus Phelps epinephrine 2010-08 23:48: 00 No Jacques Yen 1 mg, 10 mL, Route: IVP, Drug form: INJ, Q5Min, PRN Asystole, Start date: 07/21/11 17:48:00, Duration: 30 day, Stop date: 08/20/11 17:47:00 Memgus gay [facility] nitroglycer in 0.4 mg sublingual tablet 2010-08 23:48: 00 No Jacques Yen 0.4 mg, 1 tab, Route: SL, Drug form: TAB, PRN, PRN Chest Pain, Start date: 07/21/11 17:48:00, Duration: 30 day, Stop date: 08/20/11 17:47:00 Carlos Phelps Cordarone 2010-09-20 23:48: 00 No Jacques Yen 150 mg, 3 mL, Route: IVPB, PRN, PRN See Nurse's Notes, Start date: 07/21/11 17:48:00, Duration: 30 day, Stop date: 08/20/11 17:47:00 Carlos Phelps Plavix 2008-0 11-14 00:00: 00 Yes ZION YEN 1 tab(s) Carlos Phelps lorazepam 1 mg tablet lorazepam 1 mg tablet No lorazepam 1 mg tablet [facility] methocarbam ol 500 mg tablet methocarbam ol 500 mg tablet No methocarba mol 500 mg tablet [facility] trazodone 50 mg tablet trazodone 50 mg tablet No trazodone 50 mg tablet [facility] albuterol sulfate HFA 90 mcg/actuati on aerosol inhaler albuterol sulfate HFA 90 mcg/actuati on aerosol inhaler No albuterol sulfate HFA 90 mcg/actuat ion aerosol inhaler [facility] amoxicillin 500 mg capsule TAKE ALL 4 CAPS 1 HOUR PRIOR TO DENTAL PROCEDURE. amoxicillin 500 mg capsule TAKE ALL 4 CAPS 1 HOUR PRIOR TO DENTAL PROCEDURE. No amoxicilli n 500 mg capsule TAKE ALL 4 CAPS 1 HOUR PRIOR TO DENTAL PROCEDURE. [facility] amoxicillin 875 mg tablet amoxicillin 875 mg tablet No amoxicilli n 875 mg tablet [facility] buspirone 10 mg tablet buspirone 10 mg tablet No buspirone 10 mg tablet [facility] diazepam 5 mg tablet diazepam 5 mg tablet No diazepam 5 mg tablet [facility] doxycycline hyclate 100 mg capsule doxycycline hyclate 100 mg capsule No doxycyclin e hyclate 100 mg capsule [facility] fluticasone propionate 50 mcg/actuati on nasal spray,suspe nsion fluticasone propionate 50 mcg/actuati on nasal spray,suspe nsion No fluticason e propionate 50 mcg/actuat ion nasal spray,susp ension [facility] hydrocodone 10 mg-acetamin ophen 325 mg tablet hydrocodone 10 mg-acetamin ophen 325 mg tablet No hydrocodon e 10 mg-acetami nophen 325 mg tablet [facility] lamotrigine 150 mg tablet lamotrigine 150 mg tablet No lamotrigin e 150 mg tablet [facility] lorazepam 1 mg tablet lorazepam 1 mg tablet No lorazepam 1 mg tablet [facility] meloxicam 7.5 mg tablet meloxicam 7.5 mg tablet No meloxicam 7.5 mg tablet [facility] methocarbam ol 500 mg tablet methocarbam ol 500 mg tablet No methocarba mol 500 mg tablet [facility] Paxlovid 300 mg (150 mg x 2)-100 mg tablets in a dose pack Paxlovid 300 mg (150 mg x 2)-100 mg tablets in a dose pack No Paxlovid 300 mg (150 mg x 2)-100 mg tablets in a dose pack [facility] trazodone 50 mg tablet trazodone 50 mg tablet No trazodone 50 mg tablet [facility] diazepam 5 mg tablet diazepam 5 mg tablet No diazepam 5 mg tablet [facility] lamotrigine 150 mg tablet lamotrigine 150 mg tablet No lamotrigin e 150 mg tablet [facility] lorazepam 1 mg tablet lorazepam 1 mg tablet No lorazepam 1 mg tablet [facility] albuterol sulfate HFA 90 mcg/actuati on aerosol inhaler albuterol sulfate HFA 90 mcg/actuati on aerosol inhaler No albuterol sulfate HFA 90 mcg/actuat ion aerosol inhaler [facility] diazepam 5 mg tablet diazepam 5 mg tablet No diazepam 5 mg tablet [facility] lamotrigine 150 mg tablet lamotrigine 150 mg tablet No lamotrigin e 150 mg tablet [facility] lorazepam 1 mg tablet lorazepam 1 mg tablet No lorazepam 1 mg tablet [facility] trazodone 50 mg tablet trazodone 50 mg tablet No trazodone 50 mg tablet [facility] albuterol sulfate HFA 90 mcg/actuati on aerosol inhaler albuterol sulfate HFA 90 mcg/actuati on aerosol inhaler No albuterol sulfate HFA 90 mcg/actuat ion aerosol inhaler [facility] diazepam 5 mg tablet diazepam 5 mg tablet No diazepam 5 mg tablet [facility] doxycycline hyclate 100 mg capsule doxycycline hyclate 100 mg capsule No doxycyclin e hyclate 100 mg capsule [facility] lamotrigine 150 mg tablet lamotrigine 150 mg tablet No lamotrigin e 150 mg tablet [facility] Immunizations Ordered Immunization Name Filled Immunization Name Date Status Comments Source Influenza Virus Vaccine 2019-09-22 00:00:00 Completed [facility] Influenza Virus Vaccine 2019-09-22 00:00:00 Completed [facility] Influenza Virus Vaccine 2019-09-22 00:00:00 Completed [facility] Influenza Virus Vaccine 2019-09-22 00:00:00 Completed [facility] Influenza Virus Vaccine 2019-09-22 00:00:00 Completed [facility] Influenza Virus Vaccine Unknown Completed [facility] Vital Signs Vital Name Observation Time Observation Value Comments S raudelsemaj Systolic blood pressure 2024-05-22 15:46:00 158 mm[Hg] [facility] Diastolic blood pressure 2024-05-22 15:46:00 80 mm[Hg] [facility] Body height 2024-05-22 15:46:00 177.8 cm [facility] Body weight 2024-05-22 15:46:00 111.585 kg [facility] BMI 2024-05-22 15:46:00 35.30 kg/m2 [facility] Systolic blood pressure 2024-05-22 15:46:00 158 mm[Hg] [facility] Diastolic blood pressure 2024-05-22 15:46:00 80 mm[Hg] [facility] Body height 2024-05-22 15:46:00 177.8 cm [facility] Body weight 2024-05-22 15:46:00 111.585 kg [facility] BMI 2024-05-22 15:46:00 35.30 kg/m2 Andrei P[facility]ps [facility] BMI (Body Mass Index) 2023-11-08 00:00:00 30.9 kg/m2 [facility] Body Weight 2023-11-08 00:00:00 209 [lb_av] [facility] Height 2023-11-08 00:00:00 69 [in_i] [facility] Height 2022-12-28 00:00:00 69 [in_i] [facility] BMI (Body Mass Index) 2022-12-28 00:00:00 30.9 kg/m2 [facility] Body Weight 2022-12-28 00:00:00 209 [lb_av] [facility] Height 2022-11-23 00:00:00 69 [in_i] [facility] BMI (Body Mass Index) 2022-11-23 00:00:00 30.9 kg/m2 [facility] Body Weight 2022-11-23 00:00:00 209 [lb_av] [facility] Systolic blood pressure 2019-11-28 16:50:00 138 mm[Hg] [facility] Diastolic blood pressure 2019-11-28 16:50:00 76 mm[Hg] [facility] Heart rate 2019-11-28 16:50:00 63 /min [facility] Body temperature 2019-11-28 16:50:00 36.11 [facility] Respiratory rate 2019-11-28 16:50:00 20 /min [facility] Oxygen saturation in Arterial blood by Pulse oximetry 2019-11-28 16:50:00 97 /min [facility] Body height 2019-11-28 01:09:00 177.8 cm [facility] Body weight 2019-11-28 01:09:00 103.42 kg bedscale [facility] BMI 2019-11-28 01:09:00 32.71 kg/m2 [facility] Systolic blood pressure 2019-11-28 16:50:00 138 mm[Hg] [facility] Diastolic blood pressure 2019-11-28 16:50:00 76 mm[Hg] [facility] Heart rate 2019-11-28 16:50:00 63 /min [facility] Body temperature 2019-11-28 16:50:00 36.11 Neha [facility] Respiratory rate 2019-11-28 16:50:00 20 /min [facility] Oxygen saturation in Arterial blood by Pulse oximetry 2019-11-28 16:50:00 97 /min [facility] Body height 2019-11-28 01:09:00 177.8 cm [facility] Body weight 2019-11-28 01:09:00 103.42 kg [facility] BMI 2019-11-28 01:09:00 32.71 kg/m2 [facility] Systolic (mm Hg) 2020-08-30 15:45:00 [facility] Weight 2020-08-30 15:45:00 [facility] Height 2020-08-30 15:45:00 [facility] [place] Temperature Oral (F) 2020-08-30 15:45:00 97.9 F [facility] [place] Diastolic (mm Hg) 2020-08-30 15:45:00 [facility] [place] Systolic (mm Hg) 2019-10-17 15:30:00 [facility] Weight 2019-10-17 15:30:00 [facility] Height 2019-10-17 15:30:00 [facility] [place] Diastolic (mm Hg) 2019-10-17 15:30:00 [facility] Systolic (mm Hg) 2018-09-22 22:15:00 [facility] Weight 2018-09-22 22:15:00 [facility] Height 2018-09-22 22:15:00 [facility] Diastolic (mm Hg) 2018-09-22 22:15:00 [facility] Weight 2018-03-30 15:00:00 [facility] Height 2018-03-30 15:00:00 [facility] Heart Rate 2017-02-28 16:52:00 [facility] Respitory Rate 2017-02-28 16:52:00 [facility] Systolic (mm Hg) 2017-02-28 16:52:00 [facility] Diastolic (mm Hg) 2017-02-28 16:52:00 [facility] Temperature Oral (F) 2017-02-28 16:52:00 98 F [facility] Heart Rate 2017-02-28 12:31:00 [facility] Systolic (mm Hg) 2017-02-28 12:31:00 [facility] Diastolic (mm Hg) 2017-02-28 12:31:00 [facility] Respitory Rate 2017-02-28 12:31:00 [facility] Temperature Oral (F) 2017-02-28 12:31:00 98.6 F [facility] Respitory Rate 2017-02-28 08:52:00 [facility] Heart Rate 2017-02-28 08:52:00 [facility] Temperature Oral (F) 2017-02-28 08:52:00 97.9 F [facility] Systolic (mm Hg) 2017-02-28 08:52:00 [facility] Diastolic (mm Hg) 2017-02-28 08:52:00 [facility] Height 2017-02-27 08:51:00 177.8 cm [facility] BMI Calculated 2017-02-27 08:51:00 [facility] Weight 2017-02-27 08:51:00 [facility] BMI Calculated 2017-02-27 02:55:00 [facility] Weight 2017-02-27 02:55:00 [facility] Height 2017-02-27 02:55:00 177.8 cm [facility] Systolic (mm Hg) 2016-10-07 22:00:00 [facility] Weight 2016-10-07 22:00:00 [facility] Height 2016-10-07 22:00:00 [facility] Diastolic (mm Hg) 2016-10-07 22:00:00 [facility] Systolic (mm Hg) 2016-06-22 20:45:00 [facility] Weight 2016-06-22 20:45:00 [facility] Height 2016-06-22 20:45:00 [facility] Diastolic (mm Hg) 2016-06-22 20:45:00 [facility] Systolic (mm Hg) 2014-11-27 20:30:00 [facility] Weight 2014-11-27 20:30:00 [facility] Height 2014-11-27 20:30:00 [facility] Diastolic (mm Hg) 2014-11-27 20:30:00 [facility] Systolic (mm Hg) 2014-05-17 19:45:00 [facility] Weight 2014-05-17 19:45:00 [facility] Height 2014-05-17 19:45:00 [facility] Diastolic (mm Hg) 2014-05-17 19:45:00 [facility] Diastolic (mm Hg) 2013-02-11 16:55:00 [facility] Respitory Rate 2013-02-11 16:55:00 [facility] Systolic (mm Hg) 2013-02-11 16:55:00 [facility] Heart Rate 2013-02-11 16:55:00 [facility] Temperature Oral (F) 2013-02-11 16:55:00 97.9 F [facility] Heart Rate 2013-02-11 12:40:00 [facility] Respitory Rate 2013-02-11 12:40:00 [facility] Temperature Oral (F) 2013-02-11 12:40:00 97.7 F [facility] Systolic (mm Hg) 2013-02-11 12:40:00 [facility] Diastolic (mm Hg) 2013-02-11 12:40:00 [facility] Diastolic (mm Hg) 2013-02-11 09:00:00 [facility] Systolic (mm Hg) 2013-02-11 09:00:00 [facility] Temperature Oral (F) 2013-02-11 09:00:00 98.1 F [facility] Respitory Rate 2013-02-11 09:00:00 [facility] Heart Rate 2013-02-11 09:00:00 [facility] Height 2013-02-10 18:44:00 175.26 cm [facility] Weight 2013-02-10 18:44:00 [facility] Respitory Rate 2011-07-23 13:20:00 [facility] Systolic (mm Hg) 2011-07-23 13:20:00 [facility] Temperature Oral (F) 2011-07-23 13:20:00 98.0 F [facility] Heart Rate 2011-07-23 13:20:00 [facility] Diastolic (mm Hg) 2011-07-23 13:20:00 [facility] Temperature Oral (F) 2011-07-23 10:00:00 97.8 F [facility] Heart Rate 2011-07-23 10:00:00 [facility] Systolic (mm Hg) 2011-07-23 10:00:00 [facility] Respitory Rate 2011-07-23 10:00:00 [facility] Diastolic (mm Hg) 2011-07-23 10:00:00 [facility] Temperature Oral (F) 2011-07-23 06:00:00 98.1 F [facility] Heart Rate 2011-07-23 06:00:00 [facility] Diastolic (mm Hg) 2011-07-23 06:00:00 [facility] Systolic (mm Hg) 2011-07-23 06:00:00 [facility] Respitory Rate 2011-07-23 06:00:00 [facility] Weight 2011-07-21 22:52:00 [facility] Height 2011-07-21 22:52:00 175.26 cm [facility] Procedures Procedure Date / Time Performed Performing Clinician Source ECG 12-LEAD 2024-05-22 16:34:52 Jacques Judge [facility] XR, hip + pelvis, unilateral, 2 or 3 view 2023-11-08 00:00:00 [facility] Total Replacement of Right Hip Joint 2022-12-15 00:00:00 [facility] [id number] 2022-12-15 00:00:00 [facility] XR, hip + pelvis, unilateral, 2 or 3 view 2022-11-23 00:00:00 [facility] ASSIGNMENT OF BENEFITS 2020-08-01 21:07:31 Docto r Unassigned, [facility] CT THORAX W CONTRAST 2019-11-28 16:40:00 Luciano Ocasio [facility] ECHO ROUTINE W/DOPPLER COLOR 2019-11-28 14:13:28 Vonda Garcia [facility] TROPONIN I 2019-11-28 10:35:00 Vonda Garcia [facility] BASIC METABOLIC PANEL (NA, K, CL, CO2, GLUCOSE, BUN, CREATININE, CA) 2019-11-28 10:35:00 Vonda Garcia [facility] CBC WITH DIFFERENTIAL 2019-11-28 10:35:00 [facility] 2019-11-28 03:56:00 Vonda Garcia [facility] URINALYSIS 2019-11-28 03:51:00 [facility]EN FOR GROUP A 2019-11-27 23:13:00 Juan Antoine [facility] ADC,CLC OR LCC ONLY - INFLUENZA A & B DIRECT ANTIGEN 2019-11-27 23:13:00 Juan Antoine [facility] XR CHEST 1 VW COVID 2019-11-27 22:06:05 Luis Enrique [facility] MAGNESIUM 2019-11-27 22:04:00 Vonda Garcia [facility] TROPONIN I 2019-11-27 22:04:00 Juan Antoine [facility] THYROID STIMULATING HORMONE 2019-11-27 22:04:00 Vonda Garcia [facility] HEPATIC FUNCTION PANEL (89587) (ALB,T.PRO,BILI T,BU/BC,ALT,AST,ALK PHOS) 2019-11-27 22:04:00 Juan Antoine [facility] BASIC METABOLIC PANEL (NA, K, CL, CO2, GLUCOSE, BUN, CREATININE, CA) 2019-11-27 22:04:00 Juan Antoine [facility] LIPID PANEL ([id number])(TOTAL CHOLESTEROL, TRIGLYCERIDES, HDL) 2019-11-27 22:04:00 Vonda Garcia [facility] CBC WITH DIFFERENTIAL 2019-11-27 22:04:00 Juan Antoine [facility] PROTHROMBIN TIME / INR 2019-11-27 22:04:00 Boogie Antoine [facility] ACTIVATED PARTIAL THRMPLAS PEPE 2019-11-27 22:04:00 Juan Antoine [facility] N-TERMINAL PRO-BNP 2019-11-27 22:04:00 Juan Antoine [facility] CORONAVIRUS COVID-19 TESTING 2019-11-27 22:04:00 Juan Antoine [facility] EKG-12 LEAD 2019-11-27 21:51:35 Juan Antoine [facility] EKG-12 LEAD 2019-11-27 21:43:44 [facility] Placement of stent [facility] Placement of stent [facility] Plan of Care Planned Activity Planned Date Details Comments Source Instructions [facility] Encounters Start Date/Time End Date/Time Encounter Type Admission Type Attending [facility] Care Department Encounter ID Source 2021-12-03 10:15:00 Inpatient Phan Robles [facility] [id number] [facility] 2024-10-16 00:00:00 2024-10-16 09:25:18 [facility] 1.2.840.114 350.1.13.70 8.2.7.2.686 [id number] [facility] 2024-10-05 00:00:00 2024-10-05 09:49:31 [facility] 1.2.840.114 350.1.13.70 8.2.7.2.686 [id number] [facility] 2024-07-20 00:00:00 2024-07-24 09:12:03 [facility] 1.2.840.114 350.1.13.70 8.2.7.2.686 [id number] [facility] 2024-05-30 09:54:23 2024-05-30 13:20:36 Outpatient Elective MHEOUT MHEOUT [id number] [facility] 2024-05-22 15:21:54 2024-05-22 17:12:27 Outpatient Elective JCAQUES JUDGE [facility] M[facility]OUT [id number] [facility] 2024-05-22 15:30:00 2024-05-22 15:45:00 Office Visit Jacques Judge Ecg, Cc [facility] 1.2.840.114 350.1.13.70 8.2.7.2.686 [id number] Carlos Phelps [facility] 2024-02-11 00:00:00 2024-02-11 09:22:13 Refill Jacques Judge [facility] 1.2.840.114 350.1.13.70 8.2.7.2.686 [id number] Carlos Phelps [facility] 2023-11-08 00:00:00 2023-11-08 00:00:00 Outpatient FOG_Torres_ Veroni_NP AOSM AOSM [id number] [facility] 2023-11-08 00:00:00 2023-11-08 00:00:00 Phan Blanton MD: [address] [place] [address] , Ph. [phone] [place]OSM [place] [facility] [place]c [facility] [id number] [facility] 2023-03-25 00:00:00 2023-03-25 00:00:00 Outpatient FOG_Torres_ Veroni_NP AOSM AOSM [id number] [facility] 2023-03-25 00:00:00 2023-03-25 00:00:00 Outpatient FOG_Torres_ Veroni_NP AOSM AOSM [id number] [facility] 2023-02-04 00:00:00 2023-02-04 00:00:00 Outpatient FOG_Torres_ Veroni_NP AOSM AOSM [id number] [facility] 2023-01-01 00:00:00 2023-01-01 00:00:00 Outpatient FOG_Torres_ Veroni_NP AOSM AOSM [id number] [facility] 2023-01-01 00:00:00 2023-01-01 00:00:00 Outpatient FOG_Torres_ Veroni_NP AOSM AOSM [id number] [facility] 2023-01-01 00:00:00 2023-01-01 00:00:00 Outpatient FOG_Torres_ Veroni_NP AOSM AOSM [id number] [facility] 2022-12-28 00:00:00 2022-12-28 00:00:00 Phan Blanton MD: [address] [place] [address] , Ph. [phone] [place] [facility] [place] [id number] [facility] 2022-12-17 00:00:00 2022-12-17 00:00:00 Outpatient FOG_Torres_ Veroni_NP AOSM AOSM [id number] [facility] 2022-12-17 00:00:00 2022-12-17 00:00:00 Outpatient FOG_Torres_ Veroni_NP AOSM AOSM [id number] [facility] 2022-12-17 00:00:00 2022-12-17 00:00:00 Outpatient FOG_Torres_ Veroni_NP AOSM AOSM [id number] [facility] 2022-12-15 07:37:00 2022-12-16 11:49:00 Inpatient Phan Robles [facility] [id number] [address] [place] [address] [facility] 2022-12-15 00:00:00 2022-12-15 00:00:00 Phan Blanton MD: [address] [place] [address] , Ph. [phone] [place] [facility] [id number] [facility] 2022-12-09 00:00:00 2022-12-09 00:00:00 Outpatient FOG_Torres_ Veroni_NP AOSM AOSM [id number] [facility] 2022-12-09 00:00:00 2022-12-09 00:00:00 Outpatient FOG_Torres_ Veroni_NP AOSM AOSM [id number] [facility] 2022-12-05 00:00:00 2022-12-05 00:00:00 Outpatient FOG_Torres_ Veroni_NP AOSM AOSM [id number] [facility] 2022-12-05 00:00:00 2022-12-05 00:00:00 Outpatient FOG_Torres_ Veroni_NP AOSM AOSM [id number] [facility] 2022-12-03 00:00:00 2022-12-03 00:00:00 Outpatient FOG_Torres_ Veroni_NP AOSM AOSM [id number] [facility] 2022-11-26 00:00:00 2022-11-26 00:00:00 Outpatient FOG_Torres_ Veroni_NP AOSM AOSM [id number] [facility] 2022-11-24 19:53:00 2022-11-24 19:53:00 Outpatient Phan Blanton [facility] [id number] [facility] 2022-11-24 08:00:00 2022-11-24 16:00:00 Outpatient EL Phan Blanton [facility] 3[facility] [id number] [facility] 2022-11-24 00:00:00 2022-11-24 00:00:00 Outpatient FOG_Torres_ Veroni_NP AOSM AOSM [id number] [facility] 2022-11-23 00:00:00 2022-11-23 00:00:00 Outpatient FOG_Torres_ Veroni_NP AOSM AOSM [id number] [facility] 2022-11-23 00:00:00 2022-11-23 00:00:00 Phan Blanton MD: [address] [place] [address] , Ph. [phone] [place] [facility] [place] [id number] [facility] 2022-11-19 00:00:00 2022-11-19 00:00:00 Outpatient FOG_Torres_ Veroni_NP AOSM AOSM [id number] [facility] 2022-01-09 00:00:00 2022-01-09 00:00:00 Outpatient FOG_Torres_ Veroni_NP AOSM AOSM [id number] [facility] 2022-01-09 00:00:00 2022-01-09 00:00:00 Outpatient FOG_Torres_ Veroni_NP AOSM AOSM [id number] [facility] 2021-05-13 17:10:00 2021-05-13 17:10:00 Outpatient Ton Ríos [facility] LABO [id number] [facility] 2021-05-13 11:21:00 2021-05-13 11:21:00 Outpatient Ton Ríos [facility] SIST [id number] [facility] 2021-05-20 08:30:00 2021-05-13 08:30:00 Inpatient Ton Winn [facility] [id number] [facility] 2021-04-16 10:47:00 2021-04-16 10:47:00 Outpatient Ton Winn [facility] [id number] [facility] 2020-09-10 13:45:00 2020-09-11 10:25:00 Outpatient JACQUES JUDGE [facility] CAR [address] [facility] [place] [facility]ita [facility] 2020-08-07 12:30:00 2020-08-07 12:30:00 Outpatient R [facility] [id number] [facility] 2020-08-07 12:12:25 2020-08-07 12:27:25 Global Risk Management Director Visit 1, Adc Lab [facility] 1.2.840.114 350.1.13.10 4.2.7.2.686 [id number] 2020-08-07 12:12:25 2020-08-07 12:27:25 Global Risk Management Director Visit 1, Adc Lab [facility] 1.2.840.114 350.1.13.10 4.2.7.2.686 [id number] [facility] 2020-08-07 00:00:00 2020-08-07 00:00:00 Patient Secure Msg Doctor Unassigned, [facility] 1.2.840.114 350.1.13.10 4.2.7.2.686 [id number] [facility] 2020-08-01 15:30:00 2020-08-01 15:30:00 Outpatient Hector JESSICA MEDINA [facility] [id number] [facility] 2020-08-01 15:05:30 2020-08-01 15:20:30 Laboratory Only Only, [facility] Test [facility] 1.2.840.114 350.1.13.10 4.2.7.2.686 [id number] 2020-08-01 15:05:30 2020-08-01 15:20:30 Laboratory Only Only, [facility] Test Meredithcamden [facility] 1.2.840.114 350.1.13.10 4.2.7.2.686 [id number] [facility] 2020-08-01 00:00:00 2020-08-01 00:00:00 Orders Only Doctor Unassigned, [facility] 1.2840.114 350.1.13.10 4.2.7.2.686 [id number] 2020-08-01 00:00:00 2020-08-01 00:00:00 Orders Only Doctor Unassigned, [facility] 1.2840.114 350.1.13.10 4.2.7.2.686 [id number] [facility] 2020-03-06 13:00:00 2020-03-09 01:01:56 [id number] [facility] 2020-03-04 13:38:00 2020-03-04 13:38:00 Outpatient Ton Ríos [facility] SIST [id number] [facility] 2020-02-13 15:30:00 2020-02-13 15:30:00 Outpatient [facility] [id number] [facility] 2020-01-22 09:30:00 2020-01-22 09:30:00 Out[facility] [id number] [facility] 2019-12-06 00:00:00 2019-12-06 00:00:00 Telephone Zay Low [facility] 1..840.114 350.1.13.10 4.2.7.2.686 [id number] 2019-12-06 00:00:00 2019-12-06 00:00:00 Telephone Zay Low [facility] 1..840.114 350.1.13.10 4.2.7.2.686 [id number] [facility] 2019-11-27 16:20:50 2019-11-28 13:37:00 Emergency Juan Antoine Wei [facility] 1.2.840.114 350.1.13.10 4.2.7.2.686 [id number] 2019-11-27 16:20:50 2019-11-28 13:37:00 Emergency Juan Antoine Wei [facility] 1.2.840.114 350.1.13.10 4.2.7.2.686 [id number] [facility] 2019-11-27 16:20:50 2019-11-28 13:37:00 Outpatient X LUCIANO OCASIO [facility] [id number] [facility] 2017-02-27 02:56:00 2017-02-28 18:30:00 Inpatient nullFlavo [facility] [id number] Carlos gay [place] 2013-02-10 12:44:00 2013-02-11 13:03:00 OU nullFlavo r [facility] [id number] Carlos Phelps 2011-07-22 14:35:00 2011-07-23 09:15:00 CHACHA nullFlavo r [facility] [id number] Results Test Description Test Time Test Comments Results Resul t Comments Source - XR PELVIS 1/2 VIEWS 2022-12-16 07:12:00 [facility] : 1955 Sex: M Patient Name: ALCON ROMANO Unit No: [id number] EXAMS: CPT CODE: [id number] XR PELVIS 1/2 VIEWS 31310 INTRAOPERATIVE LEG LENGTH FILM COMMENT: COMPARISON: No prior exams available. In progress right hip replacement is noted. AP portable right hip COMMENT: Patient is status post joint replacement which is articulating normally. at 0712 Reported and signed by: Ton Vann MD CC: Phan Blanton MD Technologist: TERESSA RAMIREZ ARRT Transcribed D/ (711) Camilla [facility] NAME: ALCON ROMANO [address] [facility] PHYS: Phan Nieto MD : 1955 AGE: 67 SEX: M [place] [address] LOC: Y.515 A PHONE #: [phone] EXAM DATE: 12/15/2022 STATUS: ADM IN FAX #: [phone] RAD #: D/C DT PAGE 1 Signed Report Patient Name: ALCON ROMANO Unit No: [id number] EXAMS: CPT CODE: [id number] XR PELVIS 1/2 VIEWS 14857 (Continued) Orig Print D/T: S: 12/16/2022 (714) [facility] NAME: ALCON ROMANO [address] [facility] PHYS: Phan Nieto MD : 1955 AGE: 67 SEX: M [place] [address] LOC: Y.515 A PHONE #: [phone] EXAM DATE: 12/15/2022 STATUS: ADM IN FAX #: [phone] RAD #: D/C DT PAGE 2 Signed Report - XR PELVIS 1/2 VIEWS 2022-12-16 07:12:00 [facility] 1955 Sex: M Patient Name: ALCON ROMANO Unit No: [id number] EXAMS: CPT CODE: [id number] XR PELVIS 1/2 VIEWS 04947 INTRAOPERATIVE LEG LENGTH FILM COMMENT: COMPARISON: No prior exams available. In progress right hip replacement is noted. AP portable right hip COMMENT: Patient is status post joint replacement which is articulating normally. at 0712 Reported and signed by: Ton Vann MD CC: Phan Blanton MD Technologist: Francisco Barreto(R) Transcribed D/ (07) YadiL [facility] NAME: ALCON ROMANO [address] [place] [address] PHYS: Phan Nieto MD : 1955 AGE: 67 SEX: M [place], [place] [address] LOC: Y.515 A PHONE #: [phone] EXAM DATE: 12/15/2022 STATUS: ADM IN FAX #: [phone] RAD #: D/C DT PAGE 1 Signed Report Patient Name: ALCON ROMANO Unit No: [id number] EXAMS: CPT CODE: [id number] XR PELVIS 1/2 VIEWS 62305 (Continued) Orig Print D/T: S: 12/16/2022 (0715) [facility] NAME: ALCON ROMANOTON [address] [place] [address] PHYS: Phan Nieto MD : 1955 AGE: 67 SEX: M [place], [place] [address] LOC: Y.515 A PHONE #: [phone] EXAM DATE: 12/15/2022 STATUS: ADM IN FAX #: [phone] RAD #: D/C DT PAGE 2 Signed Report SPECIMEN COMMENT: POD #1Hemoglobin and Hematocrit panel - [id number] 04:00:00* Test Item Value Reference Range Interpretation Comme nts hemoglobin (test code = hemoglobin) 13.1 g/dL 12-16 hematocrit (test code = hematocrit) 39.0 % 37-47 performing lab: (test code = performing lab:) [facility] MedicinePROTHROMBIN [id number] 17:33:00* Test Item Value Reference Range Interpretation Comme nts PROTHROMBIN TIME PATIENT (test code = PTP) 11.9 secs 10.1-12.5 N Please note new normal range. INTERNATIONAL NORMAL RATIO (test code = INR) 1.03 <2.0 RECOMMENDED THER APEUTIC RANGE FOR ORAL ANTICOAGULANTTREATMENT: CONDITION INRProphylaxis of venous thrombosis in 2.0 - 3.0 high-risk medical or surgical patientsTreatment of venous thrombosis 2.0 - 3.0Prevention of embolism 2.0 - 3.0Prevention of recurrent embolism, or 3.0 - 4.5 patients with mechanical prosthetic intravascular valves IS PATIENT ON ANTICOAGULANTS ? YLIST ANTICOAGULANT/ANTI PLT MEDICATION : Clopidogrel (Anti-PLT)HasLab been notified if Patient is on Heparin Drip? NO THROMBOPLASTIN TIME [id number] 17:33:00* Test Item Value Reference Range Interpretation Comme nts PTT ACTIVATED (test code = APTT) 32.0 secs 24.9-37.0 N Please note new normal range. IS PATIENT ON ANTICOAGULANTS ? YLIST ANTICOAGULANT/ANTI PLT MEDICATION : Clopidogrel (Anti-PLT)Has Lab been notified if Patient is on Heparin Drip? NO COMPREHENSIVE METABOLIC [id number] 17:32:00* Test Item Value Reference Range Interpretation Comme nts SODIUM (test code = NA) 139 mmol/L 136-145 N POTASSIUM (test code = K) 4.7 mmol/L 3.5-5.1 N CHLORIDE (test code = CL) 102.0 mmol/L 98-107 N CARBON DIOXIDE (test code = CO2) 27.9 mmol/L 21-32 N GLUCOSE (test code = GLU) 86 mg/dL 70-110 N BLOOD UREA NITROGEN (test code = BUN) 13 mg/dL 7-18 N GLOMERULAR FILTRATION RATE (test code = GFR) 58.4 >60 The Glomerular Filtration Rate is a calculated parameterbased on serum Creatinine, patient age and sex. GFR valuesless than 60 mL/min/1.73 square meters are indicative ofChronic Kidney Disease. Values less than 15 mL/min/1.73square meters indicate Kidney failure. The calculation forGFR is based on the CKD-EPI (202) calculation. This formulais race indifferent and is the recommended formula for GFRby the National Kidney Foundation for Adults.The GFR will not calculate if the sex is unknown or if thepatient's age is <18 years. CREATININE (test code = CREAT) 1.34 mg/dL 0.55-1.30 H TOTAL PROTEIN (test code = PROT) 7.6 g/dL 6.4-8.2 N ALBUMIN (test code = ALB) 4.5 g/dL 3.4-5.0 N GLOBULIN (test code = GLOB) 3.1 g/dL 2.2-4.2 N ALBUMIN/GLOBULIN RATIO (test code = A/G) 1.5 0.7-2.0 N CALCIUM (test code = CA) 9.4 mg/dL 8.2-10.1 N BILIRUBIN TOTAL (test code = BILT) 0.50 mg/dL 0.2-1.00 N SGOT/AST (test code = AST) 24.0 U/L 15-37 N SGPT/ALT (test code = ALT) 39.0 U/L 12-78 N ALKALINE PHOSPHATASE TOTAL (test code = ALKP) 74 U/L 46-116 N CBC W/AUTO [id number] 17:07:00* Test Item Value Reference Range Interpretation Comme nts WHITE BLOOD CELL (test code = WBC) 7.9 K/mm3 5.7-10.5 N RED BLOOD CELL (test code = RBC) 5.07 M/mm3 4.2-5.4 N HEMOGLOBIN (test code = HGB) 15.2 g/dL 12-16 N HEMATOCRIT (test code = HCT) 45.0 % 37-47 N MEAN CELL VOLUME (test code = MCV) 89 fL 80-98 N MEAN CELL HGB (test code = MCH) 30.0 pg 27-34 N MEAN CELL HGB CONCENTRATION (test code = MCHC) 33.8 g/dL 30.8-34.1 N RED CELL DISTRIBUTION WIDTH (test code = RDW) 14.0 % 11-16 N PLT (test code = PLT) 281 K/mm3 130-400 N MEAN PLATELET VOLUME (test c ode = MPV) 10.7 fL 8.9-12.1 N NEUTROPHIL % (test code = NT%) 58.9 % 45-70 N LYMPHOCYTE % (test code = LY%) 27.9 % 20-40 N MONOCYTE % (test code = MO%) 9.0 % 3-10 N EOSINOPHIL % (test code = EO%) 3.4 % 1-5 N BASOPHIL % (test code = BA%) 0.5 % 0.0-1.1 N NEUTROPHIL # (test code = NT#) 4.67 K/mm3 2.00-7.50 N LYMPHOCYTE # (test code = LY#) 2.21 K/mm3 1.50-4.00 N MONOCYTE # (test code = MO#) 0.71 K/mm3 0.2-0.8 N EOSINOPHIL # (test code = EO#) 0.27 K/mm3 0.04-0.4 N BASOPHIL # (test code = BA#) 0.04 K/mm3 0.02-0.10 N MANUAL DIFF REQUIRED (test c ode = MDIFF) NO MANUAL DIFF NUCLEATED RED BLOOD CELL (te st code = NRBC) 0 % 0-0 N CBC W Auto Differential panel - [id number] 15:59:00* Test Item Value Reference Range Interpretation Comme nts white blood cell (test code = white blood cell) 7.9 K/mm3 5.7-10.5 red blood cell (test code = red blood cell) 5.07 M/mm3 4.2-5.4 hemoglobin (test code = hemoglobin) 15.2 g/dL 12-16 hematocrit (test code = hematocrit) 45.0 % 37-47 mean cell volume (test code = mean cell volume) 89 fL 80-98 mean cell HGB (test code = m cristiano cell HGB) 30.0 pg 27-34 mean cell HGB concentration (test code = mean cell HGB concentration) 33.8 g/dL 30.8-34.1 red cell distribution width (test code = red cell distribution width) 14.0 % 11-16 plt (test code = plt) 281 K/mm3 130-400 mean platelet volume (test c ode = mean platelet volume) 10.7 fL 8.9-12.1 neutrophil % (test code = neutrophil %) 58.9 % 45-70 lymphocyte % (test code = lymphocyte %) 27.9 % 20-40 monocyte % (test code = mono cyte %) 9.0 % 3-10 eosinophil % (test code = eosinophil %) 3.4 % 1-5 basophil % (test code = baso demetris %) 0.5 % 0.0-1.1 neutrophil # (test code = neutrophil #) 4.67 K/mm3 2.00-7.50 lymphocyte # (test code = lymphocyte #) 2.21 K/mm3 1.50-4.00 monocyte # (test code = mono cyte #) 0.71 K/mm3 0.2-0.8 eosinophil # (test code = eosinophil #) 0.27 K/mm3 0.04-0.4 basophil # (test code = baso demetris #) 0.04 K/mm3 0.02-0.10 manual diff required (test c ode = manual diff required) no manual diff nucleated red blood cell (te st code = nucleated red blood cell) 0 % 0-0 performing lab: (test code = performing lab:) [facility] 2000 [facility] - Serum or [id number] 15:59:00* Test Item Value Reference Range Interpretation Comme nts sodium (test code = sodium) 139 mmol/L 136-145 potassium (test code = potassium) 4.7 mmol/L 3.5-5.1 chloride (test code = chloride) 102.0 mmol/L 98-107 carbon dioxide (test code = carbon dioxide) 27.9 mmol/L 21-32 glucose (test code = glucose) 86 mg/dL 70-110 blood urea nitrogen (test co de = blood urea nitrogen) 13 mg/dL 7-18 glomerular filtration rate ( test code = glomerular filtration rate) 58.4 >60 creatinine (test code = creatinine) 1.34 mg/dL 0.55-1.30 H total protein (test code = t otal protein) 7.6 g/dL 6.4-8.2 albumin (test code = albumin) 4.5 g/dL 3.4-5.0 globulin (test code = globulin) 3.1 g/dL 2.2-4.2 albumin/globulin ratio (test code = albumin/globulin ratio) 1.5 0.7-2.0 calcium (test code = calcium) 9.4 mg/dL 8.2-10.1 bilirubin total (test code = bilirubin total) 0.50 mg/dL 0.2-1.00 SGOT/AST (test code = SGOT/AST) 24.0 U/L 15-37 SGPT/ALT (test code = SGPT/ALT) 39.0 U/L 12-78 alkaline phosphatase total ( test code = alkaline phosphatase total) 74 U/L 46-116 performing lab: (test code = performing lab:) [facility] (PT)2022-11-24 15:59:00* Test Item Value Reference Range Interpretation Comme nts prothrombin time patient (te st code = prothrombin time patient) 11.9 secs 10.1-12.5 international normal ratio ( test code = international normal ratio) 1.03 <2.0 performing lab: (test code = performing lab:) [facility] Networkthromboplastin time [id number] 15:59:00 * Test Item Value Reference Range Interpretation Comme nts PTT activated (test code = P TT activated) 32.0 secs 24.9-37.0 performing lab: (test code = performing lab:) [facility] NetworkMethicillin resistant Staphylococcus aureus [Presence] in Specimen by Organism specific [id number] 15:59:00* Test Item Value Reference Range Interpretation Comme nts MRSA surveillance screen (te st code = MRSA surveillance screen) see below performing lab: (test code = performing lab:) [facility] Networkmssa PCR surveillance [id number] 15:59:00 * Test Item Value Reference Range Interpretation Comme nts mssa PCR surveillance screen (test code = mssa PCR surveillance screen) see below performing lab: (test code = performing lab:) [facility]- XR SPINE 1 V SPEC [id number] 12:18:00 [facility] : 1955 Sex: M Patient Name: ALCON ROMANO Unit No: [id number] EXAMS: CPT CODE: [id number] XR SPINE 1 V SPEC LEVEL 11072 2 LATERAL INTRAOPERATIVE VIEWS OF THE LUMBAR SPINE Image 1: Surgical marker is at the S0kfkpg Image 2: Surgical instrumentation is at L3 at 1218 Reported and signed by: Silverio Sosa M.D. CC: Ton Ríos M.D. Technologist: IRIS SORIANO (RT.R) Transcribed D/ (1218) [facility] NAME: ALCON ROMANO [address] [place] [address] PHYS: Ton Schwartz MD : 1955GE: 66 SEX: M [place] [address] LOC: YKarlaCHAUNCEY PHONE #: [phone] EXAM DATE: 05/20/2021 STATUS: [facility] FAX #: [phone] RAD #: D/C DT PAGE 1 Signed Report Patient Name: ALCON RAMIREZ Unit No: [id number] EXAMS: CPT CODE: [id number] XR SPINE 1 V SPEC LEVEL 68429 (Continued) Orig Print D/T: S: 05/21/2021 (1221) [facility] NAME: ALCON ROMANO [address] [place] [address] PHYS: Ton Schwartz MD : 1955 AGE: 66 SEX: M [place] [address] LOC: Y.CHAUNCEY PHONE #: [phone] EXAM DATE: 05/20/2021 STATUS: [facility] FAX #: [phone] RAD #: D/C DT PAGE 2 Signed Report- XR SPINE 1 V SPEC [id number] 12:18:00 [facility] 1955 Sex: M Patient Name: ALCON ROMANO Unit No: [id number] EXAMS: CPT CODE: [id number] XR SPINE 1 V SPEC LEVEL 04705 2 LATERAL INTRAOPERATIVE VIEWS OF THE LUMBAR SPINE Image 1: Surgical marker is at the L3 level Image 2: Surgical instrumentation is at L3 at 1218 Reported and signed by: Silverio Sosa M.D. CC: Ton Ríos M.D. Technologist: IRIS SORIANO (RT.R) Transcribed D/ (1218) [facility] NAME: ALCON ROMANO [address] [facility] PHYS: Ton Schwartz MD : 1955 AGE: 66 SEX: M [place], [place] [address] LOC: ANGELICA PHONE #: [phone] EXAM DATE: 05/20/2021 STATUS: [facility] FAX #: [phone] RAD #: D/C DT PAGE 1 Signed Report Patient Name: ALCON HAYES Unit No: [id number] EXAMS: CPT CODE: [id number] XR SPINE 1 V SPEC LEVEL 98830 (Continued) Orig Print D/T: S: 05/21/2021 (1221) [facility] NAME: ALCON ROMANO [address] [facility] PHYS: Ton Schwartz MD : 1955 AGE: 66 SEX: M [place], [place] [address] LOC: ANGELICA PHONE #: [phone] EXAM DATE: 05/20/2021 STATUS: [facility] FAX #: [phone] RAD #: D/C DT PAGE 2 Signed ReportNovel Coronavirus 2018 [id number] 08:11:00* Test Item Value Reference Range Interpretation Comme nts Novel Coronavirus 2018 Inhouse (test code = COVNONPUI) Negative Negative Positive resul ts are indicative of the presence lhGPGP-LlT-5 RNA, clinical correlation with patient historyand other diagnostic information is necessary to determinepatient infection status. Positive results do not rule outbacterial infection or co-infection with other viruses. Negative results do not preclude SARS-CoV-2 infection andshould not be used as the sole basis for patient managementdecisions. Negative results must be combined with otherclinical observations, patient history, and epidemiologicalinformation . Detection of SARS-CoV-2 RNA may be affected bysample collection methods, storage conditions, and/or stageof infection. Viral RNA mutations, vaccinations, antiviraltherapeutics, antibiotics, chemotherapeutic orimmunosuppressant drugs have not been evaluated for effectson detection. Results are for the identification of SARS-CoV-2 RNA usingthe [employer] M2000 System under the FDA Emergency UseAuthorization. The testing is performed by personneltrained in the procedures for the [employer]on M2000 moleculardiagnostic SARS-CoV-2 assay in vitro. Novel Coronavirus 2018 [id number] 08:11:00* Test Item Value Reference Range Interpretation Comme nts Novel Coronavirus 2018 Inhouse (test code = COVNONPUI) Negative Negative Positive resul ts are indicative of the presence opTNIW-QmR-9 RNA, clinical correlation with patient historyand other diagnostic information is necessary to determinepatient infection status. Positive results do not rule outbacterial infection or co-infection with other viruses. Negative results do not preclude SARS-CoV-2 infection andshould not be used as the sole basis for patient managementdecisions. Negative results must be combined with otherclinical observations, patient history, and epidemiologicalinformation . Detection of SARS-CoV-2 RNA may be affected bysample collection methods, storage conditions, and/or stageof infection. Viral RNA mutations, vaccinations, antiviraltherapeutics, antibiotics, chemotherapeutic orimmunosuppressant drugs have not been evaluated for effectson detection. Results are for the identification of SARS-CoV-2 RNA usingthe [employer] M2000 System under the FDA Emergency UseAuthorization. The testing is performed by personneltrained in the procedures for the Masterson M2000 moleculardiagnostic SARS-CoV-2 assay in vitro. ACUTE HEPATITIS [id number] 14:02:00* Test Item Value Reference Range Interpretation Comme nts AB HEPATITIS A IGM (test cod e = HAVMAB) NONREACTIVE NONREACTIVE AG HEPATITIS B SURFACE (test code = HBSAG) NONREACTIVE NONREACTIVE AB HEPATITIS B CORE IGM (kate t code = HBCMAB) NONREACTIVE NONREACTIVE AB HEPATITIS C (test code = HCVAB) NONREACTIVE NONREACTIVE SIGNAL TO CUTOFF (test code = CUTOFF) <0.02 <0.80 N AB HIV 1 14:02:00* Test Item Value Reference Range Interpretation Comme nts AB HIV 1 2 (test code = FTI42JS) NONREACTIVE NONREACTIVE Done by Master Routeaur 4th Gen HIV Ag/Ab Combo Screen ACUTE HEPATITIS [id number] 14:02:00* Test Item Value Reference Range Interpretation Comme nts AB HEPATITIS A IGM (test cod e = HAVMAB) NONREACTIVE NONREACTIVE AG HEPATITIS B SURFACE (test code = HBSAG) NONREACTIVE NONREACTIVE AB HEPATITIS B CORE IGM (kate t code = HBCMAB) NONREACTIVE NONREACTIVE AB HEPATITIS C (test code = HCVAB) NONREACTIVE NONREACTIVE SIGNAL TO CUTOFF (test code = CUTOFF) < 0.02 <0.80 AB HIV 14:02:00* Test Item Value Reference Range Interpretation Comme nts AB HIV 1 (test code = HIV1AB) NONREACTIVE NONREACTIVE Done by Siemens Scoutmobaur 4th Gen HIV Ag/Ab Combo Screen COMPREHENSIVE METABOLIC [id number] 09:42:00* Test Item Value Reference Range Interpretation Comme nts SODIUM (test code = NA) 141 mmol/L 136-145 N POTASSIUM (test code = K) 5.2 mmol/L 3.5-5.1 H CHLORIDE (test code = CL) 105.0 mmol/L 98-107 N CARBON DIOXIDE (test code = CO2) 28.8 mmol/L 21-32 N GLUCOSE (test code = GLU) 97 mg/dL 70-110 N BLOOD UREA NITROGEN (test code = BUN) 12 mg/dL 7-18 N GLOMERULAR FILTRATION RATE (test code = GFR) 55.4 >60 Unit of m easure: mL/min/1.73 [id number] Range:Healthy Adults >90 mL/min/1.73 m2 For Chronic Kidney Disease: Stage II Mild Decrease in GFR 60-90 Stage III Moderate Decrease in GFR 30-59 Stage IV Severe Decrease in GFR 15-29 Stage V Kidney Failure <15 CREATININE (test code = CREAT) 1.30 mg/dL 0.55-1.30 N TOTAL PROTEIN (test code = PROT) 7.3 g/dL 6.4-8.2 N ALBUMIN (test code = ALB) 4.0 g/dL 3.4-5.0 N GLOBULIN (test code = GLOB) 3.3 g/dL 2.2-4.2 N ALBUMIN/GLOBULIN RATIO (test code = A/G) 1.2 0.7-2.0 N CALCIUM (test code = CA) 8.8 mg/dL 8.2-10.1 N BILIRUBIN TOTAL (test code = BILT) 0.30 mg/dL 0.2-1.00 N SGOT/AST (test code = AST) 20.0 U/L 15-37 N SGPT/ALT (test code = ALT) 31.0 U/L 12-78 N Please note new normal range. ALKALINE PHOSPHATASE TOTAL (test code = ALKP) 67 U/L 46-116 N PROTHROMBIN [id number] 09:42:00* Test Item Value Reference Range Interpretation Comme nts PROTHROMBIN TIME PATIENT (test code = PTP) 10.8 secs 10.1-12.5 N INTERNATIONAL NORMAL RATIO (test code = INR) 0.95 <2.0 RECOMMENDED THER APEUTIC RANGE FOR ORAL ANTICOAGULANTTREATMENT: CONDITION INRProphylaxis of venous thrombosis in 2.0 - 3.0 high-risk medical or surgical patientsTreatment of venous thrombosis 2.0 - 3.0Prevention of embolism 2.0 - 3.0Prevention of recurrent embolism, or 3.0 - 4.5 patients with mechanical prosthetic intravascular valves IS PATIENT ON ANTICOAGULANTS ? YLIST ANTICOAGULANT/ANTI PLT MEDICATION : Clopidogrel (Anti-PLT)Has Lab been notified if Patient is on Heparin Drip? NO THROMBOPLASTIN TIME [id number] 09:42:00* Test Item Value Reference Range Interpretation Comme nts PTT ACTIVATED (test code = APTT) 33.2 secs 24.9-37.0 N IS PATIENT ON ANTICOAGULANTS ? YLIST ANTICOAGULANT/ANTI PLT MEDICATION : Clopidogrel (Anti-PLT)HasLab been notified if Patient is on Heparin Drip? NOCBC W/AUTO [id number] 09:05:00* Test Item Value Reference Range Interpretation Comme nts WHITE BLOOD CELL (test code = WBC) 5.6 K/mm3 5.7-10.5 L RED BLOOD CELL (test code = RBC) 4.68 M/mm3 4.2-5.4 N HEMOGLOBIN (test code = HGB) 14.3 g/dL 12-16 N HEMATOCRIT (test code = HCT) 43.4 % 37-47 N MEAN CELL VOLUME (test code = MCV) 93 fL 80-98 N MEAN CELL HGB (test code = MCH) 30.6 pg 27-34 N MEAN CELL HGB CONCENTRATION (test code = MCHC) 32.9 g/dL 30.8-34.1 N RED CELL DISTRIBUTION WIDTH (test code = RDW) 14.1 % 11-16 N PLT (test code = PLT) 269 K/mm3 130-400 N MEAN PLATELET VOLUME (test c ode = MPV) 10.5 fL 8.9-12.1 N NEUTROPHIL % (test code = NT%) 52.7 % 45-70 N LYMPHOCYTE % (test code = LY%) 29.3 % 20-40 N MONOCYTE % (test code = MO%) 11.6 % 3-10 H EOSINOPHIL % (test code = EO%) 5.2 % 1-5 H BASOPHIL % (test code = BA%) 0.7 % 0.0-1.1 N NEUTROPHIL # (test code = NT#) 2.95 K/mm3 2.00-7.50 N LYMPHOCYTE # (test code = LY#) 1.64 K/mm3 1.50-4.00 N MONOCYTE # (test code = MO#) 0.65 K/mm3 0.2-0.8 N EOSINOPHIL # (test code = EO#) 0.29 K/mm3 0.04-0.4 N BASOPHIL # (test code = BA#) 0.04 K/mm3 0.02-0.10 N MANUAL DIFF REQUIRED (test c ode = MDIFF) NO MANUAL DIFF NUCLEATED RED BLOOD CELL (te st code = NRBC) 0 % 0-0 N - XR L-SPINE W/BEND [id number] 15:52:00 [facility] : 1955 Sex: M Patient Name: ALCON ROMANO Unit No: [id number] EXAMS: CPT CODE: [id number] XR L-SPINE W/BEND VIEW 51358 COMPARISON: Concurrent MRI. IMAGES PROVIDED: 8 views of the lumbar spine FINDINGS: 5 lumbar type vertebrae are present. Grade 1 retrolisthesis of L2-L3 is present. No pathologic motion withflexion/extension. No acute fracture. Marked disc degeneration is noted at L2-L3 with endplate sclerosis. Moderate severe lower lumbar facet hypertrophy. Soft tissues are unremarkable. Left total hiparthroplasty is visualized. IMPRESSION: Multilevel lumbar spondylosis with marked disc degenerationat L2-L3. at 1552 Reported and signed by: Silverio Sosa M.D. CC: Ton Ríos M.D. Technologist: RT Lc.(R) Transcribed D/ (1552) tFRITZ.[facility] NAME: ALCON ROMANO [address] PHYS: Ton Schwartz MD, DOB: 1955 AGE: 66 SEX: M [place], [place] [address] LOC: Y.MRI PHONE #: [phone] EXAM DATE: 04/16/2021 STATUS: DEP CLI FAX #: [phone] RAD #: D/C DT PAGE 1 Signed Report Patient Name: ALCON ROMANO Unit No: [id number] EXAMS: CPT CODE: [id number] XR L-SPINE W/BEND VIEW 58533 (Continued) Orig Print D/T: S: 04/17/2021 (1555) [facility] NAME: ALCON ROMANO [address] [facility] [address] PHYS: Ton Schwartz MD : 1955 AGE: 66 SEX: M [place] [address] LOC: Y.MRI PHONE #: [phone] EXAM DATE: 04/16/2021 STATUS: DEP CLI FAX #: [phone] RAD #: D/C DT PAGE 2 SignedReport- MRI L-SPINE W WO [id number] 07:14:00[facility] : 1955 Sex: M Patient Name: ALCON ROMANO Unit No: [id number] EXAMS: CPT CODE: [id number] MRI L-SPINE W [place] [address] TECHNIQUE: Multiplanar, multisequence MRI examination performed of the lumbar spine with andwithout intravenous contrast material. COMPARISON: Radiographs dated 04/16/2021 FINDINGS: Five lumbar type vertebra are assumed. Alignment: Grade 1 retrolisthesis of L2-L3 Bone Lesion: Marked disc degeneration is centered at the L2-L3 level with endplate marrow edema. Fracture: None present. Paraspinal Soft Tissues: Unremarkable. Conus Medullaris: Termination at L2 level. Morphology is normal. L1/2: A right asymmetric disc bulge is noted. Mild facet degeneration. There is mild bilateral foraminal stenosis. No significant central canal stenosis. L2/3: Grade 1 retrolisthesis. Marked disc degeneration is present with endplate marrow changes and a large left asymmetric disc bulge. Mild bilateral facet hypertrophy. There is mild central canal stenosis as well as severe left, mild right foraminal stenosis. L3/4: A right asymmetric disc bulge lateralized in the right neural foramen. Mild bilateral facet hypertrophy. There is mild central canal stenosis as well as moderate left, severe right foraminal stenosis. L4/5: A left asymmetric disc bulge is noted as well as moderate facet hypertrophy and marked ligament flavum thickening. Severe central canal stenosis is slightly increased from prior exam. There is moderate left, severe right foraminal stenosis. L5/S1: A right asymmetric disc bulge is present as well as right greater than left facet hypertrophy. There is mild left, severe right foraminal stenosis as well as mild central canal stenosis. IMPRESSION: Advanced multilevel lumbar spondylosis, increased from prior exam, with severe central canal stenosis at L4-L5. at 0714 Reported and signed by: Silverio Kemp M.D. [facility] NAME: ALCON ROMANO [address] [facility] PHYS: Ton Schwartz MD : 1955 AGE: 66 SEX: [place], [place] [address] LOC: Y.MRI PHONE #: [phone] EXAM DATE: 04/16/2021 STATUS: DEP CLI FAX #: [phone] RAD #: D/C DT PAGE 1Signed Report (CONTINUED) Patient Name: ALCON ROMANO Unit No: [id number] EXAMS: CPT CODE: [id number] [place] [address] (Continued) CC: Ton Ríos M.D. Technologist: Francisco Chairez(R) Transcribed D/ (0714) Jolynn [facility] NAME: ALCON ROMANO [address] [facility] PHYS: Ton Schwartz MD : 1955 AGE: 66 SEX: M [place] [address] LOC: Y.MRI PHONE #: [phone] EXAM DATE: 04/16/2021 STATUS: DEP CLI FAX #: [phone] RAD #: D/C DT PAGE 2 Signed Report Patient Name: ALCON ROMANO Unit No: [id number] EXAMS: CPT CODE: [id number] MRI L-SPINE W [place] [address]84[address] (Continued) Orig Print D/T:S: 04/17/2021 (0718) [facility] NAME: ALCON ROMANO [address] [place] [address] PHYS: Ton Schwartz MD : 1955 AGE: 66 SEX: M [place] [address] LOC: Y.MRI PHONE #: [phone] EXAM DATE: 04/16/2021 STATUS: DEP CLI FAX #: [phone] RAD #: D/C DT PAGE 3 Signed ReportBLOOD UREA [id number] 12:29:00* Test Item Value Reference Range Interpretation Comme nts BLOOD UREA NITROGEN (test co de = BUN) 17 mg/dL 7-18 N SPECIMEN COMMENT: STAT BUN ORDER BY DR VILLASEÑOR COMMENT: STAT CREA GFR ORDER BY DR MELVIN Rhodes ESTIMATED [id number] 12:29:00* Test Item Value Reference Range Interpretation Comme nts GLOMERULAR FILTRATION RATE (test code = GFR) 54.9 >60 Unit of m easure: mL/min/1.73 [id number] Range:Healthy Adults >90 mL/min/1.73 m2 For Chronic Kidney Disease: Stage II Mild Decrease in GFR 60-90 Stage III Moderate Decrease in GFR 30-59 Stage IV Severe Decrease in GFR 15-29 Stage V Kidney Failure <15 CREATININE (test code = CREAT) 1.31 mg/dL 0.55-1.30 H SPECIMEN COMMENT: STAT BUN ORDER BY DR RESTREPOIMESamantha COMMENT: STAT CREA GFR [facility] METABOLIC [id number] 07:08:00* Test Item Value Reference Range Interpretation Comme nts SODIUM (test code = NA) 139 mmol/L 136-145 N POTASSIUM (test code = K) 4.8 mmol/L 3.5-5.1 N CHLORIDE (test code = CL) 103.0 mmol/L 98-107 N CARBON DIOXIDE (test code = CO2) 26.8 mmol/L 21-32 N GLUCOSE (test code = GLU) 156 mg/dL 70-110 H BLOOD UREA NITROGEN (test code = BUN) 15 mg/dL 7-18 N GLOMERULAR FILTRATION RATE (test code = GFR) 62.8 >60 Unit of m easure: mL/min/1.73 [id number] Range:Healthy Adults >90 mL/min/1.73 m2 For Chronic Kidney Disease: Stage II Mild Decrease in GFR 60-90 Stage III Moderate Decrease in GFR 30-59 Stage IV Severe Decrease in GFR 15-29 Stage V Kidney Failure <15 CREATININE (test code = CREAT) 1.17 mg/dL 0.55-1.30 N CALCIUM (test code = CA) 8.3 mg/dL 8.2-10.1 N HGB [id number] 05:58:00* Test Item Value Reference Range Interpretation Comme nts HEMOGLOBIN (test code = HGB) 13.5 g/dL 12-16 N HEMATOCRIT (test code = HCT) 41.0 % 37-47 N - XR SPINE 1 V SPEC [id number] 12:11:00Patient Name: ALCON ROMANO Unit No: [id number] EXAMS: CPT CODE: [id number] XR SPINE 1 V SPECLEVEL 04296 INTRAOPERATIVE LATERAL LUMBAR SPINE COMMENT: Surgical instruments are posterior to L3-4 and L4-5. at 1211 Reportedand signed by: Ton Vann MD CC: Ton Ríos M.D. Technologist: IRIS SORIANO (RT.R) Transcribed D/ (1211) tFRITZ.[facility] NAME: ALCON ROMANO [facility] [address] PHYS: Ton Schwartz MD : 1955 AGE: 65 SEX: [place], [place] [address] LOC: Y.998 3 PHONE #: [phone] EXAM DATE: 03/06/2020 STATUS: ADM IN FAX #: [phone] RAD #: D/C DT PAGE 1 Signed Report Patient Name: ALCON ROMANO Unit No: [id number]: CPT CODE: [id number] XR SPINE 1 V SPEC LEVEL 29810 (Continued) Orig Print D/T: S: 03/06/2020 (1214) [facility] NAME: ALCON ROMANO [facility] [address] [place] [address] PHYS: Ton Schwartz MD : 1955 AGE: 65 SEX: [place], [place] [address] LOC: Y.998 3 PHONE #: [phone] EXAM DATE: 03/06/2020 STATUS: ADM IN FAX #: [phone] RAD #: D/C DT PAGE 2 Signed Report- XR SPINE 1 V SPEC [id number] 09:00:00Patient Name: ALCON ROMANO Unit No: [id number] EXAMS: CPT CODE: [id number] XR SPINE 1 V SPEC LEVEL 14469 INTRAOPERATIVE LATERAL LUMBAR SPINE COMMENT: Markers are posterior to L4 and L5. at 0900 Reported and signed by: Ton Vann MD CC: Ton Ríos M.D. Technologist: IRIS SORIANO (RT.R) Transcribed D/ (0900) [facility]: ALCON ROMANOTON [address] [place] [address] PHYS:Ton Schwartz MD : 1955 AGE: 65 SEX: [place], [place] [address] LOC: Y.DSU PHONE #: [phone] EXAM DATE: 03/06/2020 STATUS: [facility] FAX #: [phone] RAD #:D/C DT PAGE 1 Signed Report Patient Name: ALCON ROMANO Unit No: [id number] EXAMS: CPT CODE:[id number] XR SPINE 1 V SPEC LEVEL 23577 (Continued) Orig Print D/T: S: 03/06/2020 (0903) [facility] NAME: ALCON ROMANO [address] [facility] PHYS: Ton Schwartz MD : 1955 AGE: 65 SEX: M [place], [place] [address] LOC: EMILIANO PHONE #: [phone] DATE: 03/06/2020 STATUS: [facility] FAX #: [phone] RAD #: D/C DT PAGE 2 Signed ReportACUTE HEPATITIS PANEL 2020-03-04 15:45:00* Test Item Value Reference Range Interpretation Comme nts AB HEPATITIS A IGM (test cod e = HAVMAB) NONREACTIVE NONREACTIVE AG HEPATITIS B SURFACE (test code = HBSAG) NONREACTIVE NONREACTIVE AB HEPATITIS B CORE IGM (kate t code = HBCMAB) NONREACTIVE NONREACTIVE AB HEPATITIS C (test code = HCVAB) NONREACTIVE NONREACTIVE SIGNAL TO CUTOFF (test code = CUTOFF) 0.05 <0.80 AB HIV 15:45:00* Test Item Value Reference Range Interpretation Comme nts AB HIV 1 (test code = HIV1AB) NONREACTIVE NONREACTIVE Done by Master RouteauCloset Couture 4th Gen HIV Ag/Ab Combo Screen ACUTE HEPATITIS [id number] 15:44:00* Test Item Value Reference Range Interpretation Comme nts AB HEPATITIS A IGM (test cod e = HAVMAB) NONREACTIVE NONREACTIVE AG HEPATITIS B SURFACE (test code = HBSAG) NONREACTIVE NONREACTIVE AB HEPATITIS B CORE IGM (kate t code = HBCMAB) NONREACTIVE NONREACTIVE AB HEPATITIS C (test code = HCVAB) NONREACTIVE NONREACTIVE SIGNAL TO CUTOFF (test code = CUTOFF) 0.05 <0.80 N AB HIV 1 15:44:00* Test Item Value Reference Range Interpretation Comme nts AB HIV 1 2 (test code = ICH94YL) NONREACTIVE NONREACTIVE Done by Siemens Scoutmobaur 4th Gen HIV Ag/Ab Combo Screen ACUTE HEPATITIS [id number] 15:30:00* Test Item Value Reference Range Interpretation Comme nts AB HEPATITIS A IGM (test cod e = HAVMAB) NONREACTIVE AG HEPATITIS B SURFACE (test code = HBSAG) NONREACTIVE NONREACTIVE AB HEPATITIS B CORE IGM (kate t code = HBCMAB) AB HEPATITIS C (test code = HCVAB) NONREACTIVE SIGNAL TO CUTOFF (test code = CUTOFF) AB HIV 15:30:00* Test Item Value Reference Range Interpretation Comme nts AB HIV 1 (test code = HIV1AB) NONREACTIVE ACUTE HEPATITIS [id number] 15:29:00* Test Item Value Reference Range Interpretation Comme nts AB HEPATITIS A IGM (test cod e = HAVMAB) NONREACTIVE AG HEPATITIS B SURFACE (test code = HBSAG) NONREACTIVE NONREACTIVE AB HEPATITIS B CORE IGM (kate t code = HBCMAB) NONREACTIVE AB HEPATITIS C (test code = HCVAB) NONREACTIVE SIGNAL TO CUTOFF (test code = CUTOFF) <0.80 AB HIV 1 15:29:00* Test Item Value Reference Range Interpretation Comme nts AB HIV 1 2 (test code = HNV85JT) NONREACTIVE COMPREHENSIVE METABOLIC [id number] 10:36:00* Test Item Value Reference Range Interpretation Comme nts SODIUM (test code = NA) 140 mmol/L 136-145 N POTASSIUM (test code = K) 4.5 mmol/L 3.5-5.1 N CHLORIDE (test code = CL) 104.0 mmol/L 98-107 N CARBON DIOXIDE (test code = CO2) 25.1 mmol/L 21-32 N GLUCOSE (test code = GLU) 96 mg/dL 70-110 N BLOOD UREA NITROGEN (test code = BUN) 16 mg/dL 7-18 N GLOMERULAR FILTRATION RATE (test code = GFR) 64.0 >60 Unit of m easure: mL/min/1.73 [id number] Range:Healthy Adults >90 mL/min/1.73 m2 For Chronic Kidney Disease: Stage II Mild Decrease in GFR 60-90 Stage III Moderate Decrease in GFR 30-59 Stage IV Severe Decrease in GFR 15-29 Stage V Kidney Failure <15 CREATININE (test code = CREAT) 1.15 mg/dL 0.55-1.30 N TOTAL PROTEIN (test code = PROT) 7.1 g/dL 6.4-8.2 N ALBUMIN (test code = ALB) 3.9 g/dL 3.4-5.0 N GLOBULIN (test code = GLOB) 3.2 g/dL 2.2-4.2 N ALBUMIN/GLOBULIN RATIO (test code = A/G) 1.2 0.7-2.0 N CALCIUM (test code = CA) 8.9 mg/dL 8.2-10.1 N BILIRUBIN TOTAL (test code = BILT) 0.50 mg/dL 0.2-1.00 N SGOT/AST (test code = AST) 18.0 U/L 15-37 N SGPT/ALT (test code = ALT) 33.0 U/L 12-78 N Please note new normal range. ALKALINE PHOSPHATASE TOTAL (test code = ALKP) 66 U/L 46-116 N PROTHROMBIN [id number] 10:22:00* Test Item Value Reference Range Interpretation Comme nts PROTHROMBIN TIME PATIENT (test code = PTP) 10.7 secs 10.1-12.5 N INTERNATIONAL NORMAL RATIO (test code = INR) 0.95 <2.0 RECOMMENDED THER APEUTIC RANGE FOR ORAL ANTICOAGULANTTREATMENT: CONDITION INRProphylaxis of venous thrombosis in 2.0 - 3.0 high-risk medical or surgical patientsTreatment of venous thrombosis 2.0 - 3.0Prevention of embolism 2.0 - 3.0Prevention of recurrent embolism, or 3.0 - 4.5 patients with mechanical prosthetic intravascular valves IS PATIENT ON ANTICOAGULANTS ? YLIST ANTICOAGULANT/ANTI PLT MEDICATION : Clopidogrel (Anti-PLT)Has Lab been notified if Patient is on Heparin Drip? NO THROMBOPLASTIN TIME [id number] 10:22:00* Test Item Value Reference Range Interpretation Comme nts PTT ACTIVATED (test code = APTT) 31.0 secs 24.9-37.0 N IS PATIENT ON ANTICOAGULANTS ? YLIST ANTICOAGULANT/ANTI PLT MEDICATION : Clopidogrel (Anti-PLT)HasLab been notified if Patient is on Heparin Drip? NOCBC W/AUTO [id number] 10:10:00* Test Item Value Reference Range Interpretation Comme nts WHITE BLOOD CELL (test code = WBC) [...] 27-34 N MEAN CELL HGB CONCENTRATION (test code = MCHC) 33.3 g/dL 30.8-34.1 N RED CELL DISTRIBUTION WIDTH (test code = RDW) 13.8 % 11-16 N PLT (test code = PLT) 254 K/mm3 130-400 N MEAN PLATELET VOLUME (test c ode = MPV) 10.5 fL 8.9-12.1 N NEUTROPHIL % (test code = NT%) 57.2 [...] K/mm3 0.02-0.10 N MANUAL DIFF REQUIRED (test c ode = MDIFF) NO MANUAL DIFF NUCLEATED RED BLOOD CELL (te st code = NRBC) 0 % 0-0 N Coronavirus 2018 nCoV [id number] 09:12:00* Test Item Value Reference Range Interpretation Comme nts Coronavirus 2018 nCoV Bedsid e (test code = COVNONPUIBED) Negative - XR FLUORO FOR SPINE [id number] 15:30:00Patient Name: ALCON ROMANO Unit No: [id number] EXAMS: CPT CODE: [id number] XR FLUORO FOR SPINE INJ 64544 LUMBAR EPIRADICULAR INJECTION REFERRAL PHYSICIAN: None PREOPERATIVE DIAGNOSIS: Lumbar Radiculitis POSTOPERATIVE DIAGNOSIS: Degenerative L2-3 disc with left L2- 3 lateral recess stenosis and left lumbar radiculitis PROCEDURES PERFORMED: Fluoroscopically guided needle localization of the left L2 and left L3 spinal nerves with transforaminal epidurograms and epidural injection of local ane sthetic and steroid. FINDINGS: Good flow was seen [...] needle was advanced to the base of each pedicle without paresthesias.Isovue-300 contrast 0.2 mL of was injected incrementally with frequent negative aspirations to produce each epidurogram. There were no signs of intravascular or intrathecal uptake. Bupivicaine 0.75% 0.25 mL with lidocaine 4% 0.5 mL and Decadron 6 mg was then incrementally injected with frequent neg ative aspirations and again there were no signs of intravascular or intrathecal uptake. The needleswere removed and the patient was taken to the PACU in good condition. at 1530 Reported and signed by: Jessica Marte M.D. CC:Technologist: Ada Singh(Hector) Transcribed D/ (2910) [facility] [place] NAME: ALCON ROMANO [address] [facility] PHYS: Jessica Evans MD [place], [place] [address] : 1955 AGE: 64 SEX: M LOC: DIANA PHONE #: [phone] EXAM DATE: 02/13/2020 STATUS: REG [facility] FAX #: [phone] RAD #: D/C DT PAGE 1 Signed Report Patient Name: ALCON ROMANO Unit No: [id number] EXAMS: CPT CODE: [id number] XR FLUORO FOR SPINEINJ 52877 (Continued) Orig Print D/T: S: 02/13/2020 (1533) [facility] [place] NAME: ALCON ROMANO [address] [facility] PHYS: Jessica Evans MD [place], [place] [address] : 1955 AGE: 64 SEX: M LOC: DIANA PHONE #: [phone] EXAM DATE: 02/13/2020 STATUS: REG [facility] FAX #: [phone] RAD #: D/C DT PAGE 2 Signed Report- MRI L-SPINE W/O [id number] 10:32:00Patient Name: ALCON ROMANO Unit No: [id number] EXAMS: CPT CODE: [id number] MRI L-SPINE W/O CONT 16324 MRI OF THE LUMBAR SPINE: DIAGNOSIS: 1. At L1-2, moderate disc degeneration. Mild to moderate central canal stenosis. Mild to moderate bilateral facet arthropathy. Mild bilateral foraminal stenosis. 2. At L2-3, marked disc degeneration. 2 mm broad-based disc bulge. Moderate to marked central canal stenosis. Moderate bilateral facet arthropathy. There is a 1 cm left foraminal disc extrusion which impinges the left L2 nerve root. Marked left foraminal stenosis. Moderate right foraminal mikael nosis secondary to lateralizing 4 mm disc herniation. 3. At L3-4, mild disc degeneration. Mild central canal stenosis. Moderate left facet and moderate facet arthropathy. Marked right foraminal stenosis secondary to 3 mm lateralizing disc protrusion and endplate remodeling. Moderate left foraminal stenosis. 4. At L4-5, mild disc degeneration. Grade 1 spondylolisthesis of L4 on L5. Marked hypertrophic central canal stenosis secondary to thickening of ligamenta flava and marked bilateral facet arthropathy. Bilateral lateral gutter stenosis. Marked right foraminal moderate left foraminal stenosis. 5. At L5-S1, mild disc degeneration. Mild to moderate central canal stenosis. Marked right facetand moderate left facet arthropathy. Marked right foraminal and moderate left foraminal stenosis. COMMENT: COMPARISON: No prior exams available. Sagittal T1, T2 and STIR and axial T1 and T2-weighted sequences are obtained of the lumbar spine. The lumbar vertebrae are within normal limits in signal.The findings are as above. The conus is in the expected location. 7 VIEW LUMBAR SPINE WITH FLEXION AND EXTENSION COMMENT: Grade 1 spondylolisthesis of L4 on L5 is slightly more pronounced in the flexed position. Marked degeneration of the L2-3 disc. Pedicles and transverse processes are intact. Mild degeneration the bilateral SI joints. Patient has had a total left hip arthroplasty. No evidence of fracture. [facility] NAME: ALCON ROMANO [address] PHYS: Ton Schwartz MD : 1955 AGE: 64 SEX: [place] [address] LOC: Y.MRI PHONE #: [phone] EXAM DATE: 01/22/2020 STATUS: REG CLI FAX #: [phone] RAD #: D/C DT PAGE 1Signed Report (CONTINUED) Patient Name: ALCON ROMANO Unit No: [id number] EXAMS: CPT CODE: [id number] MRI L-SPINE W/O CONT 04048 (Continued) at 1032 Reported and signed by: Zay Talley MD CC: Ton Ríos M.D. Technologist: CAMILO DIAZ RT(R) Transcribed D/ (1032) IreneGVG [facility] NAME: ALCON ROMANO[address] PHYS: Ton Schwartz MD : 1955 AGE: 64 SEX: [place] [address] LOC: Y.MRI PHONE #: [phone] EXAM DATE: 01/22/2020 STATUS: REG CLI FAX #: [phone] RAD #: D/C DT PAGE 2 Signed Report Patient Name: ALCON ROMANO Unit No: [id number] EXAMS: CPT CODE: [id number] MRI L-SPINE W/O CONT 90367 (Continued) Orig Print D/T: S: 01/22/2020 (1035) [facility] NAME: ALCON ROMANO [address] PHYS: Ton Schwartz MD : 1955 AGE: 64 SEX: Claudette [place], [place] [address] LOC: Y.MRI PHONE #: [phone] EXAM DATE: 01/22/2020 STATUS: REG CLI FAX #: [phone] RAD #: D/C DT PAGE 3 Signed Report- XR L-SPINE W/BEND [id number] 10:32:00 Patient Name: ALCON ROMANO Unit No: [id number] EXAMS: CPT CODE: [id number] XR L-SPINE W/BEND VIEW 05409 MRI OF THE LUMBAR SPINE: DIAGNOSIS: 1. At L1-2, moderate disc degeneration. Mild to moderate central canal stenosis. Mild to moderate bilateral facet arthropathy. Mild bilateral foraminal stenosis. 2. At L2-3, marked disc degeneration. 2 mm broad-based disc bulge. Moderate to marked central canal stenosis. Moderate bilateral facet arthropathy. There is a 1 cm left foraminal disc extrusion which impinges the left L2 nerve root. Marked left foraminal stenosis. Moderate right foraminal stenosis secondary to lateralizing 4 mm disc herniation. 3. At L3-4, mild disc degeneration. Mild central canal stenosis. Moderate left facet and moderate facet arthropathy. Marked right foraminal stenosis secondary to 3 mm lateralizing disc protrusion and endplate remodeling. Moderate left foraminal stenosis. 4. At L4-5, mild disc degeneration. Grade 1 spondylolisthesis of L4 on L5. Marked hypertrophic central canal stenosis secondary to thickening of ligamenta flava and marked bilateral facet arthropathy. Bilateral lateral gutter stenosis. Marked right foraminal moderate left foraminal stenosis. 5. At L5-S1, mild disc degeneration. Mild to moderate central canal stenosis. Marked right facet and moderate left facet arthropathy. Marked right foraminal and moderate left foraminal stenosis. C OMMENT: COMPARISON: No prior exams available. Sagittal T1, T2 and STIR and axial T1 and T2-weightedsequences are obtained of the lumbar spine. The lumbar vertebrae are within normal limits in signal. The findings are as above. The conus is in the expected location. 7 VIEW LUMBAR SPINE WITH FLEXIONAND EXTENSION COMMENT: Grade 1 spondylolisthesis of L4 on L5 is slightly more pronounced in the flexed position. Marked degeneration of the L2-3 disc. Pedicles and transverse processes are intact. Mild degeneration the bilateral SI joints. Patient has had a total left hip arthroplasty. No evidence of fracture. [facility] NAME: ALCON ROMANO [address] [place] [address] PHYS: Ton Schwartz MD : 1955 AGE: 64 SEX: [place] [address] LOC: Y.MRI PHONE #: [phone] EXAM DATE: 01/22/2020 STATUS: REG CLI FAX #: [phone] RAD #: D/C DT PAGE 1 Signed Report (CONTINUED) Patient Name: ALCON ROMANO Unit No: [id number] EXAMS: CPT CODE: [id number] XR L- SPINE W/BEND VIEW 86791 (Continued) at 1032 Reported and signed by: Zay Talley MD CC: Ton Ríos M.D. Technologist: RT. Lc(R) Transcribed D/ (1032) tPRIYANKGVG [facility] NAME: ALCON ROMANO [address] [place] [address] PHYS: Ton Schwartz MD : 1955 AGE: 64 SEX: [place] [address] LOC: Y.MRI PHONE #: [phone] EXAM DATE: 01/22/2020 STATUS: REG CLI FAX #: [phone] RAD #: D/C DT PAGE 2 Signed Report Patient Name: ALCON ROMANO Unit No: [id number] EXAMS: CPT CODE: [id number] XR L-SPINE W/BEND VIEW 28309 (Continued) Orig Print D/T: S: 01/22/2020 (1035) [facility] NAME: ALCON ROMANO [address] PHYS: Ton Schwartz MD : 1955 AGE: 64 SEX: M [place], [place] [address] LOC: Y.MRI PHONE #: [phone] EXAM DATE: 01/22/2020 STATUS: REG CLI FAX #: [phone] RAD #: D/C DT PAGE 3 Signed ReportCT THORAX W [id number] 16:50:29HISTORY: Shortness of breath, rule out P.E. TECHNIQUE: Contrast-enhanced 64-mutidetector CT scan ofthe chest wascompleted with intravenous injection of ?Omnipaque-350 non ionic contrastmedium. Subsequently numerous sagittal, coronal and MIP reformations weregenerated. FINDINGS: No focal lesions visualized in the thyroid gland. Trachea andcentral bronchial airways appear normal. No acute pulmonary thromboembolism detected. Lungs are free of acuteinfiltrates. No pulmonary nodules seen. No pleural or pericardial effusion,pneumothorax or pneumomediastinum. No aortic aneurysm or dissection. Subcentimeter lymph nodes are seen scattered throughout the mediastinum.Triple vessel coronary atheroscler osis ?noted with coronary stentsvisualized in LAD and LCx coronary arteries. Calcified granulomas are seenin the right middle lobe.Calcified granulomas are seen in the liver and spleen. Adrenal glands arenormal. Separate origins of hepatic and splenic arteries noted from theabdominal aorta. No calcified gallstones visualized. Possible old fracture of anterior right 10th rib near the costochondraljunction. No aggressive bone lesions. Moderate chronic degenerative discdisease noted at L2-L3. CONCLUSIONS: No acute intrathoracic findings. [facility], Radiant Results Inft User - 11/28/2019 11:51 AM CDTHISTORY: Shortness of breath, rule out P.E.TECHNIQUE: Contrast-enhanced 64-mutidetector CT scan of the chest wascompleted with intravenous injection of Omnipaque-350 non ionic contrastmedium. Subsequently numerous sagittal, coronal and MIP reformations weregenerated.FINDINGS: No focal lesions visualized in the thyroid gland. Trachea andcentral bronchial airways appear normal.No acute pulmonary thromboembolism detected. Lungs are free of acuteinfiltrates. No pulmonary nodules seen. No pleural or pericardial effusion,pneumothorax or pneumomediastinum. No aortic aneurysm or dissection.Subcentimeter lymph nodes are seen scattered throughout the mediastinum.Triple vessel coronary atherosclerosis noted with coronary stentsvisualized in LAD and LCx coronary arteries. Calcified granulomas are seenin the right middle lobe.Calcified granulomas are seen in the liver and spleen. Adrenal glands arenormal. Separate origins of hepatic and splenic arteries noted from theabdominal aorta. No calcified gallstones visualized.Possible old fracture of anterior right 10th rib near the costochondraljunction.No aggressive bone lesions. Moderate chronic degenerative discdisease noted at L2-L3.CONCLUSIONS: No acute intrathoracic findings.[facility] WITH [id number] 11:48:00* Test Item Value Reference Range Interpretation Comme nts WBC (test code = 6690-2) See_Comment [[facility]] The system which generated this result transmitted reference range: 4.20 - 10.70 10*3/?L. The reference range was not used to interpret this result as normal/abnormal. RBC (test code = 789-8) See_Comment [[facility]] The system which generated this result transmitted reference range: 4.26 - 5.52 10*6/?L. The reference range was not used to interpret this result as normal/abnormal. HGB (test code = 718-7) 13.8 g/dL 12.2-16.4 HCT (test code = 4544-3) 41.5 % 38.4-49.3 MCV (test code = 787-2) 91.2 fL 81.7-95.6 MCH (test code = 785-6) 30.3 pg 26.1-32.7 MCHC (test code = 786-4) 33.3 g/dL 31.2-35 RDW-SD (test code = 82921-5) 46.9 fL 38.5-51.6 RDW-CV (test code = 788-0) 13.8 % 12.1-15.4 PLT (test code = 777-3) See_Comment [[facility]] The system which generated this result transmitted reference range: 150 - 328 10*3/?L. The reference range was not used to interpret this result as normal/abnormal. MPV (test code = 94281-5) 10.5 fL 9.8-13 IPF % (test code = 7673938001) 2.4 % 1.2-10.7 Platelet count measured by fluorescence method. NRBC/100 WBC (test code = 4088221743) See_Comment [[facility] [employer] [facility]] The system which generated this result transmitted reference range: 0.0 - 10.0 /100 WBCs. The reference range was not used to interpret this result as normal/abnormal. NRBC x10^3 (test code = 4477635475) <0.01 See_Comment [[facility]] The system which generated this result transmitted reference range: 10*3/?L. The reference range was not used to interpret this result as normal/abnormal. GRAN MAT (NEUT) % (test code = 770-8) 52.9 % IMM GRAN % (test code = 6899868083) 0.50 % LYMPH % (test code = 736-9) 32.3 % MONO % (test code = 5905-5) 10.1 % EOS % (test code = 713-8) 3.6 % BASO % (test code = 706-2) 0.6 % GRAN MAT x10^3(ANC) (test code = 4372344095) 3.26 10*3/uL 1.99-6.95 IMM GRAN x10^3 (test code = 6736294475) 0.03 10*3/uL 0-0.06 LYMPH x10^3 (test code = 731-0) 1.99 10*3/uL 1.09-3.23 MONO x10^3 (test code = 742-7) 0.62 10*3/uL 0.36-1.02 EOS x10^3 (test code = 711-2) 0.22 10*3/uL 0.06-0.53 BASO x10^3 (test code = 704-7) 0.04 10*3/uL 0.01-0.09 PLT ESTIMATE (test code = 9317-9) Decreased Normal A Lab Interpretation (test code = 21644-1) [facility]normal [facility] [id number] 11:34:00* Test Item Value Reference Range Interpretation Comme nts TROPONIN I (test code = 1919859923) 0.004 ng/mL See_Comment [Automated message] The system which generated this result transmitted reference range: <=0.034. The reference range was not used to interpret this result as normal/abnormal. MONICA (test code = MONICA) Equal or Less than 0.034 ng/ml---Normal ?Note: Cardiac troponin begins to rise 3-4 hours after the onset of ischemia. Repeat in 4-6 hours if the sample was drawn within 3-4 hours of the onset of the symptom and found normal. Between 0.035 and 0.120 ng/mL--- Borderline. Questionable myocardial injury or necrosis ? ?Note: Serial measurement may be necessary to confirm or exclude the diagnosis of myocardial injury or necrosis; Clinical correlation (symptoms, EKGs, imaging studies, and others) required; Repeat in 4-6 hours if clinically indicated. ? Equal or Higher than 0.121 ng/mL---Abnormal. Myocardial Injury or Necrosis Likely ? Biotin has been reported to cause a negative bias, interpret results relative to patient's use of biotin. ? Lab Interpretation (test code = 34874-7) Normal [facility] (NA, K, CL, CO2, GLUCOSE, BUN, CREATININE, CA)2019-11-28 11:22:00* Test Item Value Reference Range Interpretation Comme nts NA (test code = 1143480510) 138 mmol/L 135-145 K (test code = 5590243233) 4.4 mmol/L 3.5-5 CL (test code = 6498132905) 106 mmol/L 98-108 CO2 TOTAL (test code = 8892307735) 26 mmol/L 23-31 AGAP (test code = 6911676321) 2-16 BUN (test code = 5110066498) 17 mg/dL 7-23 GLUCOSE (test code = 3989340410) 94 mg/dL 70-110 CREATININE (test code = 2299496103) 1.14 mg/dL 0.6-1.25 CALCIUM (test code = 7003806609) 8.9 mg/dL 8.6-10.6 eGFR Calculation (Non-) (test code = 0847008159) mL/min/1.73m2 eGFR Calculation () (test code = 1910929140) mL/min/1.73m2 MONICA (test code = MONICA) Association of Glomerular Filtration Rate (GFR) and Staging of Kidney Disease* + -+ + ---+| GFR (mL/min/1.73 m2) ?| With Kidney Damage ?| ?Without Kidney Damage+ -------+ ------+ ---------+| ?>90 ?| ?Stage one ?| ? Normal ?+ --+ -+ ----+| ?60-89 ?| ?Stage two ?| ? Decreased GFR ? + -+ + ---+| ?30-59 ?| ?Stage three ?| ? Stage three ? + -+ + ---+| ?15-29 ?| ?Stage four ? | ? Stage four ?+ --+ -+ ----+| ?<15 (or dialysis) ? ?| ?Stage five ? | ? Stage five ?+ --+ -+ ----+ *Each stage assumes the associated GFR level has been in effect for at least three months. ?Stages 1 to 5, with or without kidney disease, indicate chronic kidney disease. Notes: Determination of stages one and two (with eGFR >59mL/min/1.73 m2) requires estimation of kidney damage for at least three months as defined by structural or functional abnormalities of the kidney, manifested by either:Pathological abnormalities or Markers of kidney damage (including abnormalities in the composition of the blood or urine or abnormalities in imaging tests). [facility] [id number] 05:10:00* Test Item Value Reference Range Interpretation Comme nts APPEARANCE (test code = 9802638482) Clear Clear COLOR (test code = 1692422460) Yellow Yellow PH (test code = 5483504144) 4.8-8.0 SP GRAVITY (test code = 3190401942) 1.003-1.030 GLU U QUAL (test code = 6050031887) Normal Normal BLOOD (test code = 8641354744) Negative Negative KETONES (test code = 6166078622) Negative Negative PROTEIN (test code = 2887-8) Negative Negative UROBILIN (test code = 4552241676) Normal Normal BILIRUBIN (test code = 7406493488) Negative Negative NITRITE (test code = 8405225716) Negative Negative LEUK PRISCILLA (test code = 1959093052) Negative Negative RBC/HPF (test code = 0717731734) <1 See_Comment [[facility]] The system which generated this result transmitted reference range: 0 - 3 HPF. The reference range was not used to interpret this result as normal/abnormal. WBC/HPF (test code = 8604767692) <1 See_Comment [[employer]] The system which generated this result transmitted reference range: 0 - 5 HPF. The reference range was not used to interpret this result as normal/abnormal. BACTERIA (test code = 5927330487) Negative Negative MUCOUS (test code = 2225986114) Slight Negative LPF A SQ EPITH (test code = 7455571119) <1 HPF Lab Interpretation (test code = 99554-8) Abnormal [facility] [id number] 04:54:00* Test Item Value Reference Range Interpretation Comme nts TROPONIN I (test code = 1729351117) 0.004 ng/mL See_Comment [Automated message] The system which generated this result transmitted reference range: <=0.034. The reference range was not used to interpret this result as normal/abnormal. MONICA (test code = MONICA) Equal or Less than 0.034 ng/ml---Normal ?Note: Cardiac troponin begins to rise 3-4 hours after the onset of ischemia. Repeat in 4-6 hours if the sample was drawn within 3-4 hours of the onset of the symptom and found normal. Between 0.035 and 0.120 ng/mL--- Borderline. Questionable myocardial injury or necrosis ? ?Note: Serial measurement may be necessary to confirm or exclude the diagnosis of myocardial injury or necrosis; Clinical correlation (symptoms, EKGs, imaging studies, and others) required; Repeat in 4-6 hours if clinically indicated. ? Equal or Higher than 0.121 ng/mL---Abnormal. Myocardial Injury or Necrosis Likely ? Biotin has been reported to cause a negative bias, interpret results relative to patient's use of biotin. ? Lab Interpretation (test code = 68167-4) Normal [facility] Hospital[facility]ulating [facility]ormone (TSH)2019-11-28 00:17:00* Test Item Value Reference Range Interpretation Comme nts TSH (test code = 5944250712) See_Comment [[facility]] The system which generated this result transmitted reference range: 0.45 - 4.70 mIU/L. The reference range was not used to interpret this result as normal/abnormal. Lab Interpretation (test code = 09769-4) Normal [facility] HospitalMagnesium [id number] 23:58:00* Test Item Value Reference Range Interpretation Comme nts MAGNESIUM (test code = 9375929866) 2.3 mg/dL 1.7-2.4 Lab Interpretation (test cod e = 18173-5) Normal [facility]ADC,CLC OR L[facility] ONLY - INFLUENZA A & B DIRECT [id number] 23:48:00* Test Item Value Reference Range Interpretation Comme nts Influenza A (test code = 70385-4) Negative Negative Influenza B (test code = 02732-0) Negative Negative Lab Interpretation (test cod e = 71528-8) Normal [facility] HospitalLipid Panel (Total Cholesterol, Triglycerides, HDL)2019-11-27 23:46:00* Test Item Value Reference Range Interpretation Comme nts CHOL (test code = 8842650333) 169 mg/dL 120-200 HDL (test code = 6589746600) 72 mg/dL >40 HDLC RATIO (test code = 9029065854) See_Comment [[employer]] The system which generated this result transmitted reference range: <=5.0. The reference range was not used to interpret this result as normal/abnormal. TRIG (test code = 0118245323) 49 mg/dL 30-170 LDL CHOL (test code = 94843-2) 87 mg/dL See_Comment [[employer]ated [facility] [employer]] The system which generated this result transmitted reference range: <=160. The reference range was not used to interpret this result as normal/abnormal. VLDL (test code = 1753125477) 10 mg/dL 5-60 Lab Interpretation (test code = 66422-4) Normal [facility] HospitalRAPID STREP SCREEN FOR GROUP [id number] 23:41:00* Test Item Value Reference Range Interpretation Comme nts Streptococcus pyogenes (grou p A) antigen (test code = 47636-6) Negative Negative Lab Interpretation (test cod e = 95594-6) [facility] [facility] 1 VW [id number] 23:01:031. Streaky opacification in the bilateral lower lung tracy, more prominenton the right. Findings may be sales representative adding machines of atelectasis versusdeveloping infection, including COVID-19 pneumonia. Disclaimer: Generally, the findings on chest imaging in COVID-19 are notspecific, and overlap with other infections, including influenza, H1N1,SARS and MERS.According to the Centers for Disease Control (CDC) and recent statement ofthe [employer], viral testing remains the only specificmethod of diagnosis. Confirmation with the viral test is required, even ifradiologic findings are suggestive of COVID-[address]. Preliminary Report Dictated by Resident: Joel Caceres MD., have reviewed this study and agree with the abovereport.PROCEDURE: CHEST, SINGLE VIEW, CLINICAL INDICATION: dyspnea COMPARISON: None FINDINGS: Lungs: Bilateral streaky opacifications arenoted in the lung basesbilaterally, more prominent on the right. Pleura: No pleural effusion or pneumothorax is seen. The heart is normal insize. No acute bony abnormality. [facility], Radiant Results InftUser - 11/27/2019 6:02 PM CDTPROCEDURE: CHEST, SINGLE VIEW, CLINICAL INDICATION: dyspnea COMPARISON: NoneFINDINGS:Lungs: Bilateral streaky opacifications are noted in the lung basesbilaterally, more prominent on the right.Pleura: No pleural effusion or pneumothorax is seen. The heart is normal insize.No acute bony abnormality.IMPRESSION1. Streaky opacification in the bilateral lower lung tracy, more prominenton the right. Findings may be sales representative adding machines of atelectasis versusdeveloping infection, including COVID-19 pneumonia.Disclaimer: Generally, the findings on chest imaging in COVID-19 are n otspecific, and overlap with other infections, including influenza, H1N1,SARS and MERS.According tothe Centers for Disease Control (CDC) and recent statement ofthe [employer], viral testing remains the only specificmethod of diagnosis. Confirmation with the viral test is required, even ifradiologic findings are suggestive of COVID-[address]Preliminary Report Dictated byResident: Thony Huerta, Joel Rees MD., have reviewed this study and agree with the abovereport.[facility] CORONAVIRUS COVID-19 [id number] 22:55:00* Test Item Value Reference Range Interpretation Comme nts SARS-CoV-2 (test code = 66261-3) Not Detected Not Detected MONICA (test code = MONICA) ID NOW COVID-19 As say is an isothermal nucleic acid amplification test intended for the qualitative detection of nucleic acid from SARS-CoV-2 viral RNA in nasopharyngeal (DURABLE MEDICAL EQUIPMENT REPAIRER) specimens. It is used under Emergency Use Authorization (EUA) by FDA. The limit of detection (LOD) of the assay is 125 Genome Equivalents/mL. A positive result is indicative of the presence of SARS-CoV-2 RNA. ?Clinical correlation with patient history and other diagnostic information is necessary to determine patient infection status. A negative (Not Detected) result does not preclude SARS-CoV-2 infection and should not be used as the sole basis for patient management decisions. ? Invalid: Please collect a new specimen for repeat patient testing if clinically indicated. Lab Interpretation (test code = 28494-7) Normal [facility] HospitalTroponin [id number] 22:42:00* Test Item Value Reference Range Interpretation Comme nts TROPONIN I (test code = 5537907219) 0.003 ng/mL See_Comment [Automated message] The system which generated this result transmitted reference range: <=0.034. The reference range was not used to interpret this result as normal/abnormal. MONICA (test code = MONICA) Equal or Less than 0.034 ng/ml---Normal ?Note: Cardiac troponin begins to rise 3-4 hours after the onset of ischemia. Repeat in 4-6 hours if the sample was drawn within 3-4 hours of the onset of the symptom and found normal. Between 0.035 and 0.120 ng/mL--- Borderline. Questionable myocardial injury or necrosis ? ?Note: Serial measurement may be necessary to confirm or exclude the diagnosis of myocardial injury or necrosis; Clinical correlation (symptoms, EKGs, imaging studies, and others) required; Repeat in 4-6 hours if clinically indicated. ? Equal or Higher than 0.121 ng/mL---Abnormal. Myocardial Injury or Necrosis Likely ? Biotin has been reported to cause a negative bias, interpret results relative to patient's use of biotin. ? Lab Interpretation (test code = 59875-1) Normal [facility]MINAL [id number] 22:39:00* Test Item Value Reference Range Interpretation Comme nts NT-proBNP (test code = 8067948301) 83 pg/mL See_Comment [Automated message] The system which generated this result transmitted reference range: <=125. The reference range was not used to interpret this result as normal/abnormal. MONICA (test code = MONICA) Biotin has been reported to cause a negative bias, interpret results relative to patient's use of biotin. Lab Interpretation (test code = 69034-9) Normal [facility] HospitalB[facility] Metabolic Panel (NA, K, CL, CO2, GLUCOSE, BUN, CREATININE, CA)2019-11-27 22:31:00* Test Item Value Reference Range Interpretation Comme nts NA (test code = 0793138347) 140 mmol/L 135-145 K (test code = 3522973098) 3.9 mmol/L 3.5-5 CL (test code = 4416952222) 104 mmol/L 98-108 CO2 TOTAL (test code = 3591957642) 28 mmol/L 23-31 AGAP (test code = 7697297253) 2-16 BUN (test code = 9306535025) 17 mg/dL 7-23 GLUCOSE (test code = 9138086171) 127 mg/dL 70-110 H CREATININE (test code = 3854615924) 1.31 mg/dL 0.6-1.25 H CALCIUM (test code = 4159082210) 9.3 mg/dL 8.6-10.6 eGFR Calculation (Non-) (test code = 6052594090) mL/min/1.73m2 eGFR Calculation () (test code = 0622992668) mL/min/1.73m2 MONICA (test code = MONICA) Association of Glomerular Filtration Rate (GFR) and Staging of Kidney Disease* + --+ --+ ------+| GFR (mL/min/1.73 m2) ?| With Kidney Damage ?| ?Without Kidney Damage+ --------+ --------+ +| ?>90 ?| ?Stage one ?| ? Normal ?+ ---+ ---+ -------+| ?60-89 ?| ?Stage two ?| ? Decreased GFR ? + --+ --+ ------+| ?30-59 ?| ?Stage three ?| ? Stage three ? + --+ --+ ------+| ?15-29 ?| ?Stage four ? | ? Stage four ?+ ---+ ---+ -------+| ?<15 (or dialysis) ? ?| ?Stage five ? | ? Stage five ?+ ---+ ---+ -------+ *Each stage assumes the associated GFR level has been in effect for at least three months. ?Stages 1 to 5, with or without kidney disease, indicate chronic kidney disease. Notes: Determination of stages one and two (with eGFR >59mL/min/1.73 m2) requires estimation of kidney damage for at least three months as defined by structural or functional abnormalities of the kidney, manifested by either:Pathological abnormalities or Markers of kidney damage (including abnormalities in the composition of the blood or urine or abnormalities in imaging tests). Lab Interpretation (test code = 33767-0) Abnormal [facility] (ALB, T.PRO, BILI T, BU/BC, ALT, AST, ALK PHOS)2019-11-27 22:31:00* Test Item Value Reference Range Interpretation Comme nts TOTAL BILI (test code = 3320140699) 0.3 mg/dL 0.1-1.1 BILI UNCON (test code = 6394820920) 0.5 mg/dL 0.1-1.1 BILI CONJ (test code = 2514062848) 0.0 mg/dL 0-0.3 T PROTEIN (test code = 2589420658) 7.2 g/dL 6.3-8.2 ALBUMIN (test code = 3805174528) 4.4 g/dL 3.5-5 ALK PHOS (test code = 3525715657) 55 U/L 34-122 ALTv (test code = 1742-6) 29 U/L 5-50 AST(SGOT) (test code = 2046576978) 30 U/L 13-40 Lab Interpretation (test cod e = 20569-5) Normal [facility] HospitalProthrombin Time (PT) / [id number] 22:27:00 * Test Item Value Reference Range Interpretation Comme [facility] PROTIME PATIENT (test code = 5964-2) See_Comment [Automated [employer]] The system which generated this result transmitted reference range: 12.0 - 14.7 Seconds. The reference range was not used to interpret this result as normal/abnormal. INR (test code = 6301-6) Normal INR <1.1; Warfarin Therapeutic range 2.0 to 3.0 or 2.5 to 3.5, depending upon the indications. Lab Interpretation (test code = 52219-7) Normal [facility] HospitalaPTT2020-04-06 22:26:00* Test Item Value Reference Range Interpretation Comme [facility] APTT Patient (test code = 3173-2) See_Comment [Automated message] The system which generated this result transmitted reference range: 23 - 38 Seconds. The reference range was not used to interpret this result as normal/abnormal. MONICA (test code = MONICA) The [facility] patient population mean normal value for aPTT is 30 seconds. Lab Interpretation (test code = 36200-2) Normal [facility] HospitalCBC WITH [id number] 22:19:00* Test Item Value Reference Range Interpretation Comme [facility] WBC (test code = 6690-2) See_Comment [Automated [employer]] The system which generated this result transmitted reference range: 4.20 - 10.70 10*3/?L. The reference range was not used to interpret this result as normal/abnormal. RBC (test code = 789-8) See_Comment [Automated Dropleta ge] The system which generated this result transmitted reference range: 4.26 - 5.52 10*6/?L. The reference range was not used to interpret this result as normal/abnormal. HGB (test code = 718-7) 13.5 g/dL 12.2-16.4 HCT (test code = 4544-3) 39.7 % 38.4-49.3 MCV (test code = 787-2) 89.8 fL 81.7-95.6 MCH (test code = 785-6) 30.5 pg 26.1-32.7 MCHC (test code = 786-4) 34.0 g/dL 31.2-35 RDW-SD (test code = 67527-7) 46.4 fL 38.5-51.6 RDW-CV (test code = 788-0) 13.9 % 12.1-15.4 PLT (test code = 777-3) See_Comment [Automated Dropleta ge] The system which generated this result transmitted reference range: 150 - 328 10*3/?L. The reference range was not used to interpret this result as normal/abnormal. MPV (test code = 90690-8) 10.2 fL 9.8-13 NRBC/100 WBC (test code = 3823877206) See_Comment [Automated me ssage] The system which generated this result transmitted reference range: 0.0 - 10.0 /100 WBCs. The reference range was not used to interpret this result as normal/abnormal. NRBC x10^3 (test code = 5459739328) <0.01 See_Comment [Automated me ssage] The system which generated this result transmitted reference range: 10*3/?L. The reference range was not used to interpret this result as normal/abnormal. GRAN MAT (NEUT) % (test code = 770-8) 58.8 % IMM GRAN % (test code = 1594663320) 0.40 % LYMPH % (test code = 736-9) 28.0 % MONO % (test code = 5905-5) 9.6 % EOS % (test code = 713-8) 2.7 % BASO % (test code = 706-2) 0.5 % GRAN MAT x10^3(ANC) (test code = 0478917733) 4.97 10*3/uL 1.99-6.95 IMM GRAN x10^3 (test code = 5856022009) 0.03 10*3/uL 0-0.06 LYMPH x10^3 (test code = 731-0) 2.37 10*3/uL 1.09-3.23 MONO x10^3 (test code = 742-7) 0.81 10*3/uL 0.36-1.02 EOS x10^3 (test code = 711-2) 0.23 10*3/uL 0.06-0.53 BASO x10^3 (test code = 704-7) 0.04 10*3/uL 0.01-0.09 [facility] CAROTID W/QDFEFDK6807-41-82 13:58:56 CLINICAL INDICATION: R45.86 Emotional labilityTECHNIQUE: Realtime sonographic imaging, color flow imaging and duplex doppler evaluation of the extracranial carotid circulation of the neck were performed bilaterally using the [employer] ultrasound Intima-media thickness determination is performedas well.COMPARISON: [...] 70%: ICA PSV 230 cm/sec, ICA/CCA ratio 4.0[facility]WXQIB0605-31-30 13:34:00* Test Item Value Reference Range Interpretation Comme nts Phosphorus (test code = Phosphorus) 2.8 2.5-4.5 [facility] CampusSdywnjtBOPDYESXMR3226-34-68 13:34:00* Test Item Value Reference Range Interpretation Comme nts WBC (test code = WBC) 8.9 3.7-10.4 [facility]IhbwnrbXNOUZHSRQ7961-43-67 23:29:00* Test Item Value Reference Range Interpretation Comme nts Troponin-I (test code = Troponin-I) no gt See_Comment N [Automated [employer]] The system which generated this result transmitted reference range: <=0.40. The reference range was not used to interpret this result as normal/abnormal. [facility] CenterDnjyhajAAGEWTQDC7643-70-51 19:01:00* Test Item Value Reference Range Interpretation Comme nts AGAP (test code = AGAP) 13.9 10.0-20.0 N [facility] CampusCvhylqiCYPGONRWRG1815-14-94 19:01:00* Test Item Value Reference Range Interpretation Comme nts INR (test code = INR) 0.88 0.85-1.17 N [facility] CenterGjnxonzZKQXZLDOD2537-46-94 23:38:00* Test Item Value Reference Range Interpretation Comme nts LDL (test code = LDL) 83.0 See_Comment N [A utomated message] The system which generated this result transmitted reference range: <=129. The reference range was not used to interpret this result as normal/abnormal. [facility] CampusCtqzuawCBPISGKTFS6984-18-16 23:38:00* Test Item Value Reference Range Interpretation Comme nts Basophils # (test code = Basophils #) 0.0 See_Comment N [Automated messa ge] The system which generated this result transmitted reference range: <=0.2. The reference range was not used to interpret this result as normal/abnormal. [facility] Notes Date/Time Note Provider Source 2024-10-16 09:25:25 [facility]2025-02-24 09:25:25 [facility] HospitalYueniny1661-24-56 09:49:37* [facility] HospitalLroezdx3443-74-48 09:49:37 [facility] HospitalFkswbmn9328-23-07 09:49:37 [facility] HospitalWoziumx0378-40-49 09:12:14* [facility] HospitalZggvajc2445-71-53 09:12:14 [facility] HospitalSwmfzaa4951-88-23 09:12:14 [facility] HospitalQmldadi4024-12-85 17:07:07* Jacques Judge MD - 05/22/2024 3:30 PM CDT Subjective Alcon Romano is a 69 y.o. male. Chief Complaint: Back pain and dyspnea on exertion it feels similar of his angina symptoms Past Surgical History: Procedure Laterality Date CARDIAC CATHETERIZATION CORONARY ANGIOPLASTY Current Outpatient Medications: lamoTRIgine (LaMICtal) 200 MG tablet, Take 200 mg by mouth 1 time each day., Disp: , Rfl: Lipitor 40 MG tablet, Take 1 tablet by mouth 1 time each day at the same time., Disp: , Rfl: nitroglycerin (Nitrostat) 0.4 MG SL tablet, Place 1 tablet under the tongue every 5 minutes if needed for chest pain. May repeat every 5 minutes for up to 3 doses., Disp: 25 tablet, Rfl: 2 valsartan (Diovan) 160 MG tablet, Take 1 tablet by mouth 1 time each day., Disp: 90 tablet, Rfl: 3 clopidogrel (Plavix) 75 MG tablet, Take 75 mg by mouth 1 time each day., Disp: , Rfl: metoprolol succinate XL (Toprol-XL) 50 MG 24 hr tablet, TAKE 1 TABLET BY MOUTH DAILY, Disp: 90 tablet, Rfl: 0 Review of Systems Constitutional: Negative. HENT: Negative. Eyes: Negative. Cardiovascular: Positive for chest pain (back pain on exertion) and dyspnea on exertion. Respiratory: Negative. Endocrine: Negative. Skin: Negative for itching and rash. Musculoskeletal: Negative for arthritis, back pain, gout, joint pain, muscle cramps, muscle weakness, myalgias and neck pain. Gastrointestinal: Negative. Genitourinary: Negative for bladder incontinence, frequency, hematuria, incomplete emptying and nocturia. Neurological: Negative for disturbances in coordination, dizziness, focal weakness, headaches, loss of balance, numbness, paresthesias, seizures, tremors, vertigo and weakness. Psychiatric/Behavioral: Negative for depression and memory loss. The patient does not have insomnia and is not nervous/anxious. Objective Visit Vitals BP 158/80 Ht 1.778 m (5' 10") Wt 112 kg (246 lb) BMI 35.30 kg/m? BSA 2.35 m? Body mass index is 35.3 kg/m?. Constitutional: Appearance: Healthy appearance. Eyes: Conjunctiva/sclera: Conjunctivae normal. Pupils: Pupils are equal, round, and reactive to light. Neck: Vascular: JVD normal. Pulmonary: Breath sounds: Normal breath sounds. No wheezing. Chest: Chest wall: Not tender to palpatation. Cardiovascular: PMI at left midclavicular line. Normal rate. Regular rhythm. Edema: Peripheral edema absent. Abdominal: General: Bowel sounds are normal. Palpations: Abdomen is soft. Skin: Findings: No rash. Neurological: General: No focal deficit present. Assessment & Plan 1. Anxiety and depression 2. Athscl heart disease of [place] [facility] ([facility]) ([facility]) 3. Essential hypertension 4. 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 Hypercholesterolemia 7. Coronary angioplasty status Add Valsartan, Nitrostat and Cardiolite Jacques Judge MD [facility] Cjbuyov4265-94-68 17:07:07 [facility]tjo[facility]293[facility]-98 17:07:07 Diagnosis Anxiety and depression - [facility] Athscl heart disease of anjali ve cor art w [facility] ang pctrs ([facility]) (HCC) Essential hypertension Unspecified essential hypertension Angina pectoris (HCC) Other and unspecified angina pectoris ED (erectile dysfunction) of organic origin Impotence of organic origin Hypercholesterolemia Pure hypercholesterolemia Coronary angioplasty status [facility]bergWfnzgfn4817-42-84 17:07:07 [facility] KlebergIlvtjyj3081-67-58 09:22:21* [facility] KlebergNjnefjl9367-85-96 09:22:21Upcoming Encounters Health Maintenance Due Date Last Done Comments CT Colonography 1955 Colonoscopy 1955 Colorectal Cancer Screening 1955 FIT-DNA 1955 FIT 1955 FOBT 1955 Lipid Panel 1956 Sigmoidoscopy 1956 DTaP/Tdap/Td Vaccines (1 - Tdap) 1975 Zoster Vaccines (1 of 2) 2006 Respiratory Syncytial Virus (RSV) or >=60 (1 - 1-dose 60+ series) 2016 Pneumococcal Vaccine: 65+ Ye ars (1 of 1 - PCV) 2021 Influenza Vaccine (Season Ended) 2024 HIB Vaccines Aged Out No longer eligi ble based on patient's age to complete this topic HPV Vaccines Aged Out No longer eligi ble based on patient's age to complete this topic Hepatitis A Vaccines Aged Out No long er eligible based on patient's age to complete this topic Hepatitis B Vaccines Aged Out No long er eligible based on patient's age to complete this topic IPV Vaccines Aged Out No longer eligi ble based on patient's age to complete this topic Meningococcal Vaccine Aged Out No yudi gavino eligible based on patient's age to complete this topic Rotavirus Vaccines Aged Out No longer eligible based on patient's age to complete this topic [facility] HospitalYtyowyw5814-88-92 09:22:21 [facility] HospitalVjuklza0546-38-74 14:26:00 [facility]) Discharge Summary REPORT#:[id number] REPORT STATUS: Signed DATE:12/30/22 TIME: 1426 PATIENT: ALCON ROMANO UNIT #: [id number] ROOM/BED: Y.515-A : 56 AGE: 67 SEX: M ATTEND: Phan Blanton MD ADM AUTHOR: Phan Blanton MD * ALL edits or amendments must be made on the electronic/computer document * General Information Discharge date: 12/16/22 Discharge diagnosis: same Hospital course: Discharge Diagnosis: Right Hip Degenerative Disease Procedure: Right Hip Arthroplasty Hospital Course and Findings The patient underwent the procedure without incident. Findings were significant for degenerative disease of the hip. The patient was hemodynamically and medically monitored during the postoperative period. Anticoagulation was instituted for postoperative DVT prophylaxis. The patient was progressively able to tolerate PO pain medications and the appropriate diet. Physical therapy was instituted, with a progressive ability to ambulate and perform exercises. The patient was eventually deemed stable and safe for discharge. Despite factors which projected a longer hospital stay, the patient fulfilled criteria for earlier than expected discharge, including control of pain, early mobilization with therapy, and a stable hemodynamic status. At discharge, the patient was comfortable, with a controlled pain level. There were no chest or abdominal symptoms present. Discharge physical examination demonstrated stable vital signs and no acute distress. The patient had an intact wound with no significant drainage, and no calf tenderness and a negative Leon s sign bilaterally. There were no neurologic or vascular deficits or changes from the preoperative state. Disposition: Discharged to home Discharge Condition: Stable Instructions: Instruction sheet given to patient Activity: Ambulate with assistance and walking aid, with weight-bearing as instructed in the hospital. Weight bearing limitations were reviewed with the patient during the hospitalization. Diet: As per preoperatively Prescriptions 1. Pain Medications: As per discharge prescription, with progressive weaning as pain decreases 2. Anticoagulation: As per discharge prescription, or PreOp anticoagulant, as discussed with patient Follow-up Appointment: Patient instructed to arrange appointment for an office visit in 2 weeks Med Rec Med Rec Discharge meds: Stop taking the following medications: traMADol (ULTRAM) 50 MG TAB 50 MILLIGRAM ORAL EVERY 6 HOURS NEEDED. as needed for ACUTE PAIN Continue taking these medications: CLOPIDOGREL (PLAVIX) 75 MG TAB 75 MILLIGRAM ORAL DAILY. ATORVASTATIN (LIPITOR) 20 MG TAB 40 MILLIGRAM ORAL DAILY. lamoTRIgine (LaMICtal) 150 MG TAB 150 MILLIGRAM ORAL DAILY. LORazepam (ATIVAN) 1 MG TAB 2 MILLIGRAM ORAL BEDTIME. FLUTICASONE PROPIONATE (FLOVENT HFA 110 MCG/ACT) 110 MCG/ACTUATION INHALER 2 PUFF INHALATION RT - TWICE DAILY. METOPROLOL SUCC XL (TOPROL XL) 50 MG TAB.SA 50 MILLIGRAM ORAL DAILY. Start taking the following new medications: ASPIRIN EC (ECOTRIN) 81 MG TAB.EC 81 MILLIGRAM ORAL TWICE DAILY WITH MEALS. Qty = 60 No Refills DOXYCYCLINE HYCLATE (VIBRAMYCIN) 100 MG CAP 100 MILLIGRAM ORAL TWICE DAILY. Days = 7 Qty = 14 No Refills HYDROcodone/APAP (HYDROcodone/APAP 10/325) 10 MG-325 MG TAB 1 TABLET ORAL EVERY SIX HOURS NEEDED as needed for prn break through pain Qty = 28 No Refills Instructions: one tab every 6 hours only for breakthrough pain POLYETHYLENE GLYCOL 3350 (MIRALAX) 17 GRAM POWDER 17 GRAM ORAL BEDTIME. Days = 30 Qty = 30 No Refills Instructions: please take daily for constipation prevention LACTOBACILLUS ACIDOPHILUS (PROBIOTIC ACIDOPHILUS) 1 CAP CAP 1 CAPSULE ORAL DAILY. Qty = 30 Refills = 6 Instructions: take as bottle directs for 6 weeks after surgery methocarbamoL (ROBAXIN) 500 MG TAB 500 MILLIGRAM ORAL THREE TIMES DAILY NEEDED. as needed for muscle spasm Qty = 28 No Refills traMADol (ULTRAM) 50 MG TAB 50 MILLIGRAM ORAL EVERY 4 HOURS NEEDED. as needed for pain Days = 7 Qty = 28 No Refills Discharge Instructions PCP )( Discharge to: Home/Self Care Discharge Instructions Additional Discharge Routines: Attending Follow-Up )( Diet: Regular )( Activity: As Tolerated, Crutches/Walker, Do not Submerge Incision, No Driving Follow-up Appointments Attending Physician: Attending Physician: Phan Blanton MD Attending physician follow up timeframe: In 2-3 weeks Special instructions: CALL OFFICE TO SCHEDULE APPOINTMENT at 1427 RPT #:[id number] END OF REPORT [id number] 09:20:00 [facility] ([facility]) Clinical Note REPORT#:[id number] REPORT STATUS: Signed DATE:12/16/22 TIME: 919 PATIENT: ALCON ROMANO UNIT #: [id number] ROOM/BED: [address] : 56 AGE: 67 SEX: M ATTEND: Phan Blanton MD ADM AUTHOR: Angelo Moran MD * ALL edits or amendments must be made on the electronic/computer document * Clinical Note Note: [facility] Angelo Reynaga M.D. (cell text [phone]) Assessment/Plan 1.) Anemia of acute blood loss- .Hgb 13.1, asymptomatic. 2.) S/p Right AHA- .acute multi-modal pain control and followup. Anticoagulation as per Dr. Blanton. 3.) CAD[stent x3] asthma- .follow BP, asthma under control. 4.) OsteoArthritis Hyperlipidemia- .continue on Rx. * OK for DISCHARGE per Internal Medicine. Prior Events/Overnight: Uneventful. Chief Complaint: No significant complaints. Objective Vital Signs: Date Time Temp Pulse Resp B/P B/P Pulse O2 O2 Flow FiO2 Mean Ox Delivery Rate 12/16 0717 96.8 66 14 129/77 93.9 96 Room air 12/16 0547 97.7 65 14 125/65 85 96 12/15 2313 97.7 62 14 134/74 94 97 12/15 2018 97.9 62 18 137/74 95 98 12/15 1950 Nasal cannula 12/15 1656 97.5 62 12 148/81 103.6 98 Room air 12/15 1500 98 Nasal 1 cannula 12/15 1421 96.8 56 12 137/76 96.6 99 Nasal cannula 12/15 1228 Nasal 2 cannula 12/15 1225 96.1 50 12 129/77 94.2 12/15 1146 Nasal 3 cannula 12/15 1140 97.4 56 14 114/59 98 Nasal 3 cannula 12/15 1125 57 19 100/60 100 Simple 10 mask 12/15 1112 Simple 10 mask 12/15 1112 97.2 66 20 97/58 98 Simple 10 mask Gen: Alert, oriented, in mild discomfort Neck: No Masses, No Thyromegaly- CV: Regular Rate Rhythm / Edema- no significant Resp: Clear To Ascultation / Normal Respiratory Effort ABD: NonTender / NonDistended MS/Skin: No sign of compartment syndrome / +ankle DF/PF Other: Labs/X-ray: Laboratory Tests: 12/16 0400 Hematology Hgb (12 - 16 g/dL) 13.1 Hct (37 - 47 %) 39.0 Angelo Reynaga M.D. at 1232 RPT #:[id number] END OF REPORT [id number] 07:02:00 [facility] ([facility]) Clinical Note REPORT#:[id number] REPORT STATUS: Signed DATE:12/16/22 TIME: 07 PATIENT: ALCON ROMANO UNIT #: [id number] ROOM/BED: [address] : 56 AGE: 67 SEX: M ATTEND: Phan Blanton MD ADM AUTHOR: Phan Blanton MD * ALL edits or amendments must be made on the electronic/computer document * Clinical Note Note: POD# 1 Joint Arthroplasty Patient well, reports pain is mild-moderate AF VSS Exam: dressing dry/intact Moves toes DF/PF Sensory unchanged A/P: Mobilize with physical Therapy DVT prophylaxis ongoing Following labs Remove coverlet, do not recover, patient may shower Discharge planning home today if PT clears at 0702 RPT #:[id number] END OF REPORT [id number] 17:01:00 [facility] ([facility]) Clinical Note REPORT#:[id number] REPORT STATUS: Signed DATE:12/15/22 TIME: 170 PATIENT: ALCON ROMANO UNIT #: [id number] ROOM/BED: [place]-A : 56 AGE: 67 SEX: M ATTEND: Phan Blanton MD ADM AUTHOR: Angelo Moran MD * ALL edits or amendments must be made on the electronic/computer document * Clinical Note Note: [facility] Angelo Reynaga MD (cell text [phone]) Internal Medicine Consult at request of : Dr. Phan Blanton. Chief Complaint: .knee pain HPI: 67yo M is now s/p Right Total Anterior Hip Arthroplasty (AHA) by Dr. Blanton. Mr. Romano relates years of progressive right hip pain (recently severe) , worse with activity, and popping crunchy with restricted motion at times in quality. He has failed conservative management. Comorbidities: see below. PmHx: .OsteoArthritis, CAD, hyperlipidemia ALLERGY: Allergies: No Known Allergies (Coded, 09/21/21) Home Medications: Home Medications: lamoTRIgine (LaMICtal) 150 MG PO DAILY FLUTICASONE PROPIONATE (FLOVENT HFA 110 MCG/ACT) 2 PUFF INH RTBID METOPROLOL SUCC XL (TOPROL XL) 50 MG PO DAILY CLOPIDOGREL (PLAVIX) 75 MG PO DAILY ATORVASTATIN (LIPITOR) 40 MG PO DAILY LORazepam (ATIVAN) 2 MG PO BEDTIME ASPIRIN EC (ECOTRIN) 81 MG PO BID MEALS DOXYCYCLINE HYCLATE (VIBRAMYCIN) 100 MG PO BID HYDROcodone/APAP (HYDROcodone/APAP 10/325) 1 TAB PO Q6HPRN PRN prn break through pain POLYETHYLENE GLYCOL 3350 (MIRALAX) 17 GM PO BEDTIME LACTOBACILLUS ACIDOPHILUS (PROBIOTIC ACIDOPHILUS) 1 CAP PO DAILY methocarbamoL (ROBAXIN) 500 MG PO TID PRN PRN muscle spasm traMADol (ULTRAM) 50 MG PO Q4H PRN PRN pain SgHx: .Left AHA 2017 SHx: Tob: none FHx: .No significant hx of DVT/PE. Alcohol: 3 drinks/week Drugs: none Lives: with spouse . . Vitals: Vital Signs: Date Time Temp Pulse Resp B/P B/P Pulse O2 O2 Flow FiO2 Mean Ox Delivery Rate 12/15 1656 97.5 62 12 148/81 103.6 98 Room air 12/15 1421 96.8 56 12 137/76 96.6 99 Nasal cannula 12/15 1228 Nasal 2 cannula 12/15 1225 96.1 50 12 129/77 94.2 12/15 1146 Nasal 3 cannula 12/15 1140 97.4 56 14 114/59 98 Nasal 3 cannula 12/15 1125 57 19 100/60 100 Simple 10 mask 12/15 1112 Simple 10 mask 12/15 1112 97.2 66 20 97/58 98 Simple 10 mask 12/15 0846 67 15 119/80 100 Simple 6 mask 12/15 0750 97.1 59 16 132/69 97 Room air Gen: Alert, in mild discomfort. EYE: Nl lids conjunctiva. ENT: Nl ears Nose, nl lips,. Neck: Supple, nl thyroid, No masses. CV: Regular Rate Rhythm, no heave or significant murmur. Edema- none RESP: Clear to Auscultation, normal Respiratory effort. ABD: Soft, NonDistended,. LYM: No significant cervical lymphadenopathy. MS: No sign of compartment syndrome, anterior incision clean, dry, thigh soft NEURO: Nonfocal, grossly normal sensation of LE, +Ankle DF/PF . . Preop Labs(11/24/22): CBC:. Hgb 15.2, Plt 281, CHEM: Na 139, K 4.7, Cr 1.34 (eGFR 58%), . Ekg: NSR, normal . (medium to high risk of complications or morbidity) (major surgery) (IV sedative, meds) . Assessment Plan 1.) Anemia of Acute Blood Loss- .will recheck tomorrow. 2.) S/p Right AHA- .acute multi-modal pain control and followup. Anticoagulation as per Dr. Blanton. 3.) CAD[stent x3] asthma- .follow BP, asthma under control. 4.) OsteoArthritis Hyperlipidemia- .continue on Rx. . Angelo Reynaga M.D. Thanks! . . . . . G8417 BMI documented as above normal parameters and a f/u plan is documented G9903 - Patient screened for tobacco use AND identified as a tobacco non-user 1123F - ACP disscussion - default code status while at [facility]. at 1904 RPT #:[id number] END OF REPORT [id number] 10:32:00 [facility] ([facility]) Operative Note - Full REPORT#:[id number] REPORT STATUS: Signed DATE:12/15/22 TIME: 1032 PATIENT: ALCON ROMANO UNIT #: [id number] ROOM/BED: [place] [address] : 56 AGE: 67 SEX: M ATTEND: Phan Blanton MD ADM AUTHOR: Phan Blanton MD * ALL edits or amendments must be made on the electronic/computer document * Operative Report Start date: 12/15/22 Start time: 0000 Pre-procedure diagnosis: R HIP OA Post-procedure diagnosis: SAME Procedures performed: R AHA Technique/Procedure: Anterior Approach Total Hip Replacement OPERATIVE PROCEDURE IN DETAIL The patient was identified in the holding area, and all questions and concerns were answered. The patient verbally confirmed the site and side of the surgery and marking of the site was done. The patient was brought to the operating room and after adequate anesthesia was obtained was placed supine on a well-padded Phelps table. The leg was then prepped in routine sterile manner, following which it was draped including the perineum and operative areas with adhesive Ioban Drape. A surgical time-out was performed to identify correct patient, surgical site and surgery. We verified patient had received preoperative antibiotics. An incision was started slightly lateral to the anterior superior iliac spine and extended distally to make it centered over the greater trochanter. The incision was carried deep to the fascia. The fascia was incised, and the interval between the sartorius and tensor fascia marino was developed. The leash of vessel across the interval was cauterized. The hip capsule was identified and retractors were placed laterally and medially around the femoral neck. The capsule was incised in an H fashion with one limb along the neck and the other along the acetabular labrum. The capsule elevated from the intertrochanteric line distally and proximally. The neck is cut in situ according to pre-operative templating at two sites, using intraoperative fluoroscopy to confirm the level of resection. The fragment of femoral neck is removed, and the head is removed using a corkscrew. Our attention was then directed to the acetabulum. Anterior and posterior retractors were placed around the acetabulum. Remnants of labrum were excised anteriorly and posteriorly using a combination of electrocautery and sharp dissection. The acetabulum was reamed sequentially with increasing size hemispherical reamers using an offset reamer handle under fluoroscopic guidance until bleeding cancellous bone was uncovered. An acetabular component was impacted with offset inserters under fluoroscopic guidance to assure an adequate amount of inclination and anteversion. The poly liner was placed and fully seated with an impactor. Our attention was then directed to the femur. A trochanteric hook was placed lateral, around the greater trochanter. The femur was then was mobilized by external rotation, hyperextension and adduction of the leg. Dissection of the lateral capsule from the lateral neck and piriformis fossa allowed elevation of the femur which was held in place with the trochanteric hook. Preparation of the femur was started with a box osteotome, followed by a canal finder and then sequential broaching of the femoral canal using an offset broach handle until an appropriate fit and stability was encountered. A trial head and neck were assembled onto the broach and the hip was reduced. An intraoperative low AP pelvis x-ray was used to confirm the position and orientation of acetabular components, the fit and fill of the femoral component, and the leg length at trial reduction. The x-ray was used to make any adjustments needed. The trial components were then removed and the final components inserted. The tissues were then lavaged, and the hip was relocated and stability was checked. Closure was completed with a heavy absorbable suture to the capsule, followed by a running absorbable suture to the fascia. Subcutaneous absorbable suture and skin subcuticular stitches were then placed. Dermabond mesh applied. The patient was woken up from anesthesia and transferred to the recovery in stable condition. INDICATIONS FOR CROZE MACHINE OPERATOR The presence of a skilled surgical garment fitter was medically necessary to aid for the entire procedure. Their responsibilities include patient positioning, retraction of soft tissues for wide exposure so that the surgeon can use both hands to perform the surgery, as well as stabilizing the limb for surgical instrumentation throughout the case. Retraction for exposure/visualization, as well as stabilization of the extremity is vital to the procedure and not possible without an catalog library assistant. In addition having an catalog library assistant shortens operative times which decreases expenses and improves outcomes. I am not part of any residency or fellowship training programs and therefore require the help of the catalog library assistant listed above for this surgery. IMPLANTS Depuy 56mm Virgil cup, 40+4 liner, 2 hi trilock, 40+5 mm CERAMIC head Primary Surgeon: HERBER Medical Staff Physician(s): LILY PAC Anesthesia: spinal anesthetic Operative findings: OA Complications: none Estimated blood loss in ml's: 300 Specimens removed/altered: none Implant(s): DEPUY at [address] [facility] #:[id number] END OF REPORT [id number] 16:01:[id number] [address] PATIENT NAME: ALCON ROMANO ADMIT DATE: ACCOUNT NO: [id number] ROOM NO: AGE: 67 REPORT TYPE: ELECTROCARDIOGRAM SEX: M ADMITTING PHYSICIAN: ATTENDING PHYSICIAN:Phan Blanton MD Order: [id number] Test Reason : PRE OP CLEARANCE CAD Test Date/Time Stamp: WedNov 24 2022 16:01:42 Blood Pressure : / mmHG Vent. Rate : 065 BPM Atrial Rate : 065 BPM P-R Int : 196 ms QRS Dur : 084 ms QT Int : 414 ms P-R-T Axes : -01 069 050 degrees QTc Int : 430 ms Normal sinus rhythm Normal ECG No previous ECGs available Confirmed by JESI KAUFMAN MD ([id number]) on 12/01/2022 11:50:46 AM Referred By: Phan Blanton Confirmed by:JESI KAUFMAN MD PATIENT NAME: ALCON ROMANO 08:59:00 [facility] Pain Management Progress Note REPORT#:[id number] REPORT STATUS: Signed DATE:03/07/20 TIME: 858 PATIENT: ALCON ROMANO UNIT #: [id number] ROOM/BED: [address] : 56 AGE: 65 SEX: M ATTEND: Ton Ríos MD ADM AUTHOR: Mya Rangel DURABLE MEDICAL EQUIPMENT REPAIRER * ALL edits or amendments must be made on the electronic/computer document * Subjective Chief Complaint: BACK PAIN S/P L2-4 MICRODISCECTOMY Comments: Hematology: 03/07 410 Hematology Hgb (12 - 16 g/dL) 13.5 Hct (37 - 47 %) 41.0 Last Documented: Result Date Time Pulse Ox 97 03/07 738 B/P 133/78 03/07 738 B/P Mean 96.4 03/07 738 O2 Delivery Room air 03/07 738 Temp 36.2 03/07 738 Pulse 73 03/07 738 Resp 16 03/07 738 O2 Flow Rate 3.712145 03/07 0732 FiO2 32 03/07 0224 History: PMH: CAD-CT, STENT, ANXIETY POD: 1 APMS RN: Ramy BOJORQUEZ RN Medication: DILAUDID Pump settings: BASAL RATE: O DOSE: 0.2MG DELAY: 10 MIN TRUST OPERATIONS ASSISTANT USE: FREQUENT Activity status: PT SITTING UP IN BED WATCHING TV. Pain: STATES HAS LITTLE PAIN Physical Exam: VAS: 3-4 LOS: 1 Resp Quality: 1 Side Effects: NONE PT APPEARS COMFORTABLE AT THIS TIME. Plan: TRUST OPERATIONS ASSISTANT TO BE DC'D BY FLOOR NURSE THIS AM PT TO TRANSITION TO ORAL PAIN MEDS ANTICIPATE D/C HOME TODAY. at 0902 RPT #:[id number] END OF REPORT [id number] 08:59:00 [facility] ([facility]) Pain Management Progress Note REPORT#:[id number] REPORT STATUS: Signed DATE:03/07/20 TIME: 858 PATIENT: ALCON ROMANO UNIT #: [id number] ROOM/BED: [address] : 56 AGE: 65 SEX: M ATTEND: Ton Ríos MD ADM AUTHOR: Mya Rangel NP * ALL edits or amendments must be made on the electronic/computer document * Subjective Chief Complaint: BACK PAIN S/P L2-4 MICRODISCECTOMY Comments: Hematology: 03/07 0410 Hematology Hgb (12 - 16 g/dL) 13.5 Hct (37 - 47 %) 41.0 Last Documented: Result Date Time Pulse Ox 97 03/07 07 B/P 133/78 03/07 07 B/P Mean 96.4 03/07 0738 O2 Delivery Room air 03/07 07 Temp 36.2 03/07 0738 Pulse 73 03/07 0738 Resp 16 03/07 0738 O2 Flow Rate 3.677121 03/07 0732 FiO2 32 03/07 0224 History: PMH: CAD-CT, STENT, ANXIETY POD: 1 APMS RN: Ramy BOJORQUEZ RN Medication: DILAUDID Pump settings: BASAL RATE: O DOSE: 0.2MG DELAY: 10 MIN TRUST OPERATIONS ASSISTANT USE: FREQUENT Activity status: PT SITTING UP IN BED WATCHING TV. Pain: STATES HAS LITTLE PAIN Physical Exam: VAS: 3-4 LOS: 1 Resp Quality: 1 Side Effects: NONE PT APPEARS COMFORTABLE AT THIS TIME. Plan: TRUST OPERATIONS ASSISTANT TO BE DC'D BY FLOOR NURSE THIS AM PT TO TRANSITION TO ORAL PAIN MEDS ANTICIPATE D/C HOME TODAY. at 0902 at [address] [facility] #:[id number] END OF REPORT [id number] 07:12:00 [facility] ([facility]) Ortho / Spine Progress Note REPORT#:[id number] REPORT STATUS: Signed DATE:03/07/20 TIME: 711 PATIENT: ALCON ROMANO UNIT #: [id number] ROOM/BED: O23-A : 56 AGE: 65 SEX: M ATTEND: Ton Ríos MD ADM AUTHOR: Ton Ríos MD * ALL edits or amendments must be made on the electronic/computer document * Subjective Patient Reports: ambulating, comfortable, feeling better Objective General VS/I O: Vital Signs: Date Time Temp Pulse Resp B/P B/P Pulse O2 O2 Flow FiO2 Mean Ox Delivery Rate 03/07 0403 98.1 75 16 127/74 91.3 99 03/07 0224 97 Nasal 3.271276 32 cannula 03/06 2231 97.3 69 16 130/75 93.2 99 03/06 2024 97 Nasal 3.924131 32 cannula 03/06 1915 97.2 76 16 118/69 85.5 97 03/06 1519 96.4 67 16 109/67 81.0 97 Nasal cannula 03/06 1310 95 Nasal 3.484220 32 cannula 03/06 1237 Nasal 3.232381 cannula 03/06 1224 96.3 65 16 156/87 109.7 97 Nasal cannula 03/06 1200 98.2 62 12 140/75 100 Nasal 3.310585 cannula 03/06 1155 Nasal 3.193509 cannula 03/06 1145 62 17 153/80 100 Nasal 3.860853 cannula 03/06 1130 62 18 165/89 100 Nasal 3.837633 cannula 03/06 1115 66 14 135/65 100 Simple 5.262225 mask 03/06 1106 Simple 5.468462 mask 03/06 1055 98.2 67 12 129/63 100 Simple 5.662313 mask 24 hour I O ending at 0700: 03/07 0700 03/06 1900 Intake Total 360.00 180.00 Output Total 350 Balance 360.00 -170.00 Intake, IV 360.00 150.00 Intake, Oral 30 Number Voids 4 Output, Urine 350 Patient 233 lb Weight Weight Standing scale Measurement Method Patient Weight Weight (lb): 233 Weight (oz): 0.46 Weight (kg): 105.700 Post Op: day 1 Status post: Status Post: LEFT L2-3 AND LEFT L4-5 HEMILAMINOTOMY Physical Exam General appearance: alert, awake, oriented LE Neuro/Lumbar: Bilateral: No obv. LE deficit:, hip flexor:, hip abductor:, hip adductor:, knee extension:, knee flexion:, ankle inversion:, ankle eversion:, ankle dorsiflexion :, ankle plantiflexion:, EHL:, sensation L1:, sensation L2:, sensation L3:, sensation L4:, sensation L5:, sensation S1:. Diagnosis, Assessment Plan Hospital course to date: DISCHARGE HOME DAILY WALKING KEEP INCISIONS DRY PROPER BODY MECHANICS FOLLOWUP IN 2-3 WEEKS at 0714 RPT #:[id number] END OF REPORT [id number] 15:02:00 [facility] ([facility]) Adult General Consultation REPORT#:[id number] REPORT STATUS: Signed DATE:03/06/20 TIME: 1502 PATIENT: ALCON ROMANO UNIT #: [id number] ROOM/BED: [address] : 56 AGE: 65 SEX: M ATTEND: Ton Ríos MD ADM AUTHOR: Haley Benton MD * ALL edits or amendments must be made on the electronic/computer document * History of Present Illness Requesting Clinician: Ton Hopper Reason for consult: postoperative medical managment Chief complaint: back pain HPI: 64 yo male is now s/p Left L2-3, Left L4-5 microdisectomy. Her medical history includes HLD, CAD (s/p 3 stent in 2000), Mood disorder. Denies h/o HTN, DM, CHF, CVA, lung dz, kinedy dz, DVT or PE No specific c/o @ present History - Adult longitudinal Past medical history: Reports: Coronary artery disease, Depression/mood disorder. Past surgical history: Reports: Hip procedure, PCI (3 stents). Family history: Reports: Kidney disease/stones. Alcohol use: Alcohol use Drug use: Denies recreational drugs Smoking status for patients 13 years old or older: Never Smoker Other social history: Uses smokeless tobacco, Employed, Good social support ( ) Medications: Home Medications: Medication Dose/Rte/Freq Days Qty Entered Last Max Daily Dose Reviewed CLOPIDOGREL (PLAVIX) 75 MG PO DAILY 08/09/15 03/06/20 Strength: 75 MG TAB 1533 0715 ATORVASTATIN (LIPITOR) 20 MG PO DAILY 08/09/15 03/06/20 Strength: 20 MG TAB 1533 0715 lamoTRIgine (LaMICtal) 150 MG PO DAILY 08/09/15 03/06/20 Strength: 150 MG TAB 1533 0715 LORazepam (ATIVAN) 1 MG PO BEDTIME 03/01/20 03/06/20 Strength: 1 MG TAB 1255 0715 Current Hospital Medications: Anti-Infective Agents Sig/Maribel Start time Last Medication Dose Route Stop Time Status Admin Cefazolin Sodium 2 GM Q8H 03/06 1600 AC 03/06 (KEFZOL) IV 03/07 0801 1855 Cefazolin Sodium 2 GM .STK-MED ONE 03/06 1130 DC (KEFZOL) IV 03/06 1131 Vancomycin HCl 0 .STK-MED ONE 03/06 0703 DC (VANCOMYCIN HCL) IV Cefazolin Sodium 2 GM ONCALL 03/06 0500 DC (KEFZOL) IV 03/06 2300 Antihistamine Drugs Sig/Maribel Start time Last Medication Dose Route Stop Time Status Admin Diphenhydramine HCl 12.5 MG ANES Q4H PRN PRN 03/06 1130 AC (BENADRYL) IV 04/05 1131 Diphenhydramine HCl 25 MG ANES BEDTIME PRN PRN 03/06 1130 AC (BENADRYL) PO 04/05 1131 Autonomic Drugs Sig/Maribel Start time Last Medication Dose Route Stop Time Status Admin Methocarbamol 500 MG ANES Q6H PRN PRN 03/07 1800 AC (ROBAXIN) PO 04/06 1801 Methocarbamol 500 MG ANES Q6HR 03/06 1800 AC 03/06 (ROBAXIN) PO 03/07 1201 1855 Rocuronium [place] 50 MG .STK-MED ONE 03/06 1130 DC (Rocuronium [place] IV 03/06 1131 10 mg/mL) Succinylcholine 200 MG .STK-MED ONE 03/06 1130 DC Chloride IV 03/06 1131 (SUCOSTRIN) Cyclobenzaprine HCl 10 MG Q8H PRN PRN 03/06 1045 DC (FLEXERIL) PO 04/05 1046 Epinephrine 0 .STK-MED ONE 03/06 0703 DC (EPINEPHrine) .ROUTE Methocarbamol 500 MG PACU ONCE PRN 03/06 0600 DC (ROBAXIN) PO 03/07 0600 Cardiovascular Drugs Sig/Maribel Start time Last Medication Dose Route Stop Time Status Admin Atorvastatin Calcium 20 MG DAILY 03/07 0900 AC (LIPITOR) PO 04/06 0901 Lidocaine HCl 5 ML .STK-MED ONE 03/06 1130 DC (XYLOCAINE) IV 03/06 1131 Hydralazine HCl 10 MG PACU Q10MIN PRN PRN 03/06 0600 DC (hydrALAZINE HCL) IV 03/07 0600 Metoprolol Tartrate 2 MG PACU Q10MIN PRN PRN 03/06 0600 DC (LOPRESSOR) IV 03/07 0600 Lidocaine HCl 2 ML PREOP 03/06 0500 DC (XYLOCAINE) IV 03/06 2300 Central Nervous System Agents Sig/Maribel Start time Last Medication Dose Route Stop Time Status Admin Sevoflurane 45 ML .STK-MED ONE 03/06 1131 DC (ULTANE) INH 03/06 1132 Fentanyl Citrate 200 MCG .STK-MED ONE 03/06 1130 DC (SUBLIMAZE) IV 03/06 1131 Hydromorphone HCl 100 ML ASDIR 03/06 1130 CKD 03/06 (DILAUDID 20 MG/NS IV 03/16 1131 1148 100 ML TRUST OPERATIONS ASSISTANT) Ketamine HCl 500 MG .STK-MED ONE 03/06 1130 DC (KETALAR) IV 03/06 1131 Lorazepam 0.5 MG Q8H PRN PRN 03/06 1130 AC (ATIVAN 0.5 MG TAB) PO 04/05 1131 Midazolam HCl 5 MG .STK-MED ONE 03/06 1130 DC (VERSED) IV 03/06 1131 Naloxone HCl See Dose ANES ASDIR 03/06 1130 AC (NARCAN) Insts (1) IV 03/13 1131 Promethazine HCl 6.25 MG ANES Q4H PRN PRN 03/06 1130 AC (PHENERGAN) IV 04/05 1131 Propofol 200 MG .STK-MED ONE 03/06 1130 DC (DIPRIVAN) IV 03/06 1131 Lorazepam 0.5 MG PACU STAT 03/06 1125 DC (ATIVAN 2 MG/ML VIAL) IV 03/06 1400 Acetaminophen 650 MG Q4H PRN PRN 03/06 1045 AC (TYLENOL) PO 04/05 1046 Acetaminophen 650 MG Q4H PRN PRN 03/06 1045 AC (TYLENOL) PO 04/05 1046 Acetaminophen 650 MG Q4H PRN PRN 03/06 1045 AC (ACETAMINOPHEN) RECTAL 04/05 1046 Diazepam 5 MG Q6H PRN PRN 03/06 1045 DC (VALIUM) PO 03/16 1046 Hydrocodone Bitart/ 1 UDTAB Q3H PRN PRN 03/06 1045 AC Acetaminophen PO 03/16 1046 (NORCO 5/325 TABLET) Hydrocodone Bitart/ 1 UDTAB Q4H PRN PRN 03/06 1045 AC Acetaminophen PO 03/16 1046 (NORCO 10/325 TABLET) Zolpidem Tartrate 5 MG BEDTIME PRN PRN 03/06 1045 DC (AMBIEN) PO 03/13 1046 Fentanyl Citrate 25 MCG PACU Q5MIN PRN PRN 03/06 0600 DC 03/06 (SUBLIMAZE) IV 03/07 0600 1130 Hydrocodone Bitart/ 1 UDTAB PACU Q4H PRN PRN 03/06 0600 DC Acetaminophen PO 03/07 0600 (NORCO 5/325 TABLET) Hydrocodone Bitart/ 1 UDTAB PACU Q4H PRN PRN 03/06 0600 DC Acetaminophen PO 03/07 0600 (NORCO 10/325 TABLET) Hydromorphone HCl 0.4 MG PACU Q5MIN PRN PRN 03/06 0600 DC (DILAUDID) IV 03/07 0600 Meperidine HCl 12.5 MG PACU Q5MIN PRN PRN 03/06 0600 DC (MEPERIDINE HCL) IV 03/07 0600 Promethazine HCl 6.25 MG PACU Q15MIN PRN PRN 03/06 0600 DC (PHENERGAN) IV 03/07 0600 Devices Sig/Maribel Start time Last Medication Dose Route Stop Time Status Admin Device 0 .STK-MED ONE 03/06 0712 DC (AK- KIT) IV Electrolytic, Caloric, And John Sig/Maribel Start time Last Medication Dose Route Stop Time Status Admin Lactated Ringer's 1,000 ML .Q10H 03/06 1600 AC (LACTATED RINGERS) IV 04/05 1601 Sodium Chloride 20 ML Q8H 03/06 1600 AC 03/06 (SODIUM CHLORIDE) IV 03/07 0801 1854 Sodium Chloride 10 ML ANES ASDIR PRN 03/06 1130 AC (SODIUM CHLORIDE) IV 04/05 1131 Lactated Ringer's 1,000 ML PREOP IV FLUID 03/06 0500 DC 03/06 (LACTATED RINGERS) IV 03/06 2300 0734 Eye, Ear, Nose And Throat (Een Sig/Maribel Start time Last Medication Dose Route Stop Time Status Admin Dexamethasone Sodium 4 MG Q6HR 03/06 1800 AC 03/06 Phosphate IV 03/07 1201 1855 (DECADRON PHOSPHATE) Dexamethasone Sodium 12 MG .STK-MED ONE 03/06 1130 DC Phosphate IV 03/06 1131 (DECADRON PHOSPHATE) Benzocaine/Menthol 1 LOZENGE Q1H PRN PRN 03/06 1045 AC (CEPACOL SORE THROAT MM 03/13 1046 LOZENGE) Gastrointestinal Drugs Sig/Maribel Start time Last Medication Dose Route Stop Time Status Admin Sodium Biphosphate/ 133 ML ASDIR PRN 03/08 0500 AC Sodium Phosphate RECTAL 04/07 0501 (FLEET ENEMA) Bisacodyl 10 MG BID 03/07 0900 AC (bisacodyL) PO 04/06 0901 Magnesium Hydroxide 30 ML QAM 03/07 0900 AC (MILK OF MAGNESIA) PO 04/06 0901 Ondansetron HCl 4 MG ANES Q4H PRN PRN 03/06 1130 AC (ZOFRAN) IV 04/05 1131 Ondansetron HCl 4 MG .STK-MED ONE 03/06 1130 DC (ZOFRAN) IV 03/06 1131 Ondansetron HCl 4 MG PACU ONCE PRN PRN 03/06 0600 DC (ZOFRAN) IV 03/07 0600 Hormones And Synthetic Substit Sig/Maribel Start time Last Medication Dose Route Stop Time Status Admin Methylprednisolone See Dose DAILY 03/07 1800 AC (MEDROL DOSEPAK) Insts (2) PO 03/14 1801 Methylprednisolone See Dose DAILY 03/06 1245 CNV (MEDROL DOSEPAK) Insts (3) PO 03/12 0901 Local Anesthetics (Parenteral) Sig/Maribel Start time Last Medication Dose Route Stop Time Status Admin Bupivacaine HCl 0 .STK-MED ONE 03/06 0703 DC (SENSORCAINE) .ROUTE Miscellaneous Therapeutic Agen Sig/Maribel Start time Last Medication Dose Route Stop Time Status Admin Clopidogrel Bisulfate 75 MG DAILY 03/08 0900 DC (PLAVIX) PO 04/07 0901 Lamotrigine 150 MG DAILY 03/07 0900 AC (lamoTRIgine) PO 04/06 0901 Clopidogrel Bisulfate 75 MG DAILY 03/07 0600 DC (PLAVIX) PO 04/05 1555 Clopidogrel Bisulfate 75 MG DAILY 0600 03/07 0600 AC (PLAVIX) PO 04/05 1758 Skin And Mucous Membrane Agent Sig/Maribel Start time Last Medication Dose Route Stop Time Status Admin Phenol 1 SPRAY Q1H PRN PRN 03/06 1045 AC (CHLORASEPTIC SPRAY - MM 04/05 1046 BEDOYA) Vitamins Sig/Maribel Start time Last Medication Dose Route Stop Time Status Admin Multivitamins/Iron/ 1 UDTAB DAILY 03/07 0900 AC Calcium PO 04/06 0901 (THERAGRAN-M) Other Sig/Maribel Start time Last Medication Dose Route Stop Time Status Admin IV Miscellaneous 1 EA ASDIR 03/06 1130 AC Supplies MISC 04/05 1131 ([employer] [place]) Dose Instructions: (1)Naloxone HCl (NARCAN): 0.1 - 0.2 MG (2)Methylprednisolone (MEDROL DOSEPAK): *FOLLOW SPECIAL INSTRUCTIONS* (3)Methylprednisolone (MEDROL DOSEPAK): *FOLLOW SPECIAL INSTRUCTIONS* Allergies: Coded Allergies: No Known Drug Allergies (02/13/20) Review of Systems Constitutional: Denies: chills, fever. Skin: Denies: rash, swelling. Allergy/Immun: Denies: allergic reaction. Eyes: Denies: diplopia, eye pain. ENT: Denies: sore throat. Respiratory: Denies: productive cough (sputum), SOB, wheezing. Cardiovascular: Denies: chest pain, edema, palpitations. GI: Denies: abdominal pain, nausea, vomiting. : Denies: dysuria, urgency. Heme: Denies: adenopathy. Endocrine: Denies: cold intolerance, heat intolerance. Neuro: Denies: dizziness, lightheaded. Psych: Denies: agitation, anxiety. Objective VS/I O: Last Documented: Result Date Time Pulse Ox 97 03/06 1915 B/P 118/69 03/06 1915 B/P Mean 85.5 03/06 1915 Temp 36.2 03/06 1915 Pulse 76 03/06 1915 Resp 16 03/06 1915 O2 Delivery Nasal cannula 03/06 151 FiO2 32 03/06 131 O2 Flow Rate 3.363829 03/06 1310 Patient Weight Weight (lb): 233 Weight (oz): 0.46 Weight (kg): 105.700 General appearance: alert, awake, oriented Head/Eyes: atraumatic, clear cornea, EOMI, normocephalic ENT: moist mucosal membranes Neck: no JVD Cardiovascular: normal heart sounds Respiratory: clear to auscultation Abdomen: soft, non-tender, no guarding Extremities: no edema, no calf tenderness Neuro/EXECUTIVE CHEF: alert, oriented X 3 Skin: dry, intact Diagnosis, Assessment Plan Problem List/A P: 1. CAD (coronary artery disease) A P stable, off Plavix 5 days prior to surgery, resume as soon as cleared by surgeon. 2. HLD (hyperlipidemia) A P Cont. home regiment 3. Mood disorder A P stable, cont. home regiment. at 2124 RPT #:[id number] END OF REPORT [id number] 14:54:00 [facility] ([facility]) Ortho / Spine Progress Note REPORT#:[id number] REPORT STATUS: Signed DATE:03/06/20 TIME: 1454 PATIENT: ALCON ROMANO UNIT #: [id number] ROOM/BED: [facility]-A : 56 AGE: 65 SEX: M ATTEND: Ton Ríos MD ADM AUTHOR: Ton Ríos MD * ALL edits or amendments must be made on the electronic/computer document * Subjective Patient Reports: comfortable, pain controlled Objective General VS/I O: Vital Signs: Date Time Temp Pulse Resp B/P B/P Pulse O2 O2 Flow FiO2 Mean Ox Delivery Rate 03/06 1237 Nasal 3.236025 cannula 03/06 1224 96.3 65 16 156/87 109.7 97 Nasal cannula 03/06 1200 98.2 62 12 140/75 100 Nasal 3.541304 cannula 03/06 1155 Nasal 3.073313 cannula 03/06 1145 62 17 153/80 100 Nasal 3.315865 cannula 03/06 1130 62 18 165/89 100 Nasal 3.968753 cannula 03/06 1115 66 14 135/65 100 Simple 5.334303 mask 03/06 1106 Simple 5.748647 mask 03/06 1055 98.2 67 12 129/63 100 Simple 5.276685 mask 03/06 0707 97.5 66 16 143/73 97 Room air Patient Weight Weight (lb): 233 Weight (oz): 0.46 Weight (kg): 105.700 Post Op: post surgery rounds Status post: Status Post: LEFT L2-3 AND LEFT L4-5 HEMILAMINOTOMY Physical Exam General appearance: alert, awake, oriented LE Neuro/Lumbar: Bilateral: No obv. LE deficit:, hip flexor:, hip abductor:, hip adductor:, knee extension:, knee flexion:, ankle inversion:, ankle eversion:, ankle dorsiflexion :, ankle plantiflexion:, EHL:, sensation L1:, sensation L2:, sensation L3:, sensation L4:, sensation L5:, sensation S1:. Diagnosis, Assessment Plan Hospital course to date: AMBULATE at 1455 [facility] #:[id number] END OF REPORT [id number] 14:00:00 [facility] ([facility]) Brief Op Note REPORT#:[id number] REPORT STATUS: Signed DATE:03/06/20 TIME: 1400 PATIENT: ALCON ROMANO UNIT #: [id number] ROOM/BED: [address] : 57 AGE: 65 SEX: M ATTEND: Ton Ríos MD ADM AUTHOR: Ton Ríos MD * ALL edits or amendments must be made on the electronic/computer document * Op/Inv Proc Note - Brief Pre-procedure diagnosis: LEFT L2-3 AND LEFT L4-5 STENOSIS Post-procedure diagnosis: same as pre procedure dx Procedures performed: LEFT L2-3 AND LEFT L4-5 HEMILAMINOTOMY Primary Surgeon: RUDY Medical Staff Physician(s): SHAHANA Findings: SEE DICTATION TO FOLLOW Complications: none Estimated blood loss in ml's: 40 CC`S Specimens removed/altered: none at 1405 [facility] #:[id number] END OF REPORT HCATO
[2024-12-10] MEDS ORDERED: ALBUTEROL 2.5 MG/3 ML NEB SOL ONE ×2 (11:52→13:15)
[2024-12-10] MEDS ORDERED: IPRATROPIUM BROM 0.5MG/2.5ML ONE (11:52)
[2024-12-10] MEDS ORDERED: METHYLPREDNISOLONE 125 MG INJ ONE (11:53)
[2024-12-10 12:23] LABS: Absolute Basophils 0.1 K/uL (0-0.5); Absolute Eosinophils 0.1 K/uL (0-0.5); Absolute Lymphocytes (CBC) 0.8 K/uL (0.7-4.9); Absolute Monocytes 0.6 K/uL (0.1-1.3); Absolute Neutrophil 3.4 K/uL (1.8-8.0); Basophils % 1.1 % (0-1.3); Hematocrit 42.3 % (39.6-49.0); Hemoglobin 14.5 g/dL (13.6-17.9); Lymphocytes % 16.2 % (15.3-44.8); MCH 30.3 pg (27.0-35.0); MCHC 34.2 g/dL (32.0-36.0); MCV 88.5 fL (80-100); MPV 8.7 fL (7.6-11.3); Monocytes % 11.3 % (3.3-12.3); Neutrophils % 68.4 % (41.7-73.7); Platelets 218 thou/uL (152-406); RBC Red Blood Cell Count 4.79 M/uL (4.33-5.43); Red Cell Distribution Width 14.2 % (12.1-15.2)
--- NOTE | 2024-12-10 12:28 | RAD REPORT ---
Procedure: Chest Single View HISTORY: Chest pain COMPARISON: none FINDINGS: The lungs appear clear of acute infiltrate. No significant pleural effusion noted. The heart is normal size. IMPRESSION: No acute abnormality is displayed.
[2024-12-10 12:40] LABS: Influenza A Ag Negative; Influenza B Ag Negative; PT Prothrombin Time 11.2 SECONDS (10-13.0); PTT, Activated Partial Thromb 28.7 SECONDS (27.2-37.4); Protime INR 0.98; SARS-CoV-2 Antigen Rapid Res Negative (Negative)
[2024-12-10 12:44] LABS: Anion Gap 9.5 mEq/L (5.0-15.0); Potassium 3.5 mEq/L (3.5-5.1); Troponin High Sensitivity 10.7 pg/mL (<58.9)
[2024-12-10] MEDS ORDERED: AZITHROMYCIN 250 MG TAB ONE (13:15)
--- NOTE | 2024-12-10 13:19 | EDPHYS ---
Physician Documentation [facility] Name: Emile Holloway Age: 69 yrs Sex: Male : 1955 Arrival Date: 12/10/2024 Time: 11:38 Bed 4 Private MD: ED Physician Bob Kamara HPI: 12/10 11:45 This 69 yrs old Male presents to ER via Unassigned with complaints of Chest Pain, sb4 Breathing Difficulty, wheezing. 11:47 cough, congestion, wheezing x 2 days. chest tightness/pressure and shortness of breath sb4 this morning. did neb treatment, took hot shower, and used rescue inhaler without significant improvement. reports history of asthma and CAD. Historical: - Allergies: 11:46 No Known Allergies; ll1 - PMHx: 11:46 Arthritis; cardiac stent; High Cholesterol; Hyperlipidemia; Kidney stones; Asthma; ll1 - PSHx: 11:46 heart stents; ll1 - Immunization history:: Adult Immunizations up to date. - Infectious Disease History:: Denies. - Social history:: Smoking status: Patient reports use of chewing tobacco. Patient denies any tobacco usage or history of. ROS: 11:47 ENT: Negative for injury, pain, and discharge, sb4 11:47 Constitutional: Positive for fever, 11:47 Cardiovascular: Positive for chest pain, 11:47 Respiratory: Positive for cough, dyspnea on exertion, wheezing, expiratory, 11:47 All other systems are negative, Exam: 11:47 Constitutional: This is a well developed, well nourished patient who is awake, alert, sb4 and in no acute distress. Head/Face: Normocephalic, atraumatic. Eyes: Extra-ocular motions intact. Periorbital areas with no swelling, redness, or edema. ENT: Mucous membranes moist. Cardiovascular: Regular rate and rhythm with a normal S1 and S2. Respiratory: No increased work of breathing, no retractions or nasal flaring. Abdomen/GI: Soft, non-tender, no distension. Skin: Warm, dry with normal turgor. Normal color with no rashes, no lesions, and no evidence of cellulitis. 11:47 Respiratory: Breath sounds: wheezing: expiratory that is moderate, is heard diffusely, Vital Signs: 11:46 BP 146 / 74; Pulse 95; Resp 20; Temp 97.5; Pulse Ox 96% on R/A; Weight 97.52 kg; Height ll1 5 ft. 10 in. ; Pain 6/10; 12:38 BP 128 / 73; Pulse 86; Resp 15; Pulse Ox 96% ; Pain 0/10; jl7 13:00 BP 126 / 70; Pulse 81; Resp 15; Pulse Ox 99% ; jl7 11:46 Body Mass Index 30.85 (97.52 kg, 177.8 cm) ll1 11:46 Pain Scale: Adult ll1 12:38 Pain Scale: Adult jl7 MDM: 11:41 Medical Screening Exam initiated sb4 13:07 Data reviewed: vital signs, nurses notes, lab test result(s), EKG, radiologic studies, sb4 and as a result, I will discharge patient. Historians other than the Patient: Spouse/Significant Other: . Counseling: I had a detailed discussion with the patient and/or guardian regarding the historical points, exam findings, and any diagnostic results supporting the discharge/admit diagnosis, lab results, radiology results, the need for outpatient follow up, for definitive care, to return to the emergency department if symptoms worsen or persist or if there are any questions or concerns that arise at home. 12/10 11:45 Order name: BMP; Complete Time: 12:47 sb4 12/10 11:45 Order name: CBC with Diff; Complete Time: 12:25 sb4 12/10 11:45 Order name: Magnesium; Complete Time: 12:47 sb4 12/10 11:45 Order name: NT PRO-BNP; Complete Time: 12:47 sb4 12/10 11:45 Order name: PT-INR; Complete Time: 12:47 sb4 12/10 11:45 Order name: Ptt, Activated; Complete Time: 12:47 sb4 12/10 11:45 Order name: Troponin HS; Complete Time: 12:47 sb4 12/10 11:45 Order name: COVID-19 Ag + Flu A+B Ag; Complete Time: 12:47 sb4 12/10 11:45 Order name: XRAY CXR (1 view); Complete Time: 12:29 sb4 12/10 11:45 Order name: Cardiac monitoring; Complete Time: 12:16 sb4 12/10 11:45 Order name: EKG - Nurse/Tech; Complete Time: 12:16 sb4 12/10 11:45 Order name: IV Saline Lock; Complete Time: 12:16 sb4 12/10 11:45 Order name: Labs collected and sent; Complete Time: 12:16 sb4 12/10 11:45 Order name: O2 Per Protocol; Complete Time: 1151 sb4 12/10 11:45 Order name: O2 Sat Monitoring; Complete Time: 11:51 sb4 EC:56 Rate is 91 beats/min. Rhythm is regular, Sinus Rhythm with 1st degree heart block. OK sb4 interval is prolonged at 220 msec. QRS interval is normal at 88 msec. QT interval is normal at 360 msec. No Q waves. T waves are Normal. No ST changes noted. Clinical impression: 1st degree heart block. No change from previous ECG on September 20, 2024. Interpreted by me. Reviewed by me. Administered Medications: :56 Drug: DuoNeb Nebulize (3:1) (2.5 mg - 0.5 mg) 3 ml Nebulizer once Route: Nebulizer; kc6 13:20 Follow up: Response: No adverse reaction jl7 12:16 Drug: MethylPrednisoLONE IVP 125 mg IVP once Route: IVP; Site: left antecubital; jl7 13:20 Follow up: Response: No adverse reaction jl7 13:19 Drug: Albuterol Inhalation 2.5 mg Inhalation once Route: Inhalation; jl7 13:19 Drug: AZITHromycin PO 500 mg PO once Route: PO; jl7 Disposition Summary: 12/10/24 13:19 Discharge Ordered Notes: Location: Home sb4 Problem: new sb4 Symptoms: have improved sb4 Condition: Stable sb4 Diagnosis - Unspecified asthma with (acute) exacerbation sb4 Followup: sb4 - With: Emergency Department - When: As needed - Reason: Trouble breathing, Worsening of condition Discharge Instructions: - Discharge Summary Sheet sb4 - Asthma, Adult sb4 - Acute Bronchitis, Adult, [place] sb4 Forms: - Antibiotic Education sb4 - Patient Portal Instructions sb4 - Leadership Thank You Letter sb4 Prescriptions: - Zithromax Z-Krunal 250 mg Oral tablet - take 1 tablet ORAL route once daily for 4 days; 4 tablet; Refills: 0, Product sb4 Selection Permitted - Prednisone 20 mg Oral Tablet - take 2 tablets ORAL route once daily for 5 days; 10 tablet; Refills: 0, Product sb4 Selection Permitted Addendum: 12/12/2024 14:48 Co-signature as Attending Physician, Bob Kamara MD I agree with the assessment and c vinson plan of care. Signatures: Dispatcher [employer] EDBob Nesbitt MD MD cha Leal, Jahala, RN RN jl7 Liv Holley, RN RN ll1 Sharon El, RN RN kc6 Chloé Hebert, PA-C PA-C sb4 Corrections: (The following items were deleted from the chart) 12/10 12:03 11:56 Rate is 91 beats/min. Rhythm is regular, Sinus Rhythm with 1st degree heart sb4 block. OK interval is prolonged at 220 msec. QRS interval is normal at 88 msec. QT interval is normal at 360 msec. No Q waves. T waves are Normal. No ST changes noted. Clinical impression: 1st degree heart block. Interpreted by me. Reviewed by me. sb4
--- NOTE | 2024-12-10 13:19 | ER ---
Nurse's Notes [facility] Name: Emile Holloway Age: 69 yrs Sex: Male : 1955 Arrival Date: 12/10/2024 Time: 11:38 Bed 4 Private MD: Diagnosis: Unspecified asthma with (acute) exacerbation Presentation: 12/10 11:46 Chief complaint: Patient states: Painful, dry cough, wheezing, SOB since Wednesday getting ll1 worse each day. Low grade fever at home. Coronavirus screen: Client denies travel out of the [place] in the last 14 days. cough unrelated to allergies, difficulty breathing, fatigue, fever, shortness of breath, Client presents with at least one sign or symptom that may indicate coronavirus-19. Standard/surgical mask placed on the client. Ebola Screen: Patient denies travel to an Ebola-affected area in the 21 days before illness onset. Initial Sepsis Screen: Does the patient meet any 2 criteria? No. Patient's initial sepsis screen is negative. Does the patient have a suspected source of infection? No. Patient's initial sepsis screen is negative. Risk Assessment: Do you want to hurt yourself or someone else? Patient reports no desire to harm self or others. Onset of symptoms was December 08, 2024. 11:46 Method Of Arrival: Ambulatory ll1 11:46 Acuity: TANMAY 3 ll1 Triage Assessment: 11:49 General: Appears distressed, uncomfortable, Behavior is calm, cooperative, appropriate ll1 for age, Reports fever for fatigue for. Pain: Complains of pain in chest Pain currently is 6 out of 10 on a pain scale. Quality of pain is described as aching, Aggravated by coughing. Cardiovascular: Reports chest pain, fatigue, shortness of breath. Respiratory: Reports shortness of breath cough that is pain with cough Airway is patent Trachea midline Respiratory effort is even, labored, Breath sounds with wheezes bilaterally. Historical: - Allergies: 11:46 No Known Allergies; ll1 - PMHx: 11:46 Arthritis; cardiac stent; High Cholesterol; Hyperlipidemia; Kidney stones; Asthma; ll1 - PSHx: 11:46 heart stents; ll1 - Immunization history:: Adult Immunizations up to date. - Infectious Disease History:: Denies. - Social history:: Smoking status: Patient reports use of chewing tobacco. Patient denies any tobacco usage or history of. Screenin:50 [facility] ED Fall Risk Assessment (Adult) History of falling in the last 3 months, jl7 including since admission No falls in past 3 months (0 pts) Confusion or Disorientation No (0 pts) Intoxicated or Sedated No (0 pts) Impaired Gait No (0 pts) Mobility Assist Device Used No (0 pt) Altered Elimination No (0 pt) Score/Fall Risk Level 0 - 2 = Low Risk Oriented to surroundings, Maintained a safe environment. Abuse screen: Denies threats or abuse. Denies injuries from another. Nutritional screening: No deficits noted. Tuberculosis screening: No symptoms or risk factors identified. Assessment: 11:50 General: Appears in no apparent distress. uncomfortable, Behavior is calm, cooperative, jl7 appropriate for age. Pain: Complains of pain in chest Pain does not radiate. Pain currently is 6 out of 10 on a pain scale. Quality of pain is described as "Sore from coughing" Pain began gradually, Is episodic. Neuro: Level of Consciousness is awake, alert, obeys commands, Oriented to person, place, time, situation. Cardiovascular: Heart tones present Patient's skin is warm and dry. Rhythm is regular. Respiratory: Airway is patent Respiratory effort is even, unlabored, Respiratory pattern is regular, symmetrical, Breath sounds with wheezes in left posterior upper lobe and right posterior upper lobe. Derm: Skin is pink, warm \\T\\ dry. 13:00 Reassessment: Patient appears in no apparent distress at this time. No changes from jl7 previously documented assessment. Patient and/or family updated on plan of care and expected duration. Pain level reassessed. Patient is alert, oriented x 3, equal unlabored respirations, skin warm/dry/pink. Vital Signs: 11:46 BP 146 / 74; Pulse 95; Resp 20; Temp 97.5; Pulse Ox 96% on R/A; Weight 97.52 kg; Height ll1 5 ft. 10 in. ; Pain 6/10; 12:38 BP 128 / 73; Pulse 86; Resp 15; Pulse Ox 96% ; Pain 0/10; jl7 13:00 BP 126 / 70; Pulse 81; Resp 15; Pulse Ox 99% ; jl7 11:46 Body Mass Index 30.85 (97.52 kg, 177.8 cm) ll1 11:46 Pain Scale: Adult ll1 12:38 Pain Scale: Adult jl7 ED Course: 11:40 Patient arrived in ED. al6 11:40 Arm band placed on Patient placed in an exam room, on a stretcher. ll1 11:41 Chloé Hebert PA-C is PHCP. sb4 11:41 Bob Kamara MD is Attending Physician. sb4 11:46 Justyna Watt, NICOLE is Primary Nurse. jl7 11:49 Triage completed. ll1 12:00 Patient has correct armband on for positive identification. Placed in gown. Bed in low jl7 position. Call light in reach. Side rails up X 1. Provided Education on: use of call gomez. Client placed on continuous cardiac and pulse oximetry monitoring. NIBP monitoring applied. environmental monitoring technician on. Pulse ox on. 12:00 Initial lab(s) drawn, by me, sent to lab. EKG done, by ED staff, reviewed by Chloé Hebert PA-C. Inserted saline lock: 20 gauge in left antecubital area, using aseptic technique. Blood collected. Flushed with 10 mL NS. Patient maintains SpO2 saturation greater than 95% on room air. 12:02 XRAY CXR (1 view) In Process Unspecified. EDMS 13:28 No provider procedures requiring assistance completed. IV discontinued, intact, jl7 bleeding controlled, No redness/swelling at site. Pressure dressing applied. Administered Medications: 11:56 Drug: DuoNeb Nebulize (3:1) (2.5 mg - 0.5 mg) 3 ml Nebulizer once Route: Nebulizer; kc6 13:20 Follow up: Response: No adverse reaction jl7 12:16 Drug: MethylPrednisoLONE IVP 125 mg IVP once Route: IVP; Site: left antecubital; jl7 13:20 Follow up: Response: No adverse reaction jl7 13:19 Drug: Albuterol Inhalation 2.5 mg Inhalation once Route: Inhalation; jl7 13:19 Drug: AZITHromycin PO 500 mg PO once Route: PO; jl7 Medication: 11:50 VIS not applicable for this client. jl7 Outcome: 13:19 Discharge ordered by . sb4 13:28 Discharged to home ambulatory, jl7 13:28 Condition: stable 13:28 Discharge instructions given to patient, Instructed on discharge instructions, follow up and referral plans. medication usage, Demonstrated understanding of instructions, follow-up care, medications, Prescriptions given X 2, 13:28 Patient left the ED. jl7 Signatures: Dispatcher [employer] EDJustyna Jules RN RN jl7 Liv Holley RN RN ll1 Sharon El RN RN kc6 Chloé Hebert, PACeciC PA-C sb4 Danica Raymond
[2024-12-10 13:36] VITALS: TEMP 97.5
[2024-12-10 13:39] VITALS: BP 126/70; O2SAT 99
--- NOTE | 2024-12-13 12:48 | EKG ---
Test Date: 2024-12-10 Test Time: 11:54:23 [employer]: MEAGAN MEASUREMENT RESULTS: Intervals: Rate: 91 [place]: 220 QRSD: 88 QT: 360 QTc: 442 Bradley: P: 44 [place]: 220 QRS: 74 T: 70 INTERPRETIVE STATEMENTS: Sinus rhythm with 1st degree AV block Otherwise normal ECG Compared to ECG 09/20/2024 12:40:51 No significant changes Electronically Signed On 12-13-24 12:40:50 CDT by Mitch Rodriguez
== END 2024-12-10 13:28 | disposition home or self-care (01) ==
LOC: ER 11:38
DX: J45.901 Unspecified asthma with (acute) exacerbation (principal); F17.220 Nicotine dependence, chewing tobacco, uncomplicated; Z11.52 Encounter for screening for COVID-19; Z95.818 Presence of other cardiac implants and grafts
CPT/HCPCS: 93005; 85025; 80048; 36415; 83735; 85610; 85730; 84484; 83880; 71045; 96374; 99285; 87428; J7613 ×2; J7644; J2919